=== PATIENT | female | born 2000 | race Caucasian/White ===

== ENCOUNTER 2024-11-26 04:07 | Emergency (ER) | payer MEDICAID, SELFPAY ==
--- NOTE | 2024-11-26 04:16 | XR_ITS ---
PROCEDURE INFORMATION: Exam: XR Chest Exam date and time: 11/26/2024 4:56 AM Age: 24 years old Clinical indication: Other: Bloody sputum; Additional info: Blood streatked sputum TECHNIQUE: Imaging protocol: Radiologic exam of the chest. Views: 2 views. COMPARISON: No relevant prior studies available. FINDINGS: Lungs: Unremarkable. No consolidation. Pleural spaces: Unremarkable. No pleural effusion. No pneumothorax. Heart/Mediastinum: Unremarkable. No cardiomegaly. Bones/joints: Unremarkable. IMPRESSION: No acute findings.
[2024-11-26 04:17] VITALS: BP 179/119; PULSE 92; RESP 18; TEMP 36.8; O2SAT 97; BMI 27.8
[2024-11-26 04:37] LABS: Basophils # 0.1 K/mm3 (0-0.2); Basophils % 0.4 % (0.1-2.0); Eosinophils # 0.1 K/mm3 (0.0-0.4); Eosinophils % 0.7 % (0.1-12.0); Hematocrit 38.5 % (37.0-47.0); Hemoglobin 13.3 g/dL (12.2-16.2); Lymphocytes # 4.6 K/mm3 (0.7-4.5); Lymphocytes % 40.9 % (10-50); Mean Corpuscular HGB Conc 34.5 g/dL (31.8-35.4); Mean Corpuscular Hemoglobin 30.3 pg (27.0-31.2); Mean Corpuscular Volume 87.7 fl (81-99); Mean Platelet Volume 10.4 fl (7.4-10.4); Monocytes # 0.7 K/mm3 (0.1-1.0); Monocytes % 6.3 % (1.7-9.3); Neutrophils # 5.8 K/mm3 (1.8-7.8); Neutrophils % 51.4 % (37.0-80.0); Nucleated Red Blood Cells # 0 10^3/uL; Nucleated Red Blood Cells % 0 %; Platelet Count 274 K/mm3 (142-424); Red Blood Count 4.39 M/mm3 (4.20-5.40); Red Cell Distribution Width 12.2 % (11.5-17.5); Red Cell Distribution Width-SD 39.1 fL; White Blood Count 11.2 K/mm3 (4.8-10.8)
[2024-11-26 04:53] LABS: HCG Qualitative, Serum Negative (Negative)
[2024-11-26 04:54] LABS: Alanine Aminotransferase 18 U/L (12-78); Albumin Level 4.4 g/dl (3.5-5.0); Albumin/Globulin Ratio 1.3 (1.1-1.8); Alkaline Phosphatase 50 U/L (38-126); Anion Gap 16.3 mEq/L (5-15); Aspartate Amino Transferase 22 U/L (14-36); Bilirubin,Total 0.4 mg/dl (0.2-1.3); Blood Urea Nitrogen 17 mg/dl (7-17); Calcium 9.3 mg/dl (8.4-10.2); Carbon Dioxide 21 mmol/L (22.0-30.0); Chloride 104 mmol/L (98-107); Creatinine Clearance Estimated 158 mL/min (50-200); Estimated Glomerular Filt Rate 103 ml/min (>60); GFR (African American) 124 ML/MIN (>60); Globulin 3.3 g/dL (1.3-3.2); Glucose 91 mg/dl (74-100); Potassium 4.3 mmoL/L (3.5-5.1); Sodium 137 mmol/L (136-145); Total Protein,Serum 7.7 g/dl (6.3-8.2)
--- NOTE | 2024-11-26 04:55 | ED_ITS ---
Discharge Plan Disposition Patient Disposition: Home, Self-Care Condition: Good Prescriptions Prescriptions: New doxycycline hyclate 100 mg capsule 100 mg PO BID 5 Days Qty: 9 0RF Referrals Follow up/Referrals: Ana Adams [Primary Care Provider] - See instructions Lamar Wright MD [Physician] - See instructions (Patient has had 2 unprovoked episodes of small-volume hemoptysis. She has tiny changes in the bibasilar lungs without associated symptoms of pneumonia, or history of aspiration. No evidence of bronchitis, PE, or other causes. I am suspicious for other anatomic abnormality requiring further workup. ) Activity Restrictions/Add. Instructions Additional Instructions/Restrictions: You were evaluated in the ER and are appropriate for discharge at this time. Take the prescribed doxycycline as directed, do not skip doses, do not stop taking it early. Make an appointment with your primary care doctor for reevaluation in a few days. Also call the pulmonology office to schedule an appointment for further evaluation. Return to the ER with new, worsening, or otherwise concerning symptoms. Clinical Impressions Clinical Impression: Cough with hemoptysis Discharge ED Provider: Miki Palacios General Adult HPI General Chief complaint: Upper Respiratory Infection Stated complaint: coughing up blood Time Seen by Provider: 11/26/24 04:15 Mode of Arrival: Ambulatory Source of Information: Patient Description of Symptoms (Recalled from ER Triage Doc. by RN): PT HERE W C/O COUGHING UP BLOOD TINGED SPUTUM AROUND 0300 THIS AM. DENIES PAIN/FEVER/SOA History of Present Illness HPI narrative: 24-year-old female presents to the ER coughing up blood-straight sputum started approximately 1 hour prior to arrival. Patient reports she felt like she had a tickle in her throat when she went to bed and when she coughed, it was blood- streaked sputum. This has only been a small amount. She is not coughing up marty blood or blood clots. She has no chest pain or difficulty breathing. She does not have any history of blood clots, does not take control, no recent long distance travel. She denies recent illness. She states she has had random episodes like this in the past and was told by her PCP she may have busted a capillary coughing. She denies any other associated symptoms. Related Data Previous Rx's ?Medication ?Instructions ?Recorded doxycycline hyclate 100 mg capsule 100 mg PO BID 5 days #9 caps 11/26/24 Allergies Allergy/AdvReac Type Severity Reaction Status Date / Time amoxicillin Allergy Unknown Verified 11/26/24 04:21 allergy reaction [facility] Disclaimer: The information contained in this section may have been updated after the patient was seen, as this information can be updated by other users. Social History Smoking Status: Current every day smoker alcohol intake: never current occupational status: other Travel in the last 8 weeks: None ROS Obtained: Yes Systems reviewed as appropriate & no additional complaints except as documented per HPI Physical Exam General General appearance: alert and in no apparent distress Head Head exam: atraumatic and normocephalic Eye Eye exam: Present PERRL and EOMI ENT ENT exam: Present mucous membranes moist Neck Neck exam: Present normal inspection and full ROM Chest Chest inspection: Present symmetric chest wall rise Respiratory Respiratory exam: Present normal lung sounds bilaterally and other (Is clear bilaterally with good air movement throughout saturating 97 to 100% on room air with no adventitious sounds, no coughing); Absent respiratory distress, wheezes or stridor Cardiovascular Cardiovascular exam: Present regular rate and normal rhythm Abdominal Exam Abdominal exam: Present soft; Absent distention or tenderness Extremities Exam Extremities exam: Present full ROM; Absent edema Neurological Exam Neurological exam: Present alert and oriented X3; Absent motor sensory deficit Psychiatric Psychiatric exam: Present normal affect and normal mood Skin Skin exam: Present warm and dry Medical Decision Making Medical Records Screening: Per USPSTF and CDC recommendations, given the prevalence of disease in our region, it is our hospital?s policy to screen for HIV and viral Hepatitis for all patients aged 18 and over and those with ongoing risk factors. Lucio Inquiry Pt receiving controlled substance: No Vital Signs: 11/26/24 04:17 Temperature 98.3 F Temperature Source Oral Pulse Rate [Apical] 92 H Respiratory Rate 18 Blood Pressure [Right Arm] 179/119 H Blood Pressure Mean [Right Arm] 139 02 Sat by Pulse Oximetry 97 Oxygen Delivery Method Room Air Lab Data Lab Results 11/26/24 04:31: WBC 11.2 H, RBC 4.39, Hgb 13.3, Hct 38.5, MCV 87.7, MCH 30.3, MCHC 34.5, RDW 12.2, Plt Count 274, MPV 10.4, Neut % (Auto) 51.4, Lymph % (Auto) 40.9, [place] % (Auto) 6.3, Eos % (Auto) 0.7, Baso % (Auto) 0.4, Neut # (Auto) 5.8, Lymph # (Auto) 4.6 H, [place] # (Auto) 0.7, Eos # (Auto) 0.1, Baso # (Auto) 0.1, D- Dimer 0.71 H, Sodium 137, Potassium 4.3, Chloride 104, Carbon Dioxide 21 L, A nion Gap 16.3 H, BUN 17, Creatinine 0.70, Estimated Creat Clear 158, Estimated GFR 103, Est GFR ( Amer) 124, Glucose 91, Calcium 9.3, Total Bilirubin 0.4, AST 22, ALT 18, Alkaline Phosphatase 50, Total Protein 7.7, Albumin 4.4, G lobulin 3.3 H, Albumin/Globulin Ratio 1.3, Serum HCG, Qual Negative 11/26/24 04:31 11/26/24 04:31 Orders (Tests/Meds): ED MEDICATIONS Discontinued Medications Generic Name Dose Route Start Last Admin Trade Name Geoffreyq PRN Reason Stop Dose Admin Doxycycline Hyclate 100 mg 11/26/24 06:08 Doxycycline Hycl 100 Mg Tablet PO 11/26/24 06:09 ONCE ONE Iopamidol 70 ml 11/26/24 05:36 11/26/24 05:37 Iopamidol-370 (76%);100ml Bottle IV 11/26/24 05:37 70 ml ONCE ONE Administration Sodium Chloride 50 ml 11/26/24 05:36 11/26/24 05:37 0.9 % Sodium Chloride 50 Ml Vial IV 11/26/24 05:37 50 ml ONCE ONE Administration Sodium Chloride 10 ml 11/26/24 05:36 11/26/24 05:37 Sodium Chloride 0.9% 10ml Syr (Rad Only) IV 11/26/24 05:37 10 ml ONCE ONE Administration ORDERS Category Date Time Status CT angio chest PE protocol Stat Cat Scan 11/26/24 05:16 Completed CXR 2 view (NOT portable) [XR chest 2V] Stat Exams 11/26/24 04:16 Completed CBC w/Auto Diff [Complete Blood Count Auto Diff] Stat Lab 11/26/24 04:31 Completed CMP [Comprehensive Metabolic Panel] Stat Lab 11/26/24 04:31 Completed D-Dimer Stat Lab 11/26/24 04:31 Completed HCG Qualitative, Serum Stat Lab 11/26/24 04:31 Completed Medical Decision Narrative: In summary, this 24-year-old female presents to the emergency department today with 1 episode of coughing up blood-streaked sputum. On initial evaluation patient is hemodynamically stable, afebrile, lungs clear bilaterally with no adventitious sounds, saturating well on room air. Patient does not have marty hemoptysis which is very reassuring against something serious like diffuse alveolar hemorrhage, I also have much lower suspicion for PE, I considered bronchitis, viral syndrome, I considered aspirated foreign body but patient has no history or clinical findings consistent with this. She also has no history of or clinical findings consistent with heart failure, no social history concerning for TB exposure, patient reports she does not smoke but does vape which could cause damage to the lungs. She has no known bronchiectasis or other lung pathology. Chest x-ray personally interpreted does not demonstrate acute intrathoracic abnormality, see radiology read for final interpretation. Labs reviewed demonstrate trace leukocytosis which is nonspecific and nonactionable, no anemia, CMP nonactionable, test negative, D-dimer slightly elevated at 0.71. By years criteria I could exclude PE but I do not have another explanation for patient's blood-streaked sputum at this time. I am also concerned with her history of vaping and history of having an episode like this 1 month ago that she could potentially have a structural abnormality or lung lesion not visualized on chest x-ray. CTA PE has been ordered for further evaluation for PE as well as to evaluate the lung parenchyma for abnormalities such as mass, vascular malformation, cavitary lesion, etc. CTAP personally interpreted does not demonstrate PE, patient has 2 small areas of abnormality in the bibasilar lungs, possibly atelectasis, or infiltrate, however the 1 lesion appears to have a very small cavitary component. No evidence of abscess. See radiology read for final interpretation. Radiology read in agreement with my personal interpretation of the CTA PE. Since patient does have these findings as well as a mild leukocytosis, I am going to treat with antibiotics though I do have fairly low suspicion for this being a true infectious etiology. Because patient has had 2 episodes like this in the last month with unprovoked hemoptysis without other obvious associated symptoms or illness, I recommended her to have close outpatient follow-up with both her PCP and with pulmonology. I provided a referral to Dr. Wright for this purpose for further evaluation. Patient is comfortable with this plan. She was also prescribed antibiotics for outpatient management. Patient was given instructions on symptomatic management, follow up instructions, and return precautions for the emergency department. Patient indicated understanding and was discharged in stable condition. Critical Care Critical Care Time Critical Care Time: No
[2024-11-26 04:58] LABS: D-Dimer 0.71 ug/mL (0.0-0.5)
--- NOTE | 2024-11-26 05:16 | CT_ITS ---
PROCEDURE INFORMATION: Exam: CTA Chest With Contrast Exam date and time: 11/26/2024 5:30 AM Age: 24 years old Clinical indication: Other: Bloody sputum; Additional info: Dimer elevated, blood streaked sputum, vapes TECHNIQUE: Imaging protocol: Computed tomographic angiography of the chest with contrast. Exam focused on the arteries. 3D rendering (Not supervised by radiologist): MIP and/or 3D reconstructed images were created by the technologist. Radiation optimization: All CT scans at this facility use at least one of these dose optimization techniques: automated exposure control; mA and/or kV adjustment per patient size (includes targeted exams where dose is matched to clinical indication); or iterative reconstruction. Contrast material: ISOVUE; Contrast volume: 70 ml; Contrast route: INTRAVENOUS (IV); COMPARISON: CR XR CHEST 2V 11/26/2024 4:56 AM FINDINGS: Pulmonary arteries: Normal. No pulmonary emboli. Aorta: Unremarkable. No aortic aneurysm. No aortic dissection. Lungs: There is a small area of airspace disease seen medially in the left lower lobe. This could represent an area of early infiltrate. A small amount of subtle airspace disease is also seen centrally in the right lower lobe.. No consolidation. No masses. Pleural spaces: Unremarkable. No pneumothorax. No pleural effusion. Heart: No coronary calcification is noted. . No cardiomegaly. No pericardial effusion. Lymph nodes: Unremarkable. No enlarged lymph nodes. Bones/joints: Unremarkable. No acute fracture. Soft tissues: Unremarkable. IMPRESSION: 1. No evidence of pulmonary embolus. 2. Subtle bibasilar airspace opacities may represent aspiration or early infiltrate.
[2024-11-26] MEDS: IOPAMIDOL-370 (76%);100ML BOTTLE 70 ML IV (05:37)
[2024-11-26] MEDS: 0.9 % SODIUM CHLORIDE 50 ML VIAL IV (05:37)
[2024-11-26] MEDS: SODIUM CHLORIDE 0.9% 10ML SYR (RAD ONLY) 10 ML IV (05:37)
[2024-11-26] MEDS: DOXYCYCLINE HYCL 100 MG TABLET PO (06:19)
[2024-11-26 06:24] VITALS: BP 115/79; PULSE 80; RESP 18; TEMP 36.6; O2SAT 99
== END 2024-11-26 06:25 | disposition home or self-care (01) ==
LOC: ER 06:23
PROVIDERS: Emergency Provider Emergency Medicine; PCP Nurse Practitioner Women's Health
DX: R04.2 Hemoptysis (principal)
CPT/HCPCS: 71046; 71275; 80053; 84703; 85025; 85378; 99284; Q9967

== ENCOUNTER 2024-12-23 01:34 | Emergency (ER) | payer MEDICAID, SELFPAY ==
[2024-12-23] VITALS (8 sets, daily range): BP systolic 111–147; BP diastolic 65–95; PULSE 68–95; RESP 15–20; TEMP 36.6; O2SAT 96–100; BMI 28.1
--- NOTE | 2024-12-23 01:40 | ECG_ITS ---
APPROVED REPORT Exam: Resting ECG HR:86 bpm ECG Measurements Heart Rate 86 AXES UT 113 P 40 QRSd 89 QRS 70 QT 348 T 46 QTc 392 Conclusion SINUS RHYTHM WITH SINUS ARRHYTHMIA WITH SHORT UT INTERVAL No delta wave, no WPW, no STEMI Electronically signed by : ADRIANA FITZGERALD, 12/24/2024 03:22:50
--- NOTE | 2024-12-23 01:46 | XR_ITS ---
PROCEDURE INFORMATION: Exam: XR Chest Exam date and time: 12/23/2024 2:05 AM Age: 24 years old Clinical indication: Pain; Chest pressure; Additional info: Chest pain TECHNIQUE: Imaging protocol: Radiologic exam of the chest. Views: 2 views. COMPARISON: CT ANGIO CHEST PE PROTOCOL 11/26/2024 5:30 AM FINDINGS: Lungs: Unremarkable. No consolidation. Pleural spaces: Unremarkable. No pleural effusion. No pneumothorax. Heart/Mediastinum: Unremarkable. No cardiomegaly. Vasculature: Unremarkable. Bones/joints: Unremarkable. IMPRESSION: No acute findings.
[2024-12-23] MEDS: ASPIRIN 81MG CHEWABLE TABLET 324 MG PO (01:56)
[2024-12-23 02:06] LABS: HCG Qualitative, Serum Negative (Negative)
[2024-12-23 02:07] LABS: Basophils # 0.1 K/mm3 (0-0.2); Basophils % 0.5 % (0.1-2.0); Eosinophils % 0.2 % (0.1-12.0); Hemoglobin 14.2 g/dL (12.2-16.2); Immature Granulocytes # 0.03 10^3uL; Immature Granulocytes % 0.2 %; Lymphocytes # 3.2 K/mm3 (0.7-4.5); Lymphocytes % 24.6 % (10-50); Mean Corpuscular Hemoglobin 29.8 pg (27.0-31.2); Mean Corpuscular Volume 90.3 fl (81-99); Monocytes # 0.9 K/mm3 (0.1-1.0); Monocytes % 6.6 % (1.7-9.3); Neutrophils # 8.8 K/mm3 (1.8-7.8); Neutrophils % 67.9 % (37.0-80.0); Nucleated Red Blood Cells # 0 10^3/uL; Nucleated Red Blood Cells % 0 %; Platelet Count 152 K/mm3 (142-424); Red Blood Count 4.76 M/mm3 (4.20-5.40); Red Cell Distribution Width 12.7 % (11.5-17.5); Red Cell Distribution Width-SD 41.9 fL; White Blood Count 12.9 K/mm3 (4.8-10.8)
[2024-12-23 02:08] LABS: Albumin Level 4.2 g/dl (3.5-5.0); Chloride 108 mmol/L (98-107); Sodium 138 mmol/L (136-145)
[2024-12-23 02:09] LABS: Potassium 4.6 mmoL/L (3.5-5.1)
[2024-12-23 02:11] LABS: Alanine Aminotransferase 21 U/L (12-78); Anion Gap 11.6 mEq/L (5-15); Aspartate Amino Transferase 19 U/L (14-36); Blood Urea Nitrogen 16 mg/dl (7-17); Carbon Dioxide 23 mmol/L (22.0-30.0); Creatinine Clearance Estimated 186 mL/min (50-200); Estimated Glomerular Filt Rate 123 ml/min (>60); GFR (African American) 149 ML/MIN (>60)
[2024-12-23 02:12] LABS: Albumin/Globulin Ratio 1.6 (1.1-1.8); Alkaline Phosphatase 56 U/L (38-126); Bilirubin,Total 0.2 mg/dl (0.2-1.3); Calcium 9.9 mg/dl (8.4-10.2); Globulin 2.6 g/dL (1.3-3.2); Glucose 116 mg/dl (74-100); Total Protein,Serum 6.8 g/dl (6.3-8.2)
--- NOTE | 2024-12-23 02:18 | [facility].EDCP ---
Discharge Plan Disposition Patient Disposition: Home, Self-Care Condition: Good Prescriptions Prescriptions: No Action doxycycline hyclate 100 mg capsule 100 mg PO BID 5 Days Qty: 9 0RF Referrals Follow up/Referrals: Kai Mathews MD [Staff Physician] - See instructions (Random episodes of chest pain, no arrhythmia identified in ER, reassuring ER workup, but may benefit from Holter) Provider,Eugene, [Primary Care Provider] - See instructions Activity Restrictions/Add. Instructions Additional Instructions/Restrictions: You were evaluated in the ER and are believed to be appropriate for discharge at this time. Continue all home medications as previously prescribed. Call the cardiology office and make an appointment for close follow-up. Also follow-up closely in the next few days with your primary care doctor. Return to the ER with any new, worsening, or otherwise concerning symptoms. Clinical Impressions Clinical Impression: Chest pain Print Language Print Language: German Discharge ED Provider: Miki Palacios General Chief Complaint: Chest Pain Stated Complaint: chest tightness, trouble breathing Time Seen by Provider: 12/23/24 01:45 Mode of Arrival: Ambulatory Source of Information: Patient Description of Symptoms (Recalled from ER Triage Doc. by RN): Patient states she was sitting not doing anything and got dizzy/light headed and then started having tightness in the middle of her chest and back History of Present Illness HPI narrative: 24-year-old female presents to the ER with concerns of lightheadedness and chest tightness. She reports this started approximately 30 minutes prior to arrival. Her symptoms only lasted approximately 20 to 30 minutes and were improving by the time she arrived in the ER. She reports being asymptomatic at this time. She states she has had multiple episodes like this over the last month. She reports she stopped vaping after she started coughing up blood one month ago. Since stopping her hemoptysis has resolved completely. She has seen lung doctors and has been reassured that her lungs overall look good but she is newly on Symbicort and albuterol. She has also been on steroids. She states she occasionally gets episodes randomly where she feels lightheaded and has tightness in her chest and back. She has not been specifically evaluated for these until tonight. She denies nausea or vomiting. No numbness, tingling, or weakness. She states she took her albuterol tonight before the chest symptoms started and also took it after without significant relief. She and her family suspect it may be anxiety related as patient has been under additional stress and is worried about an upcoming dentist appointment. No other associated complaints or concerns at this time. Related Data Previous Rx's ?Medication ?Instructions ?Recorded doxycycline hyclate 100 mg capsule 100 mg PO BID 5 days #9 caps 11/26/24 Allergies Allergy/AdvReac Type Severity Reaction Status Date / Time amoxicillin Allergy Unknown Verified 11/26/24 04:21 allergy reaction [facility] Disclaimer: The information contained in this section may have been updated after the patient was seen, as this information can be updated by other users. Social History (Updated 11/26/24 @ 06:20 by Miki Palacios MD) Smoking Status: Former smoker alcohol intake: never current occupational status: other Travel in the last 8 weeks?: None ROS Obtained: Yes Systems reviewed as appropriate & no additional complaints except as documented Per HPI Physical Exam General General appearance: alert and in no apparent distress Head Head exam: atraumatic and normocephalic Eye Eye exam: Present PERRL and EOMI ENT ENT exam: Present mucous membranes moist Neck Neck exam: Present normal inspection and full ROM Chest Chest inspection: Present symmetric chest wall rise Respiratory Respiratory exam: Present normal lung sounds bilaterally; Absent respiratory distress, wheezes or stridor Cardiovascular Cardiovascular exam: Present regular rate and normal rhythm Abdominal Exam Abdominal exam: Present soft; Absent distention or tenderness Extremities Exam Extremities exam: Present full ROM Neurological Exam Neurological exam: Present alert and oriented X3; Absent motor sensory deficit Psychiatric Psychiatric exam: Present normal affect and normal mood Skin Skin exam: Present warm and dry HEART Score HEART Score HEART Score assessment performed?: Yes History (anamnesis): Slightly suspicious ECG: Normal Age: <45 years Risk factors: 1-2 risk factors Troponin: </= normal limit HEART Score: 1 Critical Care Critical Care Time Critical Care Time: No Medical Decision Making Medical Records Medical records reviewed: Yes I reviewed the patient's medical records. Lucio Inquiry Pt receiving controlled substance: No Vital Signs Vital Signs: 12/23/24 01:39 12/23/24 02:30 12/23/24 03:00 Temperature 97.9 F Temperature Source Oral Pulse Rate 79 Pulse Rate [Right Radial] 94 H Respiratory Rate 16 15 19 Blood Pressure 118/75 111/69 Blood Pressure [Right Arm] 147/95 H Blood Pressure Mean [Right Arm] 112 Blood Pressure Source [Right Arm] Automatic Cuff Blood Pressure Position [Right Arm] Supine 02 Sat by Pulse Oximetry 100 96 Oxygen Delivery Method Room Air 12/23/24 03:30 12/23/24 04:00 12/23/24 04:30 Temperature Temperature Source Pulse Rate 76 78 95 H Pulse Rate [Right Radial] Respiratory Rate 15 15 20 Blood Pressure 118/65 121/78 137/75 Blood Pressure [Right Arm] Blood Pressure Mean [Right Arm] Blood Pressure Source [Right Arm] Blood Pressure Position [Right Arm] 02 Sat by Pulse Oximetry 97 97 96 Oxygen Delivery Method 12/23/24 05:00 Temperature Temperature Source Pulse Rate 80 Pulse Rate [Right Radial] Respiratory Rate 17 Blood Pressure 114/74 Blood Pressure [Right Arm] Blood Pressure Mean [Right Arm] Blood Pressure Source [Right Arm] Blood Pressure Position [Right Arm] 02 Sat by Pulse Oximetry 97 Oxygen Delivery Method Lab Data Labs: Lab Results 12/23/24 01:45: WBC 12.9 H, RBC 4.76, Hgb 14.2, Hct 43.0, MCV 90.3, MCH 29.8, MCHC 33.0, RDW 12.7, Plt Count 152, MPV 12.0 H, Neut % (Auto) 67.9, Lymph % (Auto) 24.6, [place] % (Auto) 6.6, Eos % (Auto) 0.2, Baso % (Auto) 0.5, Neut # (Auto) 8.8 H, Lymph # (Auto) 3.2, [place] # (Auto) 0.9, Eos # (Auto) 0.0, Baso # (Auto) 0.1, Sodium 138, Potassium 4.6, Chloride 108 H, Carbon Dioxide 23, Anion Gap 11.6, BUN 16, Creatinine 0.60, Estimated Creat Clear 186, Estimated GFR 123, Est GFR ( Amer) 149, Glucose 116 H, Calcium 9.9, Total Bilirubin 0.2, AST 19, ALT 21, Alkaline Phosphatase 56, Troponin I < 0.01, Total Protein 6.8, Albumin 4.2, Globulin 2.6, Albumin/Globulin Ratio 1.6, Serum HCG, Qual Negative, HCV Ab GISELA w/Rflx PCR Qn Negative, HIV Ag/Ab Combo Qual Negative 12/23/24 02:46: VBG pH 7.37, VBG pCO2 38.0, VBG pO2 48.8 H, VBG HCO3 21.4 L, VBG Total CO2 22.5 L, VBG O2 Saturation 84.5 H, VBG Base Excess -3.9 L, VBG Lactic Acid 2.4 H 12/23/24 04:33: Troponin I < 0.01 12/23/24 01:45 12/23/24 01:45 Response Orders (Tests/Meds): ED MEDICATIONS Discontinued Medications Generic Name Dose Route Start Last Admin Trade Name Arie PRN Reason Stop Dose Admin Aspirin 324 mg 12/23/24 01:45 12/23/24 01:56 Aspirin 81mg Chewable Tablet PO 12/23/24 01:46 324 mg ONCE ONE Administration Belladonna Alkaloids 60 ml 12/23/24 01:45 12/23/24 01:58 Belladonna Alkaloids 60 Ml Ml PO 12/23/24 01:46 Not Given ONCE ONE ORDERS Category Date Time Status XR chest 2V Stat Exams 12/23/24 01:46 Completed Complete Blood Count Auto Diff Stat Lab 12/23/24 01:45 Completed Comprehensive Metabolic Panel Stat Lab 12/23/24 01:45 Completed HCG Qualitative, Serum Stat Lab 12/23/24 01:45 Completed HIV Combo Stat Lab 12/23/24 01:45 Completed Hepatitis C Ab Qual. W/ RFX Stat Lab 12/23/24 01:45 Completed Troponin I Q3H Lab 12/23/24 04:33 Completed Troponin I Q3H Lab 12/23/24 08:00 Ordered Troponin I Stat Lab 12/23/24 01:45 Completed VBG [Venous Blood Gas] Stat RT 12/23/24 02:46 Completed MDM Narrative Medical Decision Narrative: In summary, this 24-year-old female with social determinants of health including a history of vaping who recently stopped presents to the emergency department today with chest tightness and dizziness that started unprovoked but spontaneously resolved. On initial evaluation patient is hemodynamically stable, afebrile, asymptomatic, cardiopulmonary exam benign, remainder of exam reassuring. Differential diagnosis includes but is not limited to ACS, arrhythmia, esophageal spasm, pneumothorax, anxiety, panic attack, electrolyte abnormality, I considered the possibility of PE but patient is PERC negative, among others. Based on these concerns, I ordered serum labs, chest x-ray, cardiac workup. ECG personally interpreted demonstrates sinus rhythm, rate 86, normal axis, normal NV and QTc, no STEMI. Patient received aspirin for treatment due to its cardioprotective features though I do have lower suspicion for cardiac etiology. I had also ordered GI cocktail for the patient but she declined this. Labs personally reviewed demonstrate mild leukocytosis WBC 12.9 nonspecific and nonactionable, hemoglobin normal at 14.2, CMP nonactionable, initial troponin undetectably low less than 0.01. VBG with normal pH and PCO2. VBG not specifically actionable. No evidence of asthma exacerbation. XR personally interpreted demonstrates no acute intrathoracic abnormality, see radiology read for final interpretation. Patient was placed into ED observation at 0230 for serial troponins to rule out evolving MA and preclude unnecessary admission. Patient continues to be on the cardiac catheterization technician and has been frequently reassessed. She remains asymptomatic. Repeat troponin also undetectably low less than 0.01. In the setting of undetectable serial troponins, very low heart score, reassuring EKG, and absence of symptoms, I believe patient is appropriate for discharge at this time. I did provide referral to cardiology for further outpatient follow-up. Patient is comfortable with this plan. Patient was given instructions on symptomatic monitoring and management, follow up instructions, and return precautions for the emergency department. Patient indicated understanding and was discharged in stable condition. I had [id number] visit with the patient when providing discharge instructions. Total time involved discharging the patient was less than 30 minutes. Total time in ED observation: 2 hours 54 minutes
[2024-12-23 02:32] LABS: Troponin I < 0.01 ng/ml (0.00-0.034)
[2024-12-23 02:53] LABS: HIV Combo NEGATIVE (Negative)
[2024-12-23 02:57] LABS: Lactate Venous 2.4 mmol/L (0.4-2.0); VBG Base Excess -3.9 mmol/L (-2.4-2.3); VBG HCO3 21.4 mmol/L (23-30); VBG Oxygen Saturation 84.5 % (50-70); VBG PH 7.37 mmol/L (7.31-7.41); VBG PO2 48.8 mmol/L (28-40); VBG Total CO2 22.5 mmol/L (23-27)
[2024-12-23 03:01] LABS: Hepatitis C Ab Qual. W/ RFX NEGATIVE (Negative)
[2024-12-23 05:21] LABS: Troponin I < 0.01 ng/ml (0.00-0.034)
== END 2024-12-23 05:28 | disposition home or self-care (01) ==
PROVIDERS: Emergency Provider Emergency Medicine
DX: R07.89 Other chest pain (principal); R42 Dizziness and giddiness; Z87.891 Personal history of nicotine dependence; Z11.59 Encounter for screening for other viral diseases; Z11.4 Encounter for screening for human immunodeficiency virus [HIV]
CPT/HCPCS: 71046; 80053; 82803; 84484; 84703; 85025; 86803; 87389; 93005; 99285

== ENCOUNTER 2025-01-07 11:06 | Outpatient (CLI) | payer MEDICAID, SELFPAY ==
[2025-01-07 12:44] LABS: Albumin Level 4.6 g/dl (3.5-5.0)
[2025-01-07 12:47] LABS: Alanine Aminotransferase 20 U/L (12-78); Alkaline Phosphatase 71 U/L (38-126); Aspartate Amino Transferase 21 U/L (14-36); Bilirubin,Direct 0.1 mg/dl (0.0-0.4); Bilirubin,Indirect 0.3 mg/dL (0.0-0.9); Bilirubin,Total 0.4 mg/dl (0.2-1.3); Bilirubin,Unconjugated 0.3 mg/dL (0.0-1.1); Chol/HDL Ratio 6.5 (1-3.5); Cholesterol 268 mg/dl (140-200); HDL Cholesterol 41 mg/dl (40-60); Total Protein,Serum 7.4 g/dl (6.3-8.2); Triglycerides 264 mg/dl (30-150); VLDL Cholesterol 53 mg/dL (0-40)
[2025-01-07 12:49] LABS: Hemoglobin A1C 5.1 % (4.0-6.0)
[2025-01-07 12:59] LABS: Direct LDL Cholesterol 172.99 mg/dL (100-129)
[2025-01-07 13:04] LABS: Free T4 (Free Thyroxine) 1.02 ng/dl (0.78-2.19)
[2025-01-07 13:17] LABS: Thyroid Stimulating Hormone 2.54 uIU/mL (0.465-4.68)
== END 2025-01-07 23:59 | disposition home or self-care (01) ==
LOC: LAB 11:06
PROVIDERS: PCP Nurse Practitioner Women's Health; Visit Provider Nurse Practitioner
DX: R93.1 Abnormal findings on diagnostic imaging of heart and coronary circulation (principal); R07.9 Chest pain, unspecified
CPT/HCPCS: 36415; 80061; 80076; 83036; 84439; 84443

== ENCOUNTER 2025-02-05 12:59 | Emergency (ER) | payer MEDICAID, SELFPAY ==
[2025-02-05 13:04] VITALS: BP 141/89; PULSE 77; RESP 17; O2SAT 100
[2025-02-05 13:07] VITALS: BP 141/89; PULSE 84; RESP 17; TEMP 36.6; O2SAT 100; BMI 26.6
--- NOTE | 2025-02-05 13:08 | CT_ITS ---
FINAL REPORT TECHNIQUE: Oral and IV contrast enhanced exam. Coronal and sagittal images were obtained and reviewed. This study was performed with techniques to keep radiation doses as low as reasonably achievable, (ALARA). Individualized dose reduction techniques using automated exposure control or adjustment of mA and/or kV according to the patient''s size were employed. CLINICAL HISTORY: Right sided ABD pain/flank pain history of stones COMPARISON: None FINDINGS: Abdomen: No acute density is seen within the lung bases. The gallbladder is unremarkable. There is moderate right hydronephrosis secondary to a proximal right ureteral stone measuring 3 mm. No left renal stone disease seen. The remaining solid abdominal organs are unremarkable. No bowel obstruction is present. There is no free air. No fluid collection is seen. There is no adenopathy. Pelvis: The appendix is normal. Pelvic bowel loops are unremarkable. The uterus and ovaries are unremarkable. There is no free fluid. No pelvic mass is seen. IMPRESSION: 3 mm proximal right ureteral stone with moderate right hydronephrosis. Reviewed, Interpreted and Dictated by Judy Cordova MD Transcribed by Marianna Pan Authenticated and [facility]
--- NOTE | 2025-02-05 13:10 | ED_ITS ---
Discharge Plan Disposition Patient Disposition: Home, Self-Care Condition: Good Prescriptions Prescriptions: New hydrocodone-acetaminophen 5-325 mg tablet 1 tab PO Q8H PRN (Reason: pain (scale score 7-10)) Qty: 9 0RF tamsulosin [Flomax] 0.4 mg capsule 0.4 mg PO DAILY Qty: 14 0RF ondansetron 4 mg tablet,disintegrating 4 mg PO Q6H PRN (Reason: nausea and vomiting) Qty: 10 0RF No Action metformin 1,000 mg tablet,ER ramya.retention 24 hr PO Patient Comments: TAKE ONE (1) TABLET EVERY DAY BY ORAL ROUTE FOR 30 DAYS. budesonide-formoterol [Symbicort] 160-4.5 mcg/actuation HFA aerosol inhaler inhalation Patient Comments: INHALE TWO (2) PUFFS BY MOUTH TWICE A DAY rosuvastatin [Crestor] 40 mg tablet 40 mg PO DAILY Qty: 30 2RF Referrals Follow up/Referrals: Ana Adams [Primary Care Provider, Medical] - See instructions Jarek,Xavier Louis MD [Referring, Urology] - See instructions Activity Restrictions/Add. Instructions Additional Instructions/Restrictions: Please utilize 650 mg p.o. Tylenol, and ibuprofen prior to utilizing narcotic medication, please do not take Tylenol and narcotic medication together, please utilize Zofran (antinausea medicine), as needed for nausea, please utilize the Flomax medication once daily until passage of your stone. Strain your urine until passage of your stone. Please follow-up with your PCP and urologist. Clinical Impressions Clinical Impression: Right nephrolithiasis Instructions Patient Instructions: DI for Kidney Stones Print Language Print Language: Pakistani Discharge ED Provider: Arian Koo General Adult HPI <TRACY Paiz - Last Filed: 02/05/25 14:24> General Chief complaint: Abdominal Pain Stated complaint: Abd pain-R side Time Seen by Provider: 02/05/25 13:00 Mode of Arrival: Ambulatory Source of Information: Patient Limitations: No Limitations History of Present Illness HPI narrative: 24-year-old female presents to the emergency department, with a several hour history of nausea vomiting and right-sided lower abdominal pain/flank pain, patient endorses a remote history of what sounds like hematuria last week, she does have a history of kidney stones, one requiring urologic intervention for passage. Patient denies any fever chills chest pain cough congestion sore throat, denies any diarrhea constipation, denies any real urinary symptomatology such as dysuria, does endorse increased urinary frequency, denies any vaginal symptomatology such as irritation discharge vaginal bleeding, last menstrual period was several days ago. Patient has otherwise no other real relevant past medical history, she does take metformin daily at home, however she cannot tell me why, denies any history of diabetes, denies any alcohol tobacco or other drug use. Initial triage vitals are unremarkable. Onset (ago): hour(s) Related Data Home Medications ?Medication ?Instructions ?Recorded ?Confirmed budesonide-formoterol HFA 160 inhalation 01/07/25/05/06 mcg-4.5 mcg/actuation aerosol inhaler (Symbicort) metformin 1,000 mg 24 hr mg PO 01/07/25 01/07/25 tablet,extended release (gastric reten.) Previous Rx's ?Medication ?Instructions ?Recorded rosuvastatin 40 mg tablet (Crestor) 40 mg PO DAILY #30 tabs 01/07/25 hydrocodone 5 mg-acetaminophen 325 1 tab PO Q8H PRN pa in (scale score 02/05/25 mg tablet 7-10) #9 tabs ondansetron 4 mg disintegrating 4 mg PO Q6H PRN nausea and 02/05/25 tablet vomiting #10 tabs tamsulosin 0.4 mg capsule (Flomax) 0.4 mg PO DAILY #14 caps 02/05/25 Allergies Allergy/AdvReac Type Severity Reaction Status Date / Time amoxicillin Allergy Unknown Verified 01/07/25 10:42 allergy reaction [facility] <TRACY Paiz - Last Filed: 02/05/25 14:24> [facility] Disclaimer: The information contained in this section may have been updated after the patient was seen, as this information can be updated by other users. Medical History (Updated 02/05/25 @ 14:23 by TRACY Paiz) Other chest pain Social History Smoking Status: Never smoker alcohol intake: never current occupational status: other Travel in the last 8 weeks?: None Have you lived/traveled outside [place] in past 30 days?: No Contact w/someone who lives/traveled outside US past 30 days?: No Exposure to someone with infectious disease in past 14 days?: No Do you have a fever (greater than 100.4 F or 38 C)?: No Have you tested positive for COVID-19?: No Exposed to someone with COVID-19 in past 14 days?: No Do you have a sore throat?: No Do you have a cough?: No Do you have any weakness?: No Do you have any diarrhea?: No Are you experiencing any unusual bleeding?: No Do you have any muscle aches/pain?: No Do you have any abdominal pain?: Yes Are you experiencing loss of taste or smell?: No <TRACY Paiz - Last Filed: 02/05/25 14:24> ROS Obtained: Yes All systems reviewed & no additional complaints except as documented Physical Exam <TRACY Paiz - Last Filed: 02/05/25 14:24> General General appearance: alert and in no apparent distress Head Head exam: atraumatic and normocephalic Eye Eye exam: Present PERRL and EOMI ENT ENT exam: Present mucous membranes moist Neck Neck exam: Present normal inspection Chest Chest inspection: Present normal inspection and symmetric chest wall rise Respiratory Respiratory exam: Present normal lung sounds bilaterally; Absent respiratory distress Cardiovascular Cardiovascular exam: Present regular rate and normal rhythm Abdominal Exam Abdominal exam: Present soft and tenderness; Absent psoas sign, Rovsing's sign or tenderness at McBurney's Point Abdominal tenderness: Present RLQ, suprapubic and mild Extremities Exam Extremities exam: Present normal inspection Back Exam Back exam: Absent CVA tenderness (R) or CVA tenderness (L) Neurological Exam Neurological exam: Present alert and oriented X3 Psychiatric Psychiatric exam: Present normal affect Skin Skin exam: Present warm and dry Medical Decision Making <TRACY Paiz - Last Filed: 02/05/25 14:24> Medical Records Medical records reviewed: Yes I reviewed the patient's medical records. Screening: Per USPSTF and CDC recommendations, given the prevalence of disease in our region, it is our hospital?s policy to screen for HIV and viral Hepatitis for all patients aged 18 and over and those with ongoing risk factors. Lucio Inquiry Pt receiving controlled substance: No Lucio was queried for this patient: No Vital Signs: 02/05/25 13:04 02/05/25 13:07 02/05/25 13:34 Temperature 98 F Temperature Source Oral Pulse Rate 77 83 Pulse Rate [Right] 84 Respiratory Rate 17 17 Blood Pressure 141/89 H 114/89 Blood Pressure [Left Arm] 141/89 H Blood Pressure Mean 118 Blood Pressure Mean [Left Arm] 106 Blood Pressure Source Blood Pressure Source [Left Arm] Automatic Cuff Blood Pressure Position 02 Sat by Pulse Oximetry 100 100 89 L Oxygen Delivery Method Room Air Room Air 02/05/25 13:45 02/05/25 14:01 02/05/25 14:43 Temperature 98 F Temperature Source Oral Pulse Rate 61 72 72 Pulse Rate [Right] Respiratory Rate 19 16 Blood Pressure 111/68 111/68 Blood Pressure [Left Arm] Blood Pressure Mean 89 Blood Pressure Mean [Left Arm] Blood Pressure Source Automatic Cuff Blood Pressure Source [Left Arm] Blood Pressure Position Sitting 02 Sat by Pulse Oximetry 99 100 Oxygen Delivery Method Room Air Room Air Lab Data Lab results reviewed: Yes I reviewed the patient's lab results. Lab Results 02/05/25 13:04: Urine Color Yellow, Urine Appearance Cloudy, Urine pH 5.5, Ur Specific [place] >= 1.030, Urine Protein 3+ A, Urine Glucose (UA) Negative, Urine Ketones Trace, Urine Blood 3+ A, Urine Nitrate Negative, Urine Bilirubin 1+ A, Urine Urobilinogen 0.2, Ur Leukocyte Esterase Negative, Urine RBC 20-50, Urine WBC Occasional, Ur Squamous Epith Cells 3-5, Urine Bacteria 1+, Urine Yeast 2+, Urine HCG, Qual Negative 02/05/25 13:15: WBC 6.3, RBC 4.88, Hgb 13.9, Hct 42.8, MCV 87.7, MCH 28.5, MCHC 32.5, RDW 12.8, Plt Count 258, MPV 10.5 H, Neut % (Auto) 54.9, Lymph % (Auto) 39.1, Gage % (Auto) 5.2, Eos % (Auto) 0.3, Baso % (Auto) 0.3, Neut # (Auto) 3.5, Lymph # (Auto) 2.5, Gage # (Auto) 0.3, Eos # (Auto) 0.0, Baso # (Auto) 0.0, Sodium 141, Potassium 3.8, Chloride 103, Carbon Dioxide 24, Anion Gap 17.8 H, BUN 11, Creatinine 0.80, Estimated Creat Clear 132, Estimated GFR 88, Est GFR ( Amer) 107, Glucose 115 H, Lactate 1.5, Calcium 9.5, Total Bilirubin 0.4, AST 26, ALT 20, Alkaline Phosphatase 72, Total Protein 8.2, Albumin 5.0, Globulin 3.2, Albumin/Globulin Ratio 1.6, Lipase 146 02/05/25 13:15 02/05/25 13:15 Orders (Tests/Meds): ED MEDICATIONS Discontinued Medications Generic Name Dose Route Start Last Admin Trade Name Freq PRN Reason Stop Dose Admin Iopamidol 75 ml 02/05/25 13:28 02/05/25 13:29 Iopamidol-370 (76%);100ml Bottle IV 02/05/25 13:29 75 ml ONCE ONE Administration Ketorolac Tromethamine 15 mg 02/05/25 13:09 02/05/25 13:19 Ketorolac 30mg/Ml Vial IV 02/05/25 13:10 15 mg ONCE ONE Administration Ondansetron HCl 4 mg 02/05/25 13:10 02/05/25 13:19 Ondansetron 4mg/2ml Vial IV 02/05/25 13:11 4 mg ONCE ONE Administration Oxycodone/Acetaminophen 1 each 02/05/25 14:35 02/05/25 14:42 Oxycodone 5mg W/Apap 325mg Tablet PO 02/05/25 14:36 1 each ONCE ONE Administration Sodium Chloride 10 ml 02/05/25 13:28 02/05/25 13:29 Sodium Chloride 0.9% 10ml Syr (Rad Only) IV 03/07/25 13:27 10 ml NEEDED PRN Administration Maintain IV Site ORDERS Category Date Time Status CT abdomen pelvis w con Stat Cat Scan 02/05/25 13:08 Completed Complete Blood Count Auto Diff Stat Lab 02/05/25 13:15 Completed Comprehensive Metabolic Panel Stat Lab 02/05/25 13:15 Completed Lactic Acid Stat Lab 02/05/25 13:15 Completed Lipase Stat Lab 02/05/25 13:15 Completed Urinalysis and Microscopic Stat Lab 02/05/25 13:04 Completed Urine , HCG Qual. Stat Lab 02/05/25 13:04 Completed Medical Decision Narrative: 24-year-old female presents to the emergency department with right-sided abdominal pain nausea vomiting, urinary frequency, differential diagnosis include but not limited to, acute UTI, acute pyelonephritis, nephrolithiasis, ureterolithiasis, ovarian cyst rupture, appendicitis, diverticulitis, colitis among others. I discussed patient case with attending physician Obtain basic laboratory studies, lactic acid level, lipase level, UA, urine hCG qualitative, CT ab pelvis with contrast, will give 15 mg IV Toradol, and 4 mg IV Zofran. hCG qualitative is negative CBC unremarkable, no leukocytosis UA notable for 3+ hematuria, 3+ proteinuria, trace ketonuria, negative nitrites, 1+ bilirubin, no leukocyte esterase. CMP is grossly unremarkable, no lactic acidosis, lipase within normal limits. I reviewed the patient's CT abdomen pelvis with contrast along the corresponding radiological report, there is a 3 mm proximal right ureteral stone with moderate right hydronephrosis. I discussed the results with the patient and with the bedside, patient has remained hemodynamically stable without her time in the emergency department, patient will need urology follow-up, for 3 mm stone, patient will be discharged home on expectant management, with 4 mg p.o. Zofran ODT, p.o. analgesia per attending physician, as well as 0.4 mg tamsulosin as well as urine strainer, patient was given strict ED return precautions. Patient voiced understanding and agreed with current treatment plan/discharge plan. <Arian Koo MD - Last Filed: 02/05/25 15:49> Vital Signs: 02/05/25 13:04 02/05/25 13:07 02/05/25 13:34 Temperature 98 F Temperature Source Oral Pulse Rate 77 83 Pulse Rate [Right] 84 Respiratory Rate 17 17 Blood Pressure 141/89 H 114/89 Blood Pressure [Left Arm] 141/89 H Blood Pressure Mean 118 Blood Pressure Mean [Left Arm] 106 Blood Pressure Source Blood Pressure Source [Left Arm] Automatic Cuff Blood Pressure Position 02 Sat by Pulse Oximetry 100 100 89 L Oxygen Delivery Method Room Air Room Air 02/05/25 13:45 02/05/25 14:01 02/05/25 14:43 Temperature 98 F Temperature Source Oral Pulse Rate 61 72 72 Pulse Rate [Right] Respiratory Rate 19 16 Blood Pressure 111/68 111/68 Blood Pressure [Left Arm] Blood Pressure Mean 89 Blood Pressure Mean [Left Arm] Blood Pressure Source Automatic Cuff Blood Pressure Source [Left Arm] Blood Pressure Position Sitting 02 Sat by Pulse Oximetry 99 100 Oxygen Delivery Method Room Air Room Air Lab Data Lab Results 02/05/25 13:04: Urine Color Yellow, Urine Appearance Cloudy, Urine pH 5.5, Ur Specific [place] >= 1.030, Urine Protein 3+ A, Urine Glucose (UA) Negative, Urine Ketones Trace, Urine Blood 3+ A, Urine Nitrate Negative, Urine Bilirubin 1+ A, Urine Urobilinogen 0.2, Ur Leukocyte Esterase Negative, Urine RBC 20-50, Urine WBC Occasional, Ur Squamous Epith Cells 3-5, Urine Bacteria 1+, Urine Yeast 2+, Urine HCG, Qual Negative 02/05/25 13:15: WBC 6.3, RBC 4.88, Hgb 13.9, Hct 42.8, MCV 87.7, MCH 28.5, MCHC 32.5, RDW 12.8, Plt Count 258, MPV 10.5 H, Neut % (Auto) 54.9, Lymph % (Auto) 39.1, Gage % (Auto) 5.2, Eos % (Auto) 0.3, Baso % (Auto) 0.3, Neut # (Auto) 3.5, Lymph # (Auto) 2.5, Gage # (Auto) 0.3, Eos # (Auto) 0.0, Baso # (Auto) 0.0, Sodium 141, Potassium 3.8, Chloride 103, Carbon Dioxide 24, Anion Gap 17.8 H, BUN 11, Creatinine 0.80, Estimated Creat Clear 132, Estimated GFR 88, Est GFR ( Amer) 107, Glucose 115 H, Lactate 1.5, Calcium 9.5, Total Bilirubin 0.4, AST 26, ALT 20, Alkaline Phosphatase 72, Total Protein 8.2, Albumin 5.0, Globulin 3.2, Albumin/Globulin Ratio 1.6, Lipase 146 Orders (Tests/Meds): ED MEDICATIONS Discontinued Medications Generic Name Dose Route Start Last Admin Trade Name Freq PRN Reason Stop Dose Admin Iopamidol 75 ml 02/05/25 13:28 02/05/25 13:29 Iopamidol-370 (76%);100ml Bottle IV 02/05/25 13:29 75 ml ONCE ONE Administration Ketorolac Tromethamine 15 mg 02/05/25 13:09 02/05/25 13:19 Ketorolac 30mg/Ml Vial IV 02/05/25 13:10 15 mg ONCE ONE Administration Ondansetron HCl 4 mg 02/05/25 13:10 02/05/25 13:19 Ondansetron 4mg/2ml Vial IV 02/05/25 13:11 4 mg ONCE ONE Administration Oxycodone/Acetaminophen 1 each 02/05/25 14:35 02/05/25 14:42 Oxycodone 5mg W/Apap 325mg Tablet PO 02/05/25 14:36 1 each ONCE ONE Administration Sodium Chloride 10 ml 02/05/25 13:28 02/05/25 13:29 Sodium Chloride 0.9% 10ml Syr (Rad Only) IV 03/07/25 13:27 10 ml NEEDED PRN Administration Maintain IV Site ORDERS Category Date Time Status CT abdomen pelvis w con Stat Cat Scan 02/05/25 13:08 Completed Complete Blood Count Auto Diff Stat Lab 02/05/25 13:15 Completed Comprehensive Metabolic Panel Stat Lab 02/05/25 13:15 Completed Lactic Acid Stat Lab 02/05/25 13:15 Completed Lipase Stat Lab 02/05/25 13:15 Completed Urinalysis and Microscopic Stat Lab 02/05/25 13:04 Completed Urine , HCG Qual. Stat Lab 02/05/25 13:04 Completed Medical Decision Narrative: 24-year-old female presents to the emergency department with right-sided abdominal pain nausea vomiting, urinary frequency, differential diagnosis include but not limited to, acute UTI, acute pyelonephritis, nephrolithiasis, ureterolithiasis, ovarian cyst rupture, appendicitis, diverticulitis, colitis among others. I discussed patient case with attending physician Obtain basic laboratory studies, lactic acid level, lipase level, UA, urine hCG qualitative, CT ab pelvis with contrast, will give 15 mg IV Toradol, and 4 mg IV Zofran. hCG qualitative is negative CBC unremarkable, no leukocytosis UA notable for 3+ hematuria, 3+ proteinuria, trace ketonuria, negative nitrites, 1+ bilirubin, no leukocyte esterase. CMP is grossly unremarkable, no lactic acidosis, lipase within normal limits. I reviewed the patient's CT abdomen pelvis with contrast along the corresponding radiological report, there is a 3 mm proximal right ureteral stone with moderate right hydronephrosis. I discussed the results with the patient and with the bedside, patient has remained hemodynamically stable without her time in the emergency department, patient will need urology follow-up, for 3 mm stone, patient will be discharged home on expectant management, with 4 mg p.o. Zofran ODT, p.o. analgesia per attending physician, as well as 0.4 mg tamsulosin as well as urine strainer, patient was given strict ED return precautions. Patient voiced understanding and agreed with current treatment plan/discharge plan. I was consulted by the BRUNO, and we discussed the complexity of the problems being addressed. I approved the treatment and management plan for this patient's care in the emergency department, thus performing a substantive portion of the medical decision making. Arian Koo MD Critical Care <TRACY Paiz - Last Filed: 02/05/25 14:24> Critical Care Time Critical Care Time: No
[2025-02-05 13:15] LABS: Microscopic, Urine URINE MICROSCOPIC (MICROSCOPIC)
--- OUTSIDE RECORDS SUMMARY | 2025-02-05 13:16 | XMS_ITS | Continuity of Care Document ---
Author Organization [facility], [facility] OFFICE Address [address] [place] [address] Care Team Providers Care Electromechanical Equipment Tester Name Role Phone VIVI RAMYA Primary Care Provider Assessment Encounter Date Assessment Date Assessment LastModified by Organization Details LastModified Time 01/20/2025 01/20/2025 Imaging/Studies Reviewed *CTA Chest (11/26/2024): no evidence of pulmonary embolus; subtle bibasilar airspace opacities may represent aspiration or early infiltrate *CXR (01/18/2025): unremarkable Assessment 1. Hemoptysis 2. RAD *PFT (12/07/2024): no obstruction, no restriction, mildly reduced DLCO/VA, + GERONIMO *FeNO (12/07/2024): 10 3. Seasonal allergies *Respiratory allergy testing panel(): RAST-WNL, IgE:13, EOS:80 TB gold: negative 4. quit vaping since last visit Plan 1. Continue Albuterol HFA prn; discussed indications for use *Rx for Albuterol nebs 2. Discontinued Symbicort; Rx for Pulmicort nebs *Rx for nebulizer sent to [facility] 3. Rx for Benzonatate 4. Rx for Mucinex 600 mg BID 5. Repeat Chest CT in 3 months-next due 02/2025 (ordered and set to release) 6. RTO in 8 weeks [email or web address] Not available 01/21/2025 08:50:12 Plan of Treatment Reminders Order Date Submit Date Provider Last Modified By Organization Details Last Modified Time Details Appointments FOLLOW_UP 2024 10:20A M Joy Gaviria NP Not available Not available Not available Lab None recorded. Referral None recorded. Procedures None recorded. Surgeries None recorded. Imaging None recorded. Medication Orders benzonata te 200 mg capsule [address], [address], 01/20/2025 21:01:18 Mucinex 600 mg tablet, extended release [address], [address], 01/20/2025 21:01:18 Pulmicort 0.5 mg/2 mL suspensio n for nebulizat ion 2024 025 [facility], [address] [place] [address], [id number], 01/20/2025 21:01:17 albuterol sulfate 2.5 mg/3 mL (0.083 %) solution for nebulizat ion 2024 025 [facility], [address] [place] [address], [id number], 01/20/2025 21:01:17 Patient TargetsNo targets recorded. Patient InstructionsNo instructions recorded. Reason for Referral None Reported. Results Created Date Observation Date Name Description Value Unit Range Abnormal Flag Note LastModifiedBy Organization Detail LastModifiedTime 01/19/20 25 01/15/2025 XR, chest , 2 view No observ ation record ed. [email or web address] [facility] [address] [facility] , [place], [address], 01/18/2025 11:48:50 Result Notes None recorded. Problems Name Problem SNOMED Code Status Onset Date Resolution Date Notes Provider Name and Address Organization Details Recorded Time Dyspnea on exertion 69590029 Active 2024 Joy Gaviria NP [address], [place], [address] [place] - [facility] 11:20:20 Hemoptysis 32603744 Active 2024 Joy Gaviria NP [address], [place], [address], [place] - [facility] 5 11:20:54 Mild intermittent asthma 632152468 Active 2024 Joy Gaviria NP [address], [place], [address], [place] [facility] 19:58:05 Cough 26796519 Active 2024 Joy Gaviria NP [address], [place], [address], [facility] 15:19:53 Problem Notes None recorded. Procedures Surgical History Date Name Laterality Status Provider Name and Address Organization Details Recorded Time removal of urinary calculus completed kamar carmona [place] - [facility] 12/07/2024 10:39:20 operation on breast completed kamar carmona [place] [facility] 12/07/2024 10:39:28 Imaging Results None recorded. Procedure Notes None recorded. Medical Equipment None Reported. Allergies Allergen ID Allergen Name Allergen Category Reaction Reaction Severity Criticality Documentation Date Start Date Code Code System Note Provider Name and Address Organization Details Recorded Time 98052 amoxicill in medicatio n Not available Not available Not available 12/07/2024 723 RxNorm kamar carmona [facility] [place] - [facility] 10:38:09 Medications Name Sig Start Date Stop Date Status Note LastModified by Organization Details LastModified Time doxycycline hyclate 100 mg capsule TAKE ONE (1) CAPSULE BY MOUTH TWICE DAILY 12/07 completed Not Available Not Available Not Available clindamycin HCl 300 mg capsule TAKE ONE (1) CAPSULE BY MOUTH THREE (3) TIMES A DAY UNTIL GONE. 01/20 completed Not Available Not Available Not Available albuterol sulfate 2.5 mg/3 mL (0.083 %) solution for nebulizatio n INHALE THREE (3) ML FOUR (4) TIMES A DAY BY NEBULIZAT ION ROUTE NEEDED FOR 30 DAYS. active Not Available Not Available No t Available triazolam 0.25 mg tablet TAKE ONE TABLET BY MOUTH AT BEDTIME, THEN TAKE ONE TABLET BY MOUTH ONE HOUR PRIOR TO DENTAL APPOINTME NT, THEN BRING THE THIRD TABLET WITH YOU. DO NOT DRIVE. 01/20 completed Not Available Not Available Not Available azithromyci n 250 mg tablet TAKE TWO (2) TABLETS THE FIRST DAY (500 MG) FOLLOWED BY ONE (1) TABLET (250 MG) DAYS 2-5. FOR FIVE (5) DAYS 12/07 completed Not Available Not Available Not Available ibuprofen 800 mg tablet TAKE ONE (1) TABLET BY MOUTH EVERY 8 HOURS NEEDED FOR PAIN. active Not Available Not Available No t Available benzonatate 200 mg capsule TAKE ONE (1) CAPSULE THREE (3) TIMES A DAY BY ORAL ROUTE NEEDED FOR 30 DAYS. active Not Available Not Available No t Available ondansetron HCl 4 mg tablet TAKE ONE (1) TABLET BY MOUTH EVERY SIX (6) HOURS NEEDED FOR NAUSEA AND VOMITING active Not Available Not Available No t Available prednisone 20 mg tablet TAKE ONE (1) TABLET BY MOUTH EVERY DAY 01/20 completed Not Available Not Available Not Available cyanocobala min (vit B-12) 1,000 mcg tablet TAKE ONE (1) TABLET EVERY DAY BY ORAL ROUTE FOR 30 DAYS. 12/07 completed Not Available Not Available Not Available Pulmicort 0.5 mg/2 mL suspension for nebulizatio n Inhale 2 mL twice a day by nebulizat ion route as directed for 30 days. 2024 active Not Available Not Available Not Avai lable hydrocodone 7.5 mg-acetamin ophen 325 mg tablet TAKE ONE (1) TABLET BY MOUTH EVERY SIX (6) HOURS NEEDED FOR PAIN. active Not Available Not Available No t Available ergocalcife rol (vitamin D2) 1,250 mcg (50,000 unit) capsule TAKE ONE (1) CAPSULE BY MOUTH WEEKLY 12/07 completed Not Available Not Available Not Available levofloxaci n 750 mg tablet TAKE 1 TABLET BY MOUTH EVERY DAY FOR 7 DAYS active Not Available Not Available No t Available methylpredn isolone 4 mg tablets in a dose pack TAKE DIRECTED FOR SIX (6) DAYS active Not Available Not Available No t Available cefdinir 300 mg capsule TAKE ONE (1) CAPSULE EVERY 12 HOURS BY ORAL ROUTE DIRECTED FOR 10 DAYS. 12/07 completed Not Available Not Available Not Available metformin ER 500 mg tablet,exte nded release 24 hr TAKE TWO (2) TABLETS BY MOUTH TWICE DAILY 12/07 completed Not Available Not Available Not Available Ventolin HFA 90 mcg/actuati on aerosol inhaler INHALE TWO (2) PUFFS EVERY FOUR (4) HOURS BY MOUTH NEEDED active Not Available Not Available No t Available buspirone 15 mg tablet TAKE ONE HALF (1/2) TABLET TWICE A DAY BY ORAL ROUTE FOR 30 DAYS, FOR ANXIETY. active Not Available Not Available No t Available rosuvastati n 40 mg tablet TAKE ONE (1) TABLET BY MOUTH ONCE DAILY active Not Available Not Available No t Available fenofibrate nanocrystal lized 48 mg tablet TAKE ONE (1) TABLET BY MOUTH EVERY DAY DIRECTED 12/07 completed Not Available Not Available Not Available Symbicort 160 mcg-4.5 mcg/actuati on HFA aerosol inhaler INHALE TWO (2) PUFFS BY MOUTH TWICE A DAY 01/20 completed Not Available Not Available Not Available FeroSul 325 mg (65 mg iron) tablet TAKE ONE (1) TABLET EVERY DAY BY ORAL ROUTE FOR 30 DAYS. 12/07 completed Not Available Not Available Not Available metformin ER 1,000 mg 24 hr tablet,exte nded release (gastric reten.) TAKE ONE (1) TABLET EVERY DAY BY ORAL ROUTE FOR 30 DAYS. active Not Available Not Available No t Available OneTouch Verio test strips DIRECTED TO TEST BLOOD SUGAR EVERY DAY active Not Available Not Available No t Available guaifenesin ER 600 mg tablet, extended release 12 hr TAKE ONE (1) TABLET EVERY 12 HOURS BY ORAL ROUTE NEEDED FOR 30 DAYS. active Not Available Not Available No t Available OneTouch Delica Plus Lancet 33 gauge DIRECTED TO TEST BLOOD SUGAR EVERY DAY active Not Available Not Available No t Available Vitals None Recorded Social History Question Answer Notes LastModified by Organizat ion Details LastModified Time Tobacco Smoking Status Never Smoker kamar morales [place] - [facility] 12/07/2024 10:37:26 Do You Have An Advance Directive? No [email or web address] Information not available 12/07/2024 Is Your Home Air Conditioned? Yes [email or web address] Information not available 12/07/2024 Where Do You Live? [place] [email or web address] Information not available 12/07/2024 Do You Have A Medical Power Of Research Computing Specialist? No [email or web address] Information not available 12/07/2024 What Was The Date Of Your Most Recent Tobacco Screening? 12/21/2024 Quit 1 Week Ago [email or web address] Information not available 12/21/2024 Do You Have Any Pets? Yes 2 Dogs, 1 Cat [email or web address] Information not available 12/07/2024 What Is Your Relationship Status? Single [email or web address] Information not available 12/07/2024 Are There Any Smokers In Your House? Yes [email or web address] Information not available 12/07/2024 Has Tobacco Cessation Counseling Been Provided? Yes [email or web address] Information not available 12/07/2024 On What Date Was Tobacco Cessation Counseling Provided? 12/21/2024 [email or web address] Information not available 12/21/2024 Have You Recently Traveled Abroad? No [email or web address] Information not available 12/07/2024 Are You Currently In School? No [email or web address] Information not available 12/07/2024 How Many Years Have You Used E-cigarettes Or Vape? 1 [email or web address] Information not available 12/07/2024 Sex: Unknown Functional Status Question Answer Note LastModified by Organizat ion Details LastModified Time Do you or have you ever used any other forms of tobacco or nicotine? Yes [email or web address] Information not available 12/07/2024 Do you or have you ever used smokeless tobacco? Never used smokeless tobacco [email or web address] Information not available 12/07/2024 Are you currently employed? No [email or web address] Information not available 12/07/2024 Do you or have you ever used e-cigarettes or vape? Former user of electronic cigarettes Information not available 12/21/2024 Mental Status None recorded. Family History Relationship Description Onset Age of this Age Resolved Age Notes LastModified by Organization Details LastModified Time Mother Allergy [email or web address] Not availabl e 12/07/2024 10:39:52 Mother Asthma [email or web address] Not available 12/07/2024 10:40:03 Mother Chronic obstructive pulmonary disease [email or web address] Not available 12/07 10:40:11 Mother Emphysema [email or web address] Not availa ble 12/07/2024 10:40:16 Mother Sleep apnea Not avai lable 12/07/2024 10:40:22 Father Allergy Not availabl e 12/07/2024 10:39:52 Medical History No medical history recorded. Gynecological HistoryNo gynecological history recorded. Obstetrics History GPAL:G 0 P 0 0 0 0 Past Encounters Encounter ID Performer Location Encounter Start Date Encounter Closed Date Diagnosis/Indication Diagnosis SNOMED-CT Code Diagnosis ICD10 Code Diagnosis Note [id number] Ramirez Sandoval DO [place] OFFICE [address] [place] [address] [place] [phone] 12/21/2024 14:35:01 12/22/2024 10:44:21 Seasonal allergy 945551384 J30.2 Dyspnea on exertion 6084 5006 R06.09 Hemoptysis 99889162 R04. 2 [id number] KISHAN REARDON NP [facility] OFFICE [address] [place] [address] 01/20/2025 16:12:01 01/21/2025 08:51:18 Dyspnea on exertion 27531890 R06.09 Hemoptysis 13717178 R04. 2 Mild inter mittent asthma 495363027 J45.20 Cough 91475779 R05.9 Health Concerns Section Related Observation LastModified by Organization Detai ls LastModified Time None Recorded Concern Status LastModified by Organization Details LastModified Time None Recorded Payers Encounter Date Sequence Insurance Name Policy Number Policy Booth Covered Member ID Oboth Member ID Guarantor Name 01/20/2025 1 [facility] (MEDICAID HMO) Ricardoderek Wilian [id number] Mariaelena Cedeno Notes Date Note Type Note Provider Name and Address Organization Details Recorded Time 01/20/2025 text/html This 24 year-old female returns to the office via tele-medicine visit for the ongoing management of hemoptysis. Since the last visit the patient reports no significant medical events. Today the patient complains of continued intermittent hemoptysis. Shortness of breath has improved with Albuterol. No nocturnal respiratory symptoms noted. Denies anosmia, fever, chills, chest pain, nausea, vomiting, diarrhea. She reports adverse reaction to Symbicort. She uses her rescue inhaler as needed. PT has stopped taking symbicort due to it making her feel as her throat was closing, and her cough worse. Pt is agreeable to using a nebulizer as she is worried about using a powered based inhaler and is more agreeable to using nebs. Also educated her on a more liberal use of her rescue inhaler. Chest Ct was unremarkable and she states that the blood has decreased in production. She states that she has pain in her back from coughing. She does not not want to start a maintanence inhaler at this time. LAST VISIT: This 24 year-old female returns to the office to review the results of a respiratory allergy panel completed on 12/07/2024 and medication follow up. The results and proposed treatment plan were discussed during todays visit.The patient complains of a cough with clear or white mucus and describes a sensation of warmth in her lungs. She reports overall improvement since using Symbicort two times a day. She denies any chest tightness. The patient continues to take prednisone 20 mg daily and reports that she is no longer vaping.Denies any n/v/d/f/c. Ramirez Sandoval, DO [address], [place], [address], [facility] 01/21/2025 08:50:43 OBGyn Episode No OBEpisode recorded.
--- OUTSIDE RECORDS SUMMARY | 2025-02-05 13:16 | XMS_ITS | Continuity of Care Document ---
Author Organization [facility] [place], [place] OFFICE Address [address] [place] [address] [address] [place] [address] Care Team Providers Care Public School Teacher Name Role Phone GIOVANNA TRINIDADA Primary Care Provider Assessment Encounter Date Assessment Date Assessment LastModified by Organization Details LastModified Time 12/21/2024 12/21/2024 Imaging/Studies Reviewed CTA Chest (11/26/2024): no evidence of pulmonary embolus; subtle bibasilar airspace opacities may represent aspiration or early infiltrate Assessment 1. Hemoptysis 2. RAD *PFT (12/07/2024): no obstruction, no restriction, mildly reduced DLCO/VA, + GERONIMO *FeNO (12/07/2024): 10 3. Seasonal allergies *Respiratory allergy testing panel(12/07/2024 ): RAST-WNL, IgE:13, EOS:80 TB gold: negative 4. quit vaping since last visit Plan 1. Continue Albuterol HFA prn; discussed indications for use 2. Continue Symbicort 160 mcg 2 puffs BID; rinse mouth after each use 3. Labs reviewed during todays visit 4. Repeat Chest CT in 3 months-next due 02/2025 (ordered and set to release) 5. PFT at next OV 6. RTO in 3 months for results of CT Portions of this note may be dictated using voice recognition software and or use of a director medical economics. Variances in spelling and vocabulary are possible and unintentional. Not all errors are caught/corrected . Please notify the author if any discrepancies are noted or if the meaning of any statement is not clear. This is a summary discussion with the patient and in no way is intended to be a verbatum summation of everything discussed. We apologize for any inconvenience. [email or web address] Not available 12/21/2024 21:49:35 Plan of Treatment Reminders Order Date Submit Date Provider Last Modified By Organization Details Last Modified Time Details Appointments FOLLOW_UP 2024 10:20A M Joy Gaviria NP Not available Not available Not available Lab None recorded. Referral None recorded. Procedures None recorded. Surgeries None recorded. Imaging CT, chest, w/o contrast 2024 06/30/2 025 [email or web address] [facility], [address] [facility] , [place], [address], 12/22/2024 10:44:21 Medication Orders None recorded. Patient TargetsNo targets recorded. Patient InstructionsNo instructions recorded. Reason for Referral None Reported. Results Created Date Observation Date Name Description Value Unit Range Abnormal Flag Note LastModifiedBy Organization Detail LastModifiedTime 11/27/1911/26/2024 CT, angio gram, chest , w/ contr ast No observ ation record ed. Not Available 2024 15:35:51 11/27/19 25 11/26/2024 XR, chest , 1 view No observ ation record ed. [email or web address] Not Available 2024 15:36:13 12/09/19 25 11/26/2024 CT, angio gram, chest , w/ contr ast No observ ation record ed. [email or web address] [facility] (Med Record) [address], [place], [address], 12/08/2024 10:42:42 12/11/19 25 12/07/2024 fract ional exhal ed nitri c oxide * No observ ation record ed. [email or web address] Not Available 2024 14:06:17 12/12/19 25 12/07/2024 compl ete PFT* No observ ation record ed. [email or web address] Not Available 2024 13:04:35 01/19/20 25 01/15/2025 XR, chest , 2 view No observ ation record ed. [email or web address] [facility] [address] [place] [address] , [place], [address], 01/18/2025 11:48:50 Result Notes None recorded. Problems Name Problem SNOMED Code Status Onset Date Resolution Date Notes Provider Name and Address Organization Details Recorded Time Dyspnea on exertion 66315237 Active 2024 Joy Gaviria NP [address], [place], [address], [place] - [facility] 11:20:20 Hemoptysis 03479536 Active 2024 Joy Gaviria NP [address], [place], [address], [place] [facility] 11:20:54 Mild intermittent asthma 141679742 Active 2024 Joy Gaviria NP [address], [place], [employer], [address], [place] [facility] 19:58:05 Cough 26873178 Active 2024 Joy Gaviria NP [address], [place], [employer], [address], [place] [facility] 15:19:53 Problem Notes None recorded. Procedures Surgical History Date Name Laterality Status Provider Name and Address Organization Details Recorded Time removal of urinary calculus completed kamar carmona [place] - [facility] 12/07/2024 10:39:20 operation on breast completed kamar carmona [place] [facility] 12/07/2024 10:39:28 Imaging Results None recorded. Procedure Notes None recorded. Medical Equipment None Reported. Allergies Allergen ID Allergen Name Allergen Category Reaction Reaction Severity Criticality Documentation Date Start Date Code Code System Note Provider Name and Address Organization Details Recorded Time 79235 amoxicill in medicatio n Not available Not available Not available 12/07/2024 723 RxNorm kamar morales, [place] - [facility] 10:38:09 [...] Available Not Available No t Available Vitals Date Recorded Body height Oxygen saturation Oxygen saturation in Arterial blood by Pulse oximetry Heart rate Respiratory rate Body temperature Systolic blood pressure Diastolic blood pressure Provider Name and Address Organization Details Last Updated DateTime 5 170.18 cm 100 % 100 % 94 /min 18 /min 97.3 [degF] 110 mm[Hg] 68 mm[Hg] estuardo acosta [facility] 14:44:46 Social History Question Answer Notes LastModified by Organizat ion Details LastModified Time Tobacco Smoking Status Never Smoker kamar morales [facility] 12/07/2024 10:37:26 Do You Have An Advance Directive? No [email or web address] Information not available 12/07/2024 Is Your Home Air Conditioned? Yes [email or web address] Information not available 12/07/2024 Where Do You Live? [place] [email or web address] Information not available 12/07/2024 Do You Have A Medical Power Of Oil Well Drilling Manager? No [email or web address] Information not available 12/07/2024 What Was The Date Of Your Most Recent Tobacco Screening? 12/21/2024 Quit 1 Week Ago [email or web address] Information not available 12/21/2024 Do You Have Any Pets? Yes 2 Dogs, 1 Cat Information not available 12/07/2024 What Is Your Relationship Status? Single [email or web address] Information not available 12/07/2024 Are There Any Smokers In Your House? Yes [email or web address] Information not available 12/07/2024 Has Tobacco Cessation Counseling Been Provided? Yes Information not available 12/07/2024 On What Date Was Tobacco Cessation Counseling Provided? 12/21/2024 Information not available 12/21/2024 Have You Recently Traveled Abroad? No [email or web address] Information not available 12/07/2024 Are You Currently In School? No [email or web address] Information not available 12/07/2024 How Many Years Have You Used E-cigarettes Or Vape? 1 Information not available 12/07/2024 Sex: Unknown Functional Status Question Answer Note LastModified by Organizat ion Details LastModified Time Do you or have you ever used any other forms of tobacco or nicotine? Yes [email or web address] Information not available 12/07/2024 Do you or have you ever used smokeless tobacco? Never used smokeless tobacco [email or web address] Information not available 12/07/2024 Are you currently employed? No [email or web address] Information not available 12/07/2024 Do you or have you ever used e-cigarettes or vape? Former user of electronic cigarettes [email or web address] Information not available 12/21/2024 Mental Status None recorded. Family History Relationship Description Onset Age of this Age Resolved Age Notes LastModified by Organization Details LastModified Time Mother Allergy [email or web address] Not availabl e 12/07/2024 10:39:52 Mother Asthma [email or web address] Not available 12/07/2024 10:40:03 Mother Chronic obstructive pulmonary disease Not available 12/07 10:40:11 Mother Emphysema [email or web address] Not availa ble 12/07/2024 10:40:16 Mother Sleep apnea [email or web address] Not avai lable 12/07/2024 10:40:22 Father Allergy [email or web address] Not availabl e 12/07/2024 10:39:52 Medical History No medical history recorded. Gynecological HistoryNo gynecological history recorded. Obstetrics History GPAL:G 0 P 0 0 0 0 Past Encounters Encounter ID Performer Location Encounter Start Date Encounter Closed Date Diagnosis/Indication Diagnosis SNOMED-CT Code Diagnosis ICD10 Code Diagnosis Note [id number] Ramirez Sandoval DO [address] [place] [id number] 12/07/2024 10:43:02 12/07/2024 11:33:02 Seasonal allergy 009929833 J30.2 Dyspnea on exertion 6084 5006 R06.09 Hemoptysis 73195678 R04. 2 [id number] Ramirez Sandoval DO [address] [place] [phone] 12/21/2024 14:35:01 12/22/2024 10:44:21 Seasonal allergy 052735186 J30.2 Dyspnea on exertion 6084 5006 R06.09 Hemoptysis 97935559 R04. 2 Health Concerns Section Related Observation LastModified by Organization Detai ls LastModified Time None Recorded Concern Status LastModified by Organization Details LastModified Time None Recorded Payers Encounter Date Sequence Insurance Name Policy Number Policy Booth Covered Member ID Booth Member ID Guarantor Name 12/21/2024 1 [facility] [place] (MEDICAID HMO) Mukund Cedeno [id number] Mariaelena Cedeno Notes Date Note Type Note Provider Name and Address Organization Details Recorded Time 12/21/2024 text/html This 24 year-old female returns to the office to review the results of a respiratory allergy panel completed on 12/07/2024 and medication follow up. The results and proposed treatment plan were discussed during todays visit. The patient complains of a cough with clear or white mucus and describes a sensation of warmth in her lungs. She reports overall improvement since using Symbicort two times a day. She denies any chest tightness. The patient continues to take prednisone 20 mg daily and reports that she is no longer vaping. Denies any n/v/d/f/c. Joy Gaviria NP [address], [place], [address], [facility] 12/21/2024 21:50:27 OBGyn Episode No OBEpisode recorded.
--- OUTSIDE RECORDS SUMMARY | 2025-02-05 13:16 | XMS_ITS | Data Portability ---
[facility] Organization [facility], [place] Address [address] [place] [address] Care Team Providers Care Balloon Maker Name Role Phone VIVIRAMYA MCKINNEY Primary Care Provider Assessment Encounter Date Assessment Date Assessment LastModified by Organization Details LastModified Time 12/07/2024 12/07/2024 Assessment 1. Hemoptysis 2. Chest Tightness *PFT (12/07/2024): no obstruction, no restriction, mildly reduced DLCO/VA, + GERONIMO *FeNO (12/07/2024): 10 3. Seasonal allergies 4. Current Vape user Plan 1. RX Albuterol HFA prn; discussed indications for use 2. Will hold on maintenance inhaler at this time 3. Order TB Gold 4. Order RAST/CBC/IgE 5. A1AT *The patient underwent genomic testing for isuzf-8-itloxwls sin deficiency in the office today. Oral swab specimen was obtained by the nurse and sent to the lab for testing. 6. Repeat Chest CT in 3 months-next due 02/[address] from 8. RTO in 2 weeks for lab review, sooner if needed The patient underwent pulmonary function testing today to evaluate complaints of dyspnea. Results were discussed with the patient. Portions of this note may be dictated using voice recognition software and or use of a medical housekeeper. Variances in spelling and vocabulary are possible and unintentional. Not all errors are caught/corrected . Please notify the author if any discrepancies are noted or if the meaning of any statement is not clear. This is a summary discussion with the patient and in no way is intended to be a verbatum summation of everything discussed. We apologize for any inconvenience. [email or web address] Not available 12/07/2024 21:57:35 12/21/2024 12/21/2024 Imaging/Studies Reviewed CTA Chest (11/26/2024): [...] recognition software and or use of a medical housekeeper. Variances in spelling and vocabulary are possible [...] any inconvenience. [email or web address] Not available 12/21/2024 21:49:35 01/20/2025 01/20/2025 Imaging/Studies Reviewed *CTA Chest (11/26/2024): [...] Pulmicort nebs *Rx for [facility]bulizer [facility] to [facility] 3. Rx for Benzonatate 4. Rx for Mucinex 600 mg BID 5. Repeat Chest CT in 3 months-next due 02/2025 (ordered and set to release) 6. RTO in 8 weeks [email or web address] Not available 01/21/2025 08:50:12 Plan of Treatment Reminders Order Date Submit Date Provider Last Modified By Organization Details Last Modified Time Details Appointments FOLLOW_UP 2024 10:20A M Joy Gaviria, [place] Not available Not available Not available Lab respirato ry allergen panel - [facility] 2024 025 [email or web address] [facility] (Registration ), [facility] [address], [place], [address], 12/14/2024 08:33:43 CBC w/ diff 2024 025 [email or web address] [facility] (Registration ), [address], [place], [address], 12/14/2024 11:25:18 Mycobacte rium tuberculo sis stimulate d gamma interfero n, qual, blood - TB GOLD 2024 025 [email or web address] [facility] (Registration ), [address], [place], [address], 12/14/2024 08:34:00 Referral None recorded. Procedures None recorded. Surgeries None recorded. Imaging CT, chest, w/o contrast 2024 025 [email or web address] [facility], [address], [place], [address], 12/22/2024 10:44:21 Medication Orders benzonata te 200 mg capsule 2024 025 LUCINA [facility], [address] [place] [address], [place], [address], 01/20/2025 21:01:18 Mucinex 600 mg tablet, extended release 2024 025 [facility], [address] [place] [address], [address], 01/20/2025 21:01:18 Pulmicort 0.5 mg/2 mL suspensio n for nebulizat ion 2024 025 [facility], [address] [place] [address], [address], 01/20/2025 21:01:17 albuterol sulfate 2.5 mg/3 mL (0.083 %) solution for nebulizat ion [address], [address], 01/20/2025 21:01:17 albuterol sulfate HFA 90 mcg/actua tion aerosol inhaler 2024 025 [facility], [address] [place] [address], [address], 12/07/2024 11:25:46 Patient TargetsNo targets recorded. Patient Instructions Encounter Date Encounter Id Patient Instructions Last Modified By Organization Details Last Modified Time 12/07/2024 [id number] medical record request* - Please forward most recent Chest CT [email or web address] Not available 12/14/2024 08:36:48 Reason for Referral None Reported. Results Created Date Observation Date Name Description Value Unit Range Abnormal Flag Note LastModifiedBy Organization Detail LastModifiedTime 11/27/1911/26/2024 CT, angio gram, chest , w/ contr ast No observ ation record ed. [email or web address] Not Available 2024 15:35:51 11/27/19 25 11/26/2024 XR, chest , 1 view No observ ation record ed. [email or web address] Not Available 2024 15:36:13 12/09/19 25 11/26/2024 CT, angio gram, chest , w/ contr ast No observ ation record ed. [email or web address] [facility] (Med Record) [address], [place], [address], 12/08/2024 10:42:42 12/11/19 25 12/07/2024 fract ional exhal ed nitri c oxide * No observ ation record ed. [email or web address] Not Available 2024 14:06:17 12/12/19 25 12/07/2024 compl ete PFT* No observ ation record ed. [email or web address] Not Available 2024 13:04:35 01/19/20 25 01/15/2025 XR, chest , 2 view No observ ation record ed. [email or web address] [address] [place], [address], 01/18/2025 11:48:50 Result Notes None recorded. Problems Name Problem SNOMED Code Status Onset Date Resolution Date Notes Provider Name and Address Organization Details Recorded Time Dyspnea on exertion 24607669 Active 2024 Joy Gaviria NP [address], [place], [address], [place] [facility] 11:20:20 Hemoptysis 50168475 Active 2024 Joy Gaviria NP [address], [place], [address], [place] [facility] 11:20:54 Mild intermittent asthma 007966862 Active 2024 Joy Gaviria NP [address], [place], [address], [place] [facility] 19:58:05 Cough 70205876 Active 2024 Joy Gaviria NP [address], [place], [address], [place] [facility] 15:19:53 Problem Notes None recorded. Procedures Surgical History Date Name Laterality Status Provider Name and Address Organization Details Recorded Time removal of urinary calculus completed [facility] 12/07/2024 10:39:20 operation on breast [facility] 12/07/2024 10:39:28 Imaging Results None recorded. Procedure Notes None recorded. Medical Equipment None Reported. Allergies Allergen ID Allergen Name Allergen Category Reaction Reaction Severity Criticality Documentation Date Start Date Code Code System Note Provider Name and Address Organization Details Recorded Time 90214 amoxicill in medicatio n Not available Not available Not available 12/07/[address] [facility] 10:38:09 Medications Name [...] t Available Vitals Date Recorded Body height Body mass index (BMI) Body weight Oxygen saturation Oxygen saturation in Arterial blood by Pulse oximetry Heart rate Respiratory rate Body temperature Systolic blood pressure Diastolic blood pressure Provider Name and Address Organization Details Last Updated DateTime 5 170.18 cm 27.8 kg/m2 17629.5 7 g 97 % 97 % 90 /min 18 /min 98.3 [degF] 130 mm[Hg] 82 mm[Hg] kamar carmona [facility] 5 10:59:59 Date Recorded Body height Oxygen saturation Oxygen saturation in Arterial blood by Pulse oximetry Heart rate Respiratory rate Body temperature Systolic blood pressure Diastolic blood pressure Provider Name and Address Organization Details Last Updated DateTime 5 170.18 cm 100 % 100 % 94 /min 18 /min 97.3 [degF] 110 mm[Hg] 68 mm[Hg] estuardo acosta [facility] 5 14:44:46 Social History Question Answer Notes LastModified by Organizat ion Details LastModified Time Tobacco Smoking Status Never Smoker [place] mar[place] - [facility] 12/07/2024 10:37:26 Do You Have An Advance Directive? No [email or web address] Information not available 12/07/2024 Is Your Home Air Conditioned? Yes [email or web address] Information not available 12/07/2024 Where Do You Live? [place] [email or web address] Information not available 12/07/2024 Do You Have A Medical Power Of Tile Decorator? No [email or web address] Information not available 12/07/2024 What Was The Date Of Your Most Recent Tobacco Screening? 12/21/2024 Quit 1 Week Ago [email or web address] Information not available 12/21/2024 Do You Have Any Pets? Yes 2 Dogs, 1 Cat [email or web address] Information not available 12/07/2024 What Is Your Relationship Status? Single [email or web address] Information not available 12/07/2024 Are There Any Smokers In Your House? Yes [email or web address] Information not available 12/07/2024 Has Tobacco Cessation Counseling Been Provided? Yes [email or web address] Information not available 12/07/2024 On What Date Was Tobacco Cessation Counseling Provided? 12/21/2024 [email or web address] Information not available 12/21/2024 Have You Recently Traveled Abroad? No [email or web address] Information not available 12/07/2024 Are You Currently In School? No [email or web address] Information not available 12/07/2024 How Many Years Have You Used E-cigarettes Or Vape? 1 [email or web address] Information not available 12/07/2024 Sex: Unknown Functional Status Question Answer Note LastModified by Organizat ion Details LastModified Time Do you or have you ever used any other forms of tobacco or nicotine? Yes [email or web address] Information not available 12/07/2024 Do you or have you ever used smokeless tobacco? Never used smokeless tobacco [email or web address] Information not available 12/07/2024 Are you currently employed? No [email or web address] Information not available 12/07/2024 Do you or have you ever used e-cigarettes or vape? Former user of electronic cigarettes [email or web address] Information not available 12/21/2024 Mental Status None recorded. Family History Relationship Description Onset Age of this Age Resolved Age Notes LastModified by Organization Details LastModified Time Mother Allergy [email or web address] Not availabl e 12/07/2024 10:39:52 Mother Asthma [email or web address] Not available 12/07/2024 10:40:03 Mother Chronic obstructive pulmonary disease [email or web address] Not available 12/07 10:40:11 Mother Emphysema [email or web address] Not availa ble 12/07/2024 10:40:16 Mother Sleep apnea [email or web address] Not avai lable 12/07/2024 10:40:22 Father Allergy [email or web address] Not availabl e 12/07/2024 10:39:52 Medical History No medical history recorded. Gynecological HistoryNo gynecological history recorded. Obstetrics History GPAL:G 0 P 0 0 0 0 Past Encounters Encounter ID Performer Location Encounter Start Date Encounter Closed Date Diagnosis/Indication Diagnosis SNOMED-CT Code Diagnosis ICD10 Code Diagnosis Note [id number] Ramirez Sandoval [address] [place] [id number] 12/07/2024 10:43:02 12/07/2024 11:33:02 Seasonal allergy 877316215 J30.2 Dyspnea on exertion 6084 5006 R06.09 Hemoptysis 22790721 R04. 2 [id number] Ramirez Sandoval [address] [place] [id number] 12/21/2024 14:35:01 12/22/2024 10:44:21 Seasonal allergy 708297796 J30.2 Dyspnea on exertion 6084 5006 R06.09 Hemoptysis 87513064 R04. 2 [id number] KISHAN REARDON NP [facility] [address] [facility], [address] [place] [address] 01/20/2025 16:12:01 01/21/2025 08:51:18 Dyspnea on exertion 66800870 R06.09 Hemoptysis 72868701 R04. 2 Mild inter mittent asthma 254042642 J45.20 Cough 82109321 R05.9 Health Concerns Section Related Observation LastModified by Organization Detai ls LastModified Time None Recorded Concern Status LastModified by Organization Details LastModified Time None Recorded Advance Directives Directive N: Payers Insurance Date Sequence Insurance Name Policy Number Policy Booth Covered Member ID Booth Member ID Guarantor Name 01/20/2025 1 [facility] [place] (MEDICAID HMO) Mukund Cedeno [id number] Mariaelena Cedeno Notes Date Note Type Note Provider Name and Address Organization Details Recorded Time 12/07/2024 text/html This 24 year-old female presents to the office for evaluation of hemoptysis.Patient states she was seen in the ER at [facility] 11/26/2024 where she presented with an episode of bloody sputum. She also notes this occurred initially 2 weeks prior after feeling something in her back pop. She coughed and had blood streaked sputum at that time also. During her ER visit, she had a Chest Ct and was sent home with Doxycycline twice daily which she has completed. (Per ER Chart note. Chest CT not available during todays visit).Patient complains of chest tightness and now an occasional cough with clear mucus. She denies any shortness of breath or wheezing. Denies any travel outside of the [place]. Denies any weight loss or night sweats. 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 Patients mother also works at a group home.Patient has vaped daily for the past year. Patient has residential exposure to 2 dogs and 1 cat.Denies any n/v/d/f/c Joy Gaviria NP [address], [place], [address], [facility] 12/07/2024 22:00:47 12/21/2024 text/html This 24 year-old female returns [...] Gaviria NP [address], [place], [address], [facility] 12/21/2024 21:50:27 01/20/2025 text/html This 24 year-old female returns [...] no longer vaping.Denies any n/v/d/f/c. Ramirez Sandoval, [address], [place], [address], [facility] 01/21/2025 08:50:43 OBGyn Episode No OBEpisode recorded.
[2025-02-05 13:17] LABS: Appearance,Urine CLOUDY (Clear); Blood, Urine 3+ (Negative); Color,Urine YELLOW (Yellow); Glucose,Urine (UA) Negative (Negative); Ketones,Urine TRACE (Negative); Leukocyte Esterase,Urine Negative (Negative); Nitrate,Urine Negative (Negative); PH,Urine 5.5 (5.0-8.5); Protein,Urine 3+ (Negative); Specific Gravity, Urine >= 1.030 (1.005-1.030); Urobilinogen,Urine 0.2 EU/dl (0.2)
--- OUTSIDE RECORDS SUMMARY | 2025-02-05 13:17 | XMS_ITS | Clinical Summary ---
Author Organization [facility] Address [address] [place] [address] [address] Phone Care Team Providers Care Transit Department Clerk Name Role Phone Unavailable Primary Care Provider Unavailabl e Allergies Active Allergy Reactions Criticality Noted Date Comments Amoxicillin Rash High 12/16/2020 Medications Llpic-3-[id number]-EPA- Fish Oil (FISH OIL) 1,000 mg (120 mg-180 mg) Oral Capsule Take 1,000 mg by mouth daily. Active Fenofibrate 40 mg Oral Tablet Take 80 mg by mouth daily. Active metFORMIN (GLUMETZA) 1,000 mg Oral Tablet,SR,Walter.R etention,24 hr Take 1,000 mg by mouth daily (with breakfast). Active cholecalciferol, vitamin D3, (VITAMIN D3 ORAL) Take 50,000 Units by mouth daily. Active oxyCODONE-acetam inophen (PERCOCET) 5-325 mg Oral Tablet Take one every four hours as needed for pain. 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 localization; Surgeon: Letitia Alexander MD; Location: [facility]; Service: General BREAST BIOPSY 12/23/2020 Left .; Surgeon: Letitia Alexander MD; Location: [facility]; Service: General Medical History Medical History Date Comments Pre-diabetes Hyperlipidemia Chronic kidney disease STONE 201 9 Family History Medical History Relation Name Comments No Known Problems Brother 1 No Known Problems Brother 2 High Cholesterol Father Alzheimer's Disease Maternal Grandfather Dementia Maternal Grandmother COPD Mother Emphysema Mother No Known Problems Sister Relation Name Status Comments Brother 1 Alive Brother 2 Alive Father Alive Maternal Grandfather Maternal Grandmother Alive Mother Alive Paternal Grandfather Paternal Grandmother Sister Alive Social History Tobacco Use Types Packs/Day Years Used Date Smoking Tobacco: Never Smokeless Tobacco: Current Snuff Tobacco Cessation:Ready to Q uit: Yes; Counseling Given: Yes Alcohol Use Standard Drinks/Week Comments Never 0 (1 standard drink = 0.6 oz pur e alcohol) AUDIT-C Answer Date Recorded Q1: How often do you have a drink containing alc ohol? Never 12/23/2020 Average Number of Drinks Not on file 021 Frequency of Binge Drinking Not on file 12/10 Comments No Sex and Gender Information Value Date Recorded Sex Assigned at Not on file Legal Sex Female 8:51 AM EDT Gender Identity Not on file Sexual Orientation Not on file Obstetrics History Last Filed Vital Signs Vital Sign Reading Time Taken Comments Blood Pressure 108/61 12/23/2020 1:00 PM EDT Pulse 71 12/23/2020 1:00 PM EDT Temperature 36.4 C (97.5 F) 01/04/2021 2:43 PM EDT Respiratory Rate 16 12/23/2020 1:00 PM EDT Oxygen Saturation 100% 12/23/2020 1:00 PM EDT Inhaled Oxygen Concentration - - Weight 87.2 kg (192 lb 4.8 oz) 01/04/2021 2:43 P M EDT Height 170.2 cm (5' 7 ) 01/04/2021 2:43 PM EDT Body Mass Index 30.12 01/04/2021 2:43 PM EDT Plan of Treatment Health Maintenance Due Date Last Done Comments Annual Wellness Exam 11/23/2003 HPV (1 - 3-dose series) 11/23/2015 Cervical Cancer Screening 2021 Pap Smear 2021 DTaP/TDaP/Td (7 - Td or Tdap) 01/28/2024 01/27/2014, 06/05/2005, 02/26/2002, Additional history exists COVID-19 Vaccine ( season) 2024 Influenza Vaccine (Season Ended) 2025 Hepatitis B Vaccine Completed 12/04/2001, 01/23/2001, 2000 Meningococcal B Vaccine Aged Out No l onger eligible based on patient's age to complete this topic Pneumococcal Vaccine 0-49 Aged Out No longer eligible based on patient's age to complete this topic Insurance [facility] [place] [id number] [place] [facility] [place] [id number] [place] [facility] [place] [id number] [place]
--- OUTSIDE RECORDS SUMMARY | 2025-02-05 13:17 | XMS_ITS | Continuity of Care Document ---
Author Organization ELYSSA Margoth [facility] Address [address] [place] [address] Assessment No assessment recorded. Plan of Treatment Reminders Order Date Submit Date Provider Last Modified By Organization Details Last Modified Time Details Appointments Follow Up 2024 10:20A M Venkatesh Garza, CLINICAL RESEARCH SPECIALIST Not available Not available Not available ESTABLISH ED PT 30 2024 04:45P M Melly Collins, CLINICAL RESEARCH SPECIALIST Not available Not available Not available Lab culture, urine 2024 025 [facility], [address], [facility], [place], [address], 02/04/2025 03:36:18 urinalysi s, dipstick 2024 025 [facility], [address] [place], [address], 02/02/2025 14:31:55 Referral None recorded. Procedures None recorded. Surgeries None recorded. Imaging XR, kidney + ureter + bladder 2024 025 [facility], [address] [place], [address], 02/03/2025 10:40:51 Medication Orders None recorded. Patient TargetsNo targets recorded. Patient Instructions Encounter Date Encounter Id Patient Instructions Last Modified By Organization Details Last Modified Time 02/02/2025 [id number] body mass index: care instructions Not available 02/02/2025 15:21:32 learning about healthy weight Not available 02/02/2025 15:21:32 Advised to monitor for now Discussed increasing water intake Will call with results of labs and imaging once available To call office for questions, concerns or issues Not available 02/02/2025 14:30:51 Reason for Referral None Reported. Results Created Date Observation Date Name Description Value Unit Range Abnormal Flag Note LastModifiedBy Organization Detail LastModifiedTime 02/03/20 25 02/02/2025 urina lysis , dipst ick Leukocytes Trace Not Available [address] [place], [address], 02/02/2025 14:31:02 02/03/20 25 02/02/2025 urina lysis , dipst ick Nitrite negati ve Not Available [address] [place], [address], 02/02/2025 14:31:02 02/03/20 25 02/02/2025 urina lysis , dipst ick Urobilinogen .2 Not Available [address] [place], [address], 02/02/2025 14:31:02 02/03/20 25 02/02/2025 urina lysis , dipst ick Protein 30 Not Available [address] [place], [address], 02/02/2025 14:31:02 02/03/20 25 02/02/2025 urina lysis , dipst ick pH 6.0 Not Available [address] [place], [address], 02/02/2025 14:31:02 02/03/20 25 02/02/2025 urina lysis , dipst ick Blood Large Not Available [address] [place], [address], 02/02/2025 14:31:02 02/03/20 25 02/02/2025 urina lysis , dipst ick Specific [place] 1.015 Not Available [address] [place], [address], 02/02/2025 14:31:02 02/03/20 25 02/02/2025 urina lysis , dipst ick Ketone Negati ve Not Available [address] [place], [address], 02/02/2025 14:31:02 02/03/20 25 02/02/2025 urina lysis , dipst ick Bilirubin Negati ve Not Available [address] [place], [address], 02/02/2025 14:31:02 02/03/20 25 02/02/2025 urina lysis , dipst ick Glucose Negati ve Not Available [address] [place], [address], 02/02/2025 14:31:02 02/03/20 25 02/02/2025 urina lysis , dipst ick Appearance Clear Not Available [address] [place], [address], 02/02/2025 14:31:02 02/03/20 25 02/02/2025 urina lysis , dipst ick Color Yellow Not Available [address] [place], [address], 02/02/2025 14:31:02 02/04/20 25 02/03/2025 XR, kidne y + urete r + bladd er No observ ation record ed. [facility] [address] [place], [address], 02/03/2025 11:02:33 Result Notes None recorded. Problems Name Problem SNOMED Code Status Onset Date Resolution Date Notes Provider Name and Address Organization Details Recorded Time Hypertro phy of tonsils 85069513 Completed 201812/01/2021 Ayaka Acevedo null, [place] - [facility] 2 09:14:36 History of calculus of kidney 188013933 Active 2018 Alyson Jones null, [place] - [facility] 9 16:19:23 Childhoo d obesity 265669821 Completed 201911/18/2020 Maria C Cardona, CLINICAL RESEARCH SPECIALIST [address], [place], [address] , [place] - [facility] 1 15:04:14 Skin lesion 93846100 Completed 201906/15/2020 Removal Reason: resolved Carmencita Felisa, CLINICAL RESEARCH SPECIALIST [address], [place], [address] , [place] - [facility] 4 16:28:06 Skin striae 300538683 Active 2019 Maria C Cardona, CLINICAL RESEARCH SPECIALIST [address], [place], [address] , [place] [facility] 0 15:50:11 Difficul ty sleeping 229878184 Completed 201906/19/2021 Ayaka morales, [place] - [facility] 1 09:12:44 Congenit al bilatera l pes planus 10838768211 326472 Active 2019 Ayaka morales, [place] - [facility] 2 09:14:25 Depressi ve disorder 10444400 Completed 201911/18/2020 Removal Reason: resolved Maria C Cardona, CLINICAL RESEARCH SPECIALIST [address], [place], [address] , [place] [facility] 1 15:11:35 Weight gain 0942903 Completed 201911/18/2020 Maria C Cardona, CLINICAL RESEARCH SPECIALIST [address], [place], [address] , [place] [facility] 1 15:04:27 Foot pain 59430866 Completed 201906/19/2021 Ayaka Acevedo null[place] [facility] 1 09:12:52 Mass of left breast 20804901823 569128 Completed 201905/27/2020 Ana Adams, CLINICAL RESEARCH SPECIALIST [address], [place], [address] , [place] [facility] 0 14:20:11 Hyperins ulinism 79596177 Active 2019 Ayaka Acevedo [place] [facility] 2 09:14:30 Mixed hyperlip idemia 953190548 Active 2019 Ayaka Acevedo [place] [facility] 2 09:14:39 Serum thyroid stimulat ing hormone level outside referenc e range 164342919 Active 2019 Maria C Cardona, CLINICAL RESEARCH SPECIALIST [address], [place], [address] , [place] [facility] 0 11:53:01 Fibroade noma of left breast 10053293335 99360 Completed 201912/01/2021 Ana Adams, CLINICAL RESEARCH SPECIALIST [address], [place], [address] , [place] [facility] 2 09:55:08 Vitamin D deficien 77897657 Active 2019 Antonietta Perez null[place] [facility] 0 13:55:03 Nodule of subcutan eous tissue of right forearm 19084012925 332416 Active 2020 Maria C Cardona, CLINICAL RESEARCH SPECIALIST [address], [place], [address] , [place] [facility] 1 15:10:12 History of SARS-CoV -2 72549346082 2428229 Completed 202004/19/2021 Ayaka Acevedo null, [place] [facility] 1 09:13:57 Uses depot contrace ption 463029982 Completed 202101/28/2023 Ana Adams APRN [address], [place], [address] , [place] [facility] 3 10:23:59 Body mass index 25-29 - overweig 476587283 Completed 202101/18/2023 Ana Adams APRN [address], [place], [address] , [place] [facility] 4 10:29:35 Erythema tous ear canal 588217027 Active 2021 Carmencita Roberto APRN [address], [place], [address] , [place] [facility] 2 16:03:37 Body mass index 30+ - obesity 185931030 Completed 202202/21/2024 Ana Adams APRN [address], [place], [address] , [place] [facility] 4 09:27:42 Elevated blood-pr essure reading without diagnosi s of hyperten ju 456069853 Active 2022 Ana Adams APRN [address], [place], [address] , [place] [facility] 3 14:58:36 Skin lesion 17869944 Active 2023 Carmencita Roberto APRN [address], [place], [address] , [place] [facility] 4 16:28:06 Right lower quadrant pain 339564830 Active 2023 Ana Adams APRN [address], [place], [address] , [place] [facility] 4 10:29:11 Body mass index 25-29 - overweig 557120900 Active 2023 Ana Adams APRN [address], [place], [address] , [place] [facility] 4 10:29:35 Irregula r bowel habits 013351318 Active 2023 Ana Pancker, CLINICAL RESEARCH SPECIALIST [address], [place], [address] , [place] [facility] 4 09:27:55 Surveill ance of depot contrace ption done 80170695538 104 Completed 201611/18/2020 Maria C Cardona, CLINICAL RESEARCH SPECIALIST [address], [place], [address] , [place] [facility] 1 15:04:32 Pleurisy 394715631 Active 2023 [address], DO [address], [place], [address] , [place] [facility] 4 11:39:05 Cough 83365745 Completed 202302/02/2025 Crystal Kade null[place] [facility] 5 13:17:11 Nicotine dependen ce 90332922 Active 2024 Hannah Manning null[place] [facility] 5 13:16:01 Hemoptys is 53748307 Active 2024 Josue Davis, DO [address], [place], [address] , [place] [facility] 5 16:35:22 Dental abscess 716779050 Active 2024 Bindu Dao, CLINICAL RESEARCH SPECIALIST [address], [place], [address] , [place] [facility] 5 14:47:49 Jaw pain 874158084 Active 2024 Bindu Dao, CLINICAL RESEARCH SPECIALIST [address], [place], [address] , [place] [facility] 5 14:49:55 Gingival erythema 934731471 Active 2024 Bindu Dao, CLINICAL RESEARCH SPECIALIST [address], [place], [address] , [place] [facility] 5 14:52:05 Bronchit is 69019025 Completed 202402/02/2025 Crystal Kade null[place] [facility] 5 13:16:27 Communit y acquired pneumoni a 054601595 Active 2024 Venkatesh Garza, CLINICAL RESEARCH SPECIALIST [address], [place], [address] , [place] [facility] 5 10:30:34 Generali zed anxiety disorder 23817210 Active 2024 Venkatesh Garza, CLINICAL RESEARCH SPECIALIST [address], [place], [address] , [place] [facility] 5 15:42:54 Chronic constipa tion 528457057 Active 2024 Venkatesh Garza, CLINICAL RESEARCH SPECIALIST [address], [place], [address] , [place] [facility] 5 15:43:44 Blood in urine 18452004 Active 2024 Carmencita Roberto, CLINICAL RESEARCH SPECIALIST [address], [place], [address] , [place] [facility] 5 13:37:03 Contrace ption care manageme nt Completed 201606/15/2020 Removal Reason: stopped depo due to weight gain/gypsy ing Maria C Cardona, CLINICAL RESEARCH SPECIALIST [address], [place], [address] , [place] [facility] 0 14:51:30 Overweig ht in childhoo d 026312608 Completed 201608/17/2019 Maria C Cardona, CLINICAL RESEARCH SPECIALIST [address], [place], [address] , [place] [facility] 0 14:10:57 Problem Notes None recorded. Procedures Surgical History Date Name Laterality Status Provider Name and Address Organization Details Recorded Time 024 Date of Last Pap Smear completed Ana Adams CLINICAL RESEARCH SPECIALIST [address], [place], [address], [place] [facility] 02/09/2024 20:37:37 024 Suture/Staple removal completed Caitlyn Braun [place] - [facility] 11/20/2023 09:44:13 024 Punch Biopsy completed Carmencita Roberto CLINICAL RESEARCH SPECIALIST [address], [place], [address], [place] [facility] 11/13/2023 20:53:26 021 Medication Reconcilliation completed Caitlyn Braun [place] - [facility] 03/09/2021 13:11:49 021 excision of fibroadenoma of breast completed Ayaka Acevedo [place] - [facility] 12/01/2021 09:16:28 020 Systolic B/P less than 130 mm Hg completed Suze Parmarcell [place] - [facility] 07/14/2020 13:06:20 020 Diastolic B/P less than 80 mm Hg completed Suze Hernandez [place] - [facility] 07/14/2020 13:06:27 020 Systolic B/P less than 130 mm Hg completed Caitlyn Braun [place] - [facility] 02/11/2020 13:55:31 020 Diastolic B/P less than 80 mm Hg completed Caitlyn Braun [place] [facility] 02/11/2020 13:55:34 insertion of renal artery stent completed Marilyn Hall [place] - [facility] 05/27/2020 13:50:08 ureterorenoscopy with fragmentation and removal of calculus of kidney completed Ayaka Westfallann [place] - [facility] 12/01/2021 09:16:40 Imaging Results None recorded. Procedure Notes None recorded. Medical Equipment None Reported. Allergies Allergen ID Allergen Name Allergen Category Reaction Reaction Severity Criticality Documentation Date Start Date Code Code System Note Provider Name and Address Organization Details Recorded Time 025067 amoxicill in medicatio n hives Not available Not available 12/01/2021 723 RxNorm Ayaka Kristina null, [place] - [facility] 09:13:26 03709 Product containin g penicilli n (product) medicatio n rash Not available Not available 06/06/2017 31394 8001 SNOMED Maria Cradha Cardona, CLINICAL RESEARCH SPECIALIST [address], [place], [address], [place] - [facility] 7 15:35:53 Medications Name Sig Start Date Stop Date Status Note LastModified by Organization Details LastModified Time vitamin b-12 500 mcg tablet TAKE 1 TABLET BY MOUTH EVERY DAY 03/08 completed Not Available Not Available Not Available amoxicill in 500 mg capsule take 1 capsule (500 mg) by oral route 3 times per day for 10 days 09/28 completed Not Available Not Available Not Available metformin 500 mg tablet TAKE ONE (1) TABLET TWICE A DAY BY ORAL ROUTE FOR 30 DAYS. 03/08 completed diarrhea Not Available Not Available Not Available nystatin 100,000 unit/mL oral suspensio n take 5 millilit ers (500,000 unit) by oral route 4 times per day (1/2 tsp to each buccal area swish and swallow qid) 10/19 completed nystatin 100,000 unit/mL oral suspensi on;Presc ribe Status: Prescrib ed on: 08/26/19 15 4:31PM;D iscontin ued Status: Disconti nued on: 10/20/19 15 2:21PM;U ser: gored;Es t. Completi on: 09/05/19 15;Indic ation: Oral Candidia sis - ( 00);Phar macyVeri fied: 08/26/19 15 4:31PM Not Available Not Available Not Available Monistat 3 200 mg/5 gram (4 %) vaginal cream apply 1 applicat orful by vaginal route 2 times a day for 3 days 10/19 completed Monistat 3 200 mg/5 gram (4 %) vaginal cream;Pr escribe Status: Prescrib ed on: 08/24/19 15 10:31AM; Disconti nued Status: Disconti nued on: 10/20/19 15 2:21PM;U ser: bakerc;E st. Completi on: 08/27/19 15;Pharm acyVerif ied: 08/24/19 15 10:31AM Not Available Not Available Not Available doxycycli ne hyclate 100 mg capsule TAKE ONE (1) CAPSULE BY MOUTH TWICE DAILY 01/29 completed Not Available Not Available Not Available Depo-Medr ol 40 mg/mL suspensio n for injection Take 2 mL every day by injectio n route. 08/07 completed Not Available Not Available Not Available clindamyc in HCl 300 mg capsule Take 1 capsule every 12 hours by oral route for 7 days. 12/29 completed Not Available Not Available Not Available albuterol sulfate 2.5 mg/3 mL (0.083 %) solution for nebulizat ion INHALE THREE (3) ML FOUR (4) TIMES A DAY BY NEBULIZA TION ROUTE NEEDED FOR 30 DAYS. active Not Available Not Available No t Available triazolam 0.25 mg tablet TAKE ONE TABLET BY MOUTH AT BEDTIME, THEN TAKE ONE TABLET BY MOUTH ONE HOUR PRIOR TO DENTAL APPOINTM ENT, THEN BRING THE THIRD TABLET WITH YOU. DO NOT DRIVE. 01/29 completed Not Available Not Available Not Available azithromy zack 250 mg tablet TAKE TWO (2) TABLETS THE FIRST DAY (500 MG) FOLLOWED BY ONE (1) TABLET (250 MG) DAYS 2-5. FOR FIVE (5) DAYS 08/21 completed Not Available Not Available Not Available ibuprofen 800 mg tablet TAKE ONE (1) TABLET BY MOUTH EVERY 8 HOURS NEEDED FOR PAIN. 02/02 completed Not Available Not Available Not Available fluconazo le 150 mg tablet take 1 tablet (150 mg) by oral route for 1 day and repeat in 72 hours if needed 09/21 completed Not Available Not Available Not Available benzonata te 200 mg capsule TAKE ONE (1) CAPSULE THREE (3) TIMES A DAY BY ORAL ROUTE NEEDED FOR 30 DAYS. 01/29 completed Not Available Not Available Not Available Celestone Soluspan 6 mg/mL suspensio n for injection Take 1 mL by injectio n route. 07/14 completed Not Available Not Available Not Available Claritin 10 mg tablet take 1 tablet (10 mg) by oral route once daily for 10 days 11/24 completed Claritin 10 mg oral tablet;P rescribe Status: Prescrib ed on: 10/23/19 14 10:45AM; Disconti nued Status: Disconti nued on: 11/25/19 14 4:55PM;U ser: blairk;E st. Completi on: 11/02/19 14;Pharm acyVerif ied: 10/23/19 14 10:45AM Not Available Not Available Not Available ondansetr on HCl 4 mg tablet TAKE ONE (1) TABLET BY MOUTH EVERY SIX (6) HOURS NEEDED FOR NAUSEA AND VOMITING active Not Available Not Available No t Available prednison e 20 mg tablet TAKE ONE (1) TABLET BY MOUTH EVERY DAY 01/29 completed Not Available Not Available Not Available cyanocoba lisset (vit B-12) 1,000 mcg tablet TAKE ONE (1) TABLET EVERY DAY BY ORAL ROUTE FOR 30 DAYS. 11/11 completed Not Available Not Available Not Available metronida zole 500 mg tablet TAKE ONE (1) TABLET TWICE A DAY BY ORAL ROUTE FOR 7 DAYS. 12/22 completed Not Available Not Available Not Available Tamiflu 75 mg capsule Take 1 capsule twice a day by oral route for 5 days. 11/12 completed Not Available Not Available Not Available sulfameth oxazole 800 mg-trimet hoprim 160 mg tablet TAKE 1 TABLET BY MOUTH TWICE DAILY FOR 10 DAYS 06/19 completed Not Available Not Available Not Available amoxicill in 500 mg tablet take 1 tablet (500 mg) by oral route 3 times per day for 10 days 11/22 completed amoxicil desirae 500 mg oral tablet;P rescribe Status: Prescrib ed on: 10/20/19 15 2:38PM;D iscontin ued Status: Disconti nued on: 11/23/19 15 12:43PM; User: Inge tAlana Cortez on: 10/30/19 15;Pharm acyVerif ied: 10/20/19 15 2:38PM Not Available Not Available Not Available Depo-Medr ol 80 mg/mL suspensio n for injection Take 1 mL by injectio n route. 12/02 completed Not Available Not Available Not Available Macrobid 100 mg capsule take 1 capsule (100 mg) by oral route every 12 hours with food for 7 days 11/24 completed Macrobid 100 mg oral capsule; Prescrib e Status: Prescrib ed on: 11/04/19 14 5:37PM;D iscontin ued Status: Disconti nued on: 11/25/19 14 4:55PM;U ser: andrusa; Est. Completi on: 11/11/19 14;Pharm acyVerif ied: 11/04/19 14 5:37PM Not Available Not Available Not Available Mobic 15 mg tablet take 1 tablet by oral route once a day for 20 days 11/06 completed Mobic 15 mg oral tablet;R ecorded Status: Recorded on: 11/07/19 13 10:25AM; Disconti nued Status: Disconti nued on: 11/07/19 13 11:08AM; User: [email or web address]Anuja Norwood on: 01/06/20 13 Not Available Not Available Not Available oxycodone -acetamin ophen 5 mg-325 mg tablet TAKE ONE (1) TABLET BY MOUTH EVERY FOUR (4) HOURS TO CONTROL PAIN 03/08 completed Not Available Not Available Not Available ceftriaxo ne 1 gram solution for injection 2 ML IM 07/14 completed Not Available Not Available Not Available tamsulosi n 0.4 mg capsule TAKE ONE (1) CAPSULE BY MOUTH ONCE DAILY ONE HALF (1/2) HOUR FOLLOWIN G THE SAME MEAL EACH DAY 03/08 completed Not Available Not Available Not Available Biaxin 250 mg/5 mL oral suspensio n take 5 millilit ers (250 mg) by oral route every 12 hours for 10 days 09/07 completed Biaxin 250 mg/5 mL oral suspensi on for reconsti tution;R ecorded Status: Recorded on: 05/11/20 09 2:17PM;D iscontin ued Status: Disconti nued on: 09/07/19 10 2:37PM;U ser: neuss;Es t. Completi on: 05/21/20 09 Not Available Not Available Not Available hydrocodo ne 7.5 mg-acetam inophen 325 mg tablet TAKE ONE (1) TABLET BY MOUTH EVERY SIX (6) HOURS NEEDED FOR PAIN. 01/29 completed Not Available Not Available Not Available Cefzil 250 mg tablet take 2 tablets (500 mg) by oral route every 12 hours for 10 days 09/07 completed Cefzil 250 mg oral tablet;R ecorded Status: Recorded on: 06/01/20 09 6:28PM;D iscontin ued Status: Disconti nued on: 09/07/19 10 2:37PM;U ser: neuss;Es t. Completi on: 05/27/20 09 Not Available Not Available Not Available triamcino lone acetonide 0.1 % topical ointment APPLY A THIN LAYER TO THE AFFECTED AREA(S) BY TOPICAL ROUTE 2 TIMES PER DAY 02/10 completed Not Available Not Available Not Available nystatin 100,000 unit/gram topical cream APPLY TO THE AFFECTED AREA(S) BY TOPICAL ROUTE 2 TIMES PER DAY 02/28 completed Not Available Not Available Not Available ranitidin e 150 mg tablet take 1 tablet by oral route once a day (at bedtime) for 30 days 06/18 completed ranitidi ne HCl 150 mg oral tablet;R ecorded Status: Recorded on: 06/18/20 11 3:04PM;D iscontin ued Status: Disconti nued on: 06/18/20 11 3:05PM;U ser: [email or web address]; Est. Completi on: 09/16/19 12;Indic ation: Gastroes ophageal Reflux - (.5308 10);Prin blank: 06/18/20 11 Not Available Not Available Not Available clotrimaz ole-betam ethasone 1 %-0.05 % topical cream APPLY TO THE AFFECTED AND SURROUND ING AREAS OF SKIN BY TOPICAL ROUTE 2 TIMES PER DAY IN THE MORNING AND EVENING FOR 2 WEEKS 11/07 completed Not Available Not Available Not Available Loestrin 1/20 (21) 1 mg-20 mcg tablet take 1 tablet by oral route once daily for 28 days 10/29 completed Loestrin 1/20 (21) 1-20 mg-mcg oral tablet;P rescribe Status: Prescrib ed on: 10/08/19 14 11:57AM; Disconti nued Status: Disconti nued on: 10/30/19 14 8:47AM;U ser: youngk;E st. Completi on: 01/29/20 14;Indic ation: Pregnanc y Contrace ption - (18.V259 00);Roxy Husain fied: 10/08/19 14 11:57AM Not Available Not Available Not Available sulfameth oxazole 200 mg-trimet hoprim 40 mg/5 mL oral suspensio n take 5 millilit ers by oral route 2 times a day for 10 days 06/18 completed sulfamet hoxazole -trimeth oprim 200-40 mg/5 mL oral suspensi on;Recor ded Status: Recorded on: 06/07/20 11 10:23AM; Disconti nued Status: Disconti nued on: 06/18/20 11 2:47PM;U ser: blumc;Es t. Completi on: 06/17/20 11;Print ed: 06/07/20 11 Not Available Not Available Not Available buspirone 7.5 mg tablet Take 1 tablet twice a day by oral route for 30 days, for anxiety. 02/02 completed Not Available Not Available Not Available amoxicill in 125 mg/5 mL oral suspensio n take 10 millilit ers (250 mg) by oral route 3 times per day 12/09 completed amoxicil desirae 125 mg/5 mL oral suspensi on for reconsti tution;R ecorded Status: Recorded on: 10/14/19 09 8:49AM;D iscontin ued Status: Disconti nued on: 12/10/19 09 11:16AM; User: temitope Not Available Not Available Not Available amoxicill in 250 mg capsule take 1 capsule by oral route 4 times a day 11/24 completed amoxicil desirae 250 mg oral capsule; Prescrib e Status: Prescrib ed on: 10/23/19 14 10:45AM; Disconti nued Status: Disconti nued on: 11/25/19 14 4:55PM;U ser: blairk;P harmacyV erified: 10/23/19 14 10:45AM Not Available Not Available Not Available ceftriaxo ne 500 mg solution for injection Inject 500mg 11/17 completed Not Available Not Available Not Available amoxicill in 400 mg/5 mL oral suspensio n take 6.25 millilit ers (500 mg) by oral route every 12 hours for 10 days 11/06 completed amoxicil desirae 400 mg/5 mL oral suspensi on for reconsti tution;R ecorded Status: Recorded on: 10/22/19 13 10:11AM; Disconti nued Status: Disconti nued on: 11/07/19 13 10:05AM; User: Inge Knutsoni on: 11/01/19 13;Print ed: 10/22/19 13 Not Available Not Available Not Available ergocalci ferol (vitamin D2) 1,250 mcg (50,000 unit) capsule TAKE ONE (1) CAPSULE BY MOUTH WEEKLY 11/11 completed Not Available Not Available Not Available prednison e 5 mg tablets in a dose pack take as directed 10/07 completed predniso ne 5 mg oral tablets, dose pack;Pre scribe Status: Prescrib ed on: 09/12/19 16 1:12PM;D iscontin ued Status: Disconti nued on: 10/07/19 16 10:26AM; User: Sonia harmacyV erified: 09/12/19 16 1:12PM Not Available Not Available Not Available azithromy zack 200 mg/5 mL oral suspensio n Take one teaspoon twice daily for two days then once daily for two days 06/29 completed azithrom ycin 200 mg/5 mL oral suspensi on for reconsti tution;P rescribe Status: Prescrib ed on: 06/03/20 13 11:00AM; Disconti nued Status: Disconti nued on: 06/29/20 13 2:38PM;U ser: de whitingEst. Completi on: 06/07/20 13;Pharm acyVerif ied: 06/03/20 13 11:00AM Not Available Not Available Not Available Marilia DM 4 mg-45 mg-15 mg/5 mL oral syrup take 2.5 millilit ers by oral route every 4-6 hours as needed 12/19 completed Marilia DM 4-45-15 mg/5 mL oral syrup;Re corded Status: Recorded on: 10/26/19 10 1:48PM;D iscontin ued Status: Disconti nued on: 12/20/19 10 10:42AM; User: janina Est. Completi on: 11/05/19 10;Indic ation: Cold Symptoms - (4600 00);Prin blank: 10/26/19 10 Not Available Not Available Not Available oxycodone -acetamin ophen 7.5 mg-325 mg tablet TAKE ONE (1) TABLET BY ORAL ROUTE EVERY SIX (6) HOURS NEEDED 05/16 completed Not Available Not Available Not Available levofloxa zack 750 mg tablet TAKE 1 TABLET BY MOUTH EVERY DAY FOR 7 DAYS 01/29 completed Not Available Not Available Not Available methylpre dnisolone 4 mg tablets in a dose pack TAKE DIRECTED FOR SIX (6) DAYS 01/29 completed Not Available Not Available Not Available ondansetr on 4 mg disintegr ating tablet DISSOLVE ONE (1) TABLET ON THE TONGUE EVERY FOUR (4) HOURS 03/09 completed Not Available Not Available Not Available cefdinir 300 mg capsule TAKE ONE (1) CAPSULE EVERY 12 HOURS BY ORAL ROUTE DIRECTED FOR 10 DAYS. 11/09 completed Not Available Not Available Not Available fluoxetin e 20 mg capsule Take 1 capsule every day by oral route as directed for 30 days. 07/14 completed Not Available Not Available Not Available fluticaso ne propionat e 50 mcg/actua tion nasal spray,eduard pension INSTILL TWO (2) SPRAYS IN EACH NOSTRIL EVERY DAY 12/22 completed Not Available Not Available Not Available metformin ER 500 mg tablet,ex tended release 24 hr TAKE TWO (2) TABLETS BY MOUTH TWICE DAILY 11/11 completed Not Available Not Available Not Available medroxypr ogesteron e 150 mg/mL intramusc ular suspensio n INJECT 1ML INTRAMUS CULARLY ONCE EVERY THREE (3) MONTHS 01/28 completed Not Available Not Available Not Available Augmentin 500 mg-125 mg tablet take 1 tablet by oral route every 8 hours for 10 days 10/19 completed Augmenti n 500-125 mg oral tablet;P rescribe Status: Prescrib ed on: 08/19/19 15 10:47AM; Disconti nued Status: Disconti nued on: 10/20/19 15 2:21PM;U ser: [email or web address];E st. Completi on: 08/29/19 15;Pharm acyVerif ied: 08/19/19 15 10:47AM Not Available Not Available Not Available naproxen 500 mg tablet take 1 tablet by oral route 2 times a day as needed 08/19 completed naproxen 500 mg oral tablet;P rescribe Status: Prescrib ed on: 10/30/19 14 8:56AM;D iscontin ued Status: Disconti nued on: 08/19/19 15 10:37AM; User: [email or web address]; Pharmacy Verified : 10/30/19 14 8:56AM Not Available Not Available Not Available ranitidin e 15 mg/mL oral syrup take 10 millilit ers by oral route once a day (at bedtime) for 30 days 05/07 completed ranitidi ne HCl 15 mg/mL oral syrup;Re corded Status: Recorded on: 06/18/20 11 3:05PM;D iscontin ued Status: Disconti nued on: 05/07/20 12 10:57AM; User: terry; EstAlana Knutsoni on: 09/16/19 12;Indic ation: Gastroes ophageal Reflux - ([id number]);Prin blank: 06/18/20 11 Not Available Not Available Not Available Orapred 15 mg/5 mL (3 mg/mL) oral solution take 5 millilit ers (15 mg) by oral route 2 times per day with food for 7 days 09/07 completed Orapred 15 mg/5 mL (3 mg/mL) oral solution ;Recorde d Status: Recorded on: 05/11/20 09 2:17PM;D iscontin ued Status: Disconti nued on: 09/07/19 10 2:37PM;U ser: neuss;Es t. Completi on: 05/18/20 09 Not Available Not Available Not Available amoxicill in 875 mg-potass ium clavulana te 125 mg tablet Take 1 tablet every 12 hours by oral route with meals for 10 days. 09/21 completed Not Available Not Available Not Available Ventolin HFA 90 mcg/actua tion aerosol inhaler INHALE TWO (2) PUFFS EVERY FOUR (4) HOURS BY MOUTH NEEDED 01/29 completed Not Available Not Available Not Available buspirone 15 mg tablet TAKE ONE HALF (1/2) TABLET TWICE A DAY BY ORAL ROUTE FOR 30 DAYS, FOR ANXIETY. 02/02 completed Not Available Not Available Not Available medroxypr ogesteron e 150 mg/mL intramusc ular syringe INJECT THE CONTENTS OF 1 SYRINGE INTRAMUS CULARY ONCE EVERY 3 MONTHS 05/07 completed Not Available Not Available Not Available Ortho Tri-Cycle n LO (28) 0.18 mg/0.215 mg/0.25 mg-25 mcg tablet take 1 tablet by oral route once daily for 28 days 10/29 completed Ortho Tri-Cycl en Lo (28) 0.18/0.2 15/0.25 mg-25 mcg oral tablet;c omment: change to ortho cyclen;P rescribe Status: Prescrib ed on: 10/30/19 14 8:56AM;D iscontin ued Status: Disconti nued on: 10/30/19 14 10:10AM; User: wang Alston Completi on: 02/19/20 14;Indic ation: Dysmenor aye - (625.3); Pharmacy Verified : 10/30/19 14 8:56AM Not Available Not Available Not Available cyclobenz aprine 5 mg tablet take 1 tablet (5 mg) by oral route 3 times per day for 5 days 10/17 completed cycloben zaprine 5 mg oral tablet;P rescribe Status: Prescrib ed on: 10/07/19 16 10:26AM; Disconti nued Status: Disconti nued on: 10/18/19 16 11:12AM; User: Imelda st. Completi on: 10/12/19 16;Indic ation: Muscle Spasm - ([phone] 50);Phar macyVeri fied: 10/07/19 16 10:26AM Not Available Not Available Not Available rosuvasta tin 40 mg tablet TAKE ONE (1) TABLET BY MOUTH ONCE DAILY 02/02 completed Not Available Not Available Not Available Auralgan ear drops instill 4 to 5 drops into ear canal q2hrs prn pain hold in place with small cotton ball 11/06 completed auralgan otic soln;Rec orded Status: Recorded on: 10/22/19 13 10:11AM; Disconti nued Status: Disconti nued on: 11/07/19 13 10:05AM; User: Inge tAlana Completi on: 10/29/19 13;Indic ation: None Availabl e - (-5);Brianna nted: 10/22/19 13 Not Available Not Available Not Available Ortho-Cyc rimma (28) 0.25 mg-35 mcg tablet take 1 tablet by oral route once daily for 28 days 10/19 completed Ortho-Cy clen (28) 0.25-35 mg-mcg oral tablet;R ecorded Status: Recorded on: 10/30/19 14 10:10AM; Disconti nued Status: Disconti nued on: 10/20/19 15 2:21PM;U ser: wang Est. Completi on: 02/19/20 14 Not Available Not Available Not Available metformin ER 1,000 mg tablet,ex tended release 24hr (osmotic) Take 1 tablet twice a day by oral route for 90 days. 06/19 completed Not Available Not Available Not Available Mucinex D 60 mg-600 mg tablet,ex tended release Take 1 tablet twice a day by oral route. 11/11 completed Not Available Not Available Not Available azithromy zack tsp bid x 2 days then qd x2 days 06/29 completed azithrom ycin 200 mg/5 mL Oral Suspensi on for Reconsti tution;R ecorded Status: Recorded on: 06/03/20 13 10:37AM; Disconti nued Status: Disconti nued on: 06/29/20 13 2:38PM;U ser: de whitingEst. Completi on: 06/10/20 13;Indic ation: - (-5) Not Available Not Available Not Available Ceftin 1 tsp bid 05/07 completed ceftin 250/5cc; Recorded Status: Recorded on: 10/30/19 12 10:32AM; Disconti nued Status: Disconti nued on: 05/07/20 12 10:57AM; User: de whitignEst. Completi on: 11/09/19 12;Indic ation: - (-5);Brianna nted: 10/30/19 12 Not Available Not Available Not Available Augmentin 1 tsp tid 05/31 completed augmenti n 250mg;Re corded Status: Recorded on: 10/09/19 11 2:26PM;D iscontin ued Status: Disconti nued on: 05/31/20 11 9:05AM;U ser: markesbe ryh;Est. Completi on: 10/30/19 11;Indic ation: - (-5);Brianna nted: 10/09/19 11 Not Available Not Available Not Available ibuprofen 1 tid 07/13 completed ibuprofe n 400mg;Re corded Status: Recorded on: 06/29/20 13 3:10PM;D iscontin ued Status: Disconti nued on: 07/13/20 13 9:16AM;U ser: markesbe ryh;Est. Completi on: 07/06/20 13;Indic ation: - (-5) Not Available Not Available Not Available metformin ER 500 mg 24 hr tablet,ex tended release (gastric retention ) TAKE ONE TABLET BY MOUTH ONCE DAILY WITH EVENING MEAL FOR DIABETES 03/08 completed Not Available Not Available Not Available fenofibra te nanocryst allized 48 mg tablet TAKE ONE (1) TABLET BY MOUTH EVERY DAY DIRECTED 11/11 completed leg pain Not Available Not Available Not Available Symbicort 160 mcg-4.5 mcg/actua tion HFA aerosol inhaler INHALE TWO (2) PUFFS BY MOUTH TWICE A DAY 01/29 completed Not Available Not Available Not Available cholecalc iferol (vitamin D3) 1,250 mcg (50,000 unit) capsule TAKE ONE (1) CAPSULE EVERY WEEK BY ORAL ROUTE FOR 28 DAYS. 03/08 completed Not Available Not Available Not Available FeroSul 325 mg (65 mg iron) tablet TAKE ONE (1) TABLET EVERY DAY BY ORAL ROUTE FOR 30 DAYS. 01/29 completed Not Available Not Available Not Available fenofibra te 40 mg tablet Take 1 tablet every day by oral route as directed for 30 days. active Not Available Not Available No t Available metformin ER 1,000 mg 24 hr tablet,ex tended release (gastric reten.) TAKE ONE (1) TABLET EVERY DAY BY ORAL ROUTE FOR 30 DAYS. active Not Available Not Available No t Available fenofibri c acid (choline) 135 mg capsule,d elayed release TAKE 1 TABLET BY MOUTH EVERY DAY 03/09 completed Not Available Not Available Not Available Metamucil Fiber (aspartam e) 3.4 gram oral powder packet Take 1 packet every day by oral route for 30 days, for constipa tion. 2024 active Not Available Not Available Not Avai lable OneTouch Verio test strips DIRECTED TO TEST BLOOD SUGAR EVERY DAY 11/11 completed Not Available Not Available Not Available guaifenes in ER 600 mg tablet, extended release 12 hr TAKE ONE (1) TABLET EVERY 12 HOURS BY ORAL ROUTE NEEDED FOR 30 DAYS. 01/29 completed Not Available Not Available Not Available Zofran (base) one q 6 hrs prn n and v 10/08 completed zofran 4 mg.;King rded Status: Recorded on: 08/22/19 14 11:38AM; Disconti nued Status: Disconti nued on: 10/08/19 14 11:25AM; User: hemanth; Est. Completi on: 08/26/19 14;Indic ation: n and v - (-5) Not Available Not Available Not Available OneTouch Verio Flex Meter DIRECTED TO CHECK BLOOD SUGAR EVERY DAY 11/11 completed Not Available Not Available Not Available Fish Oil 1,000 mg (120 mg-180 mg) capsule Take 1 capsule every day by oral route. 03/09 completed Not Available Not Available Not Available OneTouch Delica Plus Lancet 33 gauge DIRECTED TO TEST BLOOD SUGAR EVERY DAY 11/11 completed Not Available Not Available Not Available Vitals Date Recorded Body height Body mass index (BMI) Body weight Heart rate Oxygen saturation Oxygen saturation in Arterial blood by Pulse oximetry Respiratory rate Systolic And Diastolic Provider Name and Address Organization Details Last Updated DateTime 5 170.18 cm 27.3 kg/m2 36312.0 7 g 76 /min 98 % 98 % 18 /min 112/74 mm[Hg] Crystal Kade [place] - [facility] 5 13:22:15 Social History Question Answer Notes LastModified by Organizat ion Details LastModified Time Tobacco Smoking Status Never Smoker Caitlyn Corea null, [place] - [facility] 07/26/2016 15:49:08 Do You Have An Advance Directive? No Information not available 05/27/2020 Animal Exposure? Yes Informat ion not available 11/18/2019 Are You Blind Or Do You Have Difficulty Seeing? No Information not available 05/27/2020 Is Blood Transfusion Acceptable In An Emergency? Yes Information not available 05/27/2020 What Is Your Level Of Caffeine Consumption? Occasional [email or web address] Information not available 07/26/2016 How Much Tobacco Do You Chew? None [email or web address] Information not available 11/18/2019 Concerns About Meeting Basic Needs (food, Housing, Heat, Etc)? No [email or web address] Information not available 11/18/2019 In The 14 Days Before Symptom Onset, Have You Had Close Contact With A Laboratory-confir med COVID-19 While That Case Was Ill? No [email or web address] Information not available 11/09/2024 In The 14 Days Before Symptom Onset, Have You Had Close Contact With A Person Who Is Under Investigation For COVID-19 While That Person Was Ill? No [email or web address] Information not available 11/09/2024 Have You Been To An Area Known To Be High Risk For COVID-19? No [email or web address] Information not available 11/09/2024 Are You Deaf Or Do You Have Serious Difficulty Hearing? No Information not available 05/27/2020 What Type Of Diet Are You Following? REGULAR Information not available 01/09/2017 Does Family Ever Have Difficulty Making Ends Meet At The End Of The Month? No [email or web address] Information not available 11/18/2019 Which Illicit Or Recreational Drugs Have You Used? None [email or web address] Information not available 02/05/2024 Have You Directly Handled Bats, Rodents, Or Primates From Ebola Endemic Areas? No [email or web address] Information not available 11/18/2019 Have You Processed Blood Or Body Fluids From An Ebola Virus Disease Patient Without Appropriate PPE? No [email or web address] Information not available 11/09/2024 Have You Had Household Contact With An Ebola Virus Disease Patient? No Information not available 11/18/2019 Have You Had Direct Contact With A Body In An Ebola-affected Area Without Appropriate PPE? No Information not available 11/18/2019 Do You Reside In Or Have You Traveled To An Area Where Ebola Virus Transmission Is Active? No [email or web address] Information not available 11/18/2019 What Is The Highest Grade Or Level Of School You Have Completed Or The Highest Degree You Have Received? [id number] [email or web address] Information not available 02/05/2024 Have There Been Any Changes To Your Family Or Social Situation? No Information no t available 11/18/2019 What Is The Fluoride Status Of Your Home? Fluoridated [email or web address] Information not available 11/18/2019 Are There Any Guns Present In Your Home? No [email or web address] Information not available 11/18/2019 Have You Recently Or Are You Planning To Travel To An Area With Zika Virus? No [email or web address] Information not available 11/09/2024 What Is Your Home Situation? Both Parents [email or web address] Information not available 07/22/2017 How Many Years Have You Used Illicit Or Recreational Drugs? 0 [email or web address] Information not available 02/05/2024 Do You Use Insect Repellent Routinely? Yes Information not available 11/18/2019 Live Alone Or With Others? With Others Information not available 05/27/2020 Last Menstrual Period? 02/20/2024 [email or web address] Information not available 02/21/2024 Last Menstrual Period 10/25/2020 [email or web address] Information not available 11/18/2020 Do You Have A Medical Power Of Epic Specialist? No [email or web address] Information not available 11/09/2024 Mosquito Repellent Used Routinely Yes Information not available 11/18/2019 What Was The Date Of Your Most Recent Tobacco Screening? 02/02/2025 Information not available 02/02/2025 Family Has Moved Frequently/lived With Others Due To Finances Within The Last Year? No [email or web address] Information not available 11/18/2019 How Many Children Do You Have? 0 [email or web address] Information not available 07/12/2020 What Is Your Parents' Marital Status? Unmarried Information not available 07/26/2016 Performs Monthly Self-breast Exam? Yes [email or web address] Information no t available 11/18/2019 Pool Exposure No [email or web address] Information not available 11/18/2019 Do You Use Protection During Sex? Always [email or web address] Information not available 12/01/2021 Do You Use Protection Against STDs? No [email or web address] Information not available 12/01/2021 What Is Your Relationship Status? Domestic Partner [email or web address] Information not available 02/05/2024 Do You Use Your Seat Belt Or Car Seat Routinely? Yes [email or web address] Information not available 07/22/2017 Seat Belts Used Routinely Yes Information not available 05/27/2020 Are You Sexually Active? Yes Information not available 05/27/2020 Do You Have Smoke And Carbon Monoxide Detectors In Your Home? Yes Information not available 07/26/2016 Are You Passively Exposed To Smoke? Yes [email or web address] Information no t available 11/18/2020 How Much Tobacco Do You Smoke? No Information not available 11/18/2019 General Stress Level Low Information not available 05/27/2020 Do You Use Sunscreen Routinely? Yes [email or web address] Information not available 11/18/2019 Has Tobacco Cessation Counseling Been Provided? Yes Information not available 02/14/2022 On What Date Was Tobacco Cessation Counseling Provided? 02/02/2025 Information not available 02/02/2025 Do You Have Difficulty Walking Or Climbing Stairs? No Information not available 05/27/2020 Year In School HS Grad Home-[employer] ooled [email or web address] Information not available 07/22/2017 Was Contraceptive Counseling Provided? Yes Information not available 12/01/2021 What Contraceptive Method Was Reported At Start Of This Visit? None [email or web address] Information not available 01/28/2023 What Contraceptive Method Was Reported At End Of This Visit? None [email or web address] Information not available 01/28/2023 Do You Want To Talk About Contraception Or Prevention During Your Visit Today? No - This Question Does Not Apply To Me/I Prefer Not To Answer [email or web address] Information not available 01/28/2023 How Was The Contraceptive Method Provided? Provided On Site [email or web address] Information not available 12/01/2021 Do You Have Any Future Plans To Get ? No, I Don't Want To Become [email or web address] Information not available 12/01/2021 Sex: Female Functional Status Question Answer Note LastModified by Organizat ion Details LastModified Time Do you or have you ever used smokeless tobacco? Never used smokeless tobacco [email or web address] Information not available 11/18/2019 Are you currently employed? Yes [email or web address] Information not available 11/09/2024 Do you have transportation difficulties? No [email or web address] Information not available 12/01/2021 Urinary incontinence assessment performed? No Information not available 05/27/2020 Are you able to care for yourself? Yes [email or web address] Information n ot available 12/01/2021 Do you have difficulty dressing or bathing? No Information not available 05/27/2020 Do you or have you ever used e-cigarettes or vape? Former user of electronic cigarettes Information not available 02/02/2025 What is your exercise level? Occasional Information not available 01/09/2017 Do you use any illicit or recreational drugs? No [email or web address] Information not available 12/01/2021 Do you or have you ever used any other forms of tobacco or nicotine? No [email or web address] Information not available 12/01/2021 What is your level of alcohol consumption? None [email or web address] Information not available 11/18/2019 What is your status? Not Information no t available 12/01/2021 Are you able to walk? [email or web address] Information not available 05/27/2020 Do you have difficulty doing errands alone? No Information not available 05/27/2020 What is your occupation? [employer] [email or web address] Information not available 11/09/2024 Mental Status Question Answer Note LastModified by Organizat ion Details LastModified Time Do you feel stressed (tense, restless, nervous, or anxious, or unable to sleep at night)? [id number] [email or web address] Information not available 02/05/2024 Do you have difficulty concentrating, remembering or making decisions? No Information no t available 05/27/2020 Are you or have you been involved with bullying? No [email or web address] Information not available 11/18/2020 Family History Relationship Description Onset Age of this Age Resolved Age Notes LastModified by Organization Details LastModified Time Father Anxiety disorder [email or web address] Not available 2016 15:31:46 Father Hypercholest erolemia [email or web address] Not available 2023 09:53:27 Mother Obesity Not available 11/18/2019 14:26:01 Medical History Condition Response Pancreatitis N Other N Atrial Fibrillation N congenital heart disease N Kidney Stones Y Blood Diseases N Rheumatoid arthritis N Erectile Dysfunction N amputation N Skin Lesions N Depression Y Pneumonia N Incontinence N Murmur N Edema N Alzheimer's Disease N Migraine Headaches N Tobacco Abuse N Hemorrhoids N Muscle, Joint, or Bone Problems N Obesity Y Vision or Eye Problems N Restless Leg Syndrome N Carpal Tunnel N Tendonitis N Crohn's Disease N Hypercholesterolemia Y Skin Cancer N Headaches Y Irritable Bowel Syndrome N Anal Fissure N Ear or Hearing Problems N Hospitalizations N Gallstones N Kidney or Bladder Problems N Acne N Goiter N Nicole's Esophagus N Eating Disorder N Skin Problems N Hypertriglyceridemia N MRSA exposure N Constipation N Embolism N Vitamin B12 Deficiency N Deviated Septum N Myocardial Infarction N Mitral Valve Disorders N Vertigo N Thyroid Cancer N Neuropathy N History of DVT N Herniated Disc N Chronic Ear Infections N Chicken Pox N Autism Spectrum Disorder (ASD) N Von Willebrands Disease N Hernia N Plantar Fasciitis N Hospital Admission Other Than N Defects or Inherited Disease N Developmental or Behavioral Disorders N Difficulty Swallowing N Ovarian Cyst N Testosterone Deficiency N Head Injury/Concussion N Interstitial Cystitis N Congenital Anomalies N Hypoglycemia N Blood clot N Vitamin D Deficiency N Cellulitis N Bladder or Kidney Problems N Fracture N Panic Disorder N Schizophrenia N Concussion N Spina Bifida N Osteoarthritis N Parkinson's Disease N Disc Protrusion N Esophagitis N STI N Angina N ADD/ADHD N Multiple Sclerosis N Abnormal PAP N Lumbago N Mental Illness N Psychiatric Illness N Bedwetting N Degenerative Disc Disease N Seizures/Epilepsy N Hyperlipidemia N Syncope N Insomnia N Eczema N Abuse/Domestic Violence N Attention Deficient Disorder N Dementia N Ulcerative colitis N Cerebrovascular Disease N Depression N Guillain-[place] N Sleep Apnea N Bronchitis N Suicidal Ideation N Gynecological History Statement/Question Response Abnormal Pap N Flow Moderate Date of LMP 01/25/2025 STIs/STDs N HPV Vaccine N Duration of Flow (days) 5 Current Control Method Partner Vas ectomy Age at Menarche 12 Last Annual Exam/Provider 02/05/24 w/DT Frequency of Cycle (Q days) 28 Sexually Active? Y Date of Last Cervical Culture 02/05/2024 Menses Monthly Y Date of Last Pap Smear 02/05/2024 Sexual Problems? N LMP Definite Desired Control Method Partner Vas ectomy Hormone Replacement Therapy N Obstetrics History GPAL:G 0 P 0 0 0 0 Immunizations Vaccine Type Date Status Note Provider Name and Address Organization Details Recorded Time meningococcal MCV4P 11/18/19 20 completed Maria C Jeniffer Cardona, CLINICAL RESEARCH SPECIALIST [address], [place], [address], [place] - [facility] 11/18/2019 14:44:39 HPV9 11/19/19 21 cancelled patient objection Maria C Cardona, CLINICAL RESEARCH SPECIALIST [address], [place], [address], [place] - [facility] 11/18/2020 15:13:06 DTaP 06/05/20 05 completed Not Available [facility] 05/20/2016 13:59:37 Hib (PRP-OMP) 01/24/20 01 completed Not Available [facility] 01/28/2023 09:58:08 Hib (PRP-OMP) 03/28/20 01 completed Not Available [facility] 01/28/2023 09:58:08 Hib (PRP-OMP) 12/05/19 02 completed Not Available [facility] 01/28/2023 09:58:08 IPV 01/24/20 01 completed Not Available [facility] 05/20/2016 13:59:37 IPV 03/28/20 01 completed Not Available [facility] 05/20/2016 13:59:37 IPV 12/05/19 02 completed Not Available [facility] 05/20/2016 13:59:38 IPV 06/05/20 05 completed Not Available [facility] 05/20/2016 13:59:46 MMR 02/27/20 02 completed Not Available [facility] 05/20/2016 13:59:46 MMR 06/05/20 05 completed Not Available [facility] 05/20/2016 13:59:46 varicella 12/05/19 02 completed Not Available [facility] 05/20/2016 13:59:47 Hep B, adolescent or pediatric 11/25/19 01 completed Not Available [facility] 05/20/2016 13:59:48 Hep B, adolescent or pediatric 01/24/20 01 completed Not Available [facility] 05/20/2016 13:59:48 Hep B, adolescent or pediatric 12/05/19 02 completed Not Available [facility] 05/20/2016 13:59:48 DTaP 01/24/20 01 completed Not Available [facility] 05/20/2016 13:59:48 DTaP 03/28/20 01 completed Not Available [facility] 05/20/2016 13:59:48 DTaP 05/30/20 01 completed Not Available [facility] 05/20/2016 13:59:48 DTaP 02/27/20 02 completed Not Available [facility] 05/20/2016 13:59:48 varicella 01/28/20 14 completed Maria C Cardona, CLINICAL RESEARCH SPECIALIST [address], [place], [address], [place] - [facility] 03/01/2017 13:10:40 Tdap 01/28/20 14 completed Maria C Cardona, CLINICAL RESEARCH SPECIALIST [address], [place], [address], [place] - [facility] 03/01/2017 13:11:10 meningococcal ACWY, unspecified formulation 01/28/20 14 completed Not Available [facility] 01/28/2023 09:58:08 Hib (HbOC) 12/05/19 02 completed Crystale Bueno null, [place] - [facility] 08/09/2022 11:19:06 Hib (PRP-T) 03/28/20 01 completed Crystale Bueno null, [place] - [facility] 08/09/2022 11:19:06 meningococcal MCV4, unspecified formulation 01/28/20 14 completed Crystale Bueno null, [place] - [facility] 08/09/2022 11:19:07 Past Encounters Encounter ID Performer Location Encounter Start Date Encounter Closed Date Diagnosis/Indication Diagnosis SNOMED-CT Code Diagnosis ICD10 Code Diagnosis Note [id number] Venkatesh Garza, HENRY [address] [place] [address] 01/29/2025 14:59:56 01/29/2025 16:15:57 Community acquired pneumonia 891758266 J18.9 - resolved Overweight in adulthood with body mass index of 25 or more but less than 30 191361193 E66.3 Z68.27 Overweight 306355999 E66 .3 Generalize d anxiety disorder 68527668 F41.1 Patient with symptoms concerning for anxiety.PH Q-9 score: 9; FRANK-7 score: 17.Denies SI/HI. No other safety concerns at this time.Start buspironeF ollow-up as below. Chronic constipation 236 365572 K59.09 [id number] Carmencita Roberto APRN [facility] [address] [place] [id number] 02/02/2025 13:15:33 02/02/2025 14:05:01 Overweight 550274063 E66.3 Overweight in adulthood with body mass index of 25 or more but less than 30 634322466 Z68.27 Blood in urine 44599817 R31.9 Health Concerns Section Related Observation LastModified by Organization Detai ls LastModified Time None Recorded Concern Status LastModified by Organization Details LastModified Time None Recorded Payers Encounter Date Sequence Insurance Name Policy Number Policy Booth Covered Member ID Booth Member ID Guarantor Name 02/02/2025 1 [facility] (MEDICAID HMO) [id number] Mariaelena Cedeno [id number] Dana Cedeno Notes Date Note Type Note Provider Name and Address Organization Details Recorded Time 02/02/2025 text/html Presents with 3 days of blood urineDoes endorse pain to right suprapubic areaNo fever or chillsNo pain with urinationDenies odor to urineDenies urgencyDoes endorse hesitancyNo CVA tendernessDid recently complete course of Levofloxacin last weekNo chest pain, shortness of breath, dizziness, lightheadedness, syncope, palpitations or edema.Denies alcohol, tobacco and illicit drug usageCompliant with medication Carmencita Roberto APRN [address], [place], [address], [place] - [facility] 02/02/2025 14:32:16 OBGyn Episode No OBEpisode recorded.
--- OUTSIDE RECORDS SUMMARY | 2025-02-05 13:17 | XMS_ITS | Continuity of Care Document ---
Author Organization [facility] Address [address] [address] Assessment Encounter Date Assessment Date Assessment LastModified by Organization Details LastModified Time 12/15/2024 12/15/2024 Call office with questions or concerns. RTO for new or worsening symptoms. [email or web address] Not available 12/15/2024 14:48:41 Plan of Treatment Reminders Order Date Submit Date Provider Last Modified By Organization Details Last Modified Time Details Appointments Follow Up 2024 10:20A M Venkatesh Garza APRN Not available Not available Not available ESTABLISH ED PT 30 2024 04:45P Carlos Collins APRN Not available Not available Not available Lab None recorded. Referral None recorded. Procedures None recorded. Surgeries None recorded. Imaging None recorded. Medication Orders clindamyc in HCl 300 mg capsule 2024 05/06/ [address], [address], 12/29/2024 05:01:57 Patient TargetsNo targets recorded. Patient InstructionsNo instructions recorded. Reason for Referral None Reported. Results Created Date Observation Date Name Description Value Unit Range Abnormal Flag Note LastModifiedBy Organization Detail LastModifiedTime 11/27/1911/26/2024 XR, chest No observ ation record ed. [email or web address] [facility] [address], [place], [address], 11/30/2024 10:45:50 11/27/19 25 11/26/2024 CT, angio gram, chest , w/ contr ast No observ ation record ed. [email or web address] [facility] [address], [place], [address], 11/30/2024 10:46:32 02/04/2002/03/2025 XR, kidne y + urete r + bladd er No observ ation record ed. [facility] [address] [place], [address], 02/03/2025 11:02:33 Result Notes None recorded. Problems Name Problem SNOMED Code Status Onset Date Resolution Date Notes Provider Name and Address Organization Details Recorded Time Hypertro phy of tonsils 12515749 Completed 201812/01/2021 Ayaka [place], [place] - [facility] 2 09:14:36 History of calculus of kidney 744073006 Active 2018 Alyson Jones null, [place] - [facility] 9 16:19:23 Childhoo d obesity 359696098 Completed 201911/18/2020 Maria C Cardona, H[facility]RY [address], [place], [address] , [facility] - [facility] 1 15:04:14 Skin lesion 83059773 Completed 201906/15/2020 Removal Reason: resolved Carmencita Roberto, [facility] [address], [place], [address] , [place] - [facility] 4 16:28:06 Skin striae 841117808 Active 2019 Maria C Cardona, [facility] [address], [place], [address] , [facility] - [facility] 0 15:50:11 Difficul ty sleeping 489568669 Completed 201906/19/2021 Ayaka morales, [place] - [facility] 1 09:12:44 Congenit al bilatera l pes planus 41686746517 792824 Active 2019 Ayaka Acevedo null, [place] - [facility] 2 09:14:25 Depressi ve disorder 74853209 Completed 201911/18/2020 Removal Reason: resolved Maria C Hopekam, [facility] [address], [place], [address] , [place] - [facility] 1 15:11:35 Weight gain 2787986 Completed 201911/18/2020 Maria C Hopekam, [employer] [employer] [address], [place], [address] , [place] - [facility] 1 15:04:27 Foot pain 10419729 Completed 201906/19/2021 Ayakajuanis Acevedo null, [place] - [facility] 1 09:12:52 Mass of left breast 42418794002 201943 Completed 201905/27/2020 Ana Bryan, [facility] [address], [place], [address] , [place] - [facility] 0 14:20:11 Hyperins ulinism 15468976 Active 2019 Ayaka Kristina null, [place] - [facility] 2 09:14:30 Mixed hyperlip idemia 268473267 Active 2019 Ayakajuanis Acevedo null, [place] - [facility] 2 09:14:39 Serum thyroid stimulat ing hormone level outside referenc e range 813817492 Active 2019 Maria C Cardona, [facility] [address], [place], [address] , [place] - [facility] 0 11:53:01 Fibroade noma of left breast 81057771207 28118 Completed 201912/01/2021 Ana Adams, [facility] [employer] [address], [place], [address] , [place] - [facility] 2 09:55:08 Vitamin D deficien 76832640 Active 2019 Antonietta Perez null, [place] - [facility] 0 13:55:03 Nodule of subcutan eous tissue of right forearm 17079906981 557118 Active 2020 Maria C Swift Gan Brendan, [employer] [address], [place], [address] , [place] - [facility] 1 15:10:12 History of SARS-CoV -2 22610308356 4190669 Completed 202004/19/2021 Ayaka Acevedo [place], [place] - [facility] 1 09:13:57 Uses depot contrace ption 940801146 Completed 202101/28/2023 Ana Adams, [facility] [address], [place], [address] , [place] [facility] 3 10:23:59 Body mass index 25-29 - overweig ht 330232692 Completed 202101/18/2023 Ana Adams, [employer] [address], [place], [address] , [place] [facility] 4 10:29:35 Erythema tous ear canal 846744869 Active 2021 Carmencita Roberto, [employer] [address], [place], [address] , [place] [facility] 2 16:03:37 Body mass index 30+ - obesity 083101304 Completed 202202/21/2024 Ana Adams, [employer] [employer] [address], [place], [address] , [place] [facility] 4 09:27:42 Elevated blood-pr essure reading without diagnosi s of hyperten ju 601376457 Active 2022 Ana Adams, [employer] [employer] [address], [place], [address] , [place] [facility] 3 14:58:36 Skin lesion 59998972 Active 2023 Carmencita Roberto APRN [address], [place], [address] , [place] [facility] 4 16:28:06 Right lower quadrant pain 151542470 Active 2023 Ana Adams [facility] [address], [place], [address] , [place] [facility] 4 10:29:11 Body mass index 25-29 - overweig ht 032091893 Active 2023 Ana Adams, [facility] [address], [place], [address] , [place] [facility] 4 10:29:35 Irregula r bowel habits 318068961 Active 2023 Ana Adams, [employer] [address], [place], [address] , [place] - [facility] 4 09:27:55 Surveill ance of depot contrace ption done 92151133555 104 Completed 201611/18/2020 Maria C Cardona, [employer] [address], [place], [address] , [place] - [facility] 1 15:04:32 Pleurisy 664289119 Active 2023 Curtis Nguyen, DO [address], [place], [address] , [place] - [facility] 4 11:39:05 Cough 18650605 Completed 202302/02/2025 Crystal Kade null, [place] - [facility] 5 13:17:11 Nicotine dependen ce 72600314 Active 2024 Hannah Manning null, [place] - [facility] 5 13:16:01 Hemoptys is 06451043 Active 2024 Josue Davis, DO [address], [place], [address] , [place] [facility] 5 16:35:22 Dental abscess 737216532 Active 2024 Bindu Dao, [facility] [address], [place], [address] , [place] [facility] 5 14:47:49 Jaw pain 662090100 Active 2024 Bindu Dao, [facility] [address], [place], [address] , [place] [facility] 5 14:49:55 Gingival erythema 163414328 Active 2024 Bindu Dao, [facility] [address], [place], [address] , [place] [facility] 5 14:52:05 Bronchit is 59223382 Completed 202402/02/2025 Caitlyn [place], [place] - [facility] 5 13:16:27 Communit y acquired pneumoni a 325737785 Active 2024 Venkatesh Garza, [facility] [address], [place], [address] , [place] [facility] 5 10:30:34 Generali zed anxiety disorder 07832107 Active 2024 Venkatesh Garza, [facility] [address], [place], [address] , [place] [facility] 5 15:42:54 Chronic constipa tion 832427580 Active 2024 Venkatesh Garza, [facility] [address], [place], [address] , [place] [facility] 5 15:43:44 Blood in urine 32041353 Active 2024 Carmencita Roberto, [facility] [address], [place], [address] , [place] [facility] 5 13:37:03 Contrace ption care manageme nt Completed 201606/15/2020 Removal Reason: stopped depo due to weight gain/gypsy ing Maria C Cardona, [facility] [address], [place], [address] , [place] [facility] 0 14:51:30 Overweig ht in childo d 240571732 Completed 201608/17/2019 Maria C Cardona, [facility] [address], [place], [address] , [place] [facility] 0 14:10:57 Problem Notes None recorded. Procedures Surgical History Date Name Laterality Status Provider Name and Address Organization Details Recorded Time 024 Date of Last Pap Smear completed Ana Adams, [facility] [address], [place], [address], [place] [facility] 02/09/2024 20:37:37 024 Suture/Staple removal completed Caitlyn Braun [place] - [facility] 11/20/2023 09:44:13 024 Punch Biopsy completed Carmencita Roberto, [facility] [address], [place], [address], [place] - [facility] 11/13/2023 20:53:26 021 Medication Reconcilliation completed Caitlyn Braun [place] - [facility] 03/09/2021 13:11:49 021 excision of fibroadenoma of breast completed Ayaka Acevedo [place] - [facility] 12/01/2021 09:16:28 020 Systolic B/P less than 130 mm Hg completed Suze Mary [place] - [facility] 07/14/2020 13:06:20 020 Diastolic B/P less than 80 mm Hg completed Suze Mary [place] - [facility] 07/14/2020 13:06:27 020 Systolic B/P less than 130 mm Hg completed Caitlyn Braun [place] - [facility] 02/11/2020 13:55:31 020 Diastolic B/P less than 80 mm Hg completed Caitlyn Braun [place] - [facility] 02/11/2020 13:55:34 insertion of renal artery stent completed Marilyn Hall [place] - [facility] 05/27/2020 13:50:08 ureterorenoscopy with fragmentation and removal of calculus of kidney completed Ayaka Acevedo [place] - [facility] 12/01/2021 09:16:40 Imaging Results None recorded. Procedure Notes None recorded. Medical Equipment None Reported. Allergies Allergen ID Allergen Name Allergen Category Reaction Reaction Severity Criticality Documentation Date Start Date Code Code System Note Provider Name and Address Organization Details Recorded Time 609494 amoxicill in medicatio n hives Not available Not available 12/01/2021 723 RxNorm Ayaka Acevedo [place] - [facility] 09:13:26 20877 Product containin g penicilli n (product) medicatio n rash Not available Not available 06/06/2017 17987 8001 SNOMED Maria C Jeniffer Cardona, [facility] [address], [place], [address], [place] - [facility] 7 15:35:53 Medications [...] nued on: 11/23/19 15 12:43PM; User: Inge t. Completi on: 10/30/19 15;Pharm acyVamina ied: 10/20/19 15 2:38PM Not Available Not [...] Disconti nued on: 11/07/19 13 11:08AM; User: [facility];E st. Completi on: 01/06/20 13 Not Available Not Available [...] nued on: 11/07/19 13 10:05AM; User: Inge t. Completi on: 11/01/19 13;Print ed: 10/22/19 13 Not [...] Disconti nued on: 10/07/19 16 10:26AM; User: [email or web address];P harmacyV erified: 09/12/19 16 1:12PM Not Available [...] nued on: 06/29/20 13 2:38PM;U ser: de alvarez;Est. Completi on: 06/07/20 13;Pharm acyVerif ied: 06/03/20 13 11:00AM Not Available Not Available Not Available Rongabbiec DM 4 mg-45 mg-15 mg/5 mL oral syrup take 2.5 millilit ers by oral route every 4-6 hours as needed 12/19 completed Rongabbiec DM 4-45-15 mg/5 mL oral syrup;Re corded Status: Recorded on: 10/26/19 10 1:48PM;D iscontin ued Status: Disconti nued on: 12/20/19 10 10:42AM; User: janina Cortez on: 11/05/19 10;Indic ation: Cold Symptoms - (084600 00);Prin blank: 10/26/19 10 Not Available Not [...] ser: [email or web address];E st. Completi on: 08/29/19 15;Pharm Vannessa ied: 08/19/19 15 10:47AM Not Available Not [...] nued on: 05/07/20 12 10:57AM; User: terry; Est. Completi on: 09/16/19 12;Indic ation: Gastroes [...] 16;Indic ation: Muscle Spasm - (13.7288 50);Phar Rodrigue fied: 10/07/19 16 10:26AM Not Available Not [...] nued on: 11/07/19 13 10:05AM; User: Inge [email or web address] Completi on: 10/29/19 13;Indic ation: None Availabl e - (-5);Brianna nted: 10/22/19 13 Not Available Not Available Not Available Ortho-Cyc rimma (28) 0.25 mg-35 mcg tablet take 1 tablet by oral route once daily for 28 days 10/19 completed Ortho-Cy clen (28) 0.25-35 mg-mcg oral tablet;R ecorded Status: Recorded on: 10/30/19 14 10:10AM; Disconti nued Status: Disconti nued on: 10/20/19 15 2:21PM;U ser: [email or web address]; Est. Completi on: 02/19/20 14 Not Available [...] Disconti nued on: 06/29/20 13 2:38PM;U ser: [email or web address] ryh;Est. Completi on: 06/10/20 13;Indic ation: - (-5) Not Available Not Available Not Available Ceftin 1 tsp bid 05/07 completed ceftin 250/5cc; Recorded Status: Recorded on: 10/30/19 12 10:32AM; Disconti nued Status: Disconti nued on: 05/07/20 12 10:57AM; User: de alvarez;Est. Completi on: 11/09/19 12;Indic ation: - (-5);Brianna nted: 10/30/19 12 Not Available Not Available Not Available Augmentin 1 tsp tid 05/31 completed augmenti n 250mg;Re corded Status: Recorded on: 10/09/19 11 2:26PM;D iscontin ued Status: Disconti nued on: 05/31/20 11 9:05AM;U ser: de [email or web address]. Completi on: 10/30/19 11;Indic ation: - (-5);Brianna nted: 10/09/19 11 Not Available Not Available Not Available ibuprofen 1 tid 07/13 completed ibuprofe n 400mg;Re corded Status: Recorded on: 06/29/20 13 3:10PM;D iscontin ued Status: Disconti nued on: 07/13/20 13 9:16AM;U ser: de whitingEst. Completi on: 07/06/20 13;Indic ation: - (-5) [...] nued on: 10/08/19 14 11:25AM; User: hemanth; EstAlana Cortez on: 08/26/19 14;Indic ation: n and v [...] height Body mass index (BMI) Body weight Body temperature Heart rate Oxygen saturation Oxygen saturation in Arterial blood by Pulse oximetry Respiratory rate Systolic And Diastolic Provider Name and Address Organization Details Last Updated DateTime 5 170.18 cm 27.4 kg/m2 97036.0 6 g 97.6 [degF] 88 /min 98 % 98 % 18 /min 114/70 mm[Hg] Carmencita Hernandez [place] - [facility] 5 14:28:34 Social History Question Answer Notes LastModified by Organizat ion Details LastModified Time Tobacco Smoking Status Never Smoker Caitlyn [place], [place] - [facility] 07/26/2016 15:49:08 Do You Have An Advance Directive? No Information not available 05/27/2020 Animal Exposure? Yes [email or web address] Informat ion not available 11/18/2019 Are You Blind Or Do You Have Difficulty Seeing? No Information not available 05/27/2020 Is Blood Transfusion Acceptable In An Emergency? Yes Information not available 05/27/2020 What Is Your Level Of Caffeine Consumption? Occasional [email or web address] Information not available 07/26/2016 How Much Tobacco Do You Chew? None [email or web address] Information not available 11/18/2019 Concerns About Meeting Basic Needs (food, Housing, Heat, Etc)? No [email or web address] Information not available 11/18/2019 In The 14 Days Before Symptom Onset, Have You Had Close Contact With A Laboratory-confir med COVID-19 While That Case Was Ill? No [email or web address] Information not available 11/09/2024 In The 14 Days Before Symptom Onset, Have You Had Close Contact With A Person Who Is Under Investigation For COVID-19 While That Person Was Ill? No [email or web address] Information not available 11/09/2024 Have You Been To An Area Known To Be High Risk For COVID-19? No [email or web address] Information not available 11/09/2024 Are You Deaf Or Do You Have Serious Difficulty Hearing? No Information not available 05/27/2020 What Type Of Diet Are You Following? REGULAR [email or web address] Information not available 01/09/2017 Does Family Ever Have Difficulty Making Ends Meet At The End Of The Month? No [email or web address] Information not available 11/18/2019 Which Illicit Or Recreational Drugs Have You Used? None [email or web address] Information not available 02/05/2024 Have You Directly Handled Bats, Rodents, Or Primates From Ebola Endemic Areas? No [email or web address] Information not available 11/18/2019 Have You Processed Blood Or Body Fluids From An Ebola Virus Disease Patient Without Appropriate PPE? No [email or web address] Information not available 11/09/2024 Have You Had Household Contact With An Ebola Virus Disease Patient? No [email or web address] Information not available 11/18/2019 Have You Had Direct Contact With A Body In An Ebola-affected Area Without Appropriate PPE? No [email or web address] Information not available 11/18/2019 Do You Reside In Or Have You Traveled To An Area Where Ebola Virus Transmission Is Active? No [email or web address] Information not available 11/18/2019 What Is The Highest Grade Or Level Of School You Have Completed Or The Highest Degree You Have Received? MN52238-4 [email or web address] Information not available 02/05/2024 Have There Been Any Changes To Your Family Or Social Situation? No [email or web address] Information no t available 11/18/2019 What Is The Fluoride Status Of Your Home? Fluoridated [email or web address] Information not available 11/18/2019 Are There Any Guns Present In Your Home? No [email or web address] Information not available 11/18/2019 Have You Recently Or Are You Planning To Travel To An Area With Zika Virus? No [email or web address] Information not available 11/09/2024 What Is Your Home Situation? Both Parents [email or web address] Information not available 07/22/2017 How Many Years Have You Used Illicit Or Recreational Drugs? 0 [email or web address] Information not available 02/05/2024 Do You Use Insect Repellent Routinely? Yes [email or web address] Information not available 11/18/2019 Live Alone Or With Others? With Others Information not available 05/27/2020 Last Menstrual Period? 02/20/2024 [email or web address] Information not available 02/21/2024 Last Menstrual Period 10/25/2020 [email or web address] Information not available 11/18/2020 Do You Have A Medical Power Of Material Control Manager? No [email or web address] Information not available 11/09/2024 Mosquito Repellent Used Routinely Yes Information not available 11/18/2019 What Was The Date Of Your Most Recent Tobacco Screening? 02/02/2025 Information not available 02/02/2025 Family Has Moved Frequently/lived With Others Due To Finances Within The Last Year? No [email or web address] Information not available 11/18/2019 How Many Children Do You Have? 0 [email or web address] Information not available 07/12/2020 What Is Your Parents' Marital Status? Unmarried Information not available 07/26/2016 Performs Monthly Self-breast Exam? Yes [email or web address] Information no t available 11/18/2019 Pool Exposure No [email or web address] Information not available 11/18/2019 Do You Use Protection During Sex? Always [email or web address] Information not available 12/01/2021 Do You Use Protection Against STDs? No [email or web address] Information not available 12/01/2021 What Is Your Relationship Status? Domestic Partner [email or web address] Information not available 02/05/2024 Do You Use Your Seat Belt Or Car Seat Routinely? Yes [email or web address] Information not available 07/22/2017 Seat Belts Used Routinely Yes Information not available 05/27/2020 Are You Sexually Active? Yes Information not available 05/27/2020 Do You Have Smoke And Carbon Monoxide Detectors In Your Home? Yes [email or web address] Information not available 07/26/2016 Are You Passively Exposed To Smoke? Yes Information no t available 11/18/2020 How Much Tobacco Do You Smoke? No [email or web address] Information not available 11/18/2019 General Stress Level Low Information not available 05/27/2020 Do You Use Sunscreen Routinely? Yes [email or web address] Information not available 11/18/2019 Has Tobacco Cessation Counseling Been Provided? Yes Information not available 02/14/2022 On What Date Was Tobacco Cessation Counseling Provided? 02/02/2025 Information not available 02/02/2025 Do You Have Difficulty Walking Or Climbing Stairs? No Information not available 05/27/2020 Year In School HS Grad Home-prashant ooled Information not available 07/22/2017 Was Contraceptive Counseling Provided? Yes [email or web address] Information not available 12/01/2021 What Contraceptive Method Was Reported At Start Of This Visit? None [email or web address] Information not available 01/28/2023 What Contraceptive Method Was Reported At End Of This Visit? None [email or web address] Information not available 01/28/2023 Do You Want To Talk About Contraception Or Prevention During Your Visit Today? No - This Question Does Not Apply To Me/I Prefer Not To Answer [email or web address] Information not available 01/28/2023 How Was The Contraceptive Method Provided? Provided On Site Information not available 12/01/2021 Do You Have Any Future Plans To Get ? No, I Don't Want To Become [email or web address] Information not available 12/01/2021 Sex: Female Functional Status Question Answer Note LastModified by Organizat ion Details LastModified Time Do you or have you ever used smokeless tobacco? Never used smokeless tobacco [email or web address] Information not available 11/18/2019 Are you currently employed? Yes [email or web address] Information not available 11/09/2024 Do you have transportation difficulties? No Information not available 12/01/2021 Urinary incontinence assessment performed? No Information not available 05/27/2020 Are you able to care for yourself? Yes [email or web address] Information n ot available 12/01/2021 Do you have difficulty dressing or bathing? No Information not available 05/27/2020 Do you or have you ever used e-cigarettes or vape? Former user of electronic cigarettes Information not available 02/02/2025 What is your exercise level? Occasional [email or web address] Information not available 01/09/2017 Do you use any illicit or recreational drugs? No [email or web address] Information not available 12/01/2021 Do you or have you ever used any other forms of tobacco or nicotine? No [email or web address] Information not available 12/01/2021 What is your level of alcohol consumption? None Information not available 11/18/2019 What is your status? Not Information no t available 12/01/2021 Are you able to walk? [email or web address] Information not available 05/27/2020 Do you have difficulty doing errands alone? No Information not available 05/27/2020 What is your occupation? [employer] Information not available 11/09/2024 Mental Status Question Answer Note LastModified by Organizat ion Details LastModified Time Do you feel stressed (tense, restless, nervous, or anxious, or unable to sleep at night)? [id number] [email or web address] Information not available 02/05/2024 Do you have difficulty concentrating, remembering or making decisions? No Information no t available 05/27/2020 Are you or have you been involved with bullying? No [email or web address] Information not available 11/18/2020 Family History Relationship Description Onset Age of this Age Resolved Age Notes LastModified by Organization Details LastModified Time Father Anxiety disorder [email or web address] Not available 2016 15:31:46 Father Hypercholest erolemia [email or web address] Not available 2023 09:53:27 Mother Obesity Not available 11/18/2019 14:26:01 Medical History Condition Response Pancreatitis N Other N Atrial Fibrillation N congenital heart disease N Blood Diseases N Kidney Stones Y Rheumatoid arthritis N Erectile Dysfunction N amputation [...] colitis N Cerebrovascular Disease N Depression N Guillain-[place] N Sleep Apnea N Bronchitis N Suicidal [...] meningococcal MCV4P 11/18/19 20 completed Maria C Cardona, [facility] [address], [place], [address], [place] [facility] 11/18/2019 14:44:39 HPV9 11/19/19 21 cancelled patient objection Maria C Cardona, [employer] [address], [place], [address], [place] [facility] 11/18/2020 15:13:06 DTaP 06/05/20 05 completed Not Available [facility] 05/20/2016 13:59:37 Hib (PRP-OMP) 01/24/20 01 completed Not Available [facility] 01/28/2023 09:58:08 Hib (PRP-OMP) 03/28/20 01 completed Not Available [facility] 01/28/2023 09:58:08 Hib (PRP-OMP) 12/05/19 02 completed Not Available [facility] 01/28/2023 09:58:08 IPV 01/24/20 01 completed Not Available [facility] 05/20/2016 13:59:37 IPV 03/28/20 01 completed Not Available [facility] 05/20/2016 13:59:37 IPV 12/05/19 02 completed Not Available [facility] 05/20/2016 13:59:38 IPV 06/05/20 05 completed Not Available [facility] 05/20/2016 13:59:46 MMR 02/27/20 02 completed Not Available [facility] 05/20/2016 13:59:46 MMR 06/05/20 05 completed Not Available [facility] 05/20/2016 13:59:46 varicella 12/05/19 02 completed Not Available [facility] 05/20/2016 13:59:47 Hep B, adolescent or pediatric 11/25/19 01 completed Not Available [facility] 05/20/2016 13:59:48 Hep B, adolescent or pediatric 01/24/20 01 completed Not Available [facility] 05/20/2016 13:59:48 Hep B, adolescent or pediatric 12/05/19 02 completed Not Available [facility] 05/20/2016 13:59:48 DTaP 01/24/20 01 completed Not Available [facility] 05/20/2016 13:59:48 DTaP 03/28/20 01 completed Not Available [facility] 05/20/2016 13:59:48 DTaP 05/30/20 01 completed Not Available [facility] [facility] 05/20/2016 13:59:48 DTaP 02/27/20 02 completed Not Available [facility] 05/20/2016 13:59:48 varicella 01/28/20 14 completed Maria C Cardona, [employer] [address], [place], [address], [place] [facility] 03/01/2017 13:10:40 Tdap 01/28/20 14 completed Maria C Cardona, [employer] [address], [place], [address], [place] [facility] 03/01/2017 13:11:10 meningococcal ACWY, unspecified formulation 01/28/20 14 completed Not Available [facility] 01/28/2023 09:58:08 Hib (HbOC) 12/05/19 02 completed Ania Grijalvaias null, [place] - [facility] 08/09/2022 11:19:06 Hib (PRP-T) 03/28/20 01 completed Crystale Bueno null, [place] [facility] 08/09/2022 11:19:06 meningococcal MCV4, unspecified formulation 01/28/20 14 completed Crystale Bueno null, [place] [facility] 08/09/2022 11:19:07 Past Encounters Encounter ID Performer Location Encounter Start Date Encounter Closed Date Diagnosis/Indication Diagnosis SNOMED-CT Code Diagnosis ICD10 Code Diagnosis Note [id number] Bindu Dao, [facility] [address] [place] [address] 12/15/2024 14:15:16 12/15/2024 14:57:09 Jaw pain 584677409 R68.84 Advised use of OTC NSAIDs as needed for discomfort . Gingival erythema 841742 004 K06.8 Begin prescribed medication as written. Advised patient to eat yogurt or take probiotic while taking clindamyci n.Advised to schedule f/u with dentist. Patient agreeable and verbalized understand ing. Health Concerns Section Related Observation LastModified by Organization Detai ls LastModified Time None Recorded Concern Status LastModified by Organization Details LastModified Time None Recorded Payers Encounter Date Sequence Insurance Name Policy Number Policy Booth Covered Member ID Booth Member ID Guarantor Name 12/15/2024 1 [employer] [place] (MEDICAID HMO) [id number] Mariaelena Cedeno [id number] Dana Cedeno Notes Date Note Type Note Provider Name and Address Organization Details Recorded Time 12/15/2024 text/html Patient presents with c/o pain of right upper tooth and right jaw pain x 4 days.Reports pain radiates into throat.Reports difficulty opening mouth.Denies fever, chest pain, SOA, cough, congestion, and n/v/d. Bindu Dao, [employer] [address], [place], [address], [place] - [facility] 12/15/2024 14:55:17 OBGyn Episode No OBEpisode recorded.
--- OUTSIDE RECORDS SUMMARY | 2025-02-05 13:17 | XMS_ITS | Continuity of Care Document ---
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 Oral [...] recognition software and or use of a hospital medical biller. Variances in spelling and vocabulary are possible [...] any inconvenience. [email or web address] Not available 12/07/2024 21:57:35 Plan of Treatment Reminders Order Date Submit Date Provider Last Modified By Organization Details Last Modified Time Details Appointments FOLLOW_UP 2024 10:20A Carlos Gaviria, [place] Not available Not available Not available Lab respirato ry allergen panel - [facility] 2024 025 [email or web address] [facility] (Registration ), [address], [place], [address], 12/14/2024 08:33:43 CBC w/ diff 2024 025 [email or web address] [facility] (Registration ), [address], [place], [address], 12/14/2024 11:25:18 Mycobacte rium tuberculo sis stimulate d gamma interfero n, qual, blood - TB GOLD 2024 025 [email or web address] [facility] (Registration ), [address], [place], [address], 12/14/2024 08:34:00 Referral None recorded. Procedures None recorded. Surgeries None recorded. Imaging None recorded. Medication Orders albuterol sulfate HFA 90 mcg/actua tion aerosol inhaler 2024 025 [place] [facility], [address] [place] [address], [place], [address], 12/07/2024 11:25:46 Patient TargetsNo targets recorded. Patient Instructions Encounter Date Encounter Id Patient Instructions Last Modified By Organization Details Last Modified Time 12/07/2024 [id number] medical record request* - Please forward most recent Chest CT [email or web address] Not available 12/14/2024 08:36:48 Reason for Referral None Reported. Results Created Date Observation Date Name Description Value Unit Range Abnormal Flag Note LastModifiedBy Organization Detail LastModifiedTime 11/27/1911/26/2024 CT, angio gram, chest , w/ contr ast No observ ation record ed. [email or web address] Not Available 2024 15:35:51 11/27/19 25 11/26/2024 XR, chest , 1 view No observ ation record ed. [email or web address] Not Available 2024 15:36:13 12/09/19 25 11/26/2024 CT, angio gram, chest , w/ contr ast No observ ation record ed. [email or web address] [facility] (Med Record) [address], [place], [address], 12/08/2024 10:42:42 12/11/19 25 12/07/2024 fract ional exhal ed nitri c oxide * No observ ation record ed. [email or web address] Not Available 2024 14:06:17 12/12/19 25 12/07/2024 compl ete PFT* No observ ation record ed. [email or web address] Not Available 2024 13:04:35 01/19/20 25 01/15/2025 XR, chest , 2 view No observ ation record ed. [email or web address] [place] [id number] , [place], [address], 01/18/2025 11:48:50 Result Notes None recorded. Problems Name Problem SNOMED Code Status Onset Date Resolution Date Notes Provider Name and Address Organization Details Recorded Time Dyspnea on exertion 46777024 Active 2024 Joy Gaviria NP [address], [place], [address], [place] - [facility] 11:20:20 Hemoptysis 35834724 Active 2024 Joy Gaviria NP [address], [place], [address], [place] - [facility] 5 11:20:54 Mild intermittent asthma 927862132 Active 2024 Joy Gaviria NP [address], [place], [address], [place] - [facility] 19:58:05 Cough 44895256 Active 2024 Joy Gaviria NP [address], [place], [address], [facility] - [facility] 15:19:53 Problem Notes None recorded. Procedures Surgical History Date Name Laterality Status Provider Name and Address Organization Details Recorded Time removal of urinary calculus completed kamar carmona [place] - [facility] 12/07/2024 10:39:20 operation on breast completed kamar carmona [facility] 12/07/2024 10:39:28 Imaging Results None recorded. Procedure Notes None recorded. Medical Equipment None Reported. Allergies Allergen ID Allergen Name Allergen Category Reaction Reaction Severity Criticality Documentation Date Start Date Code Code System Note Provider Name and Address Organization Details Recorded Time 38457 amoxicill in medicatio n Not available Not available Not available 12/07/2024 723 RxNorm kamarjaret carmona [facility] 10:38:09 Medications [...] Updated DateTime 5 170.18 cm 27.8 kg/m2 16130.5 7 g 97 % 97 % 90 /min 18 /min 98.3 [degF] 130 mm[Hg] 82 mm[Hg] kamar carmona [facility] 10:59:59 Social History Question Answer Notes LastModified by Organizat ion Details LastModified Time Tobacco Smoking Status Never Smoker kamar morales [facility] 12/07/2024 10:37:26 Do You Have An Advance Directive? No [email or web address] Information not available 12/07/2024 Is Your Home Air Conditioned? Yes [email or web address] Information not available 12/07/2024 Where Do You Live? [place] [email or web address] Information not available 12/07/2024 Do You Have A Medical Power Of Thermite Bomb Loader? No [email or web address] Information not available 12/07/2024 What Was The Date Of Your Most Recent Tobacco Screening? 12/21/2024 Quit 1 Week Ago [email or web address] Information not available 12/21/2024 Do You Have Any Pets? Yes 2 Dogs, 1 Cat [email or web address] Information not available 12/07/2024 What Is Your Relationship Status? Single [email or web address] Information not available 12/07/2024 Are There Any Smokers In Your House? Yes [email or web address] Information not available 12/07/2024 Has Tobacco Cessation Counseling Been Provided? Yes [email or web address] Information not available 12/07/2024 On What Date Was Tobacco Cessation Counseling Provided? 12/21/2024 [email or web address] Information not available 12/21/2024 Have You Recently Traveled Abroad? No [email or web address] Information not available 12/07/2024 Are You Currently In School? No Information not available 12/07/2024 How Many Years Have You Used E-cigarettes Or Vape? 1 [email or web address] Information not available 12/07/2024 Sex: Unknown Functional Status Question Answer Note LastModified by Organizat ion Details LastModified Time Do you or have you ever used any other forms of tobacco or nicotine? Yes [email or web address] Information not available 12/07/2024 Do you or have you ever used smokeless tobacco? Never used smokeless tobacco [email or web address] Information not available 12/07/2024 Are you currently employed? No [email or web address] Information not available 12/07/2024 Do you or have you ever used e-cigarettes or vape? Former user of electronic cigarettes [email or web address] Information not available 12/21/2024 Mental Status None recorded. Family History Relationship Description Onset Age of this Age Resolved Age Notes LastModified by Organization Details LastModified Time Mother Allergy [email or web address] Not availabl e 12/07/2024 10:39:52 Mother Asthma [email or web address] Not available 12/07/2024 10:40:03 Mother Chronic obstructive pulmonary disease [email or web address] Not available 12/07 10:40:11 Mother Emphysema [email or web address] Not availa ble 12/07/2024 10:40:16 Mother Sleep apnea [email or web address] Not avai lable 12/07/2024 10:40:22 Father Allergy [email or web address] Not availabl e 12/07/2024 10:39:52 Medical History No medical history recorded. Gynecological HistoryNo gynecological history recorded. Obstetrics History GPAL:G 0 P 0 0 0 0 Past Encounters Encounter ID Performer Location Encounter Start Date Encounter Closed Date Diagnosis/Indication Diagnosis SNOMED-CT Code Diagnosis ICD10 Code Diagnosis Note [id number] Ramirez Sandoval DO [place] [facility] [address] [place] [address] 12/07/2024 10:43:02 12/07/2024 11:33:02 Seasonal allergy 382363794 J30.2 Dyspnea on exertion 6084 5006 R06.09 Hemoptysis 71861417 R04. 2 Health Concerns Section Related Observation LastModified by Organization Detai ls LastModified Time None Recorded Concern Status LastModified by Organization Details LastModified Time None Recorded Payers Encounter Date Sequence Insurance Name Policy Number Policy Booth Covered Member ID Booth Member ID Guarantor Name 12/07/2024 1 [facility] (MEDICAID HMO) Ricardoderek Wilian [id number] Mariaelena Cedeno Notes Date Note Type Note Provider Name and Address Organization Details Recorded Time 12/07/2024 text/html This 24 year-old female presents to the office for evaluation of hemoptysis.Patient states she was seen in the ER at [facility] 11/26/2024 where she presented with an episode [...] or night sweats. 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 Patients mother also works at a group home.Patient has vaped daily for the past year. Patient has residential exposure to 2 dogs and 1 cat.Denies any n/v/d/f/c Joy Gaviria, [place] [address], [place], [address], [facility] - [facility] 12/07/2024 22:00:47 OBGyn Episode No OBEpisode recorded.
--- OUTSIDE RECORDS SUMMARY | 2025-02-05 13:17 | XMS_ITS | Data Portability ---
Author Organization [facility] Address [address] [place] [address] Assessment Encounter Date Assessment Date Assessment LastModified by Organization Details LastModified Time 12/15/2024 12/15/2024 Call office with questions or concerns. RTO for new or worsening symptoms. [email or web address] Not available 12/15/2024 14:48:41 Plan of Treatment Reminders Order Date Submit Date Provider Last Modified By Organization Details Last Modified Time Details Appointments Follow Up 2024 10:20A M Venkatesh Garza, ASSISTIVE TECHNOLOGY TRAINER Not available Not available Not available ESTABLISH ED PT 30 2024 04:45P Carlos Collins, ASSISTIVE TECHNOLOGY TRAINER Not available Not available Not available Lab culture, urine 2024 025 [place] [facility], [address], [address], [place], [address], 02/04/2025 03:36:18 urinalysi s, dipstick 2024 025 [facility], [address] [place], [address], 02/02/2025 14:31:55 vitamin B12, serum 2024 025 [place] [facility], [address], [address], [place], [address], 11/12/2024 08:28:14 CMP, serum or plasma 2024 025 [place] [facility], [address] [place] [address], [place], [address], 11/12/2024 08:28:09 lipid panel, serum 2024 025 [place] [facility], [address] [place] [address], [place], [address], 11/12/2024 08:28:11 vitamin D, 25-hydrox y, total, serum 2024 025 [place] [facility], [address] [place], [place], [address], 11/12/2024 08:28:13 insulin, serum 2024 025 [place] [facility], [address] [place] [address], [place], [address], 11/12/2024 08:28:14 ferritin, serum or plasma 2024 025 [place] [facility], [address] [place] [address], [place], [address], 11/12/2024 08:28:15 iron + total iron-bind ing capacity (TIBC), serum 2024 025 [place] [facility], [address], [place], [address], 11/12/2024 08:28:12 CBC 2024 025 [place] [facility], [address] [place] [address], [place], [address], 11/12/2024 08:28:10 Referral None recorded. Procedures None recorded. Surgeries None recorded. Imaging XR, kidney + ureter + bladder 2024 025 [facility], [address] [place], [address], 02/03/2025 10:40:51 Medication Orders clindamyc in HCl 300 mg capsule 2024 025 [place] [facility], [address] [place] [address], [place], [address], 12/29/2024 05:01:57 Patient TargetsNo targets recorded. Patient Instructions Encounter Date Encounter Id Patient Instructions Last Modified By Organization Details Last Modified Time 11/09/2024 [id number] coughing up bloo d: care instructions [email or web address] Not available 11/09/2024 16:38:00 The patient was seen and evaluated with the resident as documented above. The case and presentation were discussed. I agree with the plan and treatment recommendations as outlined above. [email or web address] Not available 11/09/2024 15:41:32 11/11/2024 [id number] learning about healthy weight [email or web address] Not available 11/11/2024 08:39:06 weight managemen t education rjessee Not available 11/11/2024 08:39:06 We will call you with your lab results. I would like to see you back in 3 months. [email or web address] Not available 11/11/2024 08:42:22 02/02/2025 [id number] body mass index: care instructions Not available 02/02/2025 15:21:32 learning about healthy weight Not available 02/02/2025 15:21:32 Advised to monit or for now Discussed increasing water intake Will call with results of labs and imaging once available To call office for questions, concerns or issues Not available 02/02/2025 14:30:51 Reason for Referral None Reported. Results Created Date Observation Date Name Description Value Unit Range Abnormal Flag Note LastModifiedBy Organization Detail LastModifiedTime 11/12/1911/12/2024 COMP. METAB OLIC PANEL (14) glucose 99 mg/dL 70-99 normal Not Available [facility] ([facility]) [address] [place], [address], 11/12/2024 08:28:09 11/12/19 25 11/12/2024 COMP. METAB OLIC PANEL (14) BUN 17 mg/dL 6-20 normal Not Available [facility] ([facility]) [address] [place], [address], 11/12/2024 08:28:09 11/12/19 25 11/12/2024 COMP. METAB OLIC PANEL (14) creatinine 0.89 mg/dL 0.57-1 .00 normal Not Available [facility] ([facility]) [address] [place], [address], 11/12/2024 08:28:09 11/12/19 25 11/12/2024 COMP. METAB OLIC PANEL (14) eGFR 93 mL/mi n/1.7 3 >59 normal Not Available [facility] ([facility]) [address] [place], [address], 11/12/2024 08:28:09 11/12/19 25 11/12/2024 COMP. METAB OLIC PANEL (14) BUN/creatini ne ratio 19 9-23 normal Not Available [facility] ([facility]) [address] [facility] [place], [address], 11/12/2024 08:28:09 11/12/19 25 11/12/2024 COMP. METAB OLIC PANEL (14) sodium 138 mmol/ L 134-14 4 normal Not Available [facility] ([facility]) [address] [place], [address], 11/12/2024 08:28:09 11/12/19 25 11/12/2024 COMP. METAB OLIC PANEL (14) potassium 4.3 mmol/ L 3.5-5. 2 normal Not Available [facility] ([facility]) [address] [place], [address], 11/12/2024 08:28:09 11/12/19 25 11/12/2024 COMP. METAB OLIC PANEL (14) chloride 104 mmol/ L 96-106 normal Not Available [facility] ([facility]) [address] [place], [address], 11/12/2024 08:28:09 11/12/19 25 11/12/2024 COMP. METAB OLIC PANEL (14) carbon dioxide, total 20 mmol/ L 20-29 normal Not Available [facility] ([facility]) [address] [place], [address], 11/12/2024 08:28:09 11/12/19 25 11/12/2024 COMP. METAB OLIC PANEL (14) calcium 9.6 mg/dL 8.7-10 .2 normal Not Available [facility] ([facility]) [address] [place], [address], 11/12/2024 08:28:11/12/19 25 11/12/2024 COMP. METAB OLIC PANEL (14) protein, total 6.9 g/dL 6.0-8. 5 normal Not Available [facility] ([facility]) [address] [place], [address], 11/12/2024 08:28:09 11/12/19 25 11/12/2024 COMP. METAB OLIC PANEL (14) albumin 4.4 g/dL 4.0-5. 0 normal Not Available [facility] ([facility]) [address] [place], [address], 11/12/2024 08:28:09 11/12/19 25 11/12/2024 COMP. METAB OLIC PANEL (14) globulin, total 2.5 g/dL 1.5-4. 5 Not Available [facility] ([facility]) [address] [place], [address], 11/12/2024 08:28:09 11/12/19 25 11/12/2024 COMP. METAB OLIC PANEL (14) bilirubin, total <0.2 mg/dL 0.0-1. 2 Not Available [facility] ([facility] [address] [facility] [place], [address], 11/12/2024 08:28:09 11/12/19 25 11/12/2024 COMP. METAB OLIC PANEL (14) alkaline phosphatase 62 IU/L 44-121 normal Not Available [facility]) [address] [facility], [place], [address], 11/12/2024 08:28:09 11/12/1911/12/2024 COMP. METAB OLIC PANEL (14) AST (SGOT) 15 IU/L 0-40 normal Not Available [facility] ([facility]) [address] [facility], [place], [address], 11/12/2024 08:28:09 11/12/1911/12/2024 COMP. METAB OLIC PANEL (14) ALT (SGPT) 14 IU/L 0-32 normal Not Available [facility] ([facility]) [address] [facility], [place], [address], 11/12/2024 08:28:09 11/12/19 25 11/12/2024 CBC, PLATE LET, NO DIFFE RENTI AL WBC 7.7 x10e3 /uL 3.4-10 .8 normal Not Available [facility] ([facility]) [address] [facility], [place], [address], 11/12/2024 08:28:10 11/12/19 25 11/12/2024 CBC, PLATE LET, NO DIFFE RENTI AL RBC 4.51 x10e6 /uL 3.77-5 .28 normal Not Available [facility] ([facility]) [address] [facility], [place], [address], 11/12/2024 08:28:10 11/12/1911/12/2024 CBC, PLATE LET, NO DIFFE RENTI AL hemoglobin 13.4 g/dL 11.1-1 5.9 normal Not Available [facility] ([facility]) [address] [facility], [place], [address], 11/12/2024 08:28:10 11/12/19 25 11/12/2024 CBC, PLATE LET, NO DIFFE RENTI AL hematocrit 41.7 % 34.0-4 6.6 normal Not Available [facility] ([facility]) [address] [place], [address], 11/12/2024 08:28:10 11/12/1911/12/2024 CBC, PLATE LET, NO DIFFE RENTI AL MCV 93 fL 79-97 normal Not Available [facility] ([facility]) [address] [place], [address], 11/12/2024 08:28:10 11/12/1911/12/2024 CBC, PLATE LET, NO DIFFE RENTI AL MCH 29.7 pg 26.6-3 3.0 normal Not Available [facility] ([facility]) [address] [place], [address], 11/12/2024 08:28:10 11/12/1911/12/2024 CBC, PLATE LET, NO DIFFE RENTI AL MCHC 32.1 g/dL 31.5-3 5.7 normal Not Available [facility] ([facility]) [address] [place], [address], 11/12/2024 08:28:10 11/12/1911/12/2024 CBC, PLATE LET, NO DIFFE RENTI AL RDW 12.8 % 11.7-1 5.4 Not Available [facility] ([facility]) [address] [place], [address], 11/12/2024 08:28:10 11/12/1911/12/2024 CBC, PLATE LET, NO DIFFE RENTI AL platelets 284 x10e3 /uL 150-45 0 normal Not Available [facility] ([facility]) [address] [place], [address], 11/12/2024 08:28:10 11/12/1911/12/2024 CBC, PLATE LET, NO DIFFE RENTI AL NRBC BUSINESS PROGRAMMER Not Available [facility] ([facility]) [address] [place], [address], 11/12/2024 08:28:10 11/12/19 25 11/12/2024 LIPID PANEL cholesterol, total 214 mg/dL 100-19 9 above high normal Not Available [facility] ([facility]) [address] [place], [address], 11/12/2024 08:28:11 11/12/19 25 11/12/2024 LIPID PANEL triglyceride s 232 mg/dL 0-149 above high normal Not Available [facility] ([facility]) [address] [place], [address], 11/12/2024 08:28:11 11/12/19 25 11/12/2024 LIPID PANEL HDL cholesterol 41 mg/dL >39 normal Not Available [facility] ([facility]) [address] [place], [address], 11/12/2024 08:28:11 11/12/19 25 11/12/2024 LIPID PANEL VLDL cholesterol bertrand 41 mg/dL 5-40 above high normal Not Available [facility] ([facility]) [address] [place], [address], 11/12/2024 08:28:11 11/12/19 25 11/12/2024 LIPID PANEL LDL chol calc ([facility]) 132 mg/dL 0-99 above high normal Not Available [facility] ([facility]) [address] [place], [address], 11/12/2024 08:28:11 11/12/19 25 11/12/2024 LIPID PANEL LDL calc comment: BUSINESS PROGRAMMER Not Available [facility] ([facility]) [address] [place], [address], 11/12/2024 08:28:11 11/12/19 11/12/2024 IRON AND TIBC iron bind.cap.(TI BC) 367 ug/dL 250-45 0 normal Not Available [facility] ([facility]) [address] [place], [address], 11/12/2024 08:28:12 11/12/1911/12/2024 IRON AND TIBC UIBC 332 ug/dL 131-42 5 normal Not Available [facility] ([facility]) [address] [place], [address], 11/12/2024 08:28:12 11/12/1911/12/2024 IRON AND TIBC iron 35 ug/dL 27-159 normal Not Available [facility] ([facility]) [address] [place], [address], 11/12/2024 08:28:12 11/12/1911/12/2024 IRON AND TIBC iron saturation 10 % 15-55 below low normal Not Available [facility] ([facility]) [address] [place], [address], 11/12/2024 08:28:12 11/12/1911/12/2024 VITAM IN D, 25-HY DROXY vitamin D, 25-hydroxy 39.1 NG/mL 30.0-1 00.0 Vitam in D defic iency has been defin ed by the Insti tute of Medic ine and an Endoc rine Socie ty pract ice guide line as a level of serum 25-OH vitam in D less than 20 ng/mL (1,2) . The Endoc rine Socie ty went on to furth er defin e vitam in D insuf ficie ncy as a level betwe en 21 and 29 ng/mL (2). 1. IOM (Inst itute of Medic ine). 2010. Dieta ry refer ence intak es for calci um and D. Emir hooper [place]: The [facility] Press . 2. Raquel hare MF, Chrissy diallo [place], Ines off-F errar i CAGLE, et al. Evalu ation , treat ment, and preve ntion of vitam in D defic iency : an Endoc rine Socie ty clini bertrand pract ice guide line. JCEM. 2010; 96(7) :1911 -30. Not Available [facility] ([facility]) [address] [place], [address], 11/12/2024 08:28:13 11/12/19 25 11/12/2024 VITAM IN B12 vitamin B12 1183 pg/mL 232-12 45 normal Not Available [facility] ([facility]) [address] [place], [address], 11/12/2024 08:28:13 11/12/19 25 11/12/2024 INSUL IN insulin 33.4 uIU/m L 2.6-24 .9 above high normal Not Available [facility] ([facility]) [address] [place], [address], 11/12/2024 08:28:14 11/12/19 25 11/12/2024 ETHAN TIN ferritin 19 NG/mL 15-150 normal Not Available [facility] ([facility]) [address] [place], [address], 11/12/2024 08:28:15 02/03/20 25 02/03/2025 URINE CULTU REREGINA NE urine culture, routine Final report Not Available [facility] ([facility]) [address] [place], [address], 02/04/2025 03:36:18 02/03/20 25 02/03/2025 URINE CULTU REREGINA NE result 1 COMMEN T Mixed uroge nital leisa Less than 10,00 0 colon ies/m L Not Available [facility] ([facility]) [address] [place], [address], 02/04/2025 03:36:18 02/03/20 25 02/02/2025 urina lysis , dipst ick Leukocytes Trace Not Available [address] [place], [address], 02/02/2025 14:31:02 02/03/20 25 02/02/2025 urina lysis , dipst ick Nitrite negati ve Not Available [address] [place], [address], 02/02/2025 14:31:02 02/03/20 25 02/02/2025 urina lysis , dipst ick Urobilinogen .2 Not Available [address] [place], [address], 02/02/2025 14:31:02 02/03/20 25 02/02/2025 urina lysis , dipst ick Protein 30 Not Available [address] [place], [address], 02/02/2025 14:31:02 02/03/20 25 02/02/2025 urina lysis , dipst ick pH 6.0 Not Available [address] [place], [address], 02/02/2025 14:31:02 02/03/20 25 02/02/2025 urina lysis , dipst ick Blood Large Not Available [address] [place], [address], 02/02/2025 14:31:02 02/03/20 25 02/02/2025 urina lysis , dipst ick Specific [place] 1.015 Not Available [address] [place], [address], 02/02/2025 14:31:02 02/03/20 25 02/02/2025 urina lysis , dipst ick Ketone Negati ve Not Available [address] [place], [address], 02/02/2025 14:31:02 02/03/20 25 02/02/2025 urina lysis , dipst ick Bilirubin Negati ve Not Available [address] [place], [address], 02/02/2025 14:31:02 02/03/20 25 02/02/2025 urina lysis , dipst ick Glucose Negati ve Not Available [address] [place], [address], 02/02/2025 14:31:02 02/03/20 25 02/02/2025 urina lysis , dipst ick Appearance Clear Not Available [address] [place], [address], 02/02/2025 14:31:02 02/03/20 25 02/02/2025 urina lysis , dipst ick Color Yellow Not Available [address] [place], [address], 02/02/2025 14:31:02 11/27/19 25 11/26/2024 XR, chest No observ ation record ed. [address], [place], [address], 11/30/2024 10:45:50 11/27/19 25 11/26/2024 CT, angio gram, chest , w/ contr ast No observ ation record ed. [address], [place], [address], 11/30/2024 10:46:32 02/04/20 25 02/03/2025 XR, kidne y + urete r + bladd er No observ ation record ed. [facility] [address] [place], [address], 02/03/2025 11:02:33 Result Notes None recorded. Problems Name Problem SNOMED Code Status Onset Date Resolution Date Notes Provider Name and Address Organization Details Recorded Time Hypertro phy of tonsils 66057933 Completed 201812/01/2021 Ayaka Acevedo null, [place] - [facility] 2 09:14:36 History of calculus of kidney 746041637 Active 2018 Alyson Jones null, [place] - [facility] 9 16:19:23 Childhoo d obesity 366297634 Completed 201911/18/2020 Maria C Cardona, ASSISTIVE TECHNOLOGY TRAINER [address], [place], [address] , [facility] - [facility] 1 15:04:14 Skin lesion 18253036 Completed 201906/15/2020 Removal Reason: resolved Carmencita Roberto, ASSISTIVE TECHNOLOGY TRAINER [address], [place], [address] , [place] - [facility] 4 16:28:06 Skin striae 288209332 Active 2019 Maria C Cardona, ASSISTIVE TECHNOLOGY TRAINER [address], [place], [address] , [facility] - [facility] 0 15:50:11 Difficul ty sleeping 173780901 Completed 201906/19/2021 Ayaka morales, [place] - [facility] 1 09:12:44 Congenit al bilatera l pes planus 65887312222 090378 Active 2019 Ayaka Acevedo null[place] - [facility] 2 09:14:25 Depressi ve disorder 32735506 Completed 201911/18/2020 Removal Reason: resolved Maria C Cardona, ASSISTIVE TECHNOLOGY TRAINER [address], [place], [address] , [place] - [facility] 1 15:11:35 Weight gain 1542002 Completed 201911/18/2020 Maria C Cardona, ASSISTIVE TECHNOLOGY TRAINER [address], [place], [address] , [place] - [facility] 1 15:04:27 Foot pain 79333909 Completed 201906/19/2021 Ayaka Acevedo null, [place] - [facility] 1 09:12:52 Mass of left breast 61291507301 726512 Completed 201905/27/2020 Ana Pancker, ASSISTIVE TECHNOLOGY TRAINER [address], [place], [address] , [place] - [facility] 0 14:20:11 Hyperins ulinism 31359434 Active 2019 Ayaka Acevedo null[place] - [facility] 2 09:14:30 Mixed hyperlip idemia 355013914 Active 2019 Ayaka Acevedo null[place] - [facility] 2 09:14:39 Serum thyroid stimulat ing hormone level outside referenc e range 853154854 Active 2019 Maria C Cardona, ASSISTIVE TECHNOLOGY TRAINER [address], [place], [address] , [place] - [facility] 0 11:53:01 Fibroade noma of left breast 52450462196 50850 Completed 201912/01/2021 Ana Adams, ASSISTIVE TECHNOLOGY TRAINER [address], [place], [address] , [place] - [facility] 2 09:55:08 Vitamin D deficien cy 38647322 Active 2019 Antonietta Perez null, [place] - [facility] 0 13:55:03 Nodule of subcutan eous tissue of right forearm 12220158573 666103 Active 2020 Maria C Cardona, ASSISTIVE TECHNOLOGY TRAINER [address], [place], [address] , [place] - [facility] 1 15:10:12 History of SARS-CoV -2 86015447728 9217407 Completed 202004/19/2021 Ayaka Acevedo null[place] - [facility] 1 09:13:57 Uses depot contrace ption 852147608 Completed 202101/28/2023 Ana Adams, ASSISTIVE TECHNOLOGY TRAINER [address], [place], [address] , [place] - [facility] 3 10:23:59 Body mass index 25-29 - overweig 996127814 Completed 202101/18/2023 Ana Adams, ASSISTIVE TECHNOLOGY TRAINER [address], [place], [address] , [place] [facility] 4 10:29:35 Erythema tous ear canal 427359168 Active 2021 Carmencita Roberto, ASSISTIVE TECHNOLOGY TRAINER [address], [place], [address] , [place] [facility] 2 16:03:37 Body mass index 30+ - obesity 660963775 Completed 202202/21/2024 Ana Adams, ASSISTIVE TECHNOLOGY TRAINER [address], [place], [address] , [place] [facility] 4 09:27:42 Elevated blood-pr essure reading without diagnosi s of hyperten ju 139881778 Active 2022 Ana Adams, ASSISTIVE TECHNOLOGY TRAINER [address], [place], [address] , [place] [facility] 3 14:58:36 Skin lesion 07596411 Active 2023 Carmencita Roberto, ASSISTIVE TECHNOLOGY TRAINER [address], [place], [address] , [place] [facility] 4 16:28:06 Right lower quadrant pain 874778166 Active 2023 Ana Adams ASSISTIVE TECHNOLOGY TRAINER [address], [place], [address] , [place] [facility] 4 10:29:11 Body mass index 25-29 - overweig 360172624 Active 2023 Ana Adams APRN [address], [place], [address] , [place] [facility] 4 10:29:35 Irregula r bowel habits 064231146 Active 2023 Ana Adams, ASSISTIVE TECHNOLOGY TRAINER [address], [place], [address] , [place] [facility] 4 09:27:55 Surveill ance of depot contrace ption done 52873615306 104 Completed 201611/18/2020 Maria C Cardona, ASSISTIVE TECHNOLOGY TRAINER [address], [place], [address] , [place] - [facility] 1 15:04:32 Pleurisy 774015511 Active 2023 Curtis Nguyen, DO [address], [place], [address] , [place] - [facility] 4 11:39:05 Cough 13634953 Completed 202302/02/2025 Crystal Kade null[place] - [facility] 5 13:17:11 Nicotine dependen ce 09797314 Active 2024 Hannah Manning null, [place] - [facility] 5 13:16:01 Hemoptys is 68825150 Active 2024 Josue Davis, DO [address], [place], [address] , [place] [facility] 5 16:35:22 Dental abscess 956119589 Active 2024 Bindu Dao, ASSISTIVE TECHNOLOGY TRAINER [address], [place], [address] , [place] [facility] 5 14:47:49 Jaw pain 178230967 Active 2024 Bindu Dao, ASSISTIVE TECHNOLOGY TRAINER [address], [place], [address] , [place] [facility] 5 14:49:55 Gingival erythema 382921575 Active 2024 Bindu Dao, ASSISTIVE TECHNOLOGY TRAINER [address], [place], [address] , [place] - [facility] 5 14:52:05 Bronchit is 91972218 Completed 202402/02/2025 Crystal Kade null[place] - [facility] 5 13:16:27 Communit y acquired pneumoni a 667785597 Active 2024 Venkatesh Garza APRN [address], [place], [address] , [place] - [facility] 5 10:30:34 Generali zed anxiety disorder 49167585 Active 2024 Venkatesh Garza APRN [address], [place], [address] , [place] - [facility] 5 15:42:54 Chronic constipa tion 391192537 Active 2024 Venkatesh Garza APRN [address], [place], [address] , [place] - [facility] 5 15:43:44 Blood in urine 03676493 Active 2024 Carmencita Roberto APRN [address], [place], [address] , [place] - [facility] 5 13:37:03 Contrace ption care manageme nt Completed 201606/15/2020 Removal Reason: stopped depo due to weight gain/gypsy ing Maria C Cardona APRN [address], [place], [address] , [place] - [facility] 0 14:51:30 Overweig ht in childhoo d 859235865 Completed 201608/17/2019 Maria C Cardona APRN [address], [place], [address] , [place] - [facility] 0 14:10:57 Problem Notes None recorded. Procedures Surgical History Date Name Laterality Status Provider Name and Address Organization Details Recorded Time 024 Date of Last Pap Smear completed Ana Adams APRN [address], [place], [address], [place] - [facility] 02/09/2024 20:37:37 024 Suture/Staple removal completed Caitlyn Braun [place] - [facility] 11/20/2023 09:44:13 024 Punch Biopsy completed Carmencita Roberto APRN [address], [place], [address], [place] - [facility] 11/13/2023 20:53:26 Medication Reconcilliation completed Caitlyn Braun [place] - [facility] 03/09/2021 13:11:49 021 excision of fibroadenoma of breast completed Ayaka Westfallann [place] - [facility] 12/01/2021 09:16:28 020 Systolic B/P less than 130 mm Hg completed Suze Parmarcell [place] - [facility] 07/14/2020 13:06:20 020 Diastolic B/P less than 80 mm Hg completed Suze Hernandez [place] - [facility] 07/14/2020 13:06:27 020 Systolic B/P less than 130 mm Hg completed Caitlyn Braun [place] - [facility] 02/11/2020 13:55:31 020 Diastolic B/P less than 80 mm Hg completed Caitlyn Braun [place] [facility] 02/11/2020 13:55:34 insertion of renal artery stent completed Marilyn Hall [place] - [facility] 05/27/2020 13:50:08 ureterorenoscopy with fragmentation and removal of calculus of kidney completed Ayaka [place] - [facility] 12/01/2021 09:16:40 Imaging Results None recorded. Procedure Notes None recorded. Medical Equipment None Reported. Allergies Allergen ID Allergen Name Allergen Category Reaction Reaction Severity Criticality Documentation Date Start Date Code Code System Note Provider Name and Address Organization Details Recorded Time 708655 amoxicill in medicatio n hives Not available Not available 12/01/2021 723 RxNorm Ayaka Kristina null, [place] - [facility] 09:13:26 48744 Product containin g penicilli n (product) medicatio n rash Not available Not available 06/06/2017 42231 8001 SNOMED Maria C Cardona, ASSISTIVE TECHNOLOGY TRAINER [address], [place], [address], [place] - [facility] 7 15:35:53 Medications [...] 09/05/19 15;Indic ation: Oral Candidia sis - ();Phar macyVeri fied: 08/26/19 15 4:31PM Not Available [...] on: 11/23/19 15 12:43PM; User: Inge tAlana Completi on: 10/30/19 15;Pharm acyVerif ied: 10/20/19 15 [...] Disconti nued on: 11/07/19 13 11:08AM; User: [facility];Anuja Norwood on: 01/06/20 13 Not Available Not [...] ation: Pregnanc y Contrace ption - (18.V259 00);Phar Rodrigue fied: 10/08/19 14 11:57AM Not Available Not Available Not Available sulfameth oxazole 200 mg-trimet hoprim 40 mg/5 mL oral suspensio n take 5 millilit ers by oral route 2 times a day for 10 days 10/27/ 2011 11/07 /2011 completed sulfamet hoxazole -trimeth oprim 200-40 mg/5 [...] nued on: 11/07/19 13 10:05AM; User: Inge Cortez on: 11/01/19 13;Print ed: 10/22/19 13 Not [...] ser: de whitingEst. Completi on: 06/07/20 13;Pharm acyVamina ied: 06/03/20 13 11:00AM Not Available Not Available Not Available [facility] DM 4 mg-45 mg-15 mg/5 mL oral syrup take 2.5 millilit ers by oral route every 4-6 hours as needed 12/19 completed Marilia DM 4-45-15 mg/5 mL oral syrup;Re corded Status: Recorded on: 10/26/19 10 1:48PM;D iscontin ued Status: Disconti nued on: 12/20/19 10 10:42AM; User: janina EstAlana Completi on: 11/05/19 10;Indic ation: Cold Symptoms - (08.4600 00);Prin blank: 10/26/19 10 Not Available Not [...] tablet;P rescribe Status: Prescrib ed on: 08/19/19 10:47AM; Disconti nued Status: Disconti nued on: 10/20/19 2:21PM;U ser: jonest;E st. Completi on: 08/29/19 15;Pharm acyVerif ied: 01/08/20 15 10:47AM Not Available Not Available Not [...] Disconti nued on: 05/07/20 12 10:57AM; User: janina Cortez on: 09/16/19 12;Indic ation: Gastroes ophageal Reflux [...] on: 10/30/19 14 10:10AM; User: wang Alston Completamisha on: 02/19/20 14;Indic ation: Dysmenor aye - [...] nued on: 11/07/19 13 10:05AM; User: Inge Cortez on: 10/29/19 13;Indic ation: None Availabl e - (-5);Brianna nted: 10/22/19 13 Not Available Not Available Not Available Ortho-Cyc rimma (28) 0.25 mg-35 mcg tablet take 1 tablet by oral route once daily for 28 days 10/19 completed Ortho-Cy clen (28) 0.25-35 mg-mcg oral tablet;R ecorded Status: Recorded on: 10/30/19 14 10:10AM; Disconti nued Status: Disconti nued on: 10/20/19 15 2:21PM;U ser: wang EstAlana Completi on: 02/19/20 14 Not Available Not [...] nued on: 06/29/20 13 2:38PM;U ser: de whitingEstAlana Completi on: 06/10/20 13;Indic ation: - (-5) [...] nued on: 05/31/20 11 9:05AM;U ser: de alvarez;Est. Completi on: 10/30/19 11;Indic ation: - (-5);Brianna nted: 10/09/19 11 Not Available Not Available Not Available ibuprofen 1 tid 07/13 completed ibuprofe n 400mg;Re corded Status: Recorded on: 06/29/20 13 3:10PM;D iscontin ued Status: Disconti nued on: 07/13/20 13 9:16AM;U ser: de alvarez;Est. Completi on: 07/06/20 13;Indic ation: - (-5) [...] on: 10/08/19 14 11:25AM; User: hemanth; Est. Dana on: 08/26/19 14;Indic ation: n and v [...] Updated DateTime 5 170.18 cm 27.3 kg/m2 09838.0 7 g 98 [degF] 67 /min 99 % 99 % 14 /min 122/84 mm[Hg] Oanh Vu [place] - [facility] 5 15:44:14 Date Recorded Body height Body mass index (BMI) Body weight Body temperature Heart rate Oxygen saturation Oxygen saturation in Arterial blood by Pulse oximetry Respiratory rate Systolic And Diastolic Provider Name and Address Organization Details Last Updated DateTime 5 170.18 cm 27.6 kg/m2 21457.6 6 g 98.5 [degF] 78 /min 99 % 99 % 16 /min 112/70 mm[Hg] Antonietta Chris [place] - [facility] 5 08:28:02 Date Recorded Body height Body mass index (BMI) Body weight Body temperature Heart rate Oxygen saturation Oxygen saturation in Arterial blood by Pulse oximetry Respiratory rate Systolic And Diastolic Provider Name and Address Organization Details Last Updated DateTime 5 170.18 cm 27.4 kg/m2 72980.0 6 g 97.6 [degF] 88 /min 98 % 98 % 18 /min 114/70 mm[Hg] Carmencita Hernandez [place] - [facility] 5 14:28:34 Date Recorded Body height Body mass index (BMI) Body weight Oxygen saturation Oxygen saturation in Arterial blood by Pulse oximetry Respiratory rate Heart rate Systolic And Diastolic Provider Name and Address Organization Details Last Updated DateTime 5 170.18 cm 27.1 kg/m2 21546.4 8 g 98 % 98 % 18 /min 90 /min 132/78 mm[Hg] Milli Monge [place] - [facility] 5 15:32:52 Date Recorded Body height Body mass index (BMI) Body weight Heart rate Oxygen saturation Oxygen saturation in Arterial blood by Pulse oximetry Respiratory rate Systolic And Diastolic Provider Name and Address Organization Details Last Updated DateTime 5 170.18 cm 27.3 kg/m2 03656.0 7 g 76 /min 98 % 98 % 18 /min 112/74 mm[Hg] Caitlyn Braun [place] - [facility] 5 13:22:15 Social History Question Answer Notes LastModified by Organizat ion Details LastModified Time Tobacco Smoking Status Never Smoker Caitlyn Nahomy [place], [place] - [facility] 07/26/2016 15:49:08 Do You Have An Advance Directive? No Information not available 05/27/2020 Animal Exposure? Yes [email or web address] Informat ion not available 11/18/2019 Are You Blind Or Do You Have Difficulty Seeing? No Information not available 05/27/2020 Is Blood Transfusion Acceptable In An Emergency? Yes Information not available 05/27/2020 What Is Your Level Of Caffeine Consumption? Occasional [email or web address] Information not available 07/26/2016 How Much Tobacco Do You Chew? None [email or web address] Information not available 11/18/2019 Concerns About Meeting Basic Needs (food, Housing, Heat, Etc)? No [email or web address] Information not available 11/18/2019 In The 14 Days Before Symptom Onset, Have You Had Close Contact With A Laboratory-confir med COVID-19 While That Case Was Ill? No [email or web address] Information not available 11/09/2024 In The 14 Days Before Symptom Onset, Have You Had Close Contact With A Person Who Is Under Investigation For COVID-19 While That Person Was Ill? No [email or web address] Information not available 11/09/2024 Have You Been To An Area Known To Be High Risk For COVID-19? No [email or web address] Information not available 11/09/2024 Are You Deaf Or Do You Have Serious Difficulty Hearing? No Information not available 05/27/2020 What Type Of Diet Are You Following? REGULAR Information not available 01/09/2017 Does Family Ever Have Difficulty Making Ends Meet At The End Of The Month? No [email or web address] Information not available 11/18/2019 Which Illicit Or Recreational Drugs Have You Used? None [email or web address] Information not available 02/05/2024 Have You Directly Handled Bats, Rodents, Or Primates From Ebola Endemic Areas? No [email or web address] Information not available 11/18/2019 Have You Processed Blood Or Body Fluids From An Ebola Virus Disease Patient Without Appropriate PPE? No [email or web address] Information not available 11/09/2024 Have You Had Household Contact With An Ebola Virus Disease Patient? No [email or web address] Information not available 11/18/2019 Have You Had Direct Contact With A Body In An Ebola-affected Area Without Appropriate PPE? No [email or web address] Information not available 11/18/2019 Do You Reside In Or Have You Traveled To An Area Where Ebola Virus Transmission Is Active? No [email or web address] Information not available 11/18/2019 What Is The Highest Grade Or Level Of School You Have Completed Or The Highest Degree You Have Received? [id number] Information not available 02/05/2024 Have There Been Any Changes To Your Family Or Social Situation? No [email or web address] Information no t available 11/18/2019 What Is The Fluoride Status Of Your Home? Fluoridated Information not available 11/18/2019 Are There Any Guns Present In Your Home? No [email or web address] Information not available 11/18/2019 Have You Recently Or Are You Planning To Travel To An Area With Zika Virus? No [email or web address] Information not available 11/09/2024 What Is Your Home Situation? Both Parents [email or web address] Information not available 07/22/2017 How Many Years Have You Used Illicit Or Recreational Drugs? 0 [email or web address] Information not available 02/05/2024 Do You Use Insect Repellent Routinely? Yes [email or web address] Information not available 11/18/2019 Live Alone Or With Others? With Others Information not available 05/27/2020 Last Menstrual Period? 02/20/2024 [email or web address] Information not available 02/21/2024 Last Menstrual Period 10/25/2020 Information not available 11/18/2020 Do You Have A Medical Power Of Sugar Sampler? No [email or web address] Information not available 11/09/2024 Mosquito Repellent Used Routinely Yes Information not available 11/18/2019 What Was The Date Of Your Most Recent Tobacco Screening? 02/02/2025 Information not available 02/02/2025 Family Has Moved Frequently/lived With Others Due To Finances Within The Last Year? No [email or web address] Information not available 11/18/2019 How Many Children Do You Have? 0 [email or web address] Information not available 07/12/2020 What Is Your Parents' Marital Status? Unmarried [email or web address] Information not available 07/26/2016 Performs Monthly Self-breast Exam? Yes Information no t available 11/18/2019 Pool Exposure No [email or web address] Information not available 11/18/2019 Do You Use Protection During Sex? Always [email or web address] Information not available 12/01/2021 Do You Use Protection Against STDs? No [email or web address] Information not available 12/01/2021 What Is Your Relationship Status? Domestic Partner [email or web address] Information not available 02/05/2024 Do You Use Your Seat Belt Or Car Seat Routinely? Yes Information not available 07/22/2017 Seat Belts Used Routinely Yes Information not available 05/27/2020 Are You Sexually Active? Yes Information not available 05/27/2020 Do You Have Smoke And Carbon Monoxide Detectors In Your Home? Yes Information not available 07/26/2016 Are You Passively Exposed To Smoke? Yes [email or web address] Information no t available 11/18/2020 How Much Tobacco Do You Smoke? No Information not available 11/18/2019 General Stress Level Low Information not available 05/27/2020 Do You Use Sunscreen Routinely? Yes [email or web address] Information not available 11/18/2019 Has Tobacco Cessation Counseling Been Provided? Yes Information not available 02/14/2022 On What Date Was Tobacco Cessation Counseling Provided? 02/02/2025 Information not available 02/02/2025 Do You Have Difficulty Walking Or Climbing Stairs? No Information not available 05/27/2020 Year In School HS Grad [facility] [facility] ooled [email or web address] Information not available 07/22/2017 Was Contraceptive Counseling Provided? Yes [email or web address] Information not available 12/01/2021 What Contraceptive Method Was Reported At Start Of This Visit? None [email or web address] Information not available 01/28/2023 What Contraceptive Method Was Reported At End Of This Visit? None [email or web address] Information not available 01/28/2023 Do You Want To Talk About Contraception Or Prevention During Your Visit Today? No - This Question Does Not Apply To Me/I Prefer Not To Answer Information not available 01/28/2023 How Was The Contraceptive Method Provided? Provided On Site [email or web address] Information not available 12/01/2021 Do You Have Any Future Plans To Get ? No, I Don't Want To Become [email or web address] Information not available 12/01/2021 Sex: Female Functional Status Question Answer Note LastModified by Organizat ion Details LastModified Time Do you or have you ever used smokeless tobacco? Never used smokeless tobacco [email or web address] Information not available 11/18/2019 Are you currently employed? Yes [email or web address] Information not available 11/09/2024 Do you have transportation difficulties? No [email or web address] Information not available 12/01/2021 Urinary incontinence assessment performed? No Information not available 05/27/2020 Are you able to care for yourself? Yes [email or web address] Information n ot available 12/01/2021 Do you have difficulty dressing or bathing? No Information not available 05/27/2020 Do you or have you ever used e-cigarettes or vape? Former user of electronic cigarettes Information not available 02/02/2025 What is your exercise level? Occasional [email or web address] Information not available 01/09/2017 Do you use any illicit or recreational drugs? No [email or web address] Information not available 12/01/2021 Do you or have you ever used any other forms of tobacco or nicotine? No [email or web address] Information not available 12/01/2021 What is your level of alcohol consumption? None [email or web address] Information not available 11/18/2019 What is your status? Not [email or web address] Information no t available 12/01/2021 Are you able to walk? [email or web address] Information not available 05/27/2020 Do you have difficulty doing errands alone? No Information not available 05/27/2020 What is your occupation? [employer] [email or web address] Information not available 11/09/2024 Mental Status Question Answer Note LastModified by Organizat ion Details LastModified Time Do you feel stressed (tense, restless, nervous, or anxious, or unable to sleep at night)? [id number] [email or web address] Information not available 02/05/2024 Do you have difficulty concentrating, remembering or making decisions? No Information no t available 05/27/2020 Are you or have you been involved with bullying? No [email or web address] Information not available 11/18/2020 Family History Relationship Description Onset Age of this Age Resolved Age Notes LastModified by Organization Details LastModified Time Father Anxiety disorder Not available 2016 15:31:46 Father Hypercholest erolemia [email or web address] Not available 2023 09:53:27 Mother Obesity [email or web address] Not available 11/18/2019 14:26:01 Medical History Condition [...] colitis N Cerebrovascular Disease N Depression N Guillain-[place] N Sleep Apnea N Bronchitis N Suicidal [...] [email or web address] 11/18/19 20 completed Maria C Cardona, ASSISTIVE TECHNOLOGY TRAINER [address], [place], [address], [place] [facility] 11/18/2019 14:44:39 HPV9 11/19/19 21 cancelled patient objection Maria C Cardona, ASSISTIVE TECHNOLOGY TRAINER [address], [place], [address], [place] [facility] 11/18/2020 15:13:06 DTaP 06/05/20 05 completed Not Available [facility] 05/20/2016 13:59:37 Hib (PRP-OMP) 01/24/20 01 completed Not Available [facility] 01/28/2023 09:58:08 Hib (PRP-OMP) 03/28/20 01 completed Not Available [facility] 01/28/2023 09:58:08 Hib (PRP-OMP) 12/05/19 02 completed Not Available [facility] 01/28/2023 09:58:08 IPV 01/24/20 01 completed [facility] 05/20/2016 13:59:37 IPV 03/28/20 01 completed Not Available [facility] 05/20/2016 13:59:37 IPV 12/05/19 02 completed Not Available [facility] 05/20/2016 13:59:38 IPV 06/05/20 05 completed Not Available [facility] 05/20/2016 13:59:46 MMR 02/27/20 02 completed Not Available [facility] 05/20/2016 13:59:46 MMR 06/05/20 05 completed Not Available [facility] 05/20/2016 13:59:46 varicella 12/05/19 02 completed Not Available [facility] 05/20/2016 13:59:47 Hep B, adolescent or pediatric 11/25/19 01 completed Not Available [facility] 05/20/2016 13:59:48 Hep B, adolescent or pediatric 01/24/20 01 completed Not Available [facility] 05/20/2016 13:59:48 Hep B, adolescent or pediatric 12/05/19 02 completed Not Available [facility] 05/20/2016 13:59:48 DTaP 01/24/20 01 completed Not Available [facility] 05/20/2016 13:59:48 DTaP 03/28/20 01 completed Not Available [facility] 05/20/2016 13:59:48 DTaP 05/30/20 01 completed Not Available [facility] 05/20/2016 13:59:48 DTaP 02/27/20 02 completed Not Available [facility] 05/20/2016 13:59:48 varicella 01/28/20 14 completed Maria C Cardona, ASSISTIVE TECHNOLOGY TRAINER [address], [place], [address], [place] [facility] 03/01/2017 13:10:40 Tdap 01/28/20 14 completed Maria C Cardona, ASSISTIVE TECHNOLOGY TRAINER [address], [place], [address], [place] [facility] 03/01/2017 13:11:10 meningococcal ACWY, unspecified formulation 01/28/20 14 completed Not Available [facility] 01/28/2023 09:58:08 Hib (HbOC) 12/05/19 02 completed Crystalanuja GrijalvaBueno null, [place] - [facility] 08/09/2022 11:19:06 Hib (PRP-T) 03/28/20 01 completed Crystale Bueno [place] [facility] 08/09/2022 11:19:06 meningococcal MCV4, unspecified formulation 01/28/20 14 completed Crystale Bueno [place], [place] [facility] 08/09/2022 11:19:07 Past Encounters Encounter ID Performer Location Encounter Start Date Encounter Closed Date Diagnosis/Indication Diagnosis SNOMED-CT Code Diagnosis ICD10 Code Diagnosis Note [id number] Maria C Cardona, HENRY [facility] [address] [place] [address] 07/26/2016 15:30:02 07/27/2016 09:43:35 Surveillance of depot contraception done 1969393234 9104 Z30.42 [id number] Mariposa Cook MD [facility] [address] [place] [address] 08/28/2016 09:27:29 08/28/2016 11:23:31 Common cold 12410538 J00 [id number] Mariposa Cook MD [facility] [address] [place] [address] [address] 09/04/2016 10:14:55 09/04/2016 11:17:22 Acute pharyngitis 911216542 J02.9 [id number] Maria C Cardona [address] [place] [address] 09/12/2016 12:19:28 09/12/2016 13:52:10 Cough 58956497 R05 Acute sinusitis 35383384 J01.90 [id number] Maria C Cardona [address] [place] [address] 09/14/2016 13:37:23 09/14/2016 14:20:54 Vaginitis 23318034 N76.0 Vaginal discharge 638913 006 N89.8 [id number] Mariposa Cook MD [address] [place] [address] 09/28/2016 09:56:39 09/28/2016 11:54:27 Acute pharyngitis 706497004 J02.9 [id number] Maria C Cardona[address] [place] [address] 10/18/2016 15:49:28 10/19/2016 07:51:45 Surveillance of depot contraception done 0987729726 9104 Z30.42 [id number] Maria C Cardona [address] [place] [address] 11/02/2016 16:11:16 11/02/2016 16:43:06 Acute stress disorder 13457280 F43.0 [id number] Maria C Cardona [address] [place] [address] 11/07/2016 09:20:08 11/07/2016 10:29:51 Acute pansinusitis 8410746 J01.40 [id number] Maria C Cardona [address] [place] [address] 01/09/2017 08:44:46 01/09/2017 10:01:01 Surveillance of depot contraception done 1413910974 9104 Z30.42 Angular cheilitis 286923 005 K13.0 Contracept ion care management 766692077 Z30.9 Overweight in childhood 289307457 Z68.53 Diet education 28313415 Z71.3 Exercises education, guidance, and counseling 538774618 Z71.89 Weight gain 9107084 R63. 5 Discussed recent weight gain likely r/t contracept ion, will continue to monitor at this time. [id number] Maria C Cardona[address] [place] [address] 02/28/2017 09:03:08 02/28/2017 09:38:03 Well child 590461629 Z00.129 Safety education 0753853 04 Z71.9 Diet education 97964361 Z71.3 Exercises education, guidance, and counseling 553438913 Z71.89 Normal weight 75180477 Z 68.52 Depression screening 171 525618 Z13.89 [id number] Maria C Cardona[address] [place] [address] 04/04/2017 15:32:30 04/05/2017 08:04:06 Surveillance of depot contraception done 5862972677 9104 Z30.42 Contracept ion care management 475295957 Z30.9 [id number] Maria C Cardona[address] [place] [address] 06/06/2017 15:14:19 06/06/2017 17:04:16 Ingrowing toenail 268673782 L60.0 [id number] Maria C Cardona[address] [place] [address] 06/26/2017 11:15:46 06/26/2017 12:53:33 Contraception care management 342932874 Z30.9 Surveillan ce of depot contraception done 2618141972 9104 Z30.42 [id number] Maria C Cardona [address] [place] [address] 07/22/2017 09:20:11 07/22/2017 09:40:04 Acute sinusitis 54369794 J01.90 [id number] Maria C Cardona[address] [place] [address] 07/24/2017 17:08:18 07/24/2017 18:17:27 Fever 977655446 R50.9 Acute sinusitis 44295799 J01.90 [id number] Maria C Cardona[address] [place] [address] 09/19/2017 14:50:35 09/19/2017 15:30:20 Contraception care management 654750542 Z30.9 Surveillan ce of depot contraception done 4652835788 9104 Z30.42 Overweight in childhood 623873379 Z68.53 [id number] Maya Amadou[address] [place] [address] 10/28/2017 12:51:10 10/28/2017 14:19:43 Pain in throat 343483978 R07.0 Streptococ bertrand sore throat 48947149 J02.0 [id number] Maria C Cardona[address] [place] [address] 12/11/2017 13:05:07 12/11/2017 15:23:02 Contraception care management 320373963 Z30.9 Surveillan ce of depot contraception done 8859749652 9104 Z30.42 [id number] Nolvia Cano[address] [place] [address] 03/06/2018 09:49:05 03/06/2018 10:24:53 Contraception care management 304172424 Z30.42 Surveillan ce of depot contraception done 5082492808 9104 Z30.42 [id number] Maria C Cardona[address] [place] [address] 05/28/2018 16:02:26 05/28/2018 16:22:43 Surveillance of depot contraception done 0108354202 9104 Z30.42 Overweight in childhood 743050162 Z68.53 [id number] Maria C Cardona[address] [place] [address] 09/03/2018 09:39:01 09/03/2018 10:28:03 Contraception care management 866180700 Z30.9 Surveillan ce of depot contraception done 2277051356 9104 Z30.42 [id number] Nolvia Cano[address] [place] [address] 10/13/2018 09:18:51 10/13/2018 10:00:48 Pharyngitis 252701355 J02.9 [id number] Maria C Cardona[address] [place] [address] 10/29/2018 08:40:59 10/29/2018 10:13:02 Pharyngitis 316722100 J02.9 Hypertroph y of tonsils 34477626 J35.1 Cervical lymphadenopathy 831268904 R59.0 [id number] Maria C Cardona[address] [place] [address] 12/04/2018 08:41:17 12/04/2018 09:22:26 Surveillance of depot contraception done 8997440409 9104 Z30.42 Overweight in childhood 554829680 Z68.53 [id number] Maria C Cardona[address] [place] [address] 01/07/2019 15:29:47 01/07/2019 17:17:47 Blood in urine 51583321 R31.9 History of calculus of kidney 445659295 Z87.442 Overweight in childhood 853777966 Z68.53 [id number] Maria C Cardona[address] [place] [address] 03/05/2019 14:52:36 03/05/2019 15:13:14 Contraception care management 272889085 Z30.9 Overweight in childhood 019191168 Z68.53 [id number] Maria C Cardona[address] [place] [address] 05/07/2019 14:02:32 05/07/2019 16:12:39 Skin hypopigmented 31636467 L81.5 Overweight in childhood 791563860 Z68.53 [id number] Maria C Cardona[address] [place] [address] 05/28/2019 08:52:29 05/28/2019 09:26:23 Contraception care management 768557259 Z30.9 Overweight in childhood 902152516 Z68.53 Surveillan ce of depot contraception done 1944495075 9104 Z30.42 [id number] Maria C Cardona[address] [place] [address] 08/17/2019 09:28:23 08/17/2019 10:57:47 Contraception care management 249100508 Z30.9 Acute sinusitis 37025447 J01.90 Cough 17359450 R05 Childhood obesity 542028 003 E66.8 [id number] Maria C Cardona[address] [place] [address] 08/28/2019 13:57:34 08/28/2019 15:29:39 Fever 467233044 R50.9 Sinusitis 32957736 J32.9 Cough 43054221 R05 [id number] Maria C Cardona[address] [place] [address] 11/18/2019 13:06:35 11/18/2019 15:48:43 Well child visit 530990821 Z00.129 Dietary ma nagement surveillance 165249958 Z71.3 Exercises education, guidance, and counseling 510285234 Z71.82 Depression screening 171 480385 Z13.89 Venereal d isease screening 534221372 Z11.8 Surveillan ce of depot contraception done 1491089273 9104 Z30.42 Active or passive immunization 372327117 Z23 Safety education 6590955 04 Z71.9 Childhood obesity 357073 003 E66.8 Contracept ion care management 677904921 Z30.9 Skin lesion 86317027 L98 .9 right upper arm Skin striae 615934356 L9 0.6 torso,UE Difficulty sleeping 3013 43617 Z72.893 [id number] Maya Tobar[address] [place] [address] 02/11/2020 13:51:47 02/11/2020 14:06:37 Contraception care management 185567181 Z30.9 [id number] Maria C Cardona[address] [place] [address] 05/11/2020 08:22:30 05/11/2020 10:29:12 Contraception care management 795174988 Z30.9 due to weight gain, will d/c contracept ion at this time Weight gain 8683539 R63. 5 Congenital bilateral pes planus 7001418177 1032052 Q66.51 bilateral Foot pain 53392703 M79.6 73 Mass of left breast 1224 003609 0273444 N63.20 Depression screening 171 927500 Z13.89 Depressive disorder 3548 9007 F32.9 [id number] HENRY Cruz [employer] [address] [place] [address] [place] [address] 05/27/2020 13:39:01 05/27/2020 14:55:44 Fibroadenoma of left breast 9443312789 788901 D24.2 [id number] Maria C Cardona [address] [place] [address] 05/25/2020 13:49:06 05/25/2020 14:18:39 Depressive disorder 10969851 F32.9 Childhood obesity 472563 003 E66.8 [id number] Maria C L. Gan [address] [place] [address] 06/15/2020 14:13:10 06/15/2020 15:43:24 Difficulty sleeping 737297668 Z72.820 Depressive disorder 3548 9007 F32.9 Pharyngitis 375161345 J0 2.9 [id number] Melly Collins [address] [place] [address] 07/14/2020 12:56:02 07/14/2020 14:18:05 Mixed hyperlipidemia 739012205 E78.2 Thyroid fu nction tests abnormal 586601887 R94.6 Vitamin D deficiency 347 96245 E55.9 Influenza vaccination declined 910346720 Z28.21 Hyperinsulinism 50290762 E16.1 [id number] Maria C Cardona[address] [place] [address] 11/18/2020 10:18:45 11/18/2020 12:55:43 Pain in right arm 833525617 M79.601 Hyperinsulinism 37058120 E16.1 Mixed hyperlipidemia 267 521071 E78.2 Serum thyr oid stimulating hormone level outside reference range 280260498 R79.89 Vitamin D deficiency 347 88351 E55.9 Well child 235267878 Z00 .129 Safety education 3599333 04 Z71.9 Diet education 01152235 Z71.3 Exercises education, guidance, and counseling 627208193 Z71.82 Depression screening 171 830771 Z13.89 Nodule of subcutaneous tissue of right forearm 8566596877 6528057 R22.31 Skin striae 934981439 L9 0.6 torso,UE Congenital bilateral pes planus 8044216638 7252217 Q66.51 bilateral Active or passive immunization 451021125 Z23 [id number] Melly Collins [address] [place] [address] 12/06/2020 15:52:21 12/06/2020 16:14:42 Mixed hyperlipidemia 293150238 E78.2 Vitamin D deficiency 347 59100 E55.9 Hyperinsulinism 62116412 E16.1 Vitamin B1 2 deficiency (non anemic) 92572491 E53.8 [id number] Melly Collins [address] [place] [address] 03/08/2021 17:29:43 03/08/2021 17:58:54 Mixed hyperlipidemia 139566613 E78.2 Vitamin D deficiency 347 72440 E55.9 Hyperinsulinism 93355486 E16.1 Vitamin B1 2 deficiency (non anemic) 06427744 E53.8 Body mass index 25-29 - overweight 744518049 Z68.28 [id number] Maya TobarFormerly [facility] [address] [place] [address] 03/09/2021 12:48:09 03/09/2021 14:25:08 Kidney stone 74796256 N20.0 Hyperinsulinism 34109804 E16.1 Vitamin D deficiency 347 67879 E55.9 [id number] Ana Adams APRN [employer] [address] [place] [address] [place] [address] 06/19/2021 08:43:04 06/19/2021 10:01:53 Uses depot contraception 950690504 Z30.42 Venereal d isease screening 132923049 Z11.3 [id number] Melly Collins [address] [place] [address] 08/21/2021 12:19:43 08/21/2021 13:18:47 Mixed hyperlipidemia 035124710 E78.2 Vitamin D deficiency 347 05676 E55.9 Hyperinsulinism 13579167 E16.1 Vitamin B1 2 deficiency (non anemic) 55561528 E53.8 Body mass index 25-29 - overweight 663307884 Z68.28 [id number] Ana Adams APRN [employer] [address] [place] [address] [place] [address] 09/11/2021 11:30:30 09/11/2021 11:42:15 Uses depot contraception 130822386 Z30.42 [id number] Deja Sinha [address] [place] [address] 10/30/2021 13:10:12 10/30/2021 14:22:22 Upper respiratory infection 55701394 J06.9 [id number] Ana Adams APRN [employer] [address] [place] [address] [place] [address] 12/01/2021 08:54:26 12/01/2021 09:56:46 Routine gynecologic examination done 7668845555 9101 Z01.419 Depression screening 171 302535 Z13.89 Hypertensi on screening 764390216 Z13.6 Screening for malignant neoplasm of cervix 323021673 Z12.4 Diet education 76273657 Z71.3 Encourage healthy eating/sage it fats, sugars, fried foods Counseling 301411574 Z71 .82 Encouraged regular exercise 30-40min/d ay 4-5 days/wk Examinatio n of blood pressure 690925646 Z01.30 Uses depot contraception 832743799 Z30.42 Body mass index 25-29 - overweight 603622035 Z68.28 [id number] Carmencita Roberto [address] [place] [address] 12/22/2021 08:32:20 12/22/2021 09:41:23 Body mass index 25-29 - overweight 296561385 Z68.28 Overweight 650035515 E66 .3 Erythemato us ear canal 100409140 H61.790 [id number] HENRY Cruz [employer] [address] [place] [address] [place] [address] 02/22/2022 11:24:58 02/22/2022 12:07:15 Uses depot contraception 165624919 Z30.42 [id number] Carmencita Roberto [address] [place] [address] 02/14/2022 09:02:38 02/14/2022 10:02:32 Body mass index 25-29 - overweight 234139589 Z68.29 Overweight 842163706 E66 .3 Dysuria 45151850 R30.9 History of calculus of kidney 640139545 Z87.442 Hyperinsulinism 58489882 E16.1 Mixed hyperlipidemia 267 043421 E78.2 [id number] Melly Collins APRN [address] [place] [address] 03/07/2022 12:09:12 03/07/2022 12:42:27 Mixed hyperlipidemia 590618315 E78.2 Vitamin D deficiency 347 19862 E55.9 Hyperinsulinism 88058141 E16.1 Vitamin B1 2 deficiency (non anemic) 97922670 E53.8 Body mass index 25-29 - overweight 936438678 Z68.28 [id number] Ana Adams APRN [employer] [address] [place] [address] [place] [address] 05/16/2022 11:18:29 05/16/2022 11:59:43 Uses depot contraception 676639575 Z30.42 Candidiasis of vagina 72 280201 B37.31 [id number] Melly Collins [address] [place] [address] 06/26/2022 09:01:35 06/26/2022 12:05:34 Mixed hyperlipidemia 413881242 E78.2 Vitamin D deficiency 347 48060 E55.9 Hyperinsulinism 98736691 E16.1 Vitamin B1 2 deficiency (non anemic) 21123514 E53.8 Hepatitis C screening 41 8649243 Z11.59 Body mass index 30+ - obesity 770974413 Z68.31 [id number] DO Rosita MEHTAsville [employer] [address] [place] [address] [place] [address] 08/10/2022 15:49:11 08/10/2022 16:25:01 Uses depot contraception 520703562 Z30.42 Tolerated well. RTC in 3 months for Depo shot. [id number] Kalin Allen MD [place] [address] [place] [place] [place] [address] 08/09/2022 10:39:20 08/09/2022 11:34:19 Pharyngitis 766335108 J02.9 augmentin allergy is actually abx-associ ated UTIs [id number] Bindu Dao[address] [place] [address] 09/21/2022 09:51:18 09/21/2022 10:40:43 Low back pain 249052541 M54.50 Body mass index 30+ - obesity 994876074 Z68.32 Obesity 435811775 E66.9 [id number] Ana Adams ASSISTIVE TECHNOLOGY TRAINER [employer] [address] [place] [address] [place] [address] 11/07/2022 11:22:36 11/07/2022 11:55:31 Uses depot contraception 090710810 Z30.42 Body mass index 30+ - obesity 929780319 Z68.33 Obesity 624058782 E66.9 Elevated blood-pressure reading without diagnosis of hypertension 594362116 R03.0 [id number] Carmencita Roberto[address] [place] [address] 01/18/2023 08:25:46 01/18/2023 10:25:06 Body mass index 30+ - obesity 328635288 Z68.33 Obesity 153773044 E66.9 Mixed hyperlipidemia 267 504816 E78.2 Hyperinsulinism 68220277 E16.1 Vitamin D deficiency 347 35529 E55.9 [id number] Ana Adams APRN [employer] [address] [place] [address] [place] [address] 01/28/2023 09:57:07 01/28/2023 10:46:49 Routine gynecologic examination done 5309297089 9101 Z01.419 Depression screening 171 553807 Z13.31 PHQ-9 completed today. Diet education 28718254 Z71.3 Encourage healthy eating/sage it fats, sugars, fried foods Counseling 631269516 Z71 .82 Exercise counsellin g. Patient encouraged to exercise 30 minutes 5 days a week. Examinatio n of blood pressure 931293074 Z01.30 Hypertensi on screening 398619817 Z13.6 Contracept ion care management 913547476 Z30.9 Body mass index 30+ - obesity 943173353 Z68.33 Obesity 215340299 E66.9 Screening for malignant neoplasm of cervix 818157296 Z12.4 [id number] Melly Collins [address] [place] [address] 10/30/2023 11:19:06 10/30/2023 12:31:32 Mixed hyperlipidemia 629912583 E78.2 Vitamin D deficiency 347 80527 E55.9 Hyperinsulinism 94178748 E16.1 Vitamin B1 2 deficiency (non anemic) 78256481 E53.8 Hepatitis C screening 41 1328451 Z11.59 Body mass index 25-29 - overweight 579964581 Z68.28 [id number] Bindu Dao [facility] [address] [place], [place] [address] [place] [address] 11/07/2023 15:18:11 11/07/2023 16:24:22 Viral screening 514143372 Z11.59 Influenza caused by Influenza A virus 019178078 J09.X2 Advised to drink plenty of fluids, run a cool-mist humidifier in room at night, gargle salt water for sore throat, and get plenty of rest. Patient should avoid over-exert ion and reduce exposure to irritants such as smoke, cold, dry air, and dust. Antihistam ine and decongesta nt usage was discussed and recommenda tions made. Begin prescribed medication as written. Discussed potential side effects. Patient understood these instructio ns and will follow up in the office in 7-10 days if symptoms not improving. Or sooner if symptoms worsen. Skin lesion 22963667 L98 .9 Advised patient to RTO at earliest convenienc e for biopsy. Patient agreeable and verbalized understand ing. [id number] Carmencita Roberto [facility] [address] [place] [address] 11/13/2023 15:29:35 11/13/2023 16:26:12 Body mass index 25-29 - overweight 474303263 Z68.28 Overweight 743875874 E66 .3 Skin lesion 79769852 L98 .9 [id number] Carmencita Roberto [facility] [address] [place] [address] [place] [address] 11/20/2023 09:24:14 11/20/2023 11:33:29 Removal of suture 47109113 Z48.02 Body mass index 25-29 - overweight 930236940 Z68.28 Overweight 147200962 E66 .3 [id number] HENRY Cruz [employer] [address] [place] [address] [place] [address] 02/05/2024 09:25:00 02/05/2024 10:36:15 Routine gynecologic examination done 5551101557 9101 Z01.419 Depression screening 171 802312 Z13.31 PHQ-9 completed today. Diet education 24367706 Z71.3 Encourage healthy eating/asge it fats, sugars, fried foods Counseling 846588806 Z71 .82 Exercise counseldesirae g. Patient encouraged to exercise 30 minutes 5 days a week. Examinatio n of blood pressure 023019539 Z01.30 Hypertensi on screening 967600938 Z13.6 Screening for malignant neoplasm of cervix 493318946 Z12.4 Right lowe r quadrant pain 214315728 R10.31 Body mass index 25-29 - overweight 526613836 Z68.27 Overweight 344823109 E66 .3 [id number] HENRY Arnold[address] [place] [address] 02/12/2024 09:41:45 02/12/2024 10:54:27 Mixed hyperlipidemia 950070691 E78.2 Vitamin D deficiency 347 58334 E55.9 Hyperinsulinism 73359673 E16.1 Vitamin B1 2 deficiency (non anemic) 77477045 E53.8 Body mass index 25-29 - overweight 930848064 Z68.28 [id number] HENRY Cruz [employer] [address] [place] [address] [place] [address] 02/21/2024 08:16:00 02/21/2024 09:18:36 Right lower quadrant pain 289084084 R10.31 Irregular bowel habits 094914397 R19.4 [id number] Curtis Nguyen DO [facility] [address] [place] [address] 07/24/2024 10:59:17 07/24/2024 11:52:46 Body mass index 25-29 - overweight 984258879 Z68.27 Overweight 487626243 E66 .3 Cough 34096658 R05.9 Upper respirator y infection. Patient had negative flu and COVID testing today. Pleurisy 763837481 R09.1 Pleurisy. Patient will be given Depo-Medro l today for treatment. Patient will be advised to take NSAIDs after a week or so if needed after receiving the injection. [id number] Janett Davila APRN [facility] [address] [place] [address] 08/07/2024 13:15:38 08/07/2024 15:20:30 Viral screening 980749313 Z11.52 Influenza- like illness 89947065 B34.9 Pharyngitis 365932957 J0 2.9 Acute sinusitis 56032667 J01.90 Nasal congestion 0818514 0 R09.81 [id number] Constantine Shearer MD [address] [place] [address] 08/21/2024 13:02:59 08/21/2024 13:48:05 Body mass index 25-29 - overweight 930799763 Z68.27 Nicotine dependence 5629 4008 F17.200 Acute sinusitis 11218268 J01.90 [id number] Wilda Herbert MD [facility] [address] [place] [address] 11/09/2024 15:34:15 11/09/2024 15:58:27 Hemoptysis 02078184 R04.2 Patient reports that she has been coughing up droplets of blood in her phlegm, likely secondary to irritation and drying out of her lower respirator y tract. Patient advised to continue use of humidifier at home, continue drinking water, using guafenesin to moisten her airway and use Flonase to keep her nasal mucosa moist. Patient also advised to use OTC antihistam ine regularly to prevent airway drying. If symptoms continue, patient has been advised to pursue further workup. [id number] Melly Collins [address] [place] [address] 11/11/2024 08:18:30 11/11/2024 08:47:18 Mixed hyperlipidemia 922957397 E78.2 intolerant to fenofibrat es Vitamin D deficiency 347 56691 E55.9 Hyperinsulinism 56396640 E16.1 Vitamin B1 2 deficiency (non anemic) 48564531 E53.8 Body mass index 25-29 - overweight 199365384 Z68.28 History of anemia 247181 002 Z86.2 [id number] Bindu Dao [place] [address] [place] [address] 12/15/2024 14:15:16 12/15/2024 14:57:09 Jaw pain 409523462 R68.84 Advised use of OTC NSAIDs as needed for discomfort . Gingival erythema 042562 004 K06.8 Begin prescribed medication as written. Advised patient to eat yogurt or take probiotic while taking clindamyci n.Advised to schedule f/u with dentist. Patient agreeable and verbalized understand ing. [id number] Venkatesh Garza ASSISTIVE TECHNOLOGY TRAINER [address] [place] [address] 01/29/2025 14:59:56 01/29/2025 16:15:57 Community acquired pneumonia 623273279 J18.9 - resolved Overweight in adulthood with body mass index of 25 or more but less than 30 322245186 E66.3 Z68.27 Overweight 948617745 E66 .3 Generalize d anxiety disorder 16202380 F41.1 Patient with symptoms concerning for anxiety.PH Q-9 score: 9; FRANK-7 score: 17.Denies SI/HI. No other safety concerns at this time.Start buspironeF ollow-up as below. Chronic constipation 236 943094 K59.09 [id number] Carmencita Roberto [place] [address] [place] [address] 02/02/2025 13:15:33 02/02/2025 14:05:01 Overweight 605569512 E66.3 Overweight in adulthood with body mass index of 25 or more but less than 30 936883274 Z68.27 Blood in urine 74951239 R31.9 Health Concerns Section Related Observation LastModified by Organization Detai ls LastModified Time None Recorded Concern Status LastModified by Organization Details LastModified Time None Recorded Advance Directives Directive N: Payers Insurance Date Sequence Insurance Name Policy Number Policy Booth Covered Member ID Booth Member ID Guarantor Name 02/02/2025 1 [employer] [place] [id number] Cool S Cedeno [id number] Dana Cedeno 02/02/2025 1 [employer] [place] Cool S Cedeno [id number] Dana Cedeno 05/07/2019 1 *SELF PAY* Fl orence Cedeno 02/02/2025 [place] [facility] [place] Cool S Cedeno [id number] Dana Cedeno 02/02/2025 [place] Mariaelena S Cedeno [id number] Dana Cedeno 02/02/2025 1 [employer] [place] [id number] Cool S Cedeno [id number] Dana Cedeno 02/02/2025 [place] Cool S Cedeno [id number] Dana Cedeno 10/06/2016 1 UNSPECIFIED REMIT PAYOR Dana Cedeno 02/02/2025 [place] Cool S Cedeno [id number] Dana Cedeno 02/02/2025 [place] Mariaelena S Cedeno [id number] Dana Cedeno Notes Date Note Type Note Provider Name and Address Organization Details Recorded Time 11/09/2024 text/html Onset of symptom s for 2 weeks, cough, coughed up phlegm with blood. Patient reports that she has been having chest congestion and difficulty breathing for about two weeks; no fevers, runny nose, sinus congestion. Patient denies unintentional weight loss or gain and night sweats. Patient states that she felt a pop under her right ribcage when she was showering yesterday and was coughing up phlegm with small amounts of blood for 10 minutes afterward. Patient reports she had an earache a couple of days ago. Patient states that her nose has been really dry so she has been using a humdifier with eucalyptus spray which she says has been helping. Patient reports that yesterday she was coughing up ( splotches ) of blood - the patient says that went on for about 10 minutes. Patient has not had any further episodes of coughing up blood since yesterday. Patient states that she has seasonal allergies that she tries to manage with as needed allergy pills. Patient states that her nose and her respiratory tract feels dry . Josue Davis, DO [address], [place], [address], [facility] 11/09/2024 16:38:47 11/11/2024 text/html Mariaelena presents fo r follow up on insulin resistance. She was on Metformin ER 1,000 mg BID, but quit taking all her meds a month ago due to aching in her legs and swelling in her hands. This was most likely from the fenofibrate. Melly Collins, ASSISTIVE TECHNOLOGY TRAINER [address], [place], [address], [place] [facility] 11/11/2024 08:45:52 12/15/2024 text/html Patient presents with c/o pain of right upper tooth and right jaw pain x 4 days.Reports pain radiates into throat.Reports difficulty opening mouth.Denies fever, chest pain, SOA, cough, congestion, and n/v/d. Bindu Dao, ASSISTIVE TECHNOLOGY TRAINER [address], [place], [address], [place] [facility] 12/15/2024 14:55:17 02/02/2025 text/html Presents with 3 days of blood urineDoes endorse pain to right suprapubic areaNo fever or chillsNo pain with urinationDenies odor to urineDenies urgencyDoes endorse hesitancyNo CVA tendernessDid recently complete course of Levofloxacin last weekNo chest pain, shortness of breath, dizziness, lightheadedness, syncope, palpitations or edema.Denies alcohol, tobacco and illicit drug usageCompliant with medication Carmencita Roberto, ASSISTIVE TECHNOLOGY TRAINER [address], [place], [address], [facility] 02/02/2025 14:32:16 OBGyn Episode No OBEpisode recorded.
[2025-02-05 13:18] LABS: Urine Pregnancy, HCG Qual. Negative (Negative)
[2025-02-05] MEDS: KETOROLAC 30MG/ML VIAL 15 MG IV (13:19)
[2025-02-05] MEDS: ONDANSETRON 4MG/2ML VIAL 4 MG IV (13:19)
[2025-02-05 13:27] LABS: Basophils % 0.3 % (0.1-2.0); Eosinophils % 0.3 % (0.1-12.0); Hematocrit 42.8 % (37.0-47.0); Hemoglobin 13.9 g/dL (12.2-16.2); Immature Granulocytes # 0.01 10^3uL; Immature Granulocytes % 0.2 %; Lymphocytes # 2.5 K/mm3 (0.7-4.5); Lymphocytes % 39.1 % (10-50); Mean Corpuscular HGB Conc 32.5 g/dL (31.8-35.4); Mean Corpuscular Hemoglobin 28.5 pg (27.0-31.2); Mean Corpuscular Volume 87.7 fl (81-99); Mean Platelet Volume 10.5 fl (7.4-10.4); Monocytes # 0.3 K/mm3 (0.1-1.0); Monocytes % 5.2 % (1.7-9.3); Neutrophils # 3.5 K/mm3 (1.8-7.8); Neutrophils % 54.9 % (37.0-80.0); Nucleated Red Blood Cells # 0 10^3/uL; Nucleated Red Blood Cells % 0 %; Platelet Count 258 K/mm3 (142-424); Red Blood Count 4.88 M/mm3 (4.20-5.40); Red Cell Distribution Width 12.8 % (11.5-17.5); Red Cell Distribution Width-SD 40.5 fL; White Blood Count 6.3 K/mm3 (4.8-10.8)
[2025-02-05] MEDS: IOPAMIDOL-370 (76%);100ML BOTTLE 75 ML IV (13:29)
[2025-02-05] MEDS: SODIUM CHLORIDE 0.9% 10ML SYR (RAD ONLY) 10 ML IV (13:29)
[2025-02-05 13:33] LABS: Bilirubin,Urine 1+ (Negative)
[2025-02-05 13:33] LABS: Chloride 103 mmol/L (98-107); Potassium 3.8 mmoL/L (3.5-5.1); Sodium 141 mmol/L (136-145)
[2025-02-05 13:34] VITALS: BP 114/89; PULSE 83; O2SAT 89
[2025-02-05 13:34] LABS: Bacteria,Urine 1+ /lpf; RBC,Urine 20-50 #/hpf (0-3); WBC,Urine Occasional #/hpf (0-3); Yeast,Urine 2+ /lpf
[2025-02-05 13:36] LABS: Alanine Aminotransferase 20 U/L (12-78); Albumin/Globulin Ratio 1.6 (1.1-1.8); Alkaline Phosphatase 72 U/L (38-126); Anion Gap 17.8 mEq/L (5-15); Aspartate Amino Transferase 26 U/L (14-36); Bilirubin,Total 0.4 mg/dl (0.2-1.3); Blood Urea Nitrogen 11 mg/dl (7-17); Calcium 9.5 mg/dl (8.4-10.2); Carbon Dioxide 24 mmol/L (22.0-30.0); Creatinine Clearance Estimated 132 mL/min (50-200); Estimated Glomerular Filt Rate 88 ml/min (>60); GFR (African American) 107 ML/MIN (>60); Globulin 3.2 g/dL (1.3-3.2); Glucose 115 mg/dl (74-100); Lipase 146 U/L (23-300); Total Protein,Serum 8.2 g/dl (6.3-8.2)
[2025-02-05 13:37] LABS: Lactic Acid 1.5 mmol/L (0.7-2.1)
[2025-02-05 13:45] VITALS: PULSE 61; RESP 19; O2SAT 99
[2025-02-05 14:01] VITALS: BP 111/68; PULSE 72; O2SAT 100
[2025-02-05] MEDS: OXYCODONE 5MG W/APAP 325MG TABLET 1 EACH PO (14:42)
[2025-02-05 14:43] VITALS: BP 111/68; PULSE 72; RESP 16; TEMP 36.6; O2SAT 100
== END 2025-02-05 14:44 | disposition home or self-care (01) ==
PROVIDERS: Physician Assistant; Emergency Provider Emergency Medicine; PCP Nurse Practitioner Women's Health
DX: N20.0 Calculus of kidney (principal)
CPT/HCPCS: 74177; 80053; 81001; 81025; 83605; 83690; 85025; 96374; 96375; 99285; J1885; J2405; Q9967

== ENCOUNTER 2025-02-11 14:11 | Outpatient (CLI) | payer MEDICAID, SELFPAY ==
--- OUTSIDE RECORDS SUMMARY | 2025-02-11 14:13 | XMS_ITS | Continuity of Care Document ---
Author Organization [facility] [place], [place] OFFICE Address [address] [place] [address] [address] [place] [address] Care Team Providers Care Assistant Corporate Secretary Name Role Phone GIOVANNA TRINIDADA Primary Care [...] recognition software and or use of a biomedical engineering professor. Variances in spelling and vocabulary are possible [...] None recorded. Imaging CT, chest, w/o contrast - Auth #[id number] Exp 04/09/20252024 025 [email or web address] [facility], [address] [place] [address] , [place], [address], 02/08/2025 16:19:10 Medication Orders None recorded. Patient TargetsNo targets recorded. Patient InstructionsNo instructions recorded. Reason for Referral None Reported. Results Created Date Observation Date Name Description Value Unit Range Abnormal Flag Note LastModifiedBy Organization Detail LastModifiedTime 11/27/1911/26/2024 CT, angio gram, chest , w/ contr ast No observ ation record ed. [email or web address] Not Available 2024 15:35:51 11/27/19 25 11/26/2024 XR, chest , 1 view No observ ation record ed. [email or web address] Not Available 2024 15:36:13 12/09/19 25 11/26/2024 CT, angio gram, chest , w/ contr ast No observ ation record ed. [email or web address] [facility] (Med Record) [address], [place], [address], 12/08/2024 10:42:42 12/11/19 25 12/07/2024 fract ional exhal ed nitri c oxide * No observ ation record ed. [email or web address] Not Available 2024 14:06:17 12/12/19 25 12/07/2024 compl ete PFT* No observ ation record ed. [email or web address] Not Available 2024 13:04:35 01/19/20 25 01/15/2025 XR, chest , 2 view No observ ation record ed. [email or web address] [place] [id number] , [place], [address], 01/18/2025 11:48:50 Result Notes None recorded. Problems Name Problem SNOMED Code Status Onset Date Resolution Date Notes Provider Name and Address Organization Details Recorded Time Dyspnea on exertion 20340802 Active 2024 Joy Gaviria NP [address], [place], [address], [place] - [facility] 11:20:20 Hemoptysis 47630161 Active 2024 Joy Gaviria NP [address], [place], [facility], [address], [place] [facility] 11:20:54 Mild intermittent asthma 083741764 Active 2024 Joy Gaviria NP [address], [place], [place], [address], [place] [facility] 19:58:05 Cough 15755673 Active 2024 Joy Gaviria NP [address], [place], [facility], [address], [place] [facility] [...] Name and Address Organization Details Recorded Time 24347 amoxicill in medicatio n Not available Not [...] Not Available Not Available No t Available hydrocodone 5 mg-acetamin ophen 325 mg tablet TAKE ONE (1) TABLET BY MOUTH EVERY EIGHT (8) HOURS NEEDED FOR PAIN SCALE SCORE 7-10 active Not Available Not Available No t [...] Not Available Not Available Not Avai lable tamsulosin 0.4 mg capsule TAKE ONE (1) CAPSULE BY MOUTH EVERY DAY active Not Available Not Available No t Available hydrocodone 7.5 mg-acetamin ophen 325 mg tablet [...] Available Not Available No t Available ondansetron 4 mg disintegrat ing tablet DISSOLVE ONE (1) TABLET IN MOUTH EVERY SIX (6) HOURS NEEDED FOR [...] Heart rate Respiratory rate Body temperature Systolic And Diastolic Provider Name and Address Organization Details Last Updated DateTime 5 170.18 cm 100 % 100 % 94 /min 18 /min 97.3 [degF] 110/68 mm[Hg] estuardo acosta [facility] 14:44:46 Social History Question Answer Notes LastModified by Organizat ion Details LastModified Time Tobacco Smoking Status Never Smoker kamar morales [facility] 12/07/2024 10:37:26 Do You Have An Advance Directive? No [email or web address] Information not available 12/07/2024 Is Your Home Air Conditioned? Yes Information not available 12/07/2024 Where Do You Live? [place] [email or web address] Information not available 12/07/2024 Do You Have A Medical Power Of Nuclear Powerplant Supervisor? No [email or web address] Information not available 12/07/2024 What Was The Date Of Your Most Recent Tobacco Screening? 12/21/2024 Quit 1 Week Ago [email or web address] Information not available 12/21/2024 Do You Have Any Pets? Yes 2 Dogs, 1 Cat [email or web address] Information not available 12/07/2024 What Is Your Relationship Status? Single [email or web address] Information not available 12/07/2024 Are There Any Smokers In Your House? Yes [email or web address] Information not available 12/07/2024 Has Tobacco Cessation Counseling Been Provided? Yes Information not available 12/07/2024 On What Date Was Tobacco Cessation Counseling Provided? 12/21/2024 [email or web address] Information not available 12/21/2024 Have You Recently Traveled Abroad? No [email or web address] Information not available 12/07/2024 Are You Currently In School? No Information not available 12/07/2024 How Many Years Have You Used E-cigarettes Or Vape? 1 Information not available 12/07/2024 Sex: Unknown Functional Status Question Answer Note LastModified by Organizat ion Details LastModified Time Do you or have you ever used any other forms of tobacco or nicotine? Yes [email or web address] Information not available 12/07/2024 Do you or have you ever used smokeless tobacco? Never used smokeless tobacco Information not available 12/07/2024 Are you currently employed? No [email or web address] Information not available 12/07/2024 Do you or have you ever used e-cigarettes or vape? Former user of electronic cigarettes [email or web address] Information not available 12/21/2024 Mental Status None recorded. Family History Relationship Description Onset Age of this Age Resolved Age Notes LastModified by Organization Details LastModified Time Mother Allergy [email or web address] Not availabl e 12/07/2024 10:39:52 Mother Asthma [email or web address] Not available 12/07/2024 10:40:03 Mother Chronic obstructive pulmonary disease [email or web address] Not available 12/07 10:40:11 Mother Emphysema [email or web address] Not availa ble 12/07/2024 10:40:16 Mother Sleep apnea [email or web address] Not avai lable 12/07/2024 10:40:22 Father Allergy [email or web address] Not availabl e 12/07/2024 10:39:52 Medical History No medical history recorded. Gynecological HistoryNo gynecological history recorded. Obstetrics History GPAL:G 0 P 0 0 0 0 Past Encounters Encounter ID Performer Location Encounter Start Date Encounter Closed Date Diagnosis/Indication Diagnosis SNOMED-CT Code Diagnosis ICD10 Code Diagnosis Note [id number] Ramirez Sandoval DO [place] [facility] [address] [place] [address] [address] [place] [address] 12/07/2024 10:43:02 12/07/2024 11:33:02 Seasonal allergy 621915773 J30.2 Dyspnea on exertion 6084 5006 R06.09 Hemoptysis 44933922 R04. 2 [id number] Ramirez Sandoval DO [place] [facility] [address] [facility] [address] [place] [address] 12/21/2024 14:35:01 12/22/2024 10:44:21 Seasonal allergy 356348312 J30.2 Dyspnea on exertion 6084 5006 R06.09 Hemoptysis 20764505 R04. 2 Health Concerns Section Related Observation LastModified by Organization Detai ls LastModified Time None Recorded Concern Status LastModified by Organization Details LastModified Time None Recorded Payers Encounter Date Sequence Insurance Name Policy Number Policy Booth Covered Member ID Booth Member ID Guarantor Name 12/21/2024 1 [facility] (MEDICAID HMO) Mukund Wilian [id number] Mariaelena Cedeno Notes Date Note Type Note [...] Gaviria NP [address], [place], [address], [facility] 12/21/2024 21:50:27 OBGyn Episode No OBEpisode recorded.
--- OUTSIDE RECORDS SUMMARY | 2025-02-11 14:13 | XMS_ITS | Data Portability ---
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 Oral [...] software and or use of a medical assistant prn. Variances in spelling and vocabulary are possible [...] software and or use of a medical assistant prn. Variances in spelling and vocabulary are possible [...] Pulmicort nebs *Rx for nebulizer sent to [facility] 3. Rx for Benzonatate 4. Rx for [...] available Lab respirato ry allergen panel - [facility] 2024 025 [email or web address] [facility] (Registration ), [facility] [address], [place], [address], 12/14/2024 08:33:43 CBC w/ diff [email or web address] [place] [address] (Registration ), [address], [place], [address], 12/14/2024 11:25:18 Mycobacte rium tuberculo sis stimulate d gamma interfero n, qual, blood - TB GOLD [email or web address] [place] [address] (Registration ), [place], [address], 12/14/2024 08:34:00 Referral None recorded. Procedures None recorded. Surgeries None recorded. Imaging CT, chest, w/o contrast - Auth #[id number] Exp 04/09/20252024 025 [email or web address] [facility], [place] [place], [address], 02/08/2025 16:19:10 Medication Orders benzonata te 200 mg capsule 2024 025 [facility], [address] [place] [address], [address], 01/20/2025 21:01:18 Mucinex 600 mg tablet, extended release [address], [address], 01/20/2025 21:01:18 Pulmicort 0.5 mg/2 mL suspensio n for nebulizat ion 2024 025 [facility], [address] [place] [address], [address], 01/20/2025 21:01:17 albuterol sulfate 2.5 mg/3 mL (0.083 %) solution for nebulizat ion [address], [address], 01/20/2025 21:01:17 albuterol sulfate HFA 90 mcg/actua tion aerosol inhaler 2024 025 [facility], [address] [place] [address], [address], 12/07/2024 11:25:46 Patient TargetsNo targets recorded. Patient Instructions Encounter Date Encounter Id Patient Instructions Last Modified By Organization Details Last Modified Time 12/07/2024 [id number] medical record request* - Please forward most recent Chest CT [email or web address] Not available 12/14/2024 08:36:48 Reason for Referral None Reported. Results Created Date Observation Date Name Description Value Unit Range Abnormal Flag Note LastModifiedBy Organization Detail LastModifiedTime 11/27/1911/26/2024 CT, angio gram, chest , w/ contr ast No observ ation record ed. [email or web address] Not Available 2024 15:35:51 11/27/19 25 11/26/2024 XR, chest , 1 view No observ ation record ed. [email or web address] Not Available 2024 15:36:13 12/09/19 25 11/26/2024 CT, angio gram, chest , w/ contr ast No observ ation record ed. [email or web address] [facility] (Med Record) [address], [place], [address], 12/08/2024 10:42:42 12/11/19 25 12/07/2024 fract ional exhal ed nitri c oxide * No observ ation record ed. Not Available 2024 14:06:17 12/12/19 25 12/07/2024 compl ete PFT* No observ ation record ed. [email or web address] Not Available 2024 13:04:35 01/19/20 25 01/15/2025 XR, chest , 2 view No observ ation record ed. [email or web address] [address] , [place], [address], 01/18/2025 11:48:50 Result Notes None recorded. Problems Name Problem SNOMED Code Status Onset Date Resolution Date Notes Provider Name and Address Organization Details Recorded Time Dyspnea on exertion 65102352 Active 2024 Joy Gaviria NP [address], [place], [address], [place] [facility] 11:20:20 Hemoptysis 95842561 Active 2024 Joy Gaviria NP [address], [place], [address], [place] [facility] 11:20:54 Mild intermittent asthma 776504419 Active 2024 Joy Gaviria NP [address], [place], [address], [place] [facility] 19:58:05 Cough 44141622 Active 2024 Joy Gaviria NP [address], [place], [address], [place] [facility] 15:19:53 Problem Notes None recorded. Procedures Surgical History Date Name Laterality Status Provider Name and Address Organization Details Recorded Time removal of urinary calculus completed kamar carmona [place] [facility] 12/07/2024 10:39:20 operation on breast completed kamarjaret carmona [place] [facility] 12/07/2024 10:39:28 Imaging Results None recorded. Procedure Notes None recorded. Medical Equipment None Reported. Allergies Allergen ID Allergen Name Allergen Category Reaction Reaction Severity Criticality Documentation Date Start Date Code Code System Note Provider Name and Address Organization Details Recorded Time 76158 amoxicill in medicatio n Not available Not available Not available 12/07/2024 723 RxNorm kamar mathew [facility] 10:38:09 Medications [...] Updated DateTime 5 170.18 cm 27.8 kg/m2 28044.5 7 g 97 % 97 % 90 /min 18 /min 98.3 [degF] 130/82 mm[Hg] kamar DELGADO [facility] 5 10:59:59 Date Recorded Body height Oxygen saturation Oxygen saturation in Arterial blood by Pulse oximetry Heart rate Respiratory rate Body temperature Systolic And Diastolic Provider Name and Address Organization Details Last Updated DateTime 170.18 cm 100 % 100 % 94 /min 18 /min 97.3 [degF] 110/68 mm[Hg] estuardo acosta [facility]i 14:44:46 Social History Question Answer Notes LastModified by Pulse 8 Details LastModified Time Tobacco Smoking Status Never Smoker kamar mathew morales [facility] 12/07/2024 10:37:26 Do You Have An Advance Directive? No [email or web address] Information not available 12/07/2024 Is Your Home Air Conditioned? Yes [email or web address] Information not available 12/07/2024 Where Do You Live? [place] Information not available 12/07/2024 Do You Have A Medical Power Of Account Development Executive? No [email or web address] Information not available 12/07/2024 What Was The Date Of Your Most Recent Tobacco Screening? 12/21/2024 Quit 1 Week Ago [email or web address] Information not available 12/21/2024 Do You Have Any Pets? Yes 2 Dogs, 1 Cat Information not available 12/07/2024 What Is Your Relationship Status? Single [email or web address] Information not available 12/07/2024 Are There Any Smokers In Your House? Yes [email or web address] Information not available 12/07/2024 Has Tobacco Cessation Counseling Been Provided? Yes Information not available 12/07/2024 On What Date Was Tobacco Cessation Counseling Provided? 12/21/2024 [email or web address] Information not available 12/21/2024 Have You Recently Traveled Abroad? No Information not available 12/07/2024 Are You Currently In School? No [email or web address] Information not available 12/07/2024 How Many Years Have You Used E-cigarettes Or Vape? 1 [email or web address] Information not available 12/07/2024 Sex: Unknown Functional Status Question Answer Note LastModified by Pulse 8 Details LastModified Time Do you or have you ever used any other forms of tobacco or nicotine? Yes [email or web address] Information not available 12/07/2024 Do you or have you ever used smokeless tobacco? Never used smokeless tobacco [email or web address] Information not available 12/07/2024 Are you currently employed? No [email or web address] Information not available 12/07/2024 Do you or have you ever used e-cigarettes or vape? Former user of electronic cigarettes Information not available 12/21/2024 Mental Status None recorded. Family History Relationship Description Onset Age of this Age Resolved Age Notes LastModified by Organization Details LastModified Time Mother Allergy [email or web address] Not availabl e 12/07/2024 10:39:52 Mother Asthma [email or web address] Not available 12/07/2024 10:40:03 Mother Chronic obstructive pulmonary disease [email or web address] Not available 12/07 10:40:11 Mother Emphysema [email or web address] Not availa ble 12/07/2024 10:40:16 Mother Sleep apnea [email or web address] Not avai lable 12/07/2024 10:40:22 Father Allergy [email or web address] Not availabl e 12/07/2024 10:39:52 Medical History No medical history recorded. Gynecological HistoryNo gynecological history recorded. Obstetrics History GPAL:G 0 P 0 0 0 0 Past Encounters Encounter ID Performer Location Encounter Start Date Encounter Closed Date Diagnosis/Indication Diagnosis SNOMED-CT Code Diagnosis ICD10 Code Diagnosis Note [id number] Ramirez Sandoval DO [place] [facility] [address] [place] [address] [address] [place] [address] 12/07/2024 10:43:02 12/07/2024 11:33:02 Seasonal allergy 968448441 J30.2 Dyspnea on exertion 6084 5006 R06.09 Hemoptysis 42776926 R04. 2 [id number] Ramirez Sandoval DO [place] [facility] [address] [place] [address] [address] [place] [address] 12/21/2024 14:35:01 12/22/2024 10:44:21 Seasonal allergy 802690141 J30.2 Dyspnea on exertion 6084 5006 R06.09 Hemoptysis 90172747 R04. 2 [id number] KISHAN REARDON NP [facility] [address] [facility] [place] [address] 01/20/2025 16:12:01 01/21/2025 08:51:18 Dyspnea on exertion 77863162 R06.09 Hemoptysis 12587483 R04. 2 Mild inter mittent asthma 387852995 J45.20 Cough 22568976 R05.9 Health Concerns Section Related Observation LastModified by Organization Detai ls LastModified Time None Recorded Concern Status LastModified by Organization Details LastModified Time None Recorded Advance Directives Directive N: Payers Insurance Date Sequence Insurance Name Policy Number Policy Booth Covered Member ID Booth Member ID Guarantor Name 01/20/2025 1 [facility] [place] Mukund Cedeno [id number] Mariaelena Cedeno Notes Date Note Type Note Provider Name and Address Organization Details Recorded Time 12/07/2024 text/html This 24 year-old female presents to the office for evaluation of hemoptysis.Patient states she was seen in the ER at [facility] 11/26/2024 where she presented with [...] or night sweats. 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 Patients mother also works at a [employer].Patient has vaped daily for the past year. Patient has residential exposure to 2 dogs and 1 cat.Denies any n/v/d/f/c Joy Gaviria NP [address], [place], [address], [facility] 12/07/2024 22:00:47 12/21/2024 [...] Gaviria NP [address], [place], [address], [facility] 12/21/2024 21:50:27 01/20/2025 [...] is no longer vaping.Denies any n/v/d/f/c. Ramirez Sandoval DO [address], [place], [address], [facility] 01/21/2025 08:50:43 OBGyn Episode No OBEpisode recorded.
--- OUTSIDE RECORDS SUMMARY | 2025-02-11 14:13 | XMS_ITS | Continuity of Care Document ---
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 Rx for Benzonatate 4. Rx for [...] benzonata te 200 mg capsule [address], [address], 01/20/2025 21:01:18 Mucinex 600 mg tablet, extended release [address], [address], 01/20/2025 21:01:18 Pulmicort 0.5 mg/2 mL suspensio n for nebulizat ion 2024 025 [facility], [address] [place] [address], [address], 01/20/2025 21:01:17 albuterol sulfate 2.5 mg/3 mL (0.083 %) solution for nebulizat ion 2024 025 [facility], [address] [place] [address], [id number], 01/20/2025 21:01:17 Patient TargetsNo targets recorded. Patient InstructionsNo instructions recorded. Reason for Referral None Reported. Results Created Date Observation Date Name Description Value Unit Range Abnormal Flag Note LastModifiedBy Organization Detail LastModifiedTime 01/19/20 25 01/15/2025 XR, chest , 2 view No observ ation record ed. [email or web address] [facility] [address] , [place], [address], 01/18/2025 11:48:50 Result Notes None recorded. Problems Name Problem SNOMED Code Status Onset Date Resolution Date Notes Provider Name and Address Organization Details Recorded Time Dyspnea on exertion 37234516 Active 2024 Joy Gaviria NP [address], [place], [address] [place] - [facility] 11:20:20 Hemoptysis 87850466 Active 2024 Joy Gaviria NP [address], [place], [id number], [place] [facility] 5 11:20:54 Mild intermittent asthma 843934646 Active 2024 Joy Gaviria NP [address], [place], [phone], [place] [facility] 19:58:05 Cough 15066004 Active 2024 Joy Gaviria NP [address], [place], [phone], [facility] 15:19:53 Problem Notes None recorded. Procedures Surgical History Date Name Laterality Status Provider Name and Address Organization Details Recorded Time removal of urinary calculus completed kamar carmona [place] - [facility] 12/07/2024 10:39:20 operation on breast completed kamar carmona [place] - [facility] 12/07/2024 10:39:28 Imaging Results None recorded. Procedure Notes None recorded. Medical Equipment None Reported. Allergies Allergen ID Allergen Name Allergen Category Reaction Reaction Severity Criticality Documentation Date Start Date Code Code System Note Provider Name and Address Organization Details Recorded Time [address]754 amoxicill in medicatio n Not available Not available Not available 12/07/2024 723 RxNorm kamar carmona [facility] [place] - [facility] 10:38:09 [...] Time Tobacco Smoking Status Never Smoker kamar carmona [facility] [place] - [facility] 12/07/2024 10:37:26 Do You Have An Advance Directive? No [email or web address] Information not available 12/07/2024 Is Your Home Air Conditioned? Yes [email or web address] Information not available 12/07/2024 Where Do You Live? [place] [email or web address] Information not available 12/07/2024 Do You Have A Medical Power Of Reimbursement Consultant? No [email or web address] Information not available 12/07/2024 What Was The Date Of Your Most Recent Tobacco Screening? 12/21/2024 Quit 1 Week Ago [email or web address] Information not available 12/21/2024 Do You Have Any Pets? Yes 2 Dogs, 1 Cat [email or web address] Information not available 12/07/2024 What Is Your Relationship Status? Single [email or web address] Information not available 12/07/2024 Are There Any Smokers In Your House? Yes [email or web address] Information not available 12/07/2024 Has Tobacco Cessation Counseling Been Provided? Yes [email or web address] Information not available 12/07/2024 On What Date Was Tobacco Cessation Counseling Provided? 12/21/2024 [email or web address] Information not available 12/21/2024 Have You Recently Traveled Abroad? No [email or web address] Information not available 12/07/2024 Are You Currently In School? No [email or web address] Information not available 12/07/2024 How Many Years Have You Used E-cigarettes Or Vape? 1 [email or web address] Information not available 12/07/2024 Sex: Unknown Functional Status Question Answer Note LastModified by Organizat ion Details LastModified Time Do you or have you ever used any other forms of tobacco or nicotine? Yes Information not available 12/07/2024 Do you or have you ever used smokeless tobacco? Never used smokeless tobacco [email or web address] Information not available 12/07/2024 Are you currently employed? No [email or web address] Information not available 12/07/2024 Do you or have you ever used e-cigarettes or vape? Former user of electronic cigarettes [email or web address] Information not available 12/21/2024 Mental Status None recorded. Family History Relationship Description Onset Age of this Age Resolved Age Notes LastModified by Organization Details LastModified Time Mother Allergy [email or web address] Not availabl e 12/07/2024 10:39:52 Mother Asthma [email or web address] Not available 12/07/2024 10:40:03 Mother Chronic obstructive pulmonary disease [email or web address] Not available 12/07 10:40:11 Mother Emphysema [email or web address] Not availa ble 12/07/2024 10:40:16 Mother Sleep apnea Not avai lable 12/07/2024 10:40:22 Father Allergy [email or web address] Not availabl e 12/07/2024 10:39:52 Medical History No medical history recorded. Gynecological HistoryNo gynecological history recorded. Obstetrics History GPAL:G 0 P 0 0 0 0 Past Encounters Encounter ID Performer Location Encounter Start Date Encounter Closed Date Diagnosis/Indication Diagnosis SNOMED-CT Code Diagnosis ICD10 Code Diagnosis Note [id number] Ramirez Sandoval DO [facility] [facility] [address] [place] [address] 12/21/2024 14:35:01 12/22/2024 10:44:21 Seasonal allergy 956475319 J30.2 Dyspnea on exertion 6084 5006 R06.09 Hemoptysis 72898458 R04. 2 [id number] KISHAN REARDON NP [facility] [address] [place] [address] 01/20/2025 16:12:01 01/21/2025 08:51:18 Dyspnea on exertion 81106520 R06.09 Hemoptysis 52892505 R04. 2 Mild inter mittent asthma 526232752 J45.20 Cough 28415869 R05.9 Health Concerns Section Related Observation LastModified by Organization Detai ls LastModified Time None Recorded Concern Status LastModified by Organization Details LastModified Time None Recorded Payers Encounter Date Sequence Insurance Name Policy Number Policy Booth Covered Member ID Booth Member ID Guarantor Name 01/20/2025 1 [facility] (MEDICAID HMO) Mukund Cedeno [id number] Mariaelena Cedeno Notes Date Note Type Note [...] Ramirez Sandoval, [address], [place], [address], [facility] 01/21/2025 08:50:43 OBGyn Episode No OBEpisode recorded.
--- OUTSIDE RECORDS SUMMARY | 2025-02-11 14:14 | XMS_ITS | Continuity of Care Document ---
Author Organization [facility] Address [address] [place] [address] Assessment No assessment recorded. Plan of Treatment Reminders Order Date Submit Date Provider Last Modified By Organization Details Last Modified Time Details Appointments Follow Up 2024 10:20A M Venkatesh Garza, SPECIAL DISTRIBUTION CLERK Not available Not available Not available ESTABLISH ED PT 30 2024 04:45P M Melly Collins, SPECIAL DISTRIBUTION CLERK Not available Not available Not available Lab culture, urine 2024 025 [place] [facility], [address], [facility], [place], [address], 02/04/2025 03:36:18 urinalysi s, dipstick 2024 025 [facility], [address] [place], [address], 02/02/2025 14:31:55 Referral None recorded. Procedures None recorded. Surgeries None recorded. Imaging XR, kidney + ureter + bladder 2024 025 [facility], [address] [place], [address], 02/03/2025 10:40:51 Medication Orders None recorded. Patient TargetsNo targets recorded. Patient Instructions Encounter Date Encounter Id Patient Instructions Last Modified By Organization Details Last Modified Time 02/02/2025 [id number] body mass index: care instructions Not available [...] , dipst ick Leukocytes Trace Not Available [address] [place], [address], 02/02/2025 14:31:02 02/03/20 25 02/02/2025 urina lysis , dipst ick Nitrite negati ve Not Available [address] [place], [address], 02/02/2025 14:31:02 02/03/20 25 02/02/2025 urina lysis , dipst ick Urobilinogen .2 Not Available [address] [place], [address], 02/02/2025 14:31:02 02/03/20 25 02/02/2025 urina lysis , dipst ick Protein 30 Not Available [address] [place], [address], 02/02/2025 14:31:02 02/03/20 25 02/02/2025 urina lysis , dipst ick pH 6.0 Not Available [address] [place], [address], 02/02/2025 14:31:02 02/03/20 25 02/02/2025 urina lysis , dipst ick Blood Large Not Available [address] [place], [address], 02/02/2025 14:31:02 02/03/20 25 02/02/2025 urina lysis , dipst ick Specific [place] 1.015 Not Available [address] [place], [address], 02/02/2025 14:31:02 02/03/20 25 02/02/2025 urina lysis , dipst ick Ketone Negati ve Not Available [address] [place], [address], 02/02/2025 14:31:02 02/03/20 25 02/02/2025 urina lysis , dipst ick Bilirubin Negati ve Not Available [address] [place], [address], 02/02/2025 14:31:02 02/03/20 25 02/02/2025 urina lysis , dipst ick Glucose Negati ve Not Available [address] [place], [address], 02/02/2025 14:31:02 02/03/20 25 02/02/2025 urina lysis , dipst ick Appearance Clear Not Available [address] [place], [address], 02/02/2025 14:31:02 02/03/20 25 02/02/2025 urina lysis , dipst ick Color Yellow Not Available [address] [place], [address], 02/02/2025 14:31:02 02/04/20 25 02/03/2025 XR, kidne y + urete r + bladd er No observ ation record ed. [facility] [address] [place], [address], 02/03/2025 11:02:33 02/06/20 25 02/05/2025 CT, abdom en + pelvi s, w/ contr ast No observ ation record ed. [email or web address] [facility] [address], [place], [address], 02/05/2025 16:26:20 Result Notes None recorded. Problems Name Problem SNOMED Code Status Onset Date Resolution Date Notes Provider Name and Address Organization Details Recorded Time Hypertro phy of tonsils 90768217 Completed 201812/01/2021 Ayaka morales, [place] - [facility] 2 09:14:36 History of calculus of kidney 236683693 Active 2018 Alyson Jones null, [place] - [facility] 9 16:19:23 Childhoo d obesity 380821304 Completed 201911/18/2020 Maria C Cardona, HENRY [address], [place], [address] , [place] - [facility] 1 15:04:14 Skin lesion 81127122 Completed 201906/15/2020 Removal Reason: resolved Carmencita Roberto, SPECIAL DISTRIBUTION CLERK [address], [place], [address] , [place] - [facility] 4 16:28:06 Skin striae 660559217 Active 2019 Maria C Cardona, SPECIAL DISTRIBUTION CLERK [address], [place], [address] , [place] [facility] 0 15:50:11 Difficul ty sleeping 095986896 Completed 201906/19/2021 Ayaka Acevedo null, [place] - [facility] 1 09:12:44 Congenit al bilatera l pes planus 73642392862 668684 Active 2019 Ayaka Acevedo null[place] [facility] 2 09:14:25 Depressi ve disorder 68652193 Completed 201911/18/2020 Removal Reason: resolved Maria C Cardona, SPECIAL DISTRIBUTION CLERK [address], [place], [address] , [place] [facility] 1 15:11:35 Weight gain 5141767 Completed 201911/18/2020 Maria C Jeniffer Hopekam, SPECIAL DISTRIBUTION CLERK [address], [place], [address] , [place] [facility] 1 15:04:27 Foot pain 56781027 Completed 201906/19/2021 Ayakajuanis Acevedo null, [place] - [facility] 1 09:12:52 Mass of left breast 88276897510 687900 Completed 201905/27/2020 Ana Adams, SPECIAL DISTRIBUTION CLERK [address], [place], [address] , [place] [facility] 0 14:20:11 Hyperins ulinism 21008830 Active 2019 Ayaka Acevedo null[place] [facility] 2 09:14:30 Mixed hyperlip idemia 844124012 Active 2019 Ayaka Acevedo [place] [facility] 2 09:14:39 Serum thyroid stimulat ing hormone level outside referenc e range 929619454 Active 2019 Maria C Cardona, SPECIAL DISTRIBUTION CLERK [address], [place], [address] , [place] [facility] 0 11:53:01 Fibroade noma of left breast 17201417923 94012 Completed 201912/01/2021 Ana Adams, HENRY [address], [place], [address] , [place] [facility] 2 09:55:08 Vitamin D deficien 46247219 Active 2019 Antonietta Perez null, [place] [facility] 0 13:55:03 Nodule of subcutan eous tissue of right forearm 00536572994 600230 Active 2020 Maria C Jeniffer Gan Brendan, SPECIAL DISTRIBUTION CLERK [address], [place], [address] , [place] [facility] 1 15:10:12 History of SARS-CoV -2 06172252702 5998182 Completed 202004/19/2021 Ayaka Acevedo [place], [place] - [facility] 1 09:13:57 Uses depot contrace ption 261794254 Completed 202101/28/2023 Ana Adams, SPECIAL DISTRIBUTION CLERK [address], [place], [address] , [place] [facility] 3 10:23:59 Body mass index 25-29 - overweig ht 362648331 Completed 202101/18/2023 Ana Adams, SPECIAL DISTRIBUTION CLERK [address], [place], [address] , [place] [facility] 4 10:29:35 Erythema tous ear canal 749272034 Active 2021 Carmencita Roberto, SPECIAL DISTRIBUTION CLERK [address], [place], [address] , [place] [facility] 2 16:03:37 Body mass index 30+ - obesity 575506080 Completed 202202/21/2024 Ana Adams, SPECIAL DISTRIBUTION CLERK [address], [place], [address] , [place] [facility] 4 09:27:42 Elevated blood-pr essure reading without diagnosi s of hyperten ju 679303699 Active 2022 Ana Adams, SPECIAL DISTRIBUTION CLERK [address], [place], [address] , [place] [facility] 3 14:58:36 Skin lesion 20265681 Active 2023 Carmencita Roberto, SPECIAL DISTRIBUTION CLERK [address], [place], [address] , [place] [facility] 4 16:28:06 Right lower quadrant pain 485533701 Active 2023 Ana Adams SPECIAL DISTRIBUTION CLERK [address], [place], [address] , [place] [facility] 4 10:29:11 Body mass index 25-29 - overweig ht 302512494 Active 2023 Ana Adams, SPECIAL DISTRIBUTION CLERK [address], [place], [address] , [place] [facility] 4 10:29:35 Irregula r bowel habits 308924855 Active 2023 Ana dAams, SPECIAL DISTRIBUTION CLERK [address], [place], [address] , [place] - [facility] 4 09:27:55 Surveill ance of depot contrace ption done 85190728194 104 Completed 201611/18/2020 Maria C Cardona, SPECIAL DISTRIBUTION CLERK [address], [place], [address] , [place] [facility] 1 15:04:32 Pleurisy 363599364 Active 2023 Curtis Nguyen, DO [address], [place], [address] , [place] [facility] 4 11:39:05 Cough 60804504 Completed 202302/02/2025 Crystal Kade null, [place] - [facility] 5 13:17:11 Nicotine dependen ce 56934027 Active 2024 Hannah Manning null, [place] - [facility] 5 13:16:01 Hemoptys is 85549614 Active 2024 Josue Davis, DO [address], [place], [address] , [place] [facility] 5 16:35:22 Dental abscess 944749014 Active 2024 Bindu Dao, SPECIAL DISTRIBUTION CLERK [address], [place], [address] , [place] [facility] 5 14:47:49 Jaw pain 705010916 Active 2024 Bindu Dao, SPECIAL DISTRIBUTION CLERK [address], [place], [address] , [place] [facility] 5 14:49:55 Gingival erythema 845650377 Active 2024 Bindu Dao, SPECIAL DISTRIBUTION CLERK [address], [place], [address] , [place] [facility] 5 14:52:05 Bronchit is 79999877 Completed 202402/02/2025 Caitlyn [place]ales, [place] - [facility] 5 13:16:27 Communit y acquired pneumoni a 511837176 Active 2024 Venkatesh Garza, SPECIAL DISTRIBUTION CLERK [address], [place], [address] , [place] [facility] 5 10:30:34 Generali zed anxiety disorder 60079141 Active 2024 Venkatesh Garza, SPECIAL DISTRIBUTION CLERK [address], [place], [address] , [place] [facility] 5 15:42:54 Chronic constipa tion 319115106 Active 2024 Venkatesh Garza, SPECIAL DISTRIBUTION CLERK [address], [place], [address] , [place] [facility] 5 15:43:44 Blood in urine 96221773 Active 2024 Carmencita Roberto, SPECIAL DISTRIBUTION CLERK [address], [place], [address] , [place] [facility] 5 13:37:03 Contrace ption care manageme nt Completed 201606/15/2020 Removal Reason: stopped depo due to weight gain/gypsy ing Maria C Cardona, SPECIAL DISTRIBUTION CLERK [address], [place], [address] , [place] [facility] 0 14:51:30 Overweig ht in childo d 333159766 Completed 201608/17/2019 Maria C Cardona, SPECIAL DISTRIBUTION CLERK [address], [place], [address] , [place] [facility] 0 14:10:57 Problem Notes None recorded. Procedures Surgical History Date Name Laterality Status Provider Name and Address Organization Details Recorded Time 024 Date of Last Pap Smear completed Ana Adams, SPECIAL DISTRIBUTION CLERK [address], [place], [address], [place] [facility] 02/09/2024 20:37:37 024 Suture/Staple removal completed Caitlyn Braun [place] - [facility] 11/20/2023 09:44:13 024 Punch Biopsy completed Carmencita Roberto, SPECIAL DISTRIBUTION CLERK [address], [place], [address], [place] [facility] 11/13/2023 20:53:26 021 Medication [...] Name and Address Organization Details Recorded Time 187997 amoxicill in medicatio n hives Not available Not available 12/01/2021 723 RxNorm Ayaka Acevedo [place] - [facility] 09:13:26 01457 Product containin g penicilli n (product) medicatio n rash Not available Not available 06/06/2017 70543 8001 SNOMED Maria C Jeniffer Cardona, SPECIAL DISTRIBUTION CLERK [address], [place], [address] , [place] - [facility] 7 15:35:53 Medications Name [...] completed Not Available Not Available Not Available hydrocodo ne 5 mg-acetam inophen 325 mg tablet TAKE ONE (1) TABLET BY MOUTH EVERY EIGHT (8) HOURS NEEDED FOR PAIN SCALE SCORE 7-10 active Not Available Not Available No t Available Celestone Soluspan 6 mg/mL suspensio n [...] Disconti nued on: 11/25/19 14 4:55PM;U ser: blairk;Anuja st. Completi on: 11/02/19 14;Pharm [email or web address] ied: 10/23/19 14 10:45AM Not Available Not [...] Disconti nued on: 11/23/19 15 12:43PM; User: ramon;Elizabeth t. Completi on: 10/30/19 15;Pharm acyVerif ied: 10/20/19 [...] Disconti nued on: 11/07/19 13 11:08AM; User: banner;E st. Completi on: 01/06/20 13 Not Available [...] Not Available Not Available No t Available Biaxin 250 mg/5 mL oral suspensio [...] Disconti nued on: 06/18/20 11 3:05PM;U ser: nicolew; Est. Completi on: 09/16/19 12;Indic ation: Gastroes ophageal Reflux - (09.5308 10);Prin blank: 06/18/20 11 Not Available Not [...] 13 10:05AM; User: Inge tAlana Completi on: 11/01/19 13;Print ed: 10/22/19 13 [...] Disconti nued on: 10/07/19 16 10:26AM; User: [email or web address];Yuri harmacyV erified: 09/12/19 16 1:12PM Not Available [...] every 4-6 hours as needed 12/19 completed Jacobo DM 4-45-15 mg/5 mL oral syrup;Re corded Status: Recorded on: 10/26/19 10 1:48PM;D iscontin ued Status: Disconti nued on: 12/20/19 10 10:42AM; User: terry; EstAlana Completi on: 11/05/19 10;Indic ation: Cold [...] disintegr ating tablet DISSOLVE ONE (1) TABLET IN MOUTH [...] nued on: 05/07/20 12 10:57AM; User: janina Alston Completi on: 09/16/19 12;Indic ation: Gastroes ophageal [...] Disconti nued on: 10/30/19 14 10:10AM; User: shasta; Est. Completi on: 02/19/20 14;Indic ation: Dysmenor aye [...] Disconti nued on: 10/18/19 16 11:12AM; User: phongE st. Completi on: 10/12/19 16;Indic ation: Muscle [...] Disconti nued on: 11/07/19 13 10:05AM; User: ramon;Elizabeth t. Completi on: 10/29/19 13;Indic ation: None Availabl [...] Updated DateTime 5 170.18 cm 27.3 kg/m2 73030.0 7 g 76 /min 98 % 98 % 18 /min 112/74 mm[Hg] Caitlyn Braun [place] - [facility] 5 13:22:15 Social History Question Answer Notes LastModified by Organizat ion Details LastModified Time Tobacco Smoking Status Never Smoker Caitlyn morales [place] - [facility] 07/26/2016 15:49:08 Do You Have An Advance Directive? No Information not available 05/27/2020 Animal Exposure? Yes [email or web address] Informat ion not available 11/18/2019 Are You Blind Or Do You Have Difficulty Seeing? No Information not available 05/27/2020 Is Blood Transfusion Acceptable In An Emergency? Yes Information not available 05/27/2020 What Is Your Level Of Caffeine Consumption? Occasional [email or web address] Information not available 07/26/2016 How Much Tobacco Do You Chew? None Information not available 11/18/2019 Concerns About Meeting Basic Needs (food, Housing, Heat, Etc)? No [email or web address] Information not available 11/18/2019 In The 14 Days Before Symptom Onset, Have You Had Close Contact With A Laboratory-confir med COVID-19 While That Case Was Ill? No Information not available 11/09/2024 In The 14 Days Before Symptom Onset, Have You Had Close Contact With A Person Who Is Under Investigation For COVID-19 While That Person Was Ill? No [email or web address] Information not available 11/09/2024 Have You Been To An Area Known To Be High Risk For COVID-19? No [email or web address] Information not available 11/09/2024 Are You Deaf Or Do You Have Serious Difficulty Hearing? No Information not available 05/27/2020 What Type Of Diet Are You Following? REGULAR Information not available 01/09/2017 Does Family Ever Have Difficulty Making Ends Meet At The End Of The Month? No [email or web address] Information not available 11/18/2019 Which Illicit Or Recreational Drugs Have You Used? None [email or web address] Information not available 02/05/2024 Have You Directly Handled Bats, Rodents, Or Primates From Ebola Endemic Areas? No Information not available 11/18/2019 Have You Processed Blood Or Body Fluids From An Ebola Virus Disease Patient Without Appropriate PPE? No Information not available 11/09/2024 Have You Had Household Contact With An Ebola Virus Disease Patient? No [email or web address] Information not available 11/18/2019 Have You Had Direct Contact With A Body In An Ebola-affected Area Without Appropriate PPE? No [email or web address] Information not available 11/18/2019 Do You Reside In Or Have You Traveled To An Area Where Ebola Virus Transmission Is Active? No Information not available 11/18/2019 What Is The Highest Grade Or Level Of School You Have Completed Or The Highest Degree You Have Received? [id number] [email or web address] Information not available 02/05/2024 Have There Been Any Changes To Your Family Or Social Situation? No [email or web address] Information no t available 11/18/2019 What Is The Fluoride Status Of Your Home? Fluoridated [email or web address] Information not available 11/18/2019 Are There Any Guns Present In Your Home? No [email or web address] Information not available 11/18/2019 Have You Recently Or Are You Planning To Travel To An Area With Zika Virus? No [email or web address] Information not available 11/09/2024 What Is Your Home Situation? Both Parents [email or web address] Information not available 07/22/2017 How Many Years Have You Used Illicit Or Recreational Drugs? 0 [email or web address] Information not available 02/05/2024 Do You Use Insect Repellent Routinely? Yes [email or web address] Information not available 11/18/2019 Live Alone Or With Others? With Others Information not available 05/27/2020 Last Menstrual Period? 02/20/2024 [email or web address] Information not available 02/21/2024 Last Menstrual Period 10/25/2020 Information not available 11/18/2020 Do You Have A Medical Power Of Backfiller? No [email or web address] Information not available 11/09/2024 Mosquito Repellent Used Routinely Yes [email or web address] Information not available 11/18/2019 What Was The Date Of Your Most Recent Tobacco Screening? 02/02/2025 Information not available 02/02/2025 Family Has Moved Frequently/lived With Others Due To Finances Within The Last Year? No [email or web address] Information not available 11/18/2019 How Many Children Do You Have? 0 [email or web address] Information not available 07/12/2020 What Is Your Parents' Marital Status? Unmarried [email or web address] Information not available 07/26/2016 Performs Monthly Self-breast Exam? Yes [email or web address] Information no t available 11/18/2019 Pool Exposure No [email or web address] Information not available 11/18/2019 Do You Use Protection During Sex? Always Information not available 12/01/2021 Do You Use Protection Against STDs? No [email or web address] Information not available 12/01/2021 What Is Your Relationship Status? Domestic Partner [email or web address] Information not available 02/05/2024 Do You Use Your Seat Belt Or Car Seat Routinely? Yes [email or web address] Information not available 07/22/2017 Seat Belts Used Routinely Yes Information not available 05/27/2020 Are You Sexually Active? Yes Information not available 05/27/2020 Do You Have Smoke And Carbon Monoxide Detectors In Your Home? Yes [email or web address] Information not available 07/26/2016 Are You Passively Exposed To Smoke? Yes [email or web address] Information no t available 11/18/2020 How Much Tobacco Do You Smoke? No Information not available 11/18/2019 General Stress Level Low Information not available 05/27/2020 Do You Use Sunscreen Routinely? Yes Information not available 11/18/2019 Has Tobacco Cessation Counseling Been Provided? Yes Information not available 02/14/2022 On What Date Was Tobacco Cessation Counseling Provided? 02/02/2025 Information not available 02/02/2025 Do You Have Difficulty Walking Or Climbing Stairs? No Information not available 05/27/2020 Year In School HS Grad Home-prashant ooled Information not available 07/22/2017 Was Contraceptive Counseling Provided? Yes [email or web address] Information not available 12/01/2021 What Contraceptive Method Was Reported At Start Of This Visit? None [email or web address] Information not available 01/28/2023 What Contraceptive Method Was Reported At End Of This Visit? None [email or web address] Information not available 01/28/2023 Do You Want To Talk About Contraception Or Prevention During Your Visit Today? No - This Question Does Not Apply To Me/I Prefer Not To Answer Information not available 01/28/2023 How Was The Contraceptive Method Provided? Provided On Site [email or web address] Information not available 12/01/2021 Do You Have Any Future Plans To Get ? No, I Don't Want To Become [email or web address] Information not available 12/01/2021 Sex: Female Functional Status Question Answer Note LastModified by Organizat ion Details LastModified Time Do you or have you ever used smokeless tobacco? Never used smokeless tobacco Information not available 11/18/2019 Are you currently employed? Yes [email or web address] Information not available 11/09/2024 Do you have transportation difficulties? No [email or web address] Information not available 12/01/2021 Urinary incontinence assessment performed? No Information not available 05/27/2020 Are you able to care for yourself? Yes [email or web address] Information n ot available 12/01/2021 Do you have difficulty dressing or bathing? No Information not available 05/27/2020 Do you or have you ever used e-cigarettes or vape? Former user of electronic cigarettes Information not available 02/02/2025 What is your exercise level? Occasional [email or web address] Information not available 01/09/2017 Do you use any illicit or recreational drugs? No [email or web address] Information not available 12/01/2021 Do you or have you ever used any other forms of tobacco or nicotine? No [email or web address] Information not available 12/01/2021 What is your level of alcohol consumption? None [email or web address] Information not available 11/18/2019 What is your status? Not [email or web address] Information no t available 12/01/2021 Are you able to walk? [email or web address] Information not available 05/27/2020 Do you have difficulty doing errands alone? No Information not available 05/27/2020 What is your occupation? [employer] [email or web address] Information not available 11/09/2024 Mental Status Question Answer Note LastModified by Organizat ion Details LastModified Time Do you feel stressed (tense, restless, nervous, or anxious, or unable to sleep at night)? [id number] Information not available 02/05/2024 Do you have difficulty concentrating, remembering or making decisions? No Information no t available 05/27/2020 Are you or have you been involved with bullying? No [email or web address] Information not available 11/18/2020 Family History Relationship Description Onset Age of this Age Resolved Age Notes LastModified by Organization Details LastModified Time Father Anxiety disorder [email or web address] Not available 2016 15:31:46 Father Hypercholest erolemia [email or web address] Not available 2023 09:53:27 Mother Obesity [email or web address] Not available 11/18/2019 14:26:01 Medical History Condition [...] colitis N Cerebrovascular Disease N Depression N Guillain-Osgood N Sleep Apnea N Bronchitis N Suicidal [...] [email or web address] 11/18/19 20 completed Maria C Cardona, SPECIAL DISTRIBUTION CLERK [address], [place], [address], [facility] - [facility] 11/18/2019 14:44:39 HPV9 11/19/19 21 cancelled patient objection Maria C Cardona, HENRY [address], [place], [address], [place] - [facility] 11/18/2020 15:13:06 DTaP 06/05/20 05 completed Not Available [facility] 05/20/2016 13:59:37 Hib (PRP-OMP) 01/24/20 01 completed Not Available [facility] 01/28/2023 09:58:08 Hib (PRP-OMP) 03/28/20 01 completed Not Available [facility] 01/28/2023 09:58:08 Hib (PRP-OMP) 12/05/19 02 completed Not Available [facility] 01/28/2023 09:58:08 IPV 01/24/20 01 completed Not Available [facility] 05/20/2016 13:59:37 IPV 03/28/20 01 completed Not Available [facility] 05/20/2016 13:59:37 IPV 12/05/19 02 completed Not Available [facility] 05/20/2016 13:59:38 IPV 06/05/20 05 completed Not Available [facility] 05/20/2016 13:59:46 MMR 02/27/20 02 completed Not Available [facility] 05/20/2016 13:59:46 MMR 06/05/20 05 completed Not Available [facility] 05/20/2016 13:59:46 varicella 12/05/19 02 completed Not Available [facility] 05/20/2016 13:59:47 Hep B, adolescent or pediatric 11/25/19 01 completed Not Available [facility] 05/20/2016 13:59:48 Hep B, adolescent or pediatric 01/24/20 01 completed Not Available [facility] 05/20/2016 13:59:48 Hep B, adolescent or pediatric 12/05/19 02 completed Not Available [facility] 05/20/2016 13:59:48 DTaP 01/24/20 01 completed Not Available [facility] 05/20/2016 13:59:48 DTaP 03/28/20 01 completed Not Available [facility] 05/20/2016 13:59:48 DTaP 05/30/20 01 completed Not Available [facility] 05/20/2016 13:59:48 DTaP 02/27/20 02 completed Not Available [facility] 05/20/2016 13:59:48 varicella 01/28/20 14 completed Maria C Cardona, SPECIAL DISTRIBUTION CLERK [address], [place], [address], [place] [facility] 03/01/2017 13:10:40 Tdap 01/28/20 14 completed Maria C Cardona, SPECIAL DISTRIBUTION CLERK [address], [place], [address], [place] [facility] 03/01/2017 13:11:10 meningococcal ACWY, unspecified formulation 01/28/20 14 completed Not Available [facility] 01/28/2023 09:58:08 Hib (HbOC) 12/05/19 02 completed Ania Bueno null, [place] - [facility] 08/09/2022 11:19:06 Hib (PRP-T) 03/28/20 01 completed Crystale Bueno null, [place] - [facility] 08/09/2022 11:19:06 meningococcal MCV4, unspecified formulation 01/28/20 14 completed Crystale Bueno null, [place] - [facility] 08/09/2022 11:19:07 Past Encounters Encounter ID Performer Location Encounter Start Date Encounter Closed Date Diagnosis/Indication Diagnosis SNOMED-CT Code Diagnosis ICD10 Code Diagnosis Note [id number] Venkatesh Garza APRN [address] [place] [address] 01/29/2025 14:59:56 01/29/2025 16:15:57 Community acquired pneumonia 808092395 J18.9 - resolved Overweight in adulthood with body mass index of 25 or more but less than 30 663374509 E66.3 Z68.27 Overweight 617056505 E66 .3 Generalize d anxiety disorder 76736702 F41.1 Patient with symptoms concerning for anxiety.PH Q-9 score: 9; FRANK-7 score: 17.Denies SI/HI. No other safety concerns at this time.Start buspironeF ollow-up as below. Chronic constipation [id number] K59.09 [id number] Carmencita Roberto APRN [facility] [address] [place] [address] 02/02/2025 13:15:33 02/02/2025 14:05:01 Overweight 541785023 E66.3 Overweight in adulthood with body mass index of 25 or more but less than 30 905353080 Z68.27 Blood in urine 70531785 R31.9 Health Concerns Section Related Observation LastModified by Organization Detai ls LastModified Time None Recorded Concern Status LastModified by Organization Details LastModified Time None Recorded Payers Encounter Date Sequence Insurance Name Policy Number Policy Booth Covered Member ID Booth Member ID Guarantor Name 02/02/2025 1 [facility] Q$[id number] Mariaelena Cedeno [id number] Dana Cedeno Notes Date Note Type Note [...] usageCompliant with medication Carmencita Roberto APRN [address], [place], [address], [facility] - [facility] 02/02/2025 14:32:16 OBGyn Episode No OBEpisode recorded.
--- OUTSIDE RECORDS SUMMARY | 2025-02-11 14:14 | XMS_ITS | Continuity of Care Document ---
[facility] Address [address] [id number] Assessment Encounter Date Assessment Date Assessment LastModified by Organization Details LastModified Time 12/15/2024 12/15/2024 Call office with questions or concerns. RTO for new or worsening symptoms. [email or web address] Not available 12/15/2024 14:48:41 Plan of Treatment [...] HCl 300 mg capsule 2024 05/06/ [address], [address], 12/29/2024 05:01:57 Patient TargetsNo targets recorded. Patient InstructionsNo instructions recorded. Reason for Referral None Reported. Results Created Date Observation Date Name Description Value Unit Range Abnormal Flag Note LastModifiedBy Organization Detail LastModifiedTime 11/27/1911/26/2024 XR, chest No observ ation record ed. [email or web address] [facility] [address], [place], [address], 11/30/2024 10:45:50 11/27/19 25 11/26/2024 CT, angio gram, chest , w/ contr ast No observ ation record ed. [email or web address] [facility] [address], [place], [address], 11/30/2024 10:46:32 02/04/20 25 02/03/2025 XR, kidne y + urete r + bladd er No observ ation record ed. [facility] [address] [place], [address], 02/03/2025 11:02:33 02/06/20 25 02/05/2025 CT, abdom en + pelvi s, w/ contr ast No observ ation record ed. [email or web address] [facility] [address], [place], [address], 02/05/2025 16:26:20 Result Notes None recorded. Problems Name Problem SNOMED Code Status Onset Date Resolution Date Notes Provider Name and Address Organization Details Recorded Time Hypertro phy of tonsils 93963106 Completed 201812/01/2021 Ayaka Acevedo null, [place] - [facility] 2 09:14:36 History of calculus of kidney 224511626 Active 2018 Alyson Jones null, [place] - [facility] 9 16:19:23 Childhoo d obesity 160954887 Completed 201911/18/2020 Maria C Cardona APRN [address], [place], [address] , [place] [facility] 1 15:04:14 Skin lesion 69576185 Completed 201906/15/2020 Removal Reason: resolved Carmencita Roberto, HENRY [address], [place], [address] , [place] [facility] 4 16:28:06 Skin striae 783239254 Active 2019 Maria C Cardona APRN [address], [place], [address] , [place] [facility] 0 15:50:11 Difficul ty sleeping 789816500 Completed 201906/19/2021 Ayaka Kristina null, [place] - [facility] 1 09:12:44 Congenit al bilatera l pes planus 59329416535 478623 Active 2019 Ayaka Westfallann null, [place] - [facility] 2 09:14:25 Depressi ve disorder 29565813 Completed 201911/18/2020 Removal Reason: resolved Maria C Cardona, SMALL ELECTRIC ENGINE TECHNICIAN [address], [place], [address] , [place] [facility] 1 15:11:35 Weight gain 3253033 Completed 201911/18/2020 Maria C Cardona, SMALL ELECTRIC ENGINE TECHNICIAN [address], [place], [address] , [place] [facility] 1 15:04:27 Foot pain 35024718 Completed 201906/19/2021 Ayaka Kristina null[place] - [facility] 1 09:12:52 Mass of left breast 00501394528 141473 Completed 201905/27/2020 Ana Adams, SMALL ELECTRIC ENGINE TECHNICIAN [address], [place], [address] , [place] [facility] 0 14:20:11 Hyperins ulinism 37253801 Active 2019 Ayaka Acevedo null[place] [facility] 2 09:14:30 Mixed hyperlip idemia 090124162 Active 2019 Ayaka Acevedo null[place] [facility] 2 09:14:39 Serum thyroid stimulat ing hormone level outside referenc e range 263362959 Active 2019 Maria C Cardona, SMALL ELECTRIC ENGINE TECHNICIAN [address], [place], [address] , [place] [facility] 0 11:53:01 Fibroade noma of left breast 29126669296 70063 Completed 201912/01/2021 Ana Adams, SMALL ELECTRIC ENGINE TECHNICIAN [address], [place], [address] , [place] [facility] 2 09:55:08 Vitamin D deficien cy 57619029 Active 2019 Antonietta Perez null, [place] - [facility] 0 13:55:03 Nodule of subcutan eous tissue of right forearm 26539982681 907050 Active 2020 Maria C VázquezAlana Cardona, SMALL ELECTRIC ENGINE TECHNICIAN [address], [place], [address] , [place] [facility] 1 15:10:12 History of SARS-CoV -2 32541050987 8489153 Completed 202004/19/2021 Ayaka Acevedo null, [place] - [facility] 1 09:13:57 Uses depot contrace ption 002588210 Completed 202101/28/2023 Ana Adams, SMALL ELECTRIC ENGINE TECHNICIAN [address], [place], [address] , [place] [facility] 3 10:23:59 Body mass index 25-29 - overweig ht 143612479 Completed 202101/18/2023 Ana Adams, SMALL ELECTRIC ENGINE TECHNICIAN [address], [place], [address] , [place] [facility] 4 10:29:35 Erythema tous ear canal 936212389 Active 2021 Carmencita Roberto, SMALL ELECTRIC ENGINE TECHNICIAN [address], [place], [address] , [place] [facility] 2 16:03:37 Body mass index 30+ - obesity 287308337 Completed 202202/21/2024 Ana Adams SMALL ELECTRIC ENGINE TECHNICIAN [address], [place], [address] , [place] [facility] 4 09:27:42 Elevated blood-pr essure reading without diagnosi s of hyperten ju 945003823 Active 2022 Ana Adams APRN [address], [place], [address] , [place] [facility] 3 14:58:36 Skin lesion 32484115 Active 2023 Carmencita Roberto APRN [address], [place], [address] , [place] [facility] 4 16:28:06 Right lower quadrant pain 674748256 Active 2023 Ana Adams, SMALL ELECTRIC ENGINE TECHNICIAN [address], [place], [address] , [place] [facility] 4 10:29:11 Body mass index 25-29 - overweig ht 615911100 Active 2023 Ana Pancker, SMALL ELECTRIC ENGINE TECHNICIAN [address], [place], [address] , [place] [facility] 4 10:29:35 Irregula r bowel habits 734002599 Active 2023 Ana Pancker, SMALL ELECTRIC ENGINE TECHNICIAN [address], [place], [address] , [place] [facility] 4 09:27:55 Surveill ance of depot contrace ption done 60929628187 104 Completed 201611/18/2020 Maria C Cardona, SMALL ELECTRIC ENGINE TECHNICIAN [address], [place], [address] , [place] [facility] 1 15:04:32 Pleurisy 881241482 Active 2023 Curtis Nguyen, DO [address], [place], [address] , [place] [facility] 4 11:39:05 Cough 28657163 Completed 202302/02/2025 Crystal Kade null[place] - [facility] 5 13:17:11 Nicotine dependen ce 00110707 Active 2024 Hannah Manning null[place] - [facility] 5 13:16:01 Hemoptys is 56713894 Active 2024 Josue Davis, DO [address], [place], [address] , [place] [facility] 5 16:35:22 Dental abscess 762710386 Active 2024 Bindu Dao, SMALL ELECTRIC ENGINE TECHNICIAN [address], [place], [address] , [place] [facility] 5 14:47:49 Jaw pain 833430877 Active 2024 Bindu Dao, SMALL ELECTRIC ENGINE TECHNICIAN [address], [place], [address] , [place] [facility] 5 14:49:55 Gingival erythema 190517482 Active 2024 Bindu Dao, SMALL ELECTRIC ENGINE TECHNICIAN [address], [place], [address] , [place] [facility] 5 14:52:05 Bronchit is 39467702 Completed 202402/02/2025 Crystal Kade [place] [facility] 5 13:16:27 Communit y acquired pneumoni a 042779382 Active 2024 Venkatesh Garza, SMALL ELECTRIC ENGINE TECHNICIAN [address], [place], [address] , [place] [facility] 5 10:30:34 Generali zed anxiety disorder 02340778 Active 2024 Venkatesh aGrza, SMALL ELECTRIC ENGINE TECHNICIAN [address], [place], [address] , [place] [facility] 5 15:42:54 Chronic constipa tion 706004117 Active 2024 Venkatesh Garza, SMALL ELECTRIC ENGINE TECHNICIAN [address], [place], [address] , [place] [facility] 5 15:43:44 Blood in urine 28650758 Active 2024 Carmencita Roberto, SMALL ELECTRIC ENGINE TECHNICIAN [address], [place], [address] , [place] [facility] 5 13:37:03 Contrace ption care manageme nt Completed 201606/15/2020 Removal Reason: stopped depo due to weight gain/gypsy ing Maria C Cardona, SMALL ELECTRIC ENGINE TECHNICIAN [address], [place], [address] , [place] [facility] 0 14:51:30 Overweig ht in childhoo d 916933152 Completed 201608/17/2019 Maria C Cardona, SMALL ELECTRIC ENGINE TECHNICIAN [address], [place], [address] , [place] [facility] 0 14:10:57 Problem Notes None recorded. Procedures Surgical History Date Name Laterality Status Provider Name and Address Organization Details Recorded Time 024 Date of Last Pap Smear completed Ana Adams, SMALL ELECTRIC ENGINE TECHNICIAN [address], [place], [address], [place] [facility] 02/09/2024 20:37:37 024 Suture/Staple removal completed Caitlyn Braun [place] [facility] 11/20/2023 09:44:13 024 Punch Biopsy completed Carmencita Roberto, SMALL ELECTRIC ENGINE TECHNICIAN [address], [place], [address], [place] [facility] 11/13/2023 20:53:26 021 Medication Reconcilliation completed Caitlyn Braun [place] [facility] 03/09/2021 13:11:49 021 excision of fibroadenoma of breast completed Ayaka Acevedo [place] - [facility] 12/01/2021 09:16:28 020 Systolic B/P less than 130 mm Hg completed Suze Hernandez [place] - [facility] 07/14/2020 13:06:20 020 Diastolic B/P less than 80 mm Hg completed Suze [place] [facility] 07/14/2020 13:06:27 020 Systolic B/P less than 130 mm Hg completed Caitlyn [place] [facility] 02/11/2020 13:55:31 020 Diastolic [...] Name and Address Organization Details Recorded Time 324735 amoxicill in medicatio n hives Not available Not available 12/01/2021 723 RxNorm Ayaka morales [place] - [facility] 2 09:13:26 32560 Product containin g penicilli n (product) medicatio n rash Not available Not available 06/06/2017 24589 8001 SNSHERITA Cardona, SMALL ELECTRIC ENGINE TECHNICIAN [address], [place], [address], [place] [facility] 7 15:35:53 Medications [...] ser: bakerc;E st. Completi on: 08/27/19 15;Pharm Vannessa ied: 08/24/19 15 10:31AM Not Available Not [...] Disconti nued on: 11/23/19 15 12:43PM; User: gored;Es t. Completi on: 10/30/19 15;Pharm acyVerif ied: [...] Disconti nued on: 11/07/19 13 11:08AM; User: [facility];E st. Completi on: 01/06/20 13 Not Available [...] on: 06/18/20 11 3:05PM;U ser: [email or web address]; Est. Eamoni on: 09/16/19 12;Indic ation: Gastroes ophageal Reflux - (09.5308 10);Prin blank: 06/18/20 11 Not Available Not Available Not Available clotrimaz ole-betam ethasone 1 %-0.05 % topical cream APPLY TO THE AFFECTED AND SURROUND ING AREAS OF SKIN BY TOPICAL ROUTE 2 TIMES PER DAY IN THE MORNING AND EVENING FOR 2 WEEKS 11/07 completed Not Available Not Available Not Available Loestrin 08/31 (21) 1 mg-20 mcg tablet take 1 tablet by oral route once daily for 28 days 10/29 completed Loestrin 08/31 (21) 1-20 mg-mcg oral tablet;P rescribe Status: Prescrib ed on: 10/08/19 14 11:57AM; Disconti nued Status: Disconti nued on: 10/30/19 14 8:47AM;U ser: veronica;E st. Completi on: 01/29/20 14;Indic ation: Pregnanc [...] Disconti nued on: 06/18/20 11 2:47PM;U ser: robert;Elizabeth t. Completi on: 06/17/20 11;Print ed: 06/07/20 [...] 11:00AM Not Available Not Available Not Available [facility] DM 4 mg-45 mg-15 mg/5 mL oral syrup take 2.5 millilit ers by oral route every 4-6 hours as needed 12/19 completed [facility] DM 4-45-15 mg/5 mL oral syrup;Re corded [...] 12;Indic ation: Gastroes ophageal Reflux - (5308 );Prin blank: 06/18/20 11 Not Available Not Available [...] Disconti nued on: 10/30/19 14 10:10AM; User: [email or web address]; Est. Completi on: 02/19/20 14;Indic ation: Dysmenor [...] Disconti nued on: 10/18/19 16 11:12AM; User: shaunt;E st. Completi on: 10/12/19 16;Indic ation: Muscle [...] 13 2:38PM;U ser: de alvarez;Est. Completi on: 06/10/20 13;Indic ation: - (-5) [...] Updated DateTime 5 170.18 cm 27.4 kg/m2 44294.0 6 g 97.6 [degF] 88 /min 98 % 98 % 18 /min 114/70 mm[Hg] Carmencita Hernandez [place] - [facility] 5 14:28:34 Social History Question Answer Notes LastModified by Organizat ion Details LastModified Time Tobacco Smoking Status Never Smoker Caitlyn Corea carmen [place] - [facility] 07/26/2016 15:49:08 Do You Have An Advance Directive? No Information not available 05/27/2020 Animal Exposure? Yes [email or web address] Informat ion not available 11/18/2019 Are You Blind Or Do You Have Difficulty Seeing? No Information not available 05/27/2020 Is Blood Transfusion Acceptable In An Emergency? Yes Information not available 05/27/2020 What Is Your Level Of Caffeine Consumption? Occasional [email or web address] Information not available 07/26/2016 How Much Tobacco Do You Chew? None [email or web address] Information not available 11/18/2019 Concerns About Meeting Basic Needs (food, Housing, Heat, Etc)? No Information not available 11/18/2019 In The 14 Days Before Symptom Onset, Have You Had Close Contact With A Laboratory-confir med COVID-19 While That Case Was Ill? No Information not available 11/09/2024 In The 14 Days Before Symptom Onset, Have You Had Close Contact With A Person Who Is Under Investigation For COVID-19 While That Person Was Ill? No [email or web address] Information not available 11/09/2024 Have You Been To An Area Known To Be High Risk For COVID-19? No [email or web address] Information not available 11/09/2024 Are You Deaf Or Do You Have Serious Difficulty Hearing? No Information not available 05/27/2020 What Type Of Diet Are You Following? REGULAR Information not available 01/09/2017 Does Family Ever Have Difficulty Making Ends Meet At The End Of The Month? No Information not available 11/18/2019 Which Illicit Or Recreational Drugs Have You Used? None [email or web address] Information not available 02/05/2024 Have You Directly Handled Bats, Rodents, Or Primates From Ebola Endemic Areas? No [email or web address] Information not available 11/18/2019 Have You Processed Blood Or Body Fluids From An Ebola Virus Disease Patient Without Appropriate PPE? No [email or web address] Information not available 11/09/2024 Have You Had Household Contact With An Ebola Virus Disease Patient? No [email or web address] Information not available 11/18/2019 Have You Had Direct Contact With A Body In An Ebola-affected Area Without Appropriate PPE? No [email or web address] Information not available 11/18/2019 Do You Reside In Or Have You Traveled To An Area Where Ebola Virus Transmission Is Active? No Information not available 11/18/2019 What Is The Highest Grade Or Level Of School You Have Completed Or The Highest Degree You Have Received? MI43115-6 [email or web address] Information not available 02/05/2024 Have There Been Any Changes To Your Family Or Social Situation? No [email or web address] Information no t available 11/18/2019 What Is The Fluoride Status Of Your Home? Fluoridated [email or web address] Information not available 11/18/2019 Are There Any Guns Present In Your Home? No [email or web address] Information not available 11/18/2019 Have You Recently Or Are You Planning To Travel To An Area With Zika Virus? No [email or web address] Information not available 11/09/2024 What Is Your Home Situation? Both Parents [email or web address] Information not available 07/22/2017 How Many Years Have You Used Illicit Or Recreational Drugs? 0 [email or web address] Information not available 02/05/2024 Do You Use Insect Repellent Routinely? Yes [email or web address] Information not available 11/18/2019 Live Alone Or With Others? With Others Information not available 05/27/2020 Last Menstrual Period? 02/20/2024 [email or web address] Information not available 02/21/2024 Last Menstrual Period 10/25/2020 [email or web address] Information not available 11/18/2020 Do You Have A Medical Power Of Hvac Design Mechanical Engineer? No [email or web address] Information not available 11/09/2024 Mosquito Repellent Used Routinely Yes [email or web address] Information not available 11/18/2019 What Was The Date Of Your Most Recent Tobacco Screening? 02/02/2025 Information not available 02/02/2025 Family Has Moved Frequently/lived With Others Due To Finances Within The Last Year? No [email or web address] Information not available 11/18/2019 How Many Children Do You Have? 0 [email or web address] Information not available 07/12/2020 What Is Your Parents' Marital Status? Unmarried [email or web address] Information not available 07/26/2016 Performs Monthly Self-breast Exam? Yes [email or web address] Information no t available 11/18/2019 Pool Exposure No [email or web address] Information not available 11/18/2019 Do You Use Protection During Sex? Always [email or web address] Information not available 12/01/2021 Do You Use Protection Against STDs? No [email or web address] Information not available 12/01/2021 What Is Your Relationship Status? Domestic Partner [email or web address] Information not available 02/05/2024 Do You Use Your Seat Belt Or Car Seat Routinely? Yes Information not available 07/22/2017 Seat Belts Used Routinely Yes Information not available 05/27/2020 Are You Sexually Active? Yes Information not available 05/27/2020 Do You Have Smoke And Carbon Monoxide Detectors In Your Home? Yes [email or web address] Information not available 07/26/2016 Are You Passively Exposed To Smoke? Yes [email or web address] Information no t available 11/18/2020 How Much Tobacco Do You Smoke? No Information not available 11/18/2019 General Stress Level Low Information not available 05/27/2020 Do You Use Sunscreen Routinely? Yes [email or web address] Information not available 11/18/2019 Has Tobacco Cessation Counseling Been Provided? Yes Information not available 02/14/2022 On What Date Was Tobacco Cessation Counseling Provided? 02/02/2025 Information not available 02/02/2025 Do You Have Difficulty Walking Or Climbing Stairs? No Information not available 05/27/2020 Year In School HS Grad Home-pr[employer]ant ooled [email or web address] Information not available 07/22/2017 Was Contraceptive Counseling Provided? Yes [email or web address] Information not available 12/01/2021 What Contraceptive Method Was Reported At Start Of This Visit? None [email or web address] Information not available 01/28/2023 What Contraceptive Method Was Reported At End Of This Visit? None [email or web address] Information not available 01/28/2023 Do You Want To Talk About Contraception Or Prevention During Your Visit Today? No - This Question Does Not Apply To Me/I Prefer Not To Answer [email or web address] Information not available 01/28/2023 How Was The Contraceptive Method Provided? Provided On Site [email or web address] Information not available 12/01/2021 Do You Have Any Future Plans To Get ? No, I Don't Want To Become [email or web address] Information not available 12/01/2021 Sex: Female Functional Status Question Answer Note LastModified by Organizat ion Details LastModified Time Do you or have you ever used smokeless tobacco? Never used smokeless tobacco Information not available 11/18/2019 Are you currently employed? Yes [email or web address] Information not available 11/09/2024 Do you have transportation difficulties? No [email or web address] Information not available 12/01/2021 Urinary incontinence assessment performed? No Information not available 05/27/2020 Are you able to care for yourself? Yes [email or web address] Information n ot available 12/01/2021 Do you have difficulty dressing or bathing? No Information not available 05/27/2020 Do you or have you ever used e-cigarettes or vape? Former user of electronic cigarettes Information not available 02/02/2025 What is your exercise level? Occasional [email or web address] Information not available 01/09/2017 Do you use any illicit or recreational drugs? No [email or web address] Information not available 12/01/2021 Do you or have you ever used any other forms of tobacco or nicotine? No [email or web address] Information not available 12/01/2021 What is your level of alcohol consumption? None Information not available 11/18/2019 What is your status? Not [email or web address] Information no t available 12/01/2021 Are you able to walk? YESWOREST Information not available 05/27/2020 Do you have difficulty doing errands alone? No Information not available 05/27/2020 What is your occupation? [place] [email or web address] Information not available 11/09/2024 Mental Status Question Answer Note LastModified by Organizat ion Details LastModified Time Do you feel stressed (tense, restless, nervous, or anxious, or unable to sleep at night)? [id number] [email or web address] Information not available 02/05/2024 Do you have difficulty concentrating, remembering or making decisions? No Information no t available 05/27/2020 Are you or have you been involved with bullying? No [email or web address] Information not available 11/18/2020 Family History Relationship Description Onset Age of this Age Resolved Age Notes LastModified by Organization Details LastModified Time Father Anxiety disorder [email or web address] Not available 2016 15:31:46 Father Hypercholest erolemia [email or web address] Not available 2023 09:53:27 Mother Obesity [email or web address] Not available 11/18/2019 14:26:01 Medical History Condition Response Pancreatitis N Other N Atrial Fibrillation N congenital heart disease N Blood Diseases N Kidney Stones Y Rheumatoid arthritis N Erectile Dysfunction N amputation N Skin Lesions N Depression Y Pneumonia N Incontinence N Murmur N Edema N Alzheimer's Disease N Migraine Headaches N Tobacco Abuse N Muscle, Joint, or Bone Problems N Hemorrhoids N Obesity Y Vision or Eye Problems N Restless Leg Syndrome N Carpal Tunnel N Tendonitis N Crohn's Disease N Hypercholesterolemia Y Skin Cancer N Headaches Y Anal Fissure N Irritable Bowel Syndrome N Ear or Hearing Problems N Hospitalizations [...] Fasciitis N Hospital Admission Other Than N Developmental or Behavioral Disorders N Defects or Inherited Disease N Difficulty Swallowing N Ovarian Cyst N Testosterone Deficiency N Head Injury/Concussion N Interstitial Cystitis N Congenital Anomalies N Hypoglycemia N Blood clot N Vitamin D Deficiency N Cellulitis N Fracture N Bladder or Kidney Problems N Schizophrenia N Panic Disorder N Concussion N Spina Bifida N Osteoarthritis N Parkinson's Disease N Disc Protrusion N STI N Esophagitis N Angina N ADD/ADHD N Multiple Sclerosis N Abnormal PAP N Lumbago N Mental Illness N Psychiatric Illness N Bedwetting N Degenerative Disc Disease N Seizures/Epilepsy N Hyperlipidemia N Syncope N Insomnia N Eczema N Abuse/Domestic Violence N Attention Deficient Disorder N Dementia N Ulcerative colitis N Cerebrovascular Disease N Depression N Guillain-[place] N Sleep Apnea N Bronchitis N Suicidal [...] [email or web address] 11/18/19 20 completed Maria C Cardona, SMALL ELECTRIC ENGINE TECHNICIAN [address], [place], [address], [place] [facility] 11/18/2019 14:44:39 HPV9 11/19/19 21 cancelled patient objection Maria C Cardona, SMALL ELECTRIC ENGINE TECHNICIAN [address], [place], [address], [place] [facility] 11/18/2020 15:13:06 DTaP 06/05/20 05 completed Not Available [facility] 05/20/2016 13:59:37 Hib (PRP-OMP) 01/24/20 01 completed Not Available [facility] 01/28/2023 09:58:08 Hib (PRP-OMP) 03/28/20 01 completed Not Available [facility] 01/28/2023 09:58:08 Hib (PRP-OMP) 12/05/19 02 completed Not Available [facility] 01/28/2023 09:58:08 IPV 01/24/20 01 completed Not Available [facility] 05/20/2016 13:59:37 IPV 03/28/20 01 completed Not Available [facility] 05/20/2016 13:59:37 IPV 12/05/19 02 completed Not Available [facility] 05/20/2016 13:59:38 IPV 06/05/20 05 completed Not Available [facility] 05/20/2016 13:59:46 MMR 02/27/20 02 completed Not Available [facility] 05/20/2016 13:59:46 MMR 06/05/20 05 completed Not Available [facility] 05/20/2016 13:59:46 varicella 12/05/19 02 completed Not Available [facility] 05/20/2016 13:59:47 Hep B, adolescent or pediatric 11/25/19 01 completed Not Available [facility] 05/20/2016 13:59:48 Hep B, adolescent or pediatric 01/24/20 01 completed Not Available [facility] 05/20/2016 13:59:48 Hep B, adolescent or pediatric 12/05/19 02 completed Not Available [facility] 05/20/2016 13:59:48 DTaP 01/24/20 01 completed Not Available [facility] 05/20/2016 13:59:48 DTaP 03/28/20 01 completed Not Available [facility] 05/20/2016 13:59:48 DTaP 05/30/20 01 completed Not Available [facility] 05/20/2016 13:59:48 DTaP 02/27/20 02 completed Not Available [facility] 05/20/2016 13:59:48 varicella 01/28/20 14 completed Maria C Cardona, SMALL ELECTRIC ENGINE TECHNICIAN [address], [place], [address], [place] [facility] 03/01/2017 13:10:40 Tdap 01/28/20 14 completed Maria C Cardona, SMALL ELECTRIC ENGINE TECHNICIAN [address], [place], [address], [place] [facility] 03/01/2017 13:11:10 meningococcal ACWY, unspecified formulation 01/28/20 14 completed Not Available [facility] 01/28/2023 09:58:08 Hib (HbOC) 12/05/19 02 completed Ania Bueno null, [place] - [facility] 08/09/2022 11:19:06 Hib (PRP-T) 03/28/20 01 completed Ania Bueno null, [place] - [facility] 08/09/2022 11:19:06 meningococcal MCV4, unspecified formulation 01/28/20 14 completed Ania morales, [place] - [facility] 08/09/2022 11:19:07 Past Encounters Encounter ID Performer Location Encounter Start Date Encounter Closed Date Diagnosis/Indication Diagnosis SNOMED-CT Code Diagnosis ICD10 Code Diagnosis Note [id number] Bindu Dao APRN [facility] [address] [place] [id number] 12/15/2024 14:15:16 12/15/2024 14:57:09 Jaw pain [id number] R68.84 Advised use of OTC NSAIDs as needed for discomfort . Gingival erythema 264751 004 K06.8 Begin prescribed medication as written. [...] Booth Member ID Guarantor Name 12/15/2024 1 [facility] (MEDICAID HMO) [id number] Mariaelena S Wilian [id number] Dana Cedeno Notes Date Note Type Note Provider Name and Address Organization Details Recorded Time 12/15/2024 text/html Patient presents with c/o pain of right upper tooth and right jaw pain x 4 days.Reports pain radiates into throat.Reports difficulty opening mouth.Denies fever, chest pain, SOA, cough, congestion, and n/v/d. Bindu Dao APRN [facility] [address] [place], [address], [place] - [facility] 12/15/2024 14:55:17 OBGyn Episode No OBEpisode recorded.
--- OUTSIDE RECORDS SUMMARY | 2025-02-11 14:15 | XMS_ITS | Data Portability ---
Author Organization Formerly [facility] Address [address] [place] [address] Assessment Encounter Date Assessment Date Assessment LastModified by Organization Details LastModified Time 12/15/2024 12/15/2024 Call office with questions or concerns. RTO for new or worsening symptoms. [email or web address] Not available 12/15/2024 14:48:41 Plan of Treatment Reminders Order Date Submit Date Provider Last Modified By Organization Details Last Modified Time Details Appointments Follow Up 2024 10:20A M Venkatesh Garza, FRAME HAND Not available Not available Not available ESTABLISH ED PT 30 2024 04:45P M Melly Collins, FRAME HAND Not available Not available Not available Lab culture, urine 2024 025 [facility], [address], [place] [address], [place], [address], 02/04/2025 03:36:18 urinalysi s, dipstick 2024 025 [facility], [address] [place], [address], 02/02/2025 14:31:55 vitamin B12, serum 2024 025 [facility], [address], [address], [place], [address], 11/12/2024 08:28:14 CMP, serum or plasma 2024 025 [facility], [address] [place] [address], [place], [address], 11/12/2024 08:28:09 lipid panel, serum 2024 025 [facility], [address], [place] [address], [place], [address], 11/12/2024 08:28:11 vitamin D, 25-hydrox y, total, serum 2024 025 [facility], [address] [place] [address], [place], [address], 11/12/2024 08:28:13 insulin, serum 2024 025 [facility], [address], [place] [address], [place], [address], 11/12/2024 08:28:14 ferritin, serum or plasma 2024 025 [facility], [address] [place] [address], [place], [address], 11/12/2024 08:28:15 iron + total iron-bind ing capacity (TIBC), serum 2024 025 [facility], [address] [place] [address], [place], [address], 11/12/2024 08:28:12 CBC 2024 025 [facility], [address], [place] [address], [place], [address], 11/12/2024 08:28:10 Referral None recorded. Procedures None recorded. Surgeries None recorded. Imaging XR, kidney + ureter + bladder 2024 025 [facility], [address] [place], [address], 02/03/2025 10:40:51 Medication Orders clindamyc in HCl 300 mg capsule 2024 025 [facility] [facility], [address] [place] [address], [place], [address], 12/29/2024 05:01:57 Patient TargetsNo targets recorded. Patient Instructions Encounter Date Encounter Id Patient Instructions Last Modified By Organization Details Last Modified Time 11/09/2024 [id number] coughing up bloo d: care instructions [email or web address] Not available 11/09/2024 16:38:00 The patient was seen and evaluated with the resident as documented above. The case and presentation were discussed. I agree with the plan and treatment recommendations as outlined above. [email or web address] Not available 11/09/2024 15:41:32 11/11/2024 [id number] learning about healthy weight [email or web address] Not available 11/11/2024 08:39:06 weight managemen t education [email or web address] Not available 11/11/2024 08:39:06 We will call you with your lab results. I would like to see you back in 3 months. [email or web address] Not available 11/11/2024 08:42:22 02/02/2025 [id number] body mass index: care instructions Not available [...] 99 mg/dL 70-99 normal Not Available [facility] ([facility]) [address] [place], [address], 11/12/2024 08:28:09 11/12/19 25 11/12/2024 COMP. METAB OLIC PANEL (14) BUN 17 mg/dL 6-20 normal Not Available [facility] ([facility]) [address] [place], [address], 11/12/2024 08:28:09 11/12/19 25 11/12/2024 COMP. METAB OLIC PANEL (14) creatinine 0.89 mg/dL 0.57-1 .00 normal Not Available [facility] ([facility]) [address] [place], [address], 11/12/2024 08:28:09 11/12/19 25 11/12/2024 COMP. METAB OLIC PANEL (14) eGFR 93 mL/mi n/1.7 3 >59 normal Not Available [facility] ([facility]) [address] [place], [address], 11/12/2024 08:28:09 11/12/19 25 11/12/2024 COMP. METAB OLIC PANEL (14) BUN/creatini ne ratio 19 9-23 normal Not Available [facility]) [address] [place], [address], 11/12/2024 08:28:09 11/12/19 25 11/12/2024 COMP. METAB OLIC PANEL (14) sodium 138 mmol/ L 134-14 4 normal Not Available [facility] ([facility]) [address] [place], [address], 11/12/2024 08:28:09 11/12/19 25 11/12/2024 COMP. METAB OLIC PANEL (14) potassium 4.3 mmol/ L 3.5-5. 2 normal Not Available [facility] ([facility]) [address] [place], [address], 11/12/2024 08:28:09 11/12/19 25 11/12/2024 COMP. METAB OLIC PANEL (14) chloride 104 mmol/ L 96-106 normal Not Available [facility] ([facility]) [address] [place], [address], 11/12/2024 08:28:09 11/12/19 25 11/12/2024 COMP. METAB OLIC PANEL (14) carbon dioxide, total 20 mmol/ L 20-29 normal Not Available [facility] ([facility]) [address] [place], [address], 11/12/2024 08:28:09 11/12/19 25 11/12/2024 COMP. METAB OLIC PANEL (14) calcium 9.6 mg/dL 8.7-10 .2 normal Not Available [facility] ([facility]) [address] [place], [address], 11/12/2024 08:28:11/12/19 25 11/12/2024 COMP. METAB OLIC PANEL (14) protein, total 6.9 g/dL 6.0-8. 5 normal Not Available [facility] ([facility]) [address] [place], [address], 11/12/2024 08:28:09 11/12/19 25 11/12/2024 COMP. METAB OLIC PANEL (14) albumin 4.4 g/dL 4.0-5. 0 normal Not Available [facility] ([facility]) [address] [place], [address], 11/12/2024 08:28:09 11/12/19 25 11/12/2024 COMP. METAB OLIC PANEL (14) globulin, total 2.5 g/dL 1.5-4. 5 Not Available [facility] ([facility]) [address] [place], [address], 11/12/2024 08:28:09 11/12/19 25 11/12/2024 COMP. METAB OLIC PANEL (14) bilirubin, total <0.2 mg/dL 0.0-1. 2 Not Available [facility] ([facility] [address] [place], [address], 11/12/2024 08:28:09 11/12/19 25 11/12/2024 COMP. METAB OLIC PANEL (14) alkaline phosphatase 62 IU/L 44-121 normal Not Available [facility]) [address] [facility], [place], [address], 11/12/2024 08:28:09 11/12/1911/12/2024 COMP. METAB OLIC PANEL (14) AST (SGOT) 15 IU/L 0-40 normal Not Available [facility] ([facility]) [address] [facility], [place], [address], 11/12/2024 08:28:09 11/12/1911/12/2024 COMP. METAB OLIC PANEL (14) ALT (SGPT) 14 IU/L 0-32 normal Not Available [facility] ([facility]) [address] [facility], [place], [address], 11/12/2024 08:28:09 11/12/19 25 11/12/2024 CBC, PLATE LET, NO DIFFE RENTI AL WBC 7.7 x10e3 /uL 3.4-10 .8 normal Not Available [facility] ([facility]) [address] [facility], [place], [address], 11/12/2024 08:28:10 11/12/19 25 11/12/2024 CBC, PLATE LET, NO DIFFE RENTI AL RBC 4.51 x10e6 /uL 3.77-5 .28 normal Not Available [facility] ([facility]) [address] [facility], [place], [address], 11/12/2024 08:28:10 11/12/1911/12/2024 CBC, PLATE LET, NO DIFFE RENTI AL hemoglobin 13.4 g/dL 11.1-1 5.9 normal Not Available [facility] ([facility]) [address] [facility], [place], [address], 11/12/2024 08:28:10 11/12/19 25 11/12/2024 CBC, PLATE LET, NO DIFFE RENTI AL hematocrit 41.7 % 34.0-4 6.6 normal Not Available [facility] ([facility]) [address] [place], [address], 11/12/2024 08:28:10 11/12/1911/12/2024 CBC, PLATE LET, NO DIFFE RENTI AL MCV 93 fL 79-97 normal Not Available [facility] ([facility]) [address] [place], [address], 11/12/2024 08:28:10 11/12/1911/12/2024 CBC, PLATE LET, NO DIFFE RENTI AL MCH 29.7 pg 26.6-3 3.0 normal Not Available [facility] ([facility]) [address] [place], [address], 11/12/2024 08:28:10 11/12/1911/12/2024 CBC, PLATE LET, NO DIFFE RENTI AL MCHC 32.1 g/dL 31.5-3 5.7 normal Not Available [facility] ([facility]) [address] [place], [address], 11/12/2024 08:28:10 11/12/1911/12/2024 CBC, PLATE LET, NO DIFFE RENTI AL RDW 12.8 % 11.7-1 5.4 Not Available [facility] ([facility]) [address] [place], [address], 11/12/2024 08:28:10 11/12/1911/12/2024 CBC, PLATE LET, NO DIFFE RENTI AL platelets 284 x10e3 /uL 150-45 0 normal Not Available [facility] (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) [address] [place], [address], 11/12/2024 08:28:10 11/12/19 25 11/12/2024 LIPID PANEL cholesterol, total 214 mg/dL 100-19 9 above high normal Not Available [facility] ([facility]) [address] [place], [address], 11/12/2024 08:28:11 11/12/19 25 11/12/2024 LIPID PANEL triglyceride s 232 mg/dL 0-149 above high normal Not Available [facility] ([facility]) [address] [place], [address], 11/12/2024 08:28:11 11/12/19 25 11/12/2024 LIPID PANEL HDL cholesterol 41 mg/dL >39 normal Not Available [facility] [address] [place], [address], 11/12/2024 08:28:11 11/12/19 25 11/12/2024 LIPID PANEL VLDL cholesterol bertrand 41 mg/dL 5-40 above high normal Not Available [facility] ([facility]) [address] [place], [address], 11/12/2024 08:28:11 11/12/19 25 11/12/2024 LIPID PANEL LDL chol calc (rust) 132 mg/dL 0-99 above high normal Not Available [facility] ([facility]) [address] [place], [address], 11/12/2024 08:28:11 11/12/19 25 11/12/2024 LIPID PANEL LDL calc comment: LICENSING OFFICER Not Available [facility] ([facility]) [address] [place], [address], 11/12/2024 08:28:11 11/12/19 11/12/2024 IRON AND TIBC iron bind.cap.(TI BC) 367 ug/dL 250-45 0 normal Not Available [facility] ([facility]) [address] [place], [address], 11/12/2024 08:28:12 11/12/1911/12/2024 IRON AND TIBC UIBC 332 ug/dL 131-42 5 normal Not Available [facility] ([facility]) [address] [place], [address], 11/12/2024 08:28:12 11/12/1911/12/2024 IRON AND TIBC iron 35 ug/dL 27-159 normal Not Available [facility] ([facility]) [address] [place], [address], 11/12/2024 08:28:12 11/12/1911/12/2024 IRON AND TIBC iron saturation 10 % 15-55 below low normal Not Available [facility] ([facility]) [address] [place], [address], 11/12/2024 08:28:12 11/12/1911/12/2024 VITAM IN D, 25-HY [...] um and D. Emir hooper [place]: [facility] . 2. Raquel hare MF, Chrissy diallo [place], Ines off-F errar i CAGLE, et al. Evalu ation , treat ment, and preve ntion of vitam in D defic iency : an Endoc rine Socie ty clini bertrand pract ice guide line. JCEM. 2010; 96(7) :1911 -30. Not Available [facility] ([facility]) [address] [place], [address], 11/12/2024 08:28:13 11/12/19 25 11/12/2024 VITAM IN B12 vitamin B12 1183 pg/mL 232-12 45 normal Not Available [facility] ([facility]) [address] [place], [address], 11/12/2024 08:28:13 11/12/19 25 11/12/2024 INSUL IN insulin 33.4 uIU/m L 2.6-24 .9 above high normal Not Available [facility] ([facility]) [address] [place], [address], 11/12/2024 08:28:14 11/12/19 25 11/12/2024 ETHAN TIN ferritin 19 NG/mL 15-150 normal Not Available [facility] ([facility]) [address] [place], [address], 11/12/2024 08:28:15 02/03/20 25 02/03/2025 URINE CULTU REREGINA NE urine culture, routine Final report Not Available [facility] ([facility]) [address] [place], [address], 02/04/2025 03:36:18 02/03/20 25 02/03/2025 URINE CULTU REREGINA NE result 1 COMMEN T Mixed uroge nital leisa Less than 10,00 0 colon ies/m L Not Available [facility] ([facility]) [address] [place], [address], 02/04/2025 03:36:18 02/03/20 25 02/02/2025 urina lysis , dipst ick Leukocytes Trace Not Available [address] [place], [address], 02/02/2025 14:31:02 02/03/20 25 02/02/2025 urina lysis , dipst ick Nitrite negati ve Not Available [address] [place], [address], 02/02/2025 14:31:02 02/03/20 25 02/02/2025 urina lysis , dipst ick Urobilinogen .2 Not Available [address] [place], [address], 02/02/2025 14:31:02 02/03/20 25 02/02/2025 urina lysis , dipst ick Protein 30 Not Available [address] [place], [address], 02/02/2025 14:31:02 02/03/20 25 02/02/2025 urina lysis , dipst ick pH 6.0 Not Available [address] [place], [address], 02/02/2025 14:31:02 02/03/20 25 02/02/2025 urina lysis , dipst ick Blood Large Not Available [address] [place], [address], 02/02/2025 14:31:02 02/03/20 25 02/02/2025 urina lysis , dipst ick Specific Austin 1.015 Not Available [address] [place], [address], 02/02/2025 14:31:02 02/03/20 25 02/02/2025 urina lysis , dipst ick Ketone Negati ve Not Available [address] [place], [address], 02/02/2025 14:31:02 02/03/20 25 02/02/2025 urina lysis , dipst ick Bilirubin Negati ve Not Available [address] [place], [address], 02/02/2025 14:31:02 02/03/20 25 02/02/2025 urina lysis , dipst ick Glucose Negati ve Not Available [address] [place], [address], 02/02/2025 14:31:02 02/03/20 25 02/02/2025 urina lysis , dipst ick Appearance Clear Not Available [address] [place], [address], 02/02/2025 14:31:02 02/03/20 25 02/02/2025 urina lysis , dipst ick Color Yellow Not Available [address] [place], [address], 02/02/2025 14:31:02 11/27/19 25 11/26/2024 XR, chest No observ ation record ed. [address], [place], [address], 11/30/2024 10:45:50 11/27/19 25 11/26/2024 CT, angio gram, chest , w/ contr ast No observ ation record ed. [address], [place], [address], 11/30/2024 10:46:32 02/04/20 25 02/03/2025 XR, kidne y + urete r + bladd er No observ ation record ed. [facility] [address] [place], [address], 02/03/2025 11:02:33 02/06/20 25 02/05/2025 CT, abdom en + pelvi s, w/ contr ast No observ ation record ed. [email or web address] [facility] [address], [place], [address], 02/05/2025 16:26:20 Result Notes None recorded. Problems Name Problem SNOMED Code Status Onset Date Resolution Date Notes Provider Name and Address Organization Details Recorded Time Hypertro phy of tonsils 97671150 Completed 201812/01/2021 Ayaka morales, [place] - [facility] 2 09:14:36 History of calculus of kidney 241857059 Active 2018 Alyson Jones null, [place] - [facility] 9 16:19:23 Childhoo d obesity 654385489 Completed 201911/18/2020 Maria C Cardona APRN [address], [place], [address] , [place] - [facility] 1 15:04:14 Skin lesion 36259307 Completed 201906/15/2020 Removal Reason: resolved Carmencita Roberto APRN [address], [place], [address] , [place] - [facility] 4 16:28:06 Skin striae 231783154 Active 2019 Maria C Cardona APRN [address], [place], [address] , [place] [facility] 0 15:50:11 Difficul ty sleeping 756180887 Completed 201906/19/2021 Ayaka morales, [place] - [facility] 1 09:12:44 Congenit al bilatera l pes planus 19351916638 999246 Active 2019 Ayaka Krisitna null, [place] - [facility] 2 09:14:25 Depressi ve disorder 25185881 Completed 201911/18/2020 Removal Reason: resolved Maria C Cardona, [employer] [address], [place], [address] , [place] [facility] 1 15:11:35 Weight gain 0587341 Completed 201911/18/2020 Maria C Cardona, FR[employer] HAND [address], [place], [address] , [place] [facility] 1 15:04:27 Foot pain 66079347 Completed 201906/19/2021 Ayaka Acevedo null, [place] - [facility] 1 09:12:52 Mass of left breast 93028389602 260776 Completed 201905/27/2020 Ana Adams, FR[employer] HAND [address], [place], [address] , [place] [facility] 0 14:20:11 Hyperins ulinism 97128546 Active 2019 Ayaka Acevedo null[place] [facility] 2 09:14:30 Mixed hyperlip idemia 791447625 Active 2019 Ayaka Acevedo null, [place] [facility] 2 09:14:39 Serum thyroid stimulat ing hormone level outside referenc e range 628713461 Active 2019 Maria C Cardona, FR[employer] HAND [address], [place], [address] , [place] [facility] 0 11:53:01 Fibroade noma of left breast 54129702496 81395 Completed 201912/01/2021 Ana Adams, FR[employer] HAND [address], [place], [address] , [place] [facility] 2 09:55:08 Vitamin D deficien 35639289 Active 2019 Antonietta Perez null, [place] - [facility] 0 13:55:03 Nodule of subcutan eous tissue of right forearm 27371048037 545178 Active 2020 Maria C VázquezAlana Gan Brendan, [employer] HAND [address], [place], [address] , [place] [facility] 1 15:10:12 History of SARS-CoV -2 47372413066 1240196 Completed 202004/19/2021 Ayaka Kristina [place], [place] - [facility] 1 09:13:57 Uses depot contrace ption 670842784 Completed 202101/28/2023 Ana Adams, FR[employer] HAND [address], [place], [address] , [place] [facility] 3 10:23:59 Body mass index 25-29 - overweig ht 700196236 Completed 202101/18/2023 Ana Adams [employer] [address], [place], [address] , [place] [facility] 4 10:29:35 Erythema tous ear canal 939725670 Active 2021 Carmencita Roberto, [employer] HAND [address], [place], [address] , [place] [facility] 2 16:03:37 Body mass index 30+ - obesity 410150856 Completed 202202/21/2024 Ana Adams APRN [address], [place], [address] , [place] [facility] 4 09:27:42 Elevated blood-pr essure reading without diagnosi s of hyperten ju 948699266 Active 2022 Ana Adams, FR[employer] HAND [address], [place], [address] , [place] [facility] 3 14:58:36 Skin lesion 39836473 Active 2023 Carmencita Roberto [employer] [address], [place], [address] , [place] [facility] 4 16:28:06 Right lower quadrant pain 444980378 Active 2023 Ana Bryan, FR[employer] HAND [address], [place], [address] , [place] [facility] 4 10:29:11 Body mass index 25-29 - overweig ht 922961832 Active 2023 Ana Adams, FR[employer] HAND [address], [place], [address] , [place] [facility] 4 10:29:35 Irregula r bowel habits 860742303 Active 2023 Ana Adams, FR[employer] HAND [address], [place], [address] , [place] [facility] 4 09:27:55 Surveill ance of depot contrace ption done 78169193232 104 Completed 201611/18/2020 Maria C Cardona, FR[employer] HAND [address], [place], [address] , [place] [facility] 1 15:04:32 Pleurisy 644939601 Active 2023 Curtis Nguyen, DO [address], [place], [address] , [place] [facility] 4 11:39:05 Cough 12190188 Completed 202302/02/2025 Crystal Kade null, [place] - [facility] 5 13:17:11 Nicotine dependen ce 95955739 Active 2024 Hannah Manning null, [place] - [facility] 5 13:16:01 Hemoptys is 09939802 Active 2024 Josue Davis, DO [address], [place], [address] , [place] [facility] 5 16:35:22 Dental abscess 329486427 Active 2024 Bindu Dao, FRAME HAND [address], [place], [address] , [place] [facility] 5 14:47:49 Jaw pain 333745091 Active 2024 Bindu Dao, FR[employer] HAND [address], [place], [address] , [place] [facility] 5 14:49:55 Gingival erythema 961869725 Active 2024 Bindu Dao, FRAME HAND [address], [place], [address] , [place] [facility] 5 14:52:05 Bronchit is 87734443 Completed 202402/02/2025 Caitlyn [place]ales, [place] - [facility] 5 13:16:27 Communit y acquired pneumoni a 069078672 Active 2024 Venkatesh Garza, FRAME HAND [address], [place], [address] , [place] [facility] 5 10:30:34 Generali zed anxiety disorder 83798732 Active 2024 Venkatesh Garza, FR[employer] HAND [address], [place], [address] , [place] [facility] 5 15:42:54 Chronic constipa tion 275341660 Active 2024 Venkatesh Garza, FRAME HAND [address], [place], [address] , [place] [facility] 5 15:43:44 Blood in urine 79255170 Active 2024 Carmencita Roberto, FRAME HAND [address], [place], [address] , [place] [facility] 5 13:37:03 Contrace ption care manageme nt Completed 201606/15/2020 Removal Reason: stopped depo due to weight gain/gypsy ing Maria C Cardona, FRAME HAND [address], [place], [address] , [place] [facility] 0 14:51:30 Overweig ht in childhoo d 934855520 Completed 201608/17/2019 Maria C Cardona, FRAME HAND [address], [place], [address] , [place] [facility] 0 14:10:57 Problem Notes None recorded. Procedures Surgical History Date Name Laterality Status Provider Name and Address Organization Details Recorded Time 024 Date of Last Pap Smear completed Ana Adams APRN [address], [place], [address], [place] - [facility] 02/09/2024 20:37:37 024 Suture/Staple removal completed Caitlyn Braun [place] - [facility] 11/20/2023 09:44:13 024 Punch Biopsy completed Carmencita Roberto, FRAME HAND [address], [place], [address], [place] [facility] 11/13/2023 20:53:26 021 Medication Reconcilliation completed Caitlyn Braun [place] - [facility] 03/09/2021 13:11:49 021 excision of fibroadenoma of breast completed Ayaka Acevedo [place] - [facility] 12/01/2021 09:16:28 020 Systolic B/P less than 130 mm Hg completed Suze Mary [place] - [facility] 07/14/2020 13:06:20 020 Diastolic B/P less than 80 mm Hg completed Suze Hernandez [place] - [facility] 07/14/2020 13:06:27 020 Systolic B/P less than 130 mm Hg completed Caitlyn Braun [place] - [facility] 02/11/2020 13:55:31 020 Diastolic B/P less than 80 mm Hg completed Caitlyn Braun [place] [facility] 02/11/2020 13:55:34 insertion of renal artery stent completed Marilyn Hall [place] - [facility] 05/27/2020 13:50:08 ureterorenoscopy with fragmentation and removal of calculus of kidney completed Ayaka Acevedo [place] - [facility] 12/01/2021 09:16:40 Imaging Results None recorded. Procedure Notes None recorded. Medical Equipment None Reported. Allergies Allergen ID Allergen Name Allergen Category Reaction Reaction Severity Criticality Documentation Date Start Date Code Code System Note Provider Name and Address Organization Details Recorded Time 461107 amoxicill in medicatio n hives Not available Not available 12/01/2021 723 RxNorm Ayaka morales [place] - [facility] 09:13:26 93883 Product containin g penicilli n (product) medicatio n rash Not available Not available 06/06/2017 77052 8001 SNOMED Maria Cradha Cardona, FRAME HAND [address], [place], [address], [place] [facility] 7 15:35:53 Medications [...] User: Inge t. Completi on: 10/30/19 15;Pharm acyVerif ied: [...] Disconti nued on: 11/07/19 13 11:08AM; User: [facility];E st. Completi on: 01/06/20 13 [...] Not Available Not Available Not Available Loestrin 120 (21) 1 mg-20 mcg tablet take 1 [...] 11:00AM Not Available Not Available Not Available Mariliac DM 4 mg-45 mg-15 mg/5 mL oral syrup take 2.5 millilit ers by oral route every 4-6 hours as needed 12/19 completed [facility] DM 4-45-15 mg/5 mL oral syrup;Re corded Status: Recorded on: 10/26/19 10 1:48PM;D iscontin ued Status: Disconti nued on: 12/20/19 10 10:42AM; User: terry; Est. Completi on: 11/05/19 10;Indic ation: Cold Symptoms - (0 00);Prin blank: 10/26/19 10 Not Available Not [...] Disconti nued on: 10/18/19 16 11:12AM; User: [email or web address];E st. Completi on: 10/12/19 16;Indic ation: Muscle Spasm - (13.7288 50);Roxy Husain fied: 10/07/19 16 10:26AM Not Available Not [...] Disconti nued on: 11/07/19 13 10:05AM; User: gored;Es t. Completi on: 10/29/19 13;Indic ation: None Availabl e - (-5);Brianna nted: 10/22/19 13 Not Available Not Available Not Available Ortho-Cyc rimam (28) 0.25 mg-35 mcg tablet take 1 tablet by oral route once daily for 28 days 10/19 completed Ortho-Cy clen (28) 0.25-35 mg-mcg oral tablet;R ecorded Status: Recorded on: 10/30/19 14 10:10AM; Disconti nued Status: Disconti nued on: 10/20/19 15 2:21PM;U ser: shasta; Est. Completi on: 02/19/20 14 Not Available [...] on: 10/08/19 14 11:25AM; User: hemanth; EstAlana oCrtez on: 08/26/19 14;Indic ation: n and v [...] Updated DateTime 5 170.18 cm 27.3 kg/m2 85975.0 7 g 98 [degF] 67 /min 99 % 99 % 14 /min 122/84 mm[Hg] Oanh Vu [place] - [facility] 5 15:44:14 Date Recorded Body height Body mass index (BMI) Body weight Body temperature Heart rate Oxygen saturation Oxygen saturation in Arterial blood by Pulse oximetry Respiratory rate Systolic And Diastolic Provider Name and Address Organization Details Last Updated DateTime 5 170.18 cm 27.6 kg/m2 21574.6 6 g 98.5 [degF] 78 /min 99 % 99 % 16 /min 112/70 mm[Hg] Antonietta Perez [place] - [facility] 5 08:28:02 Date Recorded Body height Body mass index (BMI) Body weight Body temperature Heart rate Oxygen saturation Oxygen saturation in Arterial blood by Pulse oximetry Respiratory rate Systolic And Diastolic Provider Name and Address Organization Details Last Updated DateTime 5 170.18 cm 27.4 kg/m2 71567.0 6 g 97.6 [degF] 88 /min 98 % 98 % 18 /min 114/70 mm[Hg] Carmencita Hernandez [place] - [facility] 5 14:28:34 Date Recorded Body height Body mass index (BMI) Body weight Oxygen saturation Oxygen saturation in Arterial blood by Pulse oximetry Respiratory rate Heart rate Systolic And Diastolic Provider Name and Address Organization Details Last Updated DateTime 5 170.18 cm 27.1 kg/m2 02974.4 8 g 98 % 98 % 18 /min 90 /min 132/78 mm[Hg] Milli Monge [place] - [facility] 5 15:32:52 Date Recorded Body height Body mass index (BMI) Body weight Heart rate Oxygen saturation Oxygen saturation in Arterial blood by Pulse oximetry Respiratory rate Systolic And Diastolic Provider Name and Address Organization Details Last Updated DateTime 5 170.18 cm 27.3 kg/m2 69395.0 7 g 76 /min 98 % 98 [...] Is Your Level Of Caffeine Consumption? Occasional [email or web address] Information not available 07/26/2016 How Much Tobacco Do You Chew? None [email or web address] Information not available 11/18/2019 Concerns About Meeting Basic Needs (food, Housing, Heat, Etc)? No [email or web address] Information not available 11/18/2019 In The 14 Days Before Symptom Onset, Have You Had Close Contact With A Laboratory-confir med COVID-19 While That Case Was Ill? No [email or web address] Information not available 11/09/2024 In The 14 Days Before Symptom Onset, Have You Had Close Contact With A Person Who Is Under Investigation For COVID-19 While That Person Was Ill? No [email or web address] Information not available 11/09/2024 Have You Been To An Area Known To Be High Risk For COVID-19? No [email or web address] Information not available 11/09/2024 Are You Deaf Or Do You Have Serious Difficulty Hearing? No Information not available 05/27/2020 What Type Of Diet Are You Following? REGULAR [email or web address] Information not available 01/09/2017 Does Family Ever Have Difficulty Making Ends Meet At The End Of The Month? No Information not available 11/18/2019 Which Illicit Or Recreational Drugs Have You Used? None [email or web address] Information not available 02/05/2024 Have You Directly Handled Bats, Rodents, Or Primates From Ebola Endemic Areas? No [email or web address] Information not available 11/18/2019 Have You Processed Blood Or Body Fluids From An Ebola Virus Disease Patient Without Appropriate PPE? No [email or web address] Information not available 11/09/2024 Have You Had Household Contact With An Ebola Virus Disease Patient? No Information not available 11/18/2019 Have You Had Direct Contact With A Body In An Ebola-affected Area Without Appropriate PPE? No [email or web address] Information not available 11/18/2019 Do You Reside In Or Have You Traveled To An Area Where Ebola Virus Transmission Is Active? No [email or web address] Information not available 11/18/2019 What Is The Highest Grade Or Level Of School You Have Completed Or The Highest Degree You Have Received? [id number] [email or web address] Information not available 02/05/2024 Have There Been Any Changes To Your Family Or Social Situation? No [email or web address] Information no t available 11/18/2019 What Is The Fluoride Status Of Your Home? Fluoridated [email or web address] Information not available 11/18/2019 Are There Any Guns Present In Your Home? No [email or web address] Information not available 11/18/2019 Have You Recently Or Are You Planning To Travel To An Area With Zika Virus? No Information not available 11/09/2024 What Is Your Home Situation? Both Parents Information not available 07/22/2017 How Many Years Have You Used Illicit Or Recreational Drugs? 0 [email or web address] Information not available 02/05/2024 Do You Use Insect Repellent Routinely? Yes [email or web address] Information not available 11/18/2019 Live Alone Or With Others? With Others Information not available 05/27/2020 Last Menstrual Period? 02/20/2024 [email or web address] Information not available 02/21/2024 Last Menstrual Period 10/25/2020 [email or web address] Information not available 11/18/2020 Do You Have A Medical Power Of Traffic Controller Cable? No [email or web address] Information not available 11/09/2024 Mosquito Repellent Used Routinely Yes [email or web address] Information not available 11/18/2019 What Was The Date Of Your Most Recent Tobacco Screening? 02/02/2025 Information not available 02/02/2025 Family Has Moved Frequently/lived With Others Due To Finances Within The Last Year? No [email or web address] Information not available 11/18/2019 How Many Children Do You Have? 0 [email or web address] Information not available 07/12/2020 What Is Your Parents' Marital Status? Unmarried [email or web address] Information not available 07/26/2016 Performs Monthly Self-breast Exam? Yes [email or web address] Information no t available 11/18/2019 Pool Exposure No Information not available 11/18/2019 Do You Use Protection During Sex? Always Information not available 12/01/2021 Do You Use Protection Against STDs? No [email or web address] Information not available 12/01/2021 What Is Your Relationship Status? Domestic Partner Information not available 02/05/2024 Do You Use Your Seat Belt Or Car Seat Routinely? Yes [email or web address] Information not available 07/22/2017 Seat Belts Used Routinely Yes Information not available 05/27/2020 Are You Sexually Active? Yes Information not available 05/27/2020 Do You Have Smoke And Carbon Monoxide Detectors In Your Home? Yes [email or web address] Information not available 07/26/2016 Are You Passively Exposed To Smoke? Yes [email or web address] Information no t available 11/18/2020 How Much Tobacco Do You Smoke? No Information not available 11/18/2019 General Stress Level Low Information not available 05/27/2020 Do You Use Sunscreen Routinely? Yes [email or web address] Information not available 11/18/2019 Has Tobacco Cessation Counseling Been Provided? Yes Information not available 02/14/2022 On What Date Was Tobacco Cessation Counseling Provided? 02/02/2025 Information not available 02/02/2025 Do You Have Difficulty Walking Or Climbing Stairs? No Information not available 05/27/2020 Year In School HS Grad Home-[employer] o[employer]ed [email or web address] Information not available 07/22/2017 Was Contraceptive Counseling Provided? Yes [email or web address] Information not available 12/01/2021 What Contraceptive Method Was Reported At Start Of This Visit? None [email or web address] Information not available 01/28/2023 What Contraceptive Method Was Reported At End Of This Visit? None [email or web address] Information not available 01/28/2023 Do You Want To Talk About Contraception Or Prevention During Your Visit Today? No - This Question Does Not Apply To Me/I Prefer Not To Answer [email or web address] Information not available 01/28/2023 How Was The Contraceptive Method Provided? Provided On Site [email or web address] Information not available 12/01/2021 Do You Have Any Future Plans To Get ? No, I Don't Want To Become [email or web address] Information not available 12/01/2021 Sex: Female Functional Status Question Answer Note LastModified by Organizat ion Details LastModified Time Do you or have you ever used smokeless tobacco? Never used smokeless tobacco Information not available 11/18/2019 Are you currently employed? Yes [email or web address] Information not available 11/09/2024 Do you have transportation difficulties? No [email or web address] Information not available 12/01/2021 Urinary incontinence assessment performed? No Information not available 05/27/2020 Are you able to care for yourself? Yes [email or web address] Information n ot available 12/01/2021 Do you have difficulty dressing or bathing? No Information not available 05/27/2020 Do you or have you ever used e-cigarettes or vape? Former user of electronic cigarettes Information not available 02/02/2025 What is your exercise level? Occasional Information not available 01/09/2017 Do you use any illicit or recreational drugs? No [email or web address] Information not available 12/01/2021 Do you or have you ever used any other forms of tobacco or nicotine? No [email or web address] Information not available 12/01/2021 What is your level of alcohol consumption? None [email or web address] Information not available 11/18/2019 What is your status? Not [email or web address] Information no t available 12/01/2021 Are you able to walk? [email or web address] Information not available 05/27/2020 Do you have difficulty doing errands alone? No Information not available 05/27/2020 What is your occupation? [employer] [email or web address] Information not available 11/09/2024 Mental Status Question Answer Note LastModified by Organizat ion Details LastModified Time Do you feel stressed (tense, restless, nervous, or anxious, or unable to sleep at night)? [id number] [email or web address] Information not available 02/05/2024 Do you have difficulty concentrating, remembering or making decisions? No Information no t available 05/27/2020 Are you or have you been involved with bullying? No [email or web address] Information not available 11/18/2020 Family History Relationship Description Onset Age of this Age Resolved Age Notes LastModified by Organization Details LastModified Time Father Anxiety disorder [email or web address] Not available 2016 15:31:46 Father Hypercholest erolemia [email or web address] Not available 2023 09:53:27 Mother Obesity [email or web address] Not available 11/18/2019 14:26:01 Medical History Condition Response Blood Diseases N Rheumatoid arthritis N amputation N Depression Y Pneumonia N Incontinence N Edema N Obesity Y Restless Leg Syndrome N Carpal Tunnel N Tendonitis N Skin Cancer N Anal Fissure N Irritable Bowel Syndrome N Hospitalizations N Gallstones N Acne N Goiter N Incole's Esophagus N Eating Disorder N Skin Problems N Hypertriglyceridemia N MRSA exposure N Constipation N Embolism N Deviated Septum N Myocardial Infarction N Vertigo N Chronic Ear Infections N Chicken Pox N Von [place]ands Disease N Developmental or Behavioral Disorders N Defects or Inherited Disease N Difficulty Swallowing N Ovarian Cyst N Testosterone Deficiency N Head Injury/Concussion N Interstitial Cystitis N Congenital Anomalies N Hypoglycemia N Blood clot N Cellulitis N Fracture N Schizophrenia N Panic Disorder N Spina Bifida N Parkinson's Disease N STI N Angina N ADD/ADHD N Multiple Sclerosis N Lumbago N Psychiatric Illness N Hyperlipidemia N Syncope N Abuse/Domestic Violence N Attention Deficient Disorder N Ulcerative colitis N Bronchitis N Suicidal Ideation N Pancreatitis N Other N Atrial Fibrillation N congenital heart disease N Kidney Stones Y Erectile Dysfunction N Skin Lesions N Murmur N Alzheimer's Disease N Migraine Headaches N Tobacco Abuse N Muscle, Joint, or Bone Problems N Hemorrhoids N Vision or Eye Problems N Crohn's Disease N Hypercholesterolemia Y Headaches Y Ear or Hearing Problems N Kidney or Bladder Problems N Vitamin B12 Deficiency N Mitral Valve Disorders N Thyroid Cancer N Neuropathy N History of DVT N Herniated Disc N Autism Spectrum Disorder (ASD) N Hernia N Plantar Fasciitis N Hospital Admission Other Than N Vitamin D Deficiency N Bladder or Kidney Problems N Concussion N Osteoarthritis N Disc Protrusion N Esophagitis N Abnormal PAP N Mental Illness N Bedwetting N Degenerative Disc Disease N Seizures/Epilepsy N Insomnia N Eczema N Dementia N Cerebrovascular Disease N Depression N Guillain-[place] N Sleep Apnea N Gynecological History Statement/Question Response Abnormal Pap [...] [email or web address] 11/18/19 20 completed Maria C Cardona, FR[employer] [address], [place], [address], [place] - [facility] 11/18/2019 14:44:39 HPV9 11/19/19 21 cancelled patient objection Maria C Cardona, [employer] [address], [place], [address], [place] [facility] 11/18/2020 15:13:06 DTaP 06/05/20 05 completed Not Available [facility] 05/20/2016 13:59:37 Hib (PRP-OMP) 01/24/20 01 completed Not Available [facility] 01/28/2023 09:58:08 Hib (PRP-OMP) 03/28/20 01 completed Not Available [facility] 01/28/2023 09:58:08 Hib (PRP-OMP) 12/05/19 02 completed Not Available [facility] 01/28/2023 09:58:08 IPV 01/24/20 01 completed Not Available [facility] 05/20/2016 13:59:37 IPV 03/28/20 01 completed Not Available [facility] 05/20/2016 13:59:37 IPV 12/05/19 02 completed Not Available [facility] 05/20/2016 13:59:38 IPV 06/05/20 05 completed [facility] Available [facility] 05/20/2016 13:59:46 MMR 02/27/20 02 completed Not Available [facility] 05/20/2016 13:59:46 MMR 06/05/20 05 completed Not Available [facility] 05/20/2016 13:59:46 varicella 12/05/19 02 completed Not Available [facility] 05/20/2016 13:59:47 Hep B, adolescent or pediatric 11/25/19 01 completed Not Available [facility] 05/20/2016 13:59:48 Hep B, adolescent or pediatric 01/24/20 01 completed Not Available [facility] 05/20/2016 13:59:48 Hep B, adolescent or pediatric 12/05/19 02 completed Not Available [facility] 05/20/2016 13:59:48 DTaP 01/24/20 01 completed Not Available [facility] 05/20/2016 13:59:48 DTaP 03/28/20 01 completed Not Available [facility] 05/20/2016 13:59:48 DTaP 05/30/20 01 completed Not Available [facility] 05/20/2016 13:59:48 DTaP 02/27/20 02 completed Not Available [facility] 05/20/2016 13:59:48 varicella 01/28/20 14 completed Maria C Cardona, [employer] [address], [place], [address], [place] [facility] 03/01/2017 13:10:40 Tdap 01/28/20 14 completed Maria C Cardona, HENRY [address], [place], [address], [place] [facility] 03/01/2017 13:11:10 meningococcal ACWY, unspecified formulation 01/28/20 14 completed Not Available [facility] 01/28/2023 09:58:08 Hib (HbOC) 12/05/19 02 completed Ania Bueno null, [place] - [facility] 08/09/2022 11:19:06 Hib (PRP-T) 03/28/20 01 completed An[place] Bu[place] [facility] 08/09/2022 11:19:06 meningococcal MCV4, unspecified formulation 01/28/20 14 completed Ania Bu[place] [facility] 08/09/2022 11:19:07 Past Encounters Encounter ID Performer Location Encounter Start Date Encounter Closed Date Diagnosis/Indication Diagnosis SNOMED-CT Code Diagnosis ICD10 Code Diagnosis Note [id number] Maria C Cardona APRN [facility] [address] [place] [address] 07/26/2016 15:30:02 07/27/2016 09:43:35 Surveillance of depot contraception done 1267755142 9104 Z30.42 [id number] Mariposa Cook MD [facility] [address] [place] [address] 08/28/2016 09:27:29 08/28/2016 11:23:31 Common cold 56541122 J00 [id number] Mariposa Cook MD [address] [place] [address] 09/04/2016 10:14:55 09/04/2016 11:17:22 Acute pharyngitis 640917895 J02.9 [id number] Maria C Cardona [address] [place] [address] 09/12/2016 12:19:28 09/12/2016 13:52:10 Cough 72463279 R05 Acute sinusitis 67892945 J01.90 [id number] Maria C Cardona [address] [place] [address] 09/14/2016 13:37:23 09/14/2016 14:20:54 Vaginitis 54393150 N76.0 Vaginal discharge 472160 006 N89.8 [id number] Mariposa Cook MD [address] [place] [address] 09/28/2016 09:56:39 09/28/2016 11:54:27 Acute pharyngitis 986468918 J02.9 [id number] Maria C Cardona [address] [place] [address] 10/18/2016 15:49:28 10/19/2016 07:51:45 Surveillance of depot contraception done 6724669005 9104 Z30.42 [id number] Maria C Cardona [address] [place] [address] 11/02/2016 16:11:16 11/02/2016 16:43:06 Acute stress disorder 31553421 F43.0 [id number] Maria C Cardona [address] [place] [address] 11/07/2016 09:20:08 11/07/2016 10:29:51 Acute pansinusitis 8490036 J01.40 [id number] Maria C Cardona [address] [place] [address] 01/09/2017 08:44:46 01/09/2017 10:01:01 Surveillance of depot contraception done 7539718721 9104 Z30.42 Angular cheilitis 056641 005 K13.0 Contracept ion care management 044456339 Z30.9 Overweight in childhood 827155025 Z68.53 Diet education 74958630 Z71.3 Exercises education, guidance, and counseling 414371712 Z71.89 Weight gain 1336728 R63. 5 Discussed recent weight gain likely r/t contracept ion, will continue to monitor at this time. [id number] Maria C Cardona [address] [place] [address] 02/28/2017 09:03:08 02/28/2017 09:38:03 Well child 111100188 Z00.129 Safety education 7644388 04 Z71.9 Diet education 99299518 Z71.3 Exercises education, guidance, and counseling 591570306 Z71.89 Normal weight 53404852 Z 68.52 Depression screening 171 848305 Z13.89 [id number] Maria C Cardona [address] [place] [address] 04/04/2017 15:32:30 04/05/2017 08:04:06 Surveillance of depot contraception done 1481365743 9104 Z30.42 Contracept ion care management 333672706 Z30.9 [id number] Maria C Cardona [address] [place] [address] 06/06/2017 15:14:19 06/06/2017 17:04:16 Ingrowing toenail 692839946 L60.0 [id number] Maria C Cardona [address] [address] 06/26/2017 11:15:46 06/26/2017 12:53:33 Contraception care management 222907447 Z30.9 Surveillan ce of depot contraception done 8474820852 9104 Z30.42 [id number] Maria C Cardona[address] [address] 07/22/2017 09:20:11 07/22/2017 09:40:04 Acute sinusitis 53791372 J01.90 [id number] Maria C Cardona[address] [place] [address] 07/24/2017 17:08:18 07/24/2017 18:17:27 Fever 373845720 R50.9 Acute sinusitis 10245674 J01.90 [id number] Maria C Cardona[address] [place] [address] 09/19/2017 14:50:35 09/19/2017 15:30:20 Contraception care management 081612020 Z30.9 Surveillan ce of depot contraception done 2916678662 9104 Z30.42 Overweight in childhood 001092446 Z68.53 [id number] Maya Tobar[address] [place] [address] 10/28/2017 12:51:10 10/28/2017 14:19:43 Pain in throat 961654154 R07.0 Streptococ bertrand sore throat 98866741 J02.0 [id number] Maria C Cardona[address] [place] [address] 12/11/2017 13:05:07 12/11/2017 15:23:02 Contraception care management 864917078 Z30.9 Surveillan ce of depot contraception done 0217127963 9104 Z30.42 [id number] Nolvia Cano[address] [address] 03/06/2018 09:49:05 03/06/2018 10:24:53 Contraception care management 523134058 Z30.42 Surveillan ce of depot contraception done 8230082161 9104 Z30.42 [id number] Maria C Cardona[address] [place] [address] 05/28/2018 16:02:26 05/28/2018 16:22:43 Surveillance of depot contraception done 1976676257 9104 Z30.42 Overweight in childhood 493448284 Z68.53 [id number] Maria C Cardona[address] [address] 09/03/2018 09:39:01 09/03/2018 10:28:03 Contraception care management 937521200 Z30.9 Surveillan ce of depot contraception done 6242573714 91 Z30.42 [id number] Nolvia Cano[address] [place] [address] 10/13/2018 09:18:51 10/13/2018 10:00:48 Pharyngitis 744420633 J02.9 [id number] Maria C Cardona[address] [place] [address] 10/29/2018 08:40:59 10/29/2018 10:13:02 Pharyngitis 620673398 J02.9 Hypertroph y of tonsils 00691550 J35.1 Cervical lymphadenopathy 752179859 R59.0 [id number] Maria C Cardona[address] [place] [address] 12/04/2018 08:41:17 12/04/2018 09:22:26 Surveillance of depot contraception done 6508035371 91 Z30.42 Overweight in childhood 830783599 Z68.53 [id number] Maria C Cardona[address] [place] [address] 01/07/2019 15:29:47 01/07/2019 17:17:47 Blood in urine 01892621 R31.9 History of calculus of kidney 851201029 Z87.442 Overweight in childhood 499339900 Z68.53 [id number] Maria C Cardona[address] [place] [address] 03/05/2019 14:52:36 03/05/2019 15:13:14 Contraception care management 362565337 Z30.9 Overweight in childhood 115633812 Z68.53 [id number] Maria C Cardona[address] [address] 05/07/2019 14:02:32 05/07/2019 16:12:39 Skin hypopigmented 06991210 L81.5 Overweight in childhood 465552904 Z68.53 [id number] Maria C Cardona[address] [place] [address] 05/28/2019 08:52:29 05/28/2019 09:26:23 Contraception care management 807740968 Z30.9 Overweight in childhood 856659913 Z68.53 Surveillan ce of depot contraception done 3413151355 9104 Z30.42 [id number] Maria C Cardona[address] [place] [address] 08/17/2019 09:28:23 08/17/2019 10:57:47 Contraception care management 970473549 Z30.9 Acute sinusitis 88950595 J01.90 Cough 94911813 R05 Childhood obesity 634822 003 E66.8 [id number] Maria C Cardona[address] [place] [address] 08/28/2019 13:57:34 08/28/2019 15:29:39 Fever 150219862 R50.9 Sinusitis 75694168 J32.9 Cough 10982647 R05 [id number] Maria C Cardona[address] [place] [address] 11/18/2019 13:06:35 11/18/2019 15:48:43 Well child visit 757723561 Z00.129 Dietary ma nagement surveillance 970249935 Z71.3 Exercises education, guidance, and counseling 398673967 Z71.82 Depression screening 171 296379 Z13.89 Venereal d isease screening 888808784 Z11.8 Surveillan ce of depot contraception done 8374930161 9104 Z30.42 Active or passive immunization 147296585 Z23 Safety education 8046389 04 Z71.9 Childhood obesity 230615 003 E66.8 Contracept ion care management 283264108 Z30.9 Skin lesion 69168969 L98 .9 right upper arm Skin striae 509080937 L9 0.6 torso,UE Difficulty sleeping 3013 39386 Z72.136 [id number] Maya Tobar[address] [place] [address] 02/11/2020 13:51:47 02/11/2020 14:06:37 Contraception care management 079951891 Z30.9 [id number] Maria C Cardona[address] [place] [address] 05/11/2020 08:22:30 05/11/2020 10:29:12 Contraception care management 351389398 Z30.9 due to weight gain, will d/c contracept ion at this time Weight gain 9770030 R63. 5 Congenital bilateral pes planus 1929690934 6301717 Q66.51 bilateral Foot pain 10414192 M79.6 73 Mass of left breast 1224 607386 7327746 N63.20 Depression screening 171 492124 Z13.89 Depressive disorder 3548 9007 F32.9 [id number] HENRY Cruz [employer] [address] [place] [address] [place] [address] 05/27/2020 13:39:01 05/27/2020 14:55:44 Fibroadenoma of left breast 7297677761 697599 D24.2 [id number] Maria C Cardona [address] [address] 05/25/2020 13:49:06 05/25/2020 14:18:39 Depressive disorder 24984484 F32.9 Childhood obesity 842652 003 E66.8 [id number] Maria C Cardona [address] [place] [address] 06/15/2020 14:13:10 06/15/2020 15:43:24 Difficulty sleeping 200610755 Z72.820 Depressive disorder 3548 9007 F32.9 Pharyngitis 507527743 J0 2.9 [id number] Melly Collins [address] [place] [address] 07/14/2020 12:56:02 07/14/2020 14:18:05 Mixed hyperlipidemia 043903856 E78.2 Thyroid fu nction tests abnormal 571617971 R94.6 Vitamin D deficiency 347 59813 E55.9 Influenza vaccination declined 598335448 Z28.21 Hyperinsulinism 93407481 E16.1 [id number] Maria C Cardona[address] [place] [address] 11/18/2020 10:18:45 11/18/2020 12:55:43 Pain in right arm 570499827 M79.601 Hyperinsulinism 38808235 E16.1 Mixed hyperlipidemia 267 274776 E78.2 Serum thyr oid stimulating hormone level outside reference range 735077689 R79.89 Vitamin D deficiency 347 17764 E55.9 Well child 082753144 Z00 .129 Safety education 8792705 04 Z71.9 Diet education 67766972 Z71.3 Exercises education, guidance, and counseling 665041384 Z71.82 Depression screening 171 634903 Z13.89 Nodule of subcutaneous tissue of right forearm 5733531929 7949935 R22.31 Skin striae 836062070 L9 0.6 torso,UE Congenital bilateral pes planus 3824344842 6915863 Q66.51 bilateral Active or passive immunization 210250627 Z23 [id number] Melly Collins [address] [place] [address] 12/06/2020 15:52:21 12/06/2020 16:14:42 Mixed hyperlipidemia 632935621 E78.2 Vitamin D deficiency 347 59556 E55.9 Hyperinsulinism 73530345 E16.1 Vitamin B1 2 deficiency (non anemic) 98652731 E53.8 [id number] Melly Collins [address] [place] [address] 03/08/2021 17:29:43 03/08/2021 17:58:54 Mixed hyperlipidemia 954606395 E78.2 Vitamin D deficiency 347 12618 E55.9 Hyperinsulinism 08903248 E16.1 Vitamin B1 2 deficiency (non anemic) 54537172 E53.8 Body mass index 25-29 - overweight 262076037 Z68.28 [id number] [facility] [address] [facility] [place] [address] 03/09/2021 12:48:09 03/09/2021 14:25:08 Kidney stone 95568041 N20.0 Hyperinsulinism 61402462 E16.1 Vitamin D deficiency 347 32995 E55.9 [id number] [facility] [facility] 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 [address] 09/11/2021 11:30:30 09/11/2021 11:42:15 Uses depot contraception 603531900 Z30.42 [id number] Deja Sinha [place] [address] [place] [address] 10/30/2021 13:10:12 10/30/2021 14:22:22 Upper respiratory infection 72616536 J06.9 [id number] HENRY Cruz CLINICAL STATISTICAL PROGRAMMER [address] [place] [address] [place] [address] 12/01/2021 08:54:26 12/01/2021 09:56:46 Routine gynecologic examination done [id number] 9101 Z01.419 Depression screening 171 266431 Z13.89 Hypertensi on screening 988536133 Z13.6 Screening for malignant neoplasm of cervix 301864779 Z12.4 Diet education 20891382 Z71.3 Encourage healthy eating/sage it fats, sugars, fried foods Counseling 154168627 Z71 .82 Encouraged regular exercise 30-40min/d ay 4-5 days/wk Examinatio n of blood pressure 322751297 Z01.30 Uses depot contraception 931975231 Z30.42 Body mass index 25-29 - overweight 218668777 Z68.28 [id number] Carmencita Roberto [place] [address] [place] [address] 12/22/2021 08:32:20 12/22/2021 09:41:23 Body mass index 25-29 - overweight 902640163 Z68.28 Overweight 132908314 E66 .3 Erythemato us ear canal 880703025 H61.423 [id number] HENRY Cruz CLINICAL STATISTICAL PROGRAMMER [address] [place] [address] ELYSSA Boyle [address] 7 02/22/2022 11:24:58 02/22/2022 12:07:15 Uses depot contraception 627184624 Z30.42 [id number] Carmencita Roberto [place] [address] [facility] yolanda Valera [place] 3[address] 4 02/14/2022 09:02:38 02/14/2022 10:02:32 Body mass index 25-29 - overweight 729628011 Z68.29 Overweight 659360420 E66 .3 Dysuria 92954648 R30.9 History of calculus of kidney 739312804 Z87.442 Hyperinsulinism 73408551 E16.1 Mixed hyperlipidemia 267 886286 E78.2 [id number] Melly Collins [address] BLACKMAN [facility] [place] 7 03/07/2022 12:09:12 03/07/2022 12:42:27 Mixed hyperlipidemia 892581704 E78.2 Vitamin D deficiency 347 94473 E55.9 Hyperinsulinism 08601598 E16.1 Vitamin B1 2 deficiency (non anemic) 17550292 E53.8 Body mass index 25-29 - overweight 056982882 Z68.28 [id number] [facility] CLIN[facility] STATISTICAL PROGRAMMER [address] [place] [address] Dr. BLACKMAN [facility] [place] 05/16/2022 11:18:29 05/16/2022 11:59:43 Uses depot contraception 319495406 Z30.42 Candidiasis of vagina 72 508613 B37.31 [id number] Melly Collins [address] [place] [address] 06/26/2022 09:01:35 06/26/2022 12:05:34 Mixed hyperlipidemia 289592620 E78.2 Vitamin D deficiency 347 71834 E55.9 Hyperinsulinism 85373847 E16.1 Vitamin B1 2 deficiency (non anemic) 91764953 E53.8 Hepatitis C screening 41 2441326 Z11.59 Body mass index 30+ - obesity 947126516 Z68.31 [id number] SJ VARGAS DO [place] CLINICAL STATISTICAL PROGRAMMER [address] [place] [address] ELYSSA Boyle [address] 08/10/2022 15:49:11 08/10/2022 16:25:01 Uses depot contraception 394403913 Z30.42 Tolerated well. RTC in 3 months for Depo shot. [id number] Kalin Allen MD [address] [place] [address] 08/09/2022 10:39:20 08/09/2022 11:34:19 Pharyngitis 415722034 J02.9 augmentin allergy is actually abx-associ ated UTIs [id number] Bindu Dao [address] [place] [address] 4 09/21/2022 09:51:18 09/21/2022 10:40:43 Low back pain 302773696 M54.50 Body mass index 30+ - obesity 332226768 Z68.32 Obesity 171895684 E66.9 [id number] HENRY Cruz CLINICAL STATISTICAL PROGRAMMER [address] [place] [address] EYLSS[place] Boyle [address] 7 11/07/2022 11:22:36 11/07/2022 11:55:31 Uses depot contraception 079847205 Z30.42 Body mass index 30+ - obesity 220347137 Z68.33 Obesity 590361816 E66.9 Elevated blood-pressure reading without diagnosis of hypertension 252452632 R03.0 [id number] Carmencita Roberto [place] [address] [place] [address] 01/18/2023 08:25:46 01/18/2023 10:25:06 Body mass index 30+ - obesity 468878179 Z68.33 Obesity 819338417 E66.9 Mixed hyperlipidemia 267 808364 E78.2 Hyperinsulinism 50804526 E16.1 Vitamin D deficiency 347 59151 E55.9 [id number] HENRY Cruz CLINICAL STATISTICAL PROGRAMMER [address] [place] [address] ELYSSA Boyle [address] 7 01/28/2023 09:57:07 01/28/2023 10:46:49 Routine gynecologic examination done 2353239447 9101 Z01.419 Depression screening 171 599953 Z13.31 PHQ-9 completed today. Diet education 11511444 Z71.3 Encourage healthy eating/sage it fats, sugars, fried foods Counseling 632648204 Z71 .82 Exercise counseldesirae choi. Patient encouraged to exercise 30 minutes 5 days a week. Examinatio n of blood pressure 067621509 Z01.30 Hypertensi on screening 200516207 Z13.6 Contracept ion care management 910434492 Z30.9 Body mass index 30+ - obesity 861179540 Z68.33 Obesity 638208152 E66.9 Screening for malignant neoplasm of cervix 182093176 Z12.4 [id number] Melly Collins [address] [place] [address] 10/30/2023 11:19:06 10/30/2023 12:31:32 Mixed hyperlipidemia 002642239 E78.2 Vitamin D deficiency 347 09393 E55.9 Hyperinsulinism 22901828 E16.1 Vitamin B1 2 deficiency (non anemic) 73545739 E53.8 Hepatitis C screening 41 2592349 Z11.59 Body mass index 25-29 - overweight 200241760 Z68.28 [id number] Bindu Dao [facility] [address] [place] [place] [address] 11/07/2023 15:18:11 11/07/2023 16:24:22 Viral screening 529378566 Z11.59 Influenza caused by Influenza A virus 151859744 J09.X2 Advised to drink plenty of fluids, [...] Or sooner if symptoms worsen. Skin lesion 13789957 L98 .9 Advised patient to RTO at earliest convenienc e for biopsy. Patient agreeable and verbalized understand ing. [id number] Carmencita Roberto [address] [place] [address] 11/13/2023 15:29:35 11/13/2023 16:26:12 Body mass index 25-29 - overweight 940575881 Z68.28 Overweight 298045867 E66 .3 Skin lesion 94566242 L98 .9 [id number] Carmencita Roberto [address] [place] [address] 11/20/2023 09:24:14 11/20/2023 11:33:29 Removal of suture 66523206 Z48.02 Body mass index 25-29 - overweight 455697342 Z68.28 Overweight 242133789 E66 .3 [id number] Ana Adams FRAME HANDSabrina GomezAndover CLINICAL STATISTICAL PROGRAMMER [address] [place] [address] ELYSS[place] Boyle [address] 02/05/2024 09:25:00 02/05/2024 10:36:15 Routine gynecologic examination done 4458077518 9101 Z01.419 Depression screening 171 264559 Z13.31 PHQ-9 completed today. Diet education 35083909 Z71.3 Encourage healthy eating/sage it fats, sugars, fried foods Counseling 328118397 Z71 .82 Exercise counsellin g. Patient encouraged to exercise 30 minutes 5 days a week. Examinatio n of blood pressure 745336597 Z01.30 Hypertensi on screening 934830563 Z13.6 Screening for malignant neoplasm of cervix 314003206 Z12.4 Right lowe r quadrant pain 196425723 R10.31 Body mass index 25-29 - overweight 622592913 Z68.27 Overweight 070940319 E66 .3 [id number] Melly Collins FRAME HAND [address] [place] [address] 02/12/2024 09:41:45 02/12/2024 10:54:27 Mixed hyperlipidemia 320986405 E78.2 Vitamin D deficiency 347 64185 E55.9 Hyperinsulinism 24724534 E16.1 Vitamin B1 2 deficiency (non anemic) 80531043 E53.8 Body mass index 25-29 - overweight 756923344 Z68.28 [id number] Ana Adams APRN [place] CLINICAL STATISTICAL PROGRAMMER [address] [place] [address] [place] [address] 7 02/21/2024 08:16:00 02/21/2024 09:18:36 Right lower quadrant pain 318876495 R10.31 Irregular bowel habits 103437979 R19.4 [id number] Curtis Nguyen [facility] [address] [facility] [place] [address] 07/24/2024 10:59:17 07/24/2024 11:52:46 Body mass index 25-29 - overweight 055035856 Z68.27 Overweight 644414669 E66 .3 Cough 78045072 R05.9 Upper respirator y infection. Patient had negative flu and COVID testing today. Pleurisy 960106287 R09.1 Pleurisy. Patient will be given Depo-Medro l today for treatment. Patient will be advised to take NSAIDs after a week or so if needed after receiving the injection. [id number] Janett Davila APRN [facility] [address] [place] [address] 08/07/2024 13:15:38 08/07/2024 15:20:30 Viral screening 439590399 Z11.52 Influenza- like illness 98656891 B34.9 Pharyngitis 782422333 J0 2.9 Acute sinusitis 17049077 J01.90 Nasal congestion 7829096 0 R09.81 [id number] Constantine Shearer MD [address] [place] [address] 08/21/2024 13:02:59 08/21/2024 13:48:05 Body mass index 25-29 - overweight 491909673 Z68.27 Nicotine dependence 5629 4008 F17.200 Acute sinusitis 28854906 J01.90 [id number] Wilda Herbert MD [facility] [address] [place] [address] 11/09/2024 15:34:15 11/09/2024 15:58:27 Hemoptysis 62617747 R04.2 Patient reports that she has been [...] has been advised to pursue further workup. [id number] Melly Collins [address] [place] [address] 11/11/2024 08:18:30 11/11/2024 08:47:18 Mixed hyperlipidemia 615294845 E78.2 intolerant to fenofibrat es Vitamin D deficiency 347 13988 E55.9 Hyperinsulinism 12072742 E16.1 Vitamin B1 2 deficiency (non anemic) 63354684 E53.8 Body mass index 25-29 - overweight 084259657 Z68.28 History of anemia 285351 002 Z86.2 [id number] Bindu Dao [facility] [address] [place] [place] [address] 12/15/2024 14:15:16 12/15/2024 14:57:09 Jaw pain 797562285 R68.84 Advised use of OTC NSAIDs as needed for discomfort . Gingival erythema 710194 004 K06.8 Begin prescribed medication as written. Advised patient to eat yogurt or take probiotic while taking clindamyci n.Advised to schedule f/u with dentist. Patient agreeable and verbalized understand ing. [id number] Venkatesh Garza [address] [place] [address] 01/29/2025 14:59:56 01/29/2025 16:15:57 Community acquired pneumonia 380365037 J18.9 - resolved Overweight in adulthood with body mass index of 25 or more but less than 30 682615104 E66.3 Z68.27 Overweight 563366647 E66 .3 Generalize d anxiety disorder 64592822 F41.1 Patient with symptoms concerning for anxiety.PH Q-9 score: 9; FRANK-7 score: 17.Denies SI/HI. No other safety concerns at this time.Start buspironeF ollow-up as below. Chronic constipation 236 302214 K59.09 [id number] Carmencita Roberto APRN [facility] [address] [place] [address] 02/02/2025 13:15:33 02/02/2025 14:05:01 Overweight 712095927 E66.3 Overweight in adulthood with body mass index of 25 or more but less than 30 197068965 Z68.27 Blood in urine 40501939 R31.9 Health Concerns Section Related Observation LastModified by Organization Detai ls LastModified Time None Recorded Concern Status LastModified by Organization Details LastModified Time None Recorded Advance Directives Directive N: Payers Insurance Date Sequence Insurance Name Policy Number Policy Booth Covered Member ID Booth Member ID Guarantor Name 02/02/2025 1 [employer] [place] [id number] [place] [id number] Dana Cedeno 02/02/2025 1 [employer] [place] C[place] [id number] Dana Cedeno 05/07/2019 1 *SELF PAY* Fl orence Cedeno 02/02/2025 [place] [facility] Mariaelena S Cedeno [id number] Dana Cedeno 02/02/2025 [place] C[place] [id number] Dana Cedeno 02/02/2025 1 [employer] [place] Q$G [place] C[place] [id number] Dana Cedeno 02/02/2025 [place] Mariaelena S Cedeno [id number] Dana Cedeno 10/06/2016 1 UNSPECIFIED REMIT PAYOR Dana Cedeno 02/02/2025 [place] Mariaelena S Cedeno [id number] Dana Cedeno 02/02/2025 [place] Mariaelena Cedeno [id number] Dana Cedeno Notes Date Note Type Note [...] . Josue Davis, DO [address], [place], [address], [employer] - [facility] 11/09/2024 16:38:47 11/11/2024 text/html Mariaelena presents fo r follow up on insulin resistance. She was on Metformin ER 1,000 mg BID, but quit taking all her meds a month ago due to aching in her legs and swelling in her hands. This was most likely from the fenofibrate. Melly Collins, HENRY [address], [place], [address], [place] - [facility] 11/11/2024 08:45:52 12/15/2024 text/html Patient presents with c/o pain of right upper tooth and right jaw pain x 4 days.Reports pain radiates into throat.Reports difficulty opening mouth.Denies fever, chest pain, SOA, cough, congestion, and n/v/d. Bindu Dao, HENRY [address], [place], [address], [facility] - [facility] 12/15/2024 14:55:17 02/02/2025 text/html Presents with 3 days of blood urineDoes endorse pain to right suprapubic areaNo fever or chillsNo pain with urinationDenies odor to urineDenies urgencyDoes endorse hesitancyNo CVA tendernessDid recently complete course of Levofloxacin last weekNo chest pain, shortness of breath, dizziness, lightheadedness, syncope, palpitations or edema.Denies alcohol, tobacco and illicit drug usageCompliant with medication Carmencita Roberto, FRAME HAND [address], [place], [address], [facility] - [facility] 02/02/2025 14:32:16 OBGyn Episode No OBEpisode recorded.
--- OUTSIDE RECORDS SUMMARY | 2025-02-11 14:15 | XMS_ITS | Clinical Summary ---
Author Organization [facility] Address [address] [place] [address] Phone Care Team Providers Care Speedometer Inspector Name Role Phone Unavailable Primary Care Provider Unavailabl e Allergies Active Allergy Reactions Criticality Noted Date Comments Amoxicillin Rash High 12/16/2020 Medications Thiyg-0-VZU-EPA- Fish Oil (FISH OIL) 1,000 mg (120 [...] 2 left breast masses, one with alexx armature balancer localization; Surgeon: Letitia Alexander MD; Location: [facility]TT [...] to complete this topic Insurance [employer] [place] [id number] [place] [employer] [place] [address] [place] [employer] [place] [address] [place]
--- NOTE | 2025-02-11 15:15 | CA_ITS ---
APPROVED REPORT EXAM: Comprehensive 2D, Doppler, and color-flow Echocardiogram Life Enrichment Specialist: Eugenie Dorsey RT(R) Ht: 5 ft 7 in Wt: 177lbs BSA: 1.92 BP: 127/85 mmHg Indications: Chest pain, shortness of breath 2D Dimensions LA Volume 24.30 mL LA Volume Index 12.66 mL/m2 (M/F) 16-34 EF AP4 55.30 % GL Strain -19.1 % M-Mode Dimensions RVDd 2.13 cm (0.9-2.6) LA Diam 2.67 cm (1.9-4.0) LVDd 4.16 cm (3.5-5.7) LVDs 3.10 cm (3.5-5.7) IVSd 0.75 cm (0.6-1.1) PWd 0.66 cm (0.6-1.1) EF (Teich) 50.70% FS 25.50% EDV (Teich) 76.80 mL ESV (Teich) 37.90 mL LV Diastology E Decel Time 170 (160-240 msec) E/A Ratio 2.4 Mitral Valve MV E Max Pranav. 92.0 (40-130 cm/s) MV A Velocity 39.0 (40-130 cm/s) E/A Ratio 2.37 MV PHT 50.0 ms Left Ventricle The left ventricle is normal size. The left ventricular systolic function is normal. The left ventricular ejection fraction is within the normal range. There is normal left ventricular wall thickness. There is normal LV segmental wall motion. The left ventricular diastolic function is normal. LVEF is 60%. Right Ventricle The right ventricle is normal size. The right ventricular systolic function is normal. Atria The left atrium size is normal. The right atrium size is normal. There is no Doppler evidence of interatrial shunt. Aortic Valve The aortic valve opens well. There is no aortic valvular stenosis. No aortic regurgitation is present. Mitral Valve The mitral valve is normal in structure. No evidence of mitral valve stenosis. There is no mitral valve regurgitation noted. Tricuspid Valve Tricuspid valve is grossly normal in structure and function. Trace tricuspid regurgitation. There is insufficient TR jet to estimate RVSP. Pulmonic Valve The pulmonary valve is normal in structure. Trace pulmonic regurgitation. Great Vessels The aortic root is normal in size. IVC is normal in size and collapses >50% with inspiration. Pericardium There is no pericardial effusion. Conclusion Normal biventricular systolic function. No significant valvular stenosis or regurgitation. Electronically signed by : Ronna Valerio MD 02/14/2025 23:13:10
== END 2025-02-11 23:59 | disposition home or self-care (01) ==
LOC: RT 14:11
PROVIDERS: PCP Nurse Practitioner Family; Visit Provider Nurse Practitioner
DX: R07.89 Other chest pain (principal); R06.02 Shortness of breath
CPT/HCPCS: 93306

== ENCOUNTER 2025-04-04 16:14 | Emergency (ER) | payer MEDICAID, SELFPAY ==
[2025-04-04] VITALS (9 sets, daily range): BP systolic 116–152; BP diastolic 75–102; PULSE 73–97; RESP 12–20; TEMP 36.7; O2SAT 97–100; BMI 26.6
--- OUTSIDE RECORDS SUMMARY | 2025-04-04 16:27 | XMS_ITS | Clinical Summary ---
Author Organization [facility] Address [address] [place] [address] [place] [address] Phone Care Team Providers Care Copyright Expert Name Role Phone Unavailable Primary Care Provider Unavailabl e Allergies Active Allergy Reactions Criticality Noted Date Comments Amoxicillin Rash High 12/16/2020 Medications Dsdgb-3-TNW-EPA- Fish Oil (FISH OIL) 1,000 mg (120 [...] 2 left breast masses, one with alexx cherry sorter localization; Surgeon: Letitia Alexander MD; Location: [facility]TT [...] COVID-19 Vaccine ( season) 2024 Influenza Vaccine (#1) 2025 Hepatitis B Vaccine Completed 12/04/2001, 01/23/2001, 2000 Meningococcal B Vaccine Aged Out No l onger eligible based on patient's age to complete this topic Pneumococcal Vaccine 0-49 Aged Out No longer eligible based on patient's age to complete this topic Insurance [employer] [place] [id number] [place] [employer] [place] [address] [place] [place] [address] MDR
--- NOTE | 2025-04-04 16:30 | ECG_ITS ---
APPROVED REPORT Exam: Resting ECG HR:83 bpm ECG Measurements Heart Rate 83 AXES IN 122 P 50 QRSd 84 QRS 81 QT 373 T 59 QTc 413 Conclusion SINUS RHYTHM POSSIBLE RIGHT VENTRICULAR CONDUCTION DELAY [RSR (QR) IN V1/V2] BORDERLINE ECG UNCONFIRMED REPORT Electronically signed by : Ervin Mcbride, 04/04/2025 23:10:39
--- NOTE | 2025-04-04 16:39 | XR_ITS ---
PROCEDURE INFORMATION: Exam: XR Chest Exam date and time: 04/04/2025 4:55 PM Age: 24 years old Clinical indication: Shortness of breath; Additional info: Short of breath TECHNIQUE: Imaging protocol: Radiologic exam of the chest. Views: 1 view. COMPARISON: CR Chest 12/23/2024 2:05 AM FINDINGS: Tubes, catheters and devices: EKG leads. Lungs: Unremarkable. No consolidation. Pleural spaces: Unremarkable. No pleural effusion. No pneumothorax. Heart/Mediastinum: Unremarkable. No cardiomegaly. Bones/joints: Unremarkable. IMPRESSION: No acute findings.
[2025-04-04 16:47] LABS: Coronavirus 19, PCR Not Detected (NotDetected); Influenza A, PCR Not Detected (NotDetected); Influenza B, PCR Not Detected (NotDetected)
[2025-04-04 16:55] LABS: Hematocrit 39.2 % (37.0-47.0); Hemoglobin 13.1 g/dL (12.2-16.2); Immature Granulocytes % 0.2 %; Mean Corpuscular HGB Conc 33.4 g/dL (31.8-35.4); Mean Corpuscular Hemoglobin 28.9 pg (27.0-31.2); Mean Corpuscular Volume 86.5 fl (81-99); Nucleated Red Blood Cells % 0 %; Platelet Count 258 K/mm3 (142-424); Red Blood Count 4.53 M/mm3 (4.20-5.40); Red Cell Distribution Width-SD 38.9 fL; White Blood Count 5.6 K/mm3 (4.8-10.8)
[2025-04-04 17:05] LABS: Albumin Level 4.5 g/dl (3.5-5.0); Chloride 109 mmol/L (98-107); Potassium 3.9 mmoL/L (3.5-5.1); Sodium 141 mmol/L (136-145)
[2025-04-04 17:08] LABS: Alanine Aminotransferase 17 U/L (12-78); Albumin/Globulin Ratio 1.5 (1.1-1.8); Alkaline Phosphatase 54 U/L (38-126); Anion Gap 11.9 mEq/L (5-15); Aspartate Amino Transferase 26 U/L (14-36); Bilirubin,Total 0.6 mg/dl (0.2-1.3); Blood Urea Nitrogen 12 mg/dl (7-17); Calcium 9.1 mg/dl (8.4-10.2); Carbon Dioxide 24 mmol/L (22.0-30.0); Creatinine Clearance Estimated 132 mL/min (50-200); Creatinine,Serum 0.80 mg/dl (0.52-1.04); Estimated Glomerular Filt Rate 88 ml/min (>60); GFR (African American) 107 ML/MIN (>60); Globulin 3.0 g/dL (1.3-3.2); Glucose 100 mg/dl (74-100); Lipase 152 U/L (23-300); Magnesium 2.1 mg/dl (1.6-2.3); Total Protein,Serum 7.5 g/dl (6.3-8.2)
[2025-04-04 17:25] LABS: Troponin I < 0.01 ng/ml (0.00-0.034)
--- NOTE | 2025-04-04 17:31 | ED_ITS ---
<Statement entered by Delicia Mcbride MD - 04/04/25 22:58> I was consulted by the BRUNO, and we discussed the complexity of the problems being addressed. I approved the treatment and management plan for this patient's care in the emergency department, thus performing a substantive portion of the medical decision making. Delicia Mcbride MD, AZAM, FACEP Discharge Plan Disposition Patient Disposition: Home, Self-Care Prescriptions Prescriptions: No Action metformin 1,000 mg tablet,ER ramya.retention 24 hr PO Patient Comments: TAKE ONE (1) TABLET EVERY DAY BY ORAL ROUTE FOR 30 DAYS. (DME) OneTouch Verio test strips Strip See Rx Instructions .ROUTE .MEDSUPPLY Qty: 10 Patient Comments: DIRECTED TO TEST BLOOD SUGAR EVERY DAY Rx Instructions: As directed Repatha Syringe 140 mg/mL syringe 140 mg SQ Q2W 30 Days Qty: 3 2RF Referrals Follow up/Referrals: Venkatesh Garza APRN [Primary Care Provider, Medical] - See instructions Activity Restrictions/Add. Instructions Additional Instructions/Restrictions: Increase fluids and rest. Follow-up with PCP for further treatment and management. Clinical Impressions Clinical Impression: Chest pain Qualifiers: Chest pain type: other chest pain Qualified Code(s): R07.89 - Other chest pain Instructions Patient Instructions: DI for Chest Pain Print Language Print Language: Icelandic Discharge ED Provider: Delicia Mcbride General Adult HPI General Chief complaint: Chest Pain Stated complaint: numbness in chest and left arm Time Seen by Provider: 04/04/25 16:34 Mode of Arrival: Ambulatory Source of Information: Patient and Relative Description of Symptoms (Recalled from ER Triage Doc. by RN): pt is here for chest pain with left arm numbness and tingling x 2 days with soa History of Present Illness HPI narrative: 24-year-old female presents to the ED today with 2 days of chest pain and arm heaviness. She says that her arms will go numb and her chest will feel cold. She went to her PCP earlier in the week and got a steroid and antibiotic shot. She says she has been doing her inhalers because her chest has felt tight. She has no heart history she does have some lung nodules. She supposed to do breathing treatments but she has not been doing those. She otherwise has no fevers or chills. No nausea, vomiting or diarrhea. No other associated signs or symptoms. Related Data Home Medications ?Medication ?Instructions ?Recorded ?Confirmed metformin 1,000 mg 24 hr mg PO 01/07/25 03/18/25 tablet,extended release (gastric reten.) blood sugar diagnostic (ZaidaTouch #10 ea 02/15/2503/18 Verio test strips) Previous Rx's ?Medication ?Instructions ?Recorded evolocumab 140 mg/mL subcutaneous 140 mg SQ Q2W 30 day s #3 mL 04/02/25 syringe (Repatha Syringe) Allergies Allergy/AdvReac Type Severity Reaction Status Date / Time amoxicillin Allergy Unknown Verified 03/18/25 10:57 allergy reaction [facility] Disclaimer: The information contained in this section may have been updated after the patient was seen, as this information can be updated by other users. Medical History Other chest pain Social History Smoking Status: Never smoker alcohol intake: never current occupational status: other Travel in the last 8 weeks?: None Have you lived/traveled outside [place] in past 30 days?: No Contact w/someone who lives/traveled outside [place] past 30 days?: No Exposure to someone with infectious disease in past 14 days?: No Do you have a fever (greater than 100.4 F or 38 C)?: No Have you tested positive for COVID-19?: No Exposed to someone with COVID-19 in past 14 days?: No Do you have a sore throat?: No Do you have a cough?: No Do you have any weakness?: No Do you have any diarrhea?: No Are you experiencing any unusual bleeding?: No Do you have any muscle aches/pain?: No Do you have any abdominal pain?: No Are you experiencing loss of taste or smell?: No ROS Obtained: Yes Systems reviewed as appropriate & no additional complaints except as documented Constitutional Constitutional: Reports as per HPI Physical Exam General General appearance: alert Head Head exam: normocephalic Eye Eye exam: Present PERRL ENT ENT exam: Present normal exam and mucous membranes moist Neck Neck exam: Present trachea midline Chest Chest inspection: Present symmetric chest wall rise Respiratory Respiratory exam: Present normal lung sounds bilaterally Cardiovascular Cardiovascular exam: Present regular rate, normal rhythm, normal heart sounds, +S1 and +S2 Abdominal Exam Abdominal exam: Present soft and normal bowel sounds Extremities Exam Extremities exam: Present full ROM and normal capillary refill Back Exam Back exam: Present full ROM Neurological Exam Neurological exam: Present alert, oriented X3 and normal gait Psychiatric Psychiatric exam: Present normal mood Skin Skin exam: Present warm and dry Medical Decision Making Medical Records Screening: Per USPSTF and CDC recommendations, given the prevalence of disease in our region, it is our hospital?s policy to screen for HIV and viral Hepatitis for all patients aged 18 and over and those with ongoing risk factors. Lucio Inquiry Pt receiving controlled substance: No Lucio was queried for this patient: No Vital Signs: 04/04/25 16:23 04/04/25 16:26 04/04/25 16:50 Temperature 98.1 F Temperature Source Oral Pulse Rate 94 H 77 Pulse Rate [Left Radial] 87 Respiratory Rate 18 20 20 Blood Pressure 140/86 116/75 Blood Pressure [Right Arm] 152/102 H Blood Pressure Mean [Right Arm] 118 Blood Pressure Source Blood Pressure Position 02 Sat by Pulse Oximetry 98 99 100 Oxygen Delivery Method Room Air 04/04/25 16:57 04/04/25 17:00 04/04/25 17:30 Temperature Temperature Source Pulse Rate 87 83 73 Pulse Rate [Left Radial] Respiratory Rate 16 14 Blood Pressure 120/75 118/77 Blood Pressure [Right Arm] Blood Pressure Mean [Right Arm] Blood Pressure Source Blood Pressure Position 02 Sat by Pulse Oximetry 97 98 Oxygen Delivery Method 04/04/25 17:45 04/04/25 18:15 04/04/25 18:21 Temperature 98.1 F Temperature Source Temporal Artery Scan Pulse Rate 84 74 97 H Pulse Rate [Left Radial] Respiratory Rate 14 12 18 Blood Pressure 118/90 Blood Pressure [Right Arm] Blood Pressure Mean [Right Arm] Blood Pressure Source Automatic Cuff Blood Pressure Position Sitting 02 Sat by Pulse Oximetry 99 97 Oxygen Delivery Method Room Air Lab Data Lab Results 04/04/25 16:40: SARS-CoV-2 (PCR) Not detected, Influenza A Untype (PCR) Not detected, Influenza Type B (PCR) Not detected 04/04/25 16:50: WBC 5.6, RBC 4.53, Hgb 13.1, Hct 39.2, MCV 86.5, MCH 28.9, MCHC 33.4, RDW 12.3, Plt Count 258, MPV 10.7 H, Neut % (Auto) 59.2, Lymph % (Auto) 32.9, [place] % (Auto) 6.8, Eos % (Auto) 0.7, Baso % (Auto) 0.2, Neut # (Auto) 3.3, Lymph # (Auto) 1.8, [place] # (Auto) 0.4, Eos # (Auto) 0.0, Baso # (Auto) 0.0, Sodium 141, Potassium 3.9, Chloride 109 H, Carbon Dioxide 24, Anion Gap 11.9, BUN 12, Creatinine 0.80, Estimated Creat Clear 132, Estimated GFR 88, Est GFR ( Amer) 107, Glucose 100, Calcium 9.1, Magnesium 2.1, Total Bilirubin 0.6, AST 26, ALT 17, Alkaline Phosphatase 54, Troponin I < 0.01, Total Protein 7.5, Albumin 4.5, Globulin 3.0, Albumin/Globulin Ratio 1.5, Lipase 152 04/04/25 16:50 04/04/25 16:50 Orders (Tests/Meds): ORDERS Category Date Time Status Chest XR -- portable [XR chest portable] Stat Exams 04/04/25 16:39 Completed CBC [Complete Blood Count Auto Diff] Stat Lab 04/04/25 16:50 Completed Comprehensive Metabolic Panel Stat Lab 04/04/25 16:50 Completed Lipase Stat Lab 04/04/25 16:50 Completed Magnesium Stat Lab 04/04/25 16:50 Completed Rapid PCR Covid and Flu A/B Stat Lab 04/04/25 16:40 Completed Trop I [Troponin I] Stat Lab 04/04/25 16:50 Completed HEART Score History (anamnesis): Slightly suspicious ECG: Normal Age: <45 years Risk factors: No known risk factors Troponin: </= normal limit HEART Score: 0 Medical Decision Narrative: patient is a 24-year-old female presenting to the emergency department for evaluation of chest pain and heaviness in her arms. Patient is hemodynamically stable and nontoxic-appearing upon arrival, afebrile. Differential diagnosis includes ACS, asthma, viral illness, among others. Workup will be conducted with hematologic labs, specific imaging. Initial workup reviewed by me hematologic labs are remarkable for normal troponin and otherwise unremarkable labs. Imaging informally interpreted by me and remarkable for nothing acute. Formal imaging read remarkable for for nothing acute. Upon repeat evaluation patient's pain is improved. Patient will be discharged with follow-up with her primary care. Critical Care Critical Care Time Critical Care Time: No
--- NOTE | 2025-04-04 18:09 | PC.NURSE ---
Patient called out to be hooked back up to vitals and then asked when she would be able to get out of here. I informed her that Henny would be in to talk to her soon.
== END 2025-04-04 18:21 | disposition home or self-care (01) ==
PROVIDERS: Nurse Practitioner; Emergency Provider Student in an Organized Health Care Education/Training Program; PCP Nurse Practitioner Family
DX: R07.89 Other chest pain (principal); R06.02 Shortness of breath
CPT/HCPCS: 71045; 80053; 83690; 83735; 84484; 85025; 87636; 93005; 99285